=== PATIENT | female | born 2000 | race Caucasian/White ===

== ENCOUNTER 2024-06-30 15:50 | Outpatient (CLI) | payer BC, SELFPAY ==
[2024-07-05 03:07] LABS: Chlamydia By Nucleic Acid AMP Negative (Negative); Gonococcus By Nucleic Acid AMP Negative (Negative)
[2024-07-07 10:34] LABS: HPV Reflexed? NOT INDICATED
== END 2024-06-30 23:59 | disposition home or self-care (01) ==
LOC: LABSPEC 15:52
PROVIDERS: Referring Provider Advanced Practice Midwife; Visit Provider Advanced Practice Midwife
DX: Z12.4 Encounter for screening for malignant neoplasm of cervix (principal); Z34.00 Encounter for supervision of normal first pregnancy, unspecified trimester
CPT/HCPCS: 87086; 87088; 87491; 87591; 88175; G0145

== ENCOUNTER → 2024-07-04 | Outpatient (CLI) | payer BC, SELFPAY ==
[2024-07-04 17:02] LABS: Absolute Lymphocyte Count 1.44 X10^3/uL (0.83-4.51); Absolute Neutrophil Count 7.7 X10^3/uL (2.0-7.7); Basophil# 0.04 X10^3/uL; Basophil% 0.4 % (0-1); Eosinophil# 0.04 X10^3/uL; Eosinophils% 0.4 % (0-5); Hemoglobin 12.6 g/dL (12.0-15.0); Lymphocyte # 1.44 X10^3/ul (0.83-4.51); Lymphocyte % 14.4 % (19-41); Mean Corpuscular Volume 88.7 fL (81-99); Mean Platelet Vol. 10.7 fl (6.2-12.0); Monocyte# 0.81 X10^3/uL; Monocyte% 8.1 % (0-10); NRBC Flagged by Analyzer 0 % (0-5); Neutrophil # 7.65 X10^3/uL (2.7-7.7); Neutrophil % 76.4 % (47-70); Platelet Count 196 K/mm3 (150-450); RBC Distribution Width CV 13.2 % (11.6-14.6); RBC Distribution Width SD 42.5 fl (35.1-43.9); Red Blood Count 4.06 M/mm3 (4.2-5.4)
[2024-07-04 17:39] LABS: HIV Nonreactive (Nonreactive)
[2024-07-04 17:43] LABS: Hepatitis B Surface Antigen Nonreactive (Nonreactive); Hepatitis C Antibody Nonreactive (Nonreactive); Rubella IgG REAC (Nonreactive); Syphilis Antibodies Nonreactive (Nonreactive)
== END | disposition home or self-care (01) ==
PROVIDERS: Referring Provider Advanced Practice Midwife; Visit Provider Advanced Practice Midwife
DX: Z34.01 Encounter for supervision of normal first pregnancy, first trimester (principal)
CPT/HCPCS: 36415; 85025; 86703; 86762; 86780; 86803; 86850; 86900; 86901; 87340

== ENCOUNTER → 2024-11-01 | Outpatient (CLI) | payer BC, OTHER, SELFPAY ==
[2024-11-01 12:21] LABS: Hematocrit 34.2 % (37-47); Hemoglobin 11.5 g/dL (12.0-15.0); Immature Granulocytes Count 0.060 X10^3/uL (0.0-0.0); Mean Corp Hgb Conc 33.6 g/dL (32-36); Mean Corpuscular Volume 95.0 fL (81-99); Mean Platelet Vol. 11.2 fl (6.2-12.0); NRBC Flagged by Analyzer 0 % (0-5); Platelet Count 182 K/mm3 (150-450); RBC Distribution Width CV 12.7 % (11.6-14.6); RBC Distribution Width SD 43.9 fl (35.1-43.9); Red Blood Count 3.60 M/mm3 (4.2-5.4); White Blood Count 12.8 K/mm3 (4.4-11.0)
--- OUTSIDE RECORDS SUMMARY | 2024-11-01 12:29 | XMS RPT_ITS | CCD ---
Author Organization [facility] Care Team Providers Care Sccm Administrator Name Role Phone Cuate Copeland Unavailable Unavailable Robert Araiza Unavailable Unavailable Robert Araiza Unavailable Unavailable Litafshan, Achilles Akbar Primary Care Provider [phone] ODILON RODRIGUEZ Attending Unavailabl e LITAO, ACHILLES AKBAR Primary Care Unavailab le Oseguera KILN CLEANER-REAL PROPERTY APPRAISER, Loree D Primary Care Provider LOREE OSEGUERA Primary Care Unavailable OSEGUERA, LOREE D Primary Care Unavailable Oseguera KILN CLEANER-REAL PROPERTY APPRAISER, Loree D Unavailable [phone] NO, PHYSICIAN Primary Care Unavailable SHOSHANA PERRY Attending Unava ODILON Coto Attending Unavailable LOREE OSEGUERA Primary Care Unavailable Virginia Titus CNM Attending Provider [phone] Virginia Titus CNM Referring Provider SHELBIE MARTINEZ Referring Unavailab MADDY Eason Primary Care Unavailable SHELBIE MARTINEZ Attending Unavailab SHELBIE Mendieta Referring Unavailab JACKIE Lee Attending Unavailable MADDY CA Primary Care Unavailable SHELBIE MARTINEZ Referring Unavailab JACKIE Lee Attending Unavailable MADDY CA Primary Care Unavailable Dr. Shelbie Navarro DO Attending Provider Kathy OSUNA, Dr. Coleman Attending Provider Virginia Titus Attending Unavailable Virginia Titus Attending Unavailable Hilario CAMARA, Aranza Attending Unavailable Virginia Chavez Attending Unavailable Virginia Titus Referring Unavailable Virginia Titus Attending Unavailable Virginia Titus Referring Unavailable Virginia Titus Attending Unavailable Shelbie Navarro Attending UnavailVirginia Gastelum CNM Attending Provider Virginia Titus CNM Referring Provider [phone] Aranza Togn Attending Provider Allergies Allergy Classification Reported Allergen(s) Allergy Type Date of Onset Reaction(s) Facility (1 source) Seasonal allergy; Translations: [SEASONAL ALLERGIES] Propensity to adverse reactions (disorder) [facility] Repository Medications Current Medications Medication Drug Class(es) Dates Sig (Normalized) Sig (Original) [id number] 200 actuat albuterol 0.09 mg/actuat metered dose inhaler (4 sources) beta2-Adrenergic Agonist Start: 04-21-2023 take 2 puff(s) by inhalation every six hours for wheezing albuterol 90 mcg/actuation inhaler Indications: Asthma, exercise induced Inhale 2 puffs every 6 hours if needed for wheezing. 18 g 1 04/21/2023 Active Start: 11-25-2018 End: 04-21-2023 albuterol 90 mcg/actuation i nhaler Inhale 2 puffs. 0 11/25/2018 04/21/2023 Discontinued (Reorder) Start: 07-01-2017 albuterol (PRO VENTIL HFA) 90 mcg/actuation inhaler Inhale 2 puffs . 0 07/01/2017 Active azithromycin 250 mg oral tablet (1 source) Macrolide Antimicrobial Start: 04-21-2023 azithromycin (Zithromax) 250 mg tablet Indications: Acute non-recurrent maxillary sinusitis Take 2 tabs (500 mg) by mouth today, than 1 daily for 4 days. 6 tablet 0 04/21/2023 Active cetirizine hydrochloride 10 mg oral tablet (2 sources) Histamine-1 Receptor Antagonist Start: 04-12-2019 take 1 tablet by mouth once daily cetirizine (ZyrTEC) 10 mg tablet Take 1 tablet (10 mg) by mouth once daily. 0 04/12/2019 Active diphenhydrAMINE hydrochloride 50 mg oral capsule (4 sources) Histamine-1 Receptor Antagonist Start: 06-17-2024 take 1 capsule by mouth at bedtime Diphenhydramine Hcl (Unisom Sleepgels) 50 mg capsule Active 50 mg PO AT BEDTIME June 17, 2024 1:00am hydrocortisone 10 mg/ml / neomycin 3.5 mg/ml / polymyxin b 72053 unt/ml otic solution (1 source) Aminoglycoside Antibacterial, Polymyxin-class Antibacterial, Corticosteroid Start: 10-14-2018 End: 10-24-2018 neomycin-polymyxin- hydrocortisone (CORTISPORIN) otic solution Administer 4 (four) drops into the left ear 3 (three) times a day for 10 days . 10 mL 0 10/14/2018 10/24/2018 Active multivitamin capsule (2 sources) Start: 07-07-2012 take 1 capsule by mouth once daily multivitamin capsule Take 1 capsule by mouth once daily. 0 07/07/2012 Active Mv-Mn 427-Qr-Mh8-Dha-Epa-F violet 180 mcg-35 mg- 25 mg-5 mg tablet,chewable (2 sources) Start: 06-17-2024 Mv-Mn 525-Ld-Jm2-Dha-Epa- Fish 180 mcg-35 mg- 25 mg-5 mg tablet,chewable Active {tbl} PO June 17, 2024 1:00am Pnv No.719-Sj-Uz4-Dha-Ep a-Fish 180 mcg-35 mg- 25 mg-5 mg tablet,chewable (2 sources) Start: 06-17-2024 Pnv No.770-Jo-Ms4-Dha-E pa-Fish 180 mcg-35 mg- 25 mg-5 mg tablet,chewable Active {tbl} PO June 17, 2024 1:00am vitamin b6 100 mg oral tablet (4 sources) Start: 06-17-2024 take 1 tablet by mouth at bedtime Pyridoxine (Vitamin B6) 100 mg tablet Active 100 mg PO AT BEDTIME June 17, 2024 1:00am Completed/Discontinued Medications Medication Drug Class(es) Dates Sig (Normalized) Sig (Original) Acetaminophen / Dextromethorphan (2 sources) Uncompetitive T-bhvslj-T-aspartat e Receptor Antagonist, Sigma-1 Agonist End: 04-21-2023 acetaminophen/dex tromethorphan (ACETAMINOPHEN-DM ORAL) Take by mouth. 0 04/21/2023 Discontinued (Therapy completed) acetaminophen/de xtromethorphan (ACETAMINOPHEN-DM ORAL) Take by mouth. 0 Active Problems Active Problems Problem Classification Problem Date Documented Date Episodic/Chronic Abdominal pain (2 sources) Unspecified abdominal pain; Translations: [Unspecified abdominal pain] Onset: 09-03-2023 Episodic Asthma (6 sources) Exercise-induced asthma; Translations: [Exercise induced bronchospasm] Onset: 07-10-2017 09-23-2022 Chronic Other complications of (14 sources) Varicella non-immune; Translations: [Supervision of other high risk pregnancies, unspecified trimester] 06-17-2024 Episodic Other complications of (1 source) Supervision of other high risk pregnancies, unspecified trimester; Translations: [Supervision of other high risk pregnancies, unspecified trimester] Onset: 10-03-2024 Episodic Other ear and sense organ disorders (1 source) Acute otitis externa; Translations: [Acute swimmer's ear of left side] Episodic Other nutritional; endocrine; and metabolic disorders (2 sources) Intolerance to lactose; Translations: [Lactose intolerance, unspecified] Onset: 11-25-2018 09-23-2022 Chronic Other conditions (7 sources) choroid plexus cyst 09-08-2024 Episodic Comment on above: LR NIPT Other and delivery including normal (20 sources) Normal ; Translations: [Encounter for supervision of normal first , unspecified trimester] Onset: 07-13-2024 07-06-2024 Episodic Comment on above: PRR, , KAROLINA 01/30, Dominick([facility]) elects NIPT with gen melina PRR, , KAROLINA 01/30, boy, Dominick([facility]) NIPT low risk PRR, , KAROLINA 01/30, boy, Graidy Dominick([facility]) NIPT low risk, anato my reveiwed fu views needed Other screening for suspected conditions (not mental disorders or infectious disease) (3 sources) Other specified abnormal findings of blood chemistry; Translations: [Encounter for screening for malignant neoplasm of cervix] Onset: 03-03-2023 Episodic Other upper respiratory disease (2 sources) Allergic rhinitis; Translations: [Allergic rhinitis, unspecified] Onset: 04-12-2019 09-23-2022 Chronic Residual codes; unclassified (1 source) 23 weeks gestation of ; Translations: [23 weeks gestation of ] Onset: 10-03-2024 Episodic Unclassified (1 source) Other underimmunization status; Translations: [Other underimmunization status] Onset: 10-03-2024 Past or Other Problems Problem Classification Problem Date Documented Da te Episodic/Chronic Administrative/social admission (3 sources) Patient encounter status; Translations: [Persons encountering health services in other specified circumstances] Onset: 09-23-2022 09-23-2022 Episodic Other skin disorders (1 source) Acne; Translations: [Acne vulgaris] Onset: 11-25-2018 09-23-2022 Episodic Other skin disorders (1 source) Acne vulgaris; Translations: [Acne vulgaris] Onset: 11-25-2018 09-23-2022 Episodic Other upper respiratory infections (3 sources) Acute maxillary sinusitis; Translations: [Acute maxillary sinusitis, unspecified] Onset: 04-21-2023 04-21-2023 Episodic Residual codes; unclassified (1 source) 9 weeks gestation of ; Translations: [9 weeks gestation of ] Onset: 06-30-2024 Episodic Unclassified (2 sources) Onset: 09-23-2022 Resolved: 04-21-2023 09-23-2022 Results Test Name Value Interpretation Reference Range Facility Laboratory - Chemistry and C hemistry - challengeOrdered By: Virginia Titus on 10-03-2024 Glucose Ql (U) Negative [facility] Laboratory - UrinalysisOrder ed By: Virginia Titus on 10-03-2024 Protein Ql (U) Negative [facility] Office Visit Reporton 10-03-2024 [facility] Office Visit Report [facility] [address], [address] [place] [address] OFFICE VISIT Date of Service: 10/03/24 MR#: [id number] Acct: [id number] Name: RENUKA KWAN Rep #: [id number] : 2000 Provider: NAZANIN Cai ams Age/Sex: 24/F [place] [facility] [place]: [place] Intake Vital Signs 08/08/24 10:16 09/08/24 10:54 10/03/24 10:43 Height 5 ft 3 in 5 ft 3 in 5 ft 3 in Weight: 130 lb 4 oz BMI 23.1 BP 134/87 H Intake Visit Reasons: 21 wk ob Chief 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 Is patient in pain?: No Allergies No Known Allergies Allergy (Unverified 10/03/24 10:41) Medications ???Medication ???Instructions ???Recorded ???Confirmed ???Type diphenhydramine HCl 50 mg capsule 50 mg PO QHS 06/17/24 10/03/24 Hi story (Unisom SleepGels) mv-mn 110-FA 180 mcg-om3 35 mg-dha tab PO 06/17/24 10/03/24 History 25 mg-epa 5 mg-fish oil chew tablet pyridoxine (vitamin B6) 100 mg 100 mg PO QHS 06/17/24 10/03/24 Hi story tablet Last Menstrual Period: 04/25/24 : No Have you fallen in the past year?: No PFSH PFSH Medical History Asthma Surgical History Siloam teeth extracted Family History Grandmother Cancer, Onset Age: 75 Paternal- Kidney Father High cholesterol Social History adopted: No household members: spouse and other details: Sister Fiance housing: house current occupational status: employed current occupation: [employer]- [employer] current occupational exposures/hazards: No pets and animals: Yes pets and animals: dog(s) history of recent travel: No sexually active: Yes Smoking Status: Never smoker alcohol intake: current alcohol intake frequency: holidays/special occasions only details: not while substance use type: does not use well-balanced diet: daily or most days caffeine: No eating out: 1-3 times/week during the past year weight has: remained stable what type of physical activity do you participate in: walking frequency: 1-2 times per week duration: 15-30 minutes/day antoine/bahai: Christianity seatbelt use: always do you feel safe at home: No additional social history: Dominick- Landscaping/Marine History 1 Elective abortions Hx Para 0 Spontaneous abortions Hx # Term Pregnancies Ectopic pregnancies Hx # Pregnancies Multiple births # of living children HPI 21 wk ob Details: RENUKA KWAN is a 24 year old who presents for routine OB visit. OB Visit KAROLINA Calculator Estimated Delivery Date Method Current WG Current Estimate 01/30/25 LMP (Certain) 23w 0d Other Estimates 01/25/25 Ultrasound #1 23w 5d 01/25/25 Ultrasound #2 23w 5d Expected Delivery Route/Plan Labor Preferences- CB/BF classes: [] labor support person: [] labor intervention preferences: [] pain management options preferred: [] cut cord/dad catch: [] : [] PP control planned: [] discussed possible routes of delivery and associated risks: [] special requests: [] Specific Issue/Plans Covid status: [] Flu vaccine: [] Tdap vaccine: [] Rhogam: [] LARC form signed: [] Problem list reviewed and updated with the most current plan of care details and appropriate orders placed. Relevant counseling for the gestational age provided. Continue routine care and follow up unless otherwise noted in visit notes/problem list details Initial Weight: 115 lb Date -???-???-???-???-?? ?-???-???-???-???-? ??-???-???- EGA Weight BP Urine Prot -???-???-???-???-?? ?-???-???-???-???-? ??-???-???- Glucose FHR FuHt Pres Dilation -???-???-???-???-?? ?-???-???-???-???-? ??-???-???- Effaced St Visit Note 06/30/24 -???-???-???-???-?? ?-???-???-???-???-? ??-???-???- 9w 3d 115 lb 6 oz (+6 oz) 132/82 -???-???-???-???-?? ?-???-???-???-???-? ??-???-???- 169 -???-???-???-???-?? ?-???-???-???-???-? ??-???-???- KW CRL cons with dates. Accepts NIPT 08/08/24 -???-???-???-???-?? ?-???-???-???-???-? ??-???-???- 15w 0d 116 lb 8 oz (+1 lb 8 oz) 123/77 Negative -???-???-???-???-?? ?-???-???-???-???-? ??-???-???- Negative 144 -???-???-???-???-?? ?-???-???-???-???-? ??-???-???- JV- no cramp ing or spotting. anatomy ordered with mfm. 09/08/24 -???-???-???-???-?? ?-???-???-???-???-? ??-???-???- 19w 3d 125 lb (+10 lb) 133/75 Negative -???-???-???-???-?? ?-???-???-???-???-? ??-???-???- Negative 140 -???-???-???-???-?? ?-???-???-???-???-? ??-???-???- SM- no vb lo f crmaping anatomy reviewed 10/03/24 -???-???-???-???-?? ?-???-???-???-???-? ??-???-???- 23w 0d 130 (more content not included)... Normal [facility] Progress Noteon 09-15-2024 Registered Nurse Post Partum Authentication Interface Message Text [facility]- MEDICINE CONSULT Referring/Kyleein janet Provider: Shelbie Martinez, * PCP: Maddy Ca, FLOR-GURWINDER INDICATION FOR CONSULT: choroid plexus cyst and [...] 09/15/24 encounter (Office Visit) with Jackie Morales, Medication Sig Dispense Refill pyridoxine (B-6) 100 [...] biometry consistent with clinical dates. 2. 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 Choroid plexus cysts (ARMORED CAR GUARD AND DRIVER) are small fluid-filled structures within the [...] Comments) Pollen allergy- eyes swelling and itchy [facility] Laboratory - Chemistry and C hemistry - challengeOrdered By: Virginia Chavez on 09-08-2024 Glucose Ql (U) Negative [facility] Laboratory - UrinalysisOrder ed By: Virginia Chavez on 09-08-2024 Protein Ql (U) Negative [facility] Office Visit Reporton 09-08-2024 [facility] Office Visit Report [facility]'s [address], [address] [place] [address] OFFICE VISIT Date of Service: 09/08/24 MR#: [id number] Acct: [id number] Name: RENUKA KWAN Rep #: [id number] : 2000 Provider: Dr. Virginia sampson MD Age/Sex: 24/F [place] [facility] [place]: Signed Intake Vital Signs 06/30/24 14:27 08/08/24 10:16 09/08/24 10:49 09/08/24 10:54 Height 5 ft 3 in 5 ft 3 in 5 ft 3 in 5 ft 3 in Weight: 125 lb BMI 22.1 BP 133/75 H Intake Visit Reasons: 17 WK 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 Is patient in pain?: No Allergies No Known Allergies Allergy (Unverified 09/08/24 10:50) Medications ???Medication ???Instructions ???Recorded ???Confirmed ???Type diphenhydramine HCl 50 mg capsule 50 mg PO QHS 06/17/24 09/08/24 Hi story (Unisom SleepGels) mv-mn 110-FA 180 mcg-om3 35 mg-dha tab PO 06/17/24 09/08/24 History 25 mg-epa 5 mg-fish oil chew tablet pyridoxine (vitamin B6) 100 mg 100 mg PO QHS 06/17/24 09/08/24 Hi story tablet Last Menstrual Period: 04/25/24 Zika: Zika virus screening: Negative : No PFSH PFSH Medical History Asthma Surgical History Siloam teeth extracted Family History Grandmother Cancer, Onset Age: 75 Paternal- Kidney Father High cholesterol Social History adopted: No household members: spouse and other details: Sister Fiance housing: house current occupational status: employed 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 current occupational exposures/hazards: No pets and animals: Yes pets and animals: dog(s) history of recent travel: No sexually active: Yes Smoking Status: Never smoker alcohol intake: current alcohol intake frequency: holidays/special occasions only details: not while substance use type: does not use well-balanced diet: daily or most days caffeine: No eating out: 1-3 times/week during the past year weight has: remained stable what type of physical activity do you participate in: walking frequency: 1-2 times per week duration: 15-30 minutes/day antoine/bahai: Christianity seatbelt use: always do you feel safe at home: No additional social history: Dominick- Landscaping/Marine History 1 Elective abortions Hx Para 0 Spontaneous abortions Hx # Term Pregnancies Ectopic pregnancies Hx # Pregnancies Multiple births # of living children HPI 17 WK OB Details: RENUKA KWAN is a 24 year old who presents for routine OB visit. OB Visit KAROLINA Calculator Estimated Delivery Date Method Current WG Current Estimate 01/30/25 LMP (Certain) 19w 3d Other Estimates 01/25/25 Ultrasound #1 20w 1d 01/25/25 Ultrasound #2 20w 1d Expected Delivery Route/Plan Labor Preferences- CB/BF classes: [] labor support person: [] labor intervention preferences: [] pain management options preferred: [] cut cord/dad catch: [] : [] PP control planned: [] discussed possible routes of delivery and associated risks: [] special requests: [] Specific Issue/Plans Covid status: [] Flu vaccine: [] Tdap vaccine: [] Rhogam: [] LARC form signed: [] Problem list reviewed and updated with the most current plan of care details and appropriate orders placed. Relevant counseling for the gestational age provided. Continue routine care and follow up unless otherwise noted in visit notes/problem list details Initial Weight: 115 lb Date -???-???-???-???-?? ?-???-???-???-???-? ??-???-???- EGA Weight BP Urine Prot -???-???-???-???-?? ?-???-???-???-???-? ??-???-???- Glucose FHR FuHt Pres Dilation -???-???-???-???-?? ?-???-???-???-???-? ??-???-???- Effaced St Visit Note 06/30/24 -???-???-???-???-?? ?-???-???-???-???-? ??-???-???- 9w 3d 115 lb 6 oz (+6 oz) 132/82 -???-???-???-???-?? ?-???-???-???-???-? ??-???-???- 169 -???-???-???-???-?? ?-???-???-???-???-? ??-???-???- KW CRL cons with dates. Accepts NIPT 08/08/24 -???-???-???-???-?? ?-???-???-???-???-? ??-???-???- 15w 0d 116 lb 8 oz (+1 lb 8 oz) 123/77 Negative -???-???-???-???-?? ?-???-???-???-???-? ??-???-???- Negative 144 -???-???-???-???-?? ?-???-???-???-???-? ??-???-???- JV- no cramp ing or spotting. anatomy ordered with mfm. 09/08/24 -???-???-???-???-?? ?-???-???-???-???-? ??-???-???- 19w 3d 125 lb (+10 lb) 133/75 Negative -???-???-???-???-?? ?-???-???-???-???-? ??-???-???- Negative 140 -???-???-???-???-?? ?-???-???-???-???-? ??-???-???- SM- no vb lo f crmaping anatomy reviewed ACOG First Trimester First Trimester: Desire for pre (more content not included)... Normal [facility] Progress Noteon 09-05-2024 Registered Nurse Post Partum Authentication Interface Message Text Returned patient's call and reviewed overall benign findings with patient. Patient's questions and concerns were addressed. Patient scheduled for follow up ultrasound on 09/15/24. Normal [facility] - Chemistry and C hemistry - challengeOrdered By: Shelbie Britton on 08-08-2024 Glucose Ql (U) Negative [facility] Laboratory - UrinalysisOrder ed By: Shelbie Britton on 08-08-2024 Protein Ql (U) Negative [facility] Office Visit Reporton 08-08-2024 [facility] Office Visit Report [facility] [address], [address] [place] [address] OFFICE VISIT Date of Service: 08/08/24 MR#: [id number] Acct: [id number] Name: RENUKA KWAN Rep #: [id number] : 2000 Provider: Dr. 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 Is patient in pain?: No Allergies No Known Allergies Allergy (Unverified 08/08/24 10:12) Medications ???Medication ???Instructions ???Recorded ???Confirmed ???Type PNV 178-FA 180 mcg-om3 35 mg-dha tab PO 06/17/24 08/08/24 History 25 mg-epa 5 mg-fish oil chew tablet diphenhydramine HCl 50 mg capsule 50 mg PO QHS 06/17/24 08/08/24 Hi story (Unisom SleepGels) pyridoxine (vitamin B6) 100 mg 100 mg PO QHS 06/17/24 08/08/24 Hi story tablet Last Menstrual Period: 04/25/24 : No Have you fallen in the past year?: No PFSH PFSH Medical History Asthma Surgical History Siloam teeth extracted Family History Grandmother Cancer, Onset Age: 75 Paternal- Kidney Father High cholesterol Social History adopted: No household members: spouse and other details: Sister Fiance housing: house current occupational status: employed current occupation: [employer]- [employer] current occupational exposures/hazards: No pets and animals: Yes pets and animals: dog(s) history of recent travel: No sexually active: Yes Smoking Status: Never smoker alcohol intake: current alcohol intake frequency: holidays/special occasions only details: not while substance use type: does not use well-balanced diet: daily or most days caffeine: No eating out: 1-3 times/week during the past year weight has: remained stable what type of physical activity do you participate in: walking frequency: 1-2 times per week duration: 15-30 minutes/day antoine/bahai: Christianity seatbelt use: always do you feel safe at home: No additional social history: Dominick- Landscaping/Marine History 1 Elective abortions Hx Para 0 Spontaneous abortions Hx # Term Pregnancies Ectopic pregnancies Hx # Pregnancies Multiple births # of living children HPI 13 wk OB Details: RENUKA KWAN is a 24 year old who presents for routine OB visit. OB Visit KAROLINA Calculator Estimated Delivery Date Method Current WG Current Estimate 01/30/25 LMP (Certain) 15w 0d Other Estimates 01/25/25 Ultrasound #1 15w 5d 01/25/25 Ultrasound #2 15w 5d Expected Delivery Route/Plan Labor Preferences- CB/BF classes: [] labor support person: [] labor intervention preferences: [] pain management options preferred: [] cut cord/dad catch: [] : [] PP control planned: [] discussed possible routes of delivery and associated risks: [] special requests: [] Specific Issue/Plans Covid status: [] Flu vaccine: [] Tdap vaccine: [] Rhogam: [] LARC form signed: [] Problem list reviewed and updated with the most current plan of care details and appropriate orders placed. Relevant counseling for the gestational age provided. Continue routine care and follow up unless otherwise noted in visit notes/problem list details Initial Weight: 115 lb Date -???-???-???-???-?? ?-???-???-???-???-? ??-???-???- EGA Weight BP Urine Prot -???-???-???-???-?? ?-???-???-???-???-? ??-???-???- Glucose FHR FuHt Pres Dilation -???-???-???-???-?? ?-???-???-???-???-? ??-???-???- Effaced St Visit Note 06/30/24 -???-???-???-???-?? ?-???-???-???-???-? ??-???-???- 9w 3d 115 lb 6 oz (+6 oz) 132/82 -???-???-???-???-?? ?-???-???-???-???-? ??-???-???- 169 -???-???-???-???-?? ?-???-???-???-???-? ??-???-???- KW CRL cons with dates. Accepts NIPT 08/08/24 -???-???-???-???-?? ?-???-???-???-???-? ??-???-???- 15w 0d 116 lb 8 oz (+1 lb 8 oz) 123/77 Negative -???-???-???-???-?? ?-???-???-???-???-? ??-???-???- Negative 144 -???-???-???-???-?? ?-???-???-???-???-? ??-???-???- JV- no cramp ing or spotting. anatomy ordered with mfm. ACOG First Trimester First Trimester: Desire for , Alcohol, Tobacco Cessation, Illicit/Recreationa l Drug/Substance Use, Intimate Partner Violence, Barriers to care, Anticipated Course of Care, Use of Any medications, Sexual activity, Exercise, Dental Care, Sauna/Hot tub use, Seat Belt use, Childbirth clas (more content not included)... Normal [facility] Chlamydia/GC MABEL aptimaon CHLAMY,NUC ACID Negative Normal Negative [facility] Comment on above: Performed By: #### L 7000.1800, [id number], M100.2200 ####[facility] [id number] [place], [place], [id number] GC BY NUC ACID Negative Normal Negative [facility] Comment on above: Result Comment: Perf ormed at: =G - [facility] [address] [place] [id number] Maintenance Service Supervisor: Geovanna Torres MD, Phone: [id number] Performed By: #### L 7000.1800, L7400.0353, M100.2200 ####[facility] [address] [place], [place], [id number] PAP I-G w/rfx hrHPV-Aptimaon 07-05-2024 ADEQ Comment Normal . [facility] Comment on above: Order Comment: Speci men Comment: [id number] Comment: Source.............CervixSpecimen Comment: LMP / Prev Treat...[id number] Comment: Other..............Specimen Comment: No. of containers..01 ThinPrep Vial Result Comment: Sati sfactory for evaluation. No endocervical component is identified. Performed By: #### L 7000.1800, L7400.0353, M100.2200 ####[facility] [address] [facility]. [place], [place], [id number] COMM . Normal . [facility] Comment on above: Order Comment: Speci men Comment: [id number] Comment: Source.............CervixSpecimen Comment: LMP / Prev Treat...[id number] Comment: Other..............Specimen Comment: No. of containers..01 ThinPrep Vial Performed By: #### L 7000.1800, L7400.0353, M100.2200 ####[facility] [address] [place], [place], [id number] COMMENT Comment Normal . [facility] Comment on above: Order Comment: Speci men Comment: [id number] Comment: Source.............CervixSpecimen Comment: LMP / Prev Treat...[id number] Comment: Other..............Specimen Comment: No. of containers..01 ThinPrep Vial Result Comment: This liquid based ThinPrep(R) pap test was screened with the use of an image guided system. Performed By: #### L 7000.1800, L7400.0353, M100.2200 ####[facility] [address] [place], [address] DIAG Comment Normal . [facility] Comment on above: Order Comment: Speci men Comment: [id number] Comment: Source.............CervixSpecimen Comment: LMP / Prev Treat...[id number] Comment: Other..............Specimen Comment: No. of containers..01 ThinPrep Vial Result Comment: NEGA TIVE FOR INTRAEPITHELIAL LESION OR MALIGNANCY. Performed By: #### L 7000.1800, L7400.0353, .2199 ####[facility] [address] [place], [address] HPV RFLX Comment Normal . [facility] Comment on above: Order Comment: Speci men Comment: [id number] Comment: Source.............CervixSpecimen Comment: LMP / Prev Treat...[id number] Comment: Other..............Specimen Comment: No. of containers..01 ThinPrep Vial Result Comment: The HPV DNA reflex criteria were not met with this specimen result therefore, no HPV testing was performed. Performed at: [facility] [address] [place], [place] [id number] Maintenance Service Supervisor: Chaitanya Diaz MD, Phone: [phone] Performed at: - [address] [id number] Maintenance Service Supervisor: Geovanna Torres MD, Phone: [phone] Performed By: #### L 7000.1800, L7400.0353, M1.0 ####[facility] [address] [place], [place], [address] PAPSMR Comment Normal . [facility] Comment on above: Order Comment: Speci men Comment: [id number] Comment: Source.............CervixSpecimen Comment: LMP / Prev Treat...[id number] Comment: Other..............Specimen Comment: No. of containers..01 ThinPrep Vial Result Comment: The Pap smear is a screening test designed to aid in the detection of premalignant and malignant conditions of the uterine cervix. It is not a diagnostic procedure and should not be used as the sole means of detecting cervical cancer. Both false-positive and false-negative reports do occur. Performed By: #### L 7000.1800, L7400.0353, M100.2200 ####[facility] [address] [place], [place], [id number] PERFORM Comment Normal . [facility] Comment on above: Order Comment: Speci men Comment: [id number] Comment: Source.............CervixSpecimen Comment: LMP / Prev Treat...[id number] Comment: Other..............Specimen Comment: No. of containers..01 ThinPrep Vial Result Comment: Ioana Max, Information Systems Manager (ASCP) Performed By: #### L 7000.1800, L7400.0353, M100.2200 ####[facility] [address] [place], [place], [id number] Absolute lymphocyte countOrd ered By: Virginia Titus on 07-04-2024 Lymphocytes Auto (Unsp spec) [#/Vol] 1.44 10*3/uL 0.83-4.51 [facility] Absolute neutrophil countOrd ered By: Virginia Titus on 07-04-2024 Neutrophils (Bld) [#/Vol] 7.7 10*3/uL 2.0-7.7 [facility] Automated lymphocyte count a s percentage of total leukocytesOrdered By: Virginia Titus on 07-04-2024 Lymphocytes/100 WBC Auto (Unsp spec) 14.4 % Low 19-41 [facility] Basophil percentageOrdered B y: Virginia Titus on 07-04-2024 Basophils/100 WBC (Bld) 0.4 % 0-1 [facility] CBC W/Diff, Automatedon 06-18 Absolute Lymph 1.44 X10 3/uL Normal 0.83-4.51 [facility] Comment on above: Performed By: #### L 3890.6102, L900.0098, L3890.6006, BTS, L3890.6301, L100.0100, L509.4006, L509.8002 #### [facility] [address] [place], [address] Absolute Neut 7.7 X10 3/uL Normal 2.0-7.7 [facility] Comment on above: Performed By: #### L 3890.6102, L900.0098, L3890.6006, BTS, L3890.6301, L100.0100, L509.4006, L509.8002 #### [facility] [address] [place], [address] Basophils/100 WBC (Bld) 0.4 % Normal 0-1 [facility] Comment on above: Performed By: #### L 3890.6102, L900.0098, L3890.6006, BTS, L3890.6301, L100.0100, L509.4006, L509.8002 #### [facility] [address] [place], [address] Eosinophils/100 WBC (Bld) 0.4 % Normal 0-5 [facility] Comment on above: Performed By: #### L 3890.6102, L900.0098, L3890.6006, BTS, L3890.6301, L100.0100, L509.4006, L509.8002 #### [facility] [address] [place], [address] Erythrocyte distribution width (RBC) [Ratio] 13.2 % Normal 11.6-14.6 [facility] Comment on above: Performed By: #### L 3890.6102, L900.0098, L3890.6006, BTS, L3890.6301, L100.0100, L509.4006, L509.8002 #### [facility] [address] [place], [address] Hematocrit (Bld) [Volume fraction] 36.0 % Low 37-47 [facility] Comment on above: Performed By: #### L 3890.6102, L900.0098, L3890.6006, BTS, L3890.6301, L100.0100, L509.4006, L509.8002 #### [facility] [address] [place], [address] Hemoglobin (Bld) [Mass/Vol] 12.6 g/dL Normal 12.0-15.0 [facility] Comment on above: Performed By: #### L 3890.6102, L900.0098, L3890.6006, BTS, L3890.6301, L100.0100, L509.4006, L509.8002 #### [facility] [address] [place], [address] IG% 0.300 Normal 0.0-0.9 [facility] Comment on above: Result Comment: IG% - Immature Granulocytes (promyelocytes, myelocytes and metamyelocytes) > 1% indicates that a LEFT SHIFT is Present. Performed By: #### L 3890.6102, L900.0098, L3890.6006, BTS, L3890.6301, L100.0100, L509.4006, L509.8002 #### [facility] [address] [place], [address] Lymphocytes/100 WBC (Bld) 14.4 % Low 19-41 [facility] Comment on above: Performed By: #### L 3890.6102, L900.0098, L3890.6006, BTS, L3890.6301, L100.0100, L509.4006, L509.8002 #### [facility] [address] [place], [address] MCH (RBC) [Entitic mass] 31.0 pg Normal 27.0-32.0 [facility] Comment on above: Performed By: #### L 3890.6102, L900.0098, L3890.6006, BTS, L3890.6301, L100.0100, L509.4006, L509.8002 #### [facility] [address] [place], [address] MCHC (RBC) [Mass/Vol] 35.0 g/dL Normal 32-36 [facility] Comment on above: Performed By: #### L 3890.6102, L900.0098, L3890.6006, BTS, L3890.6301, L100.0100, L509.4006, L509.8002 #### [facility] [address] [place], [address] MCV (RBC) [Entitic vol] 88.7 fL Normal 81-99 [facility] Comment on above: Performed By: #### L 3890.6102, L900.0098, L3890.6006, BTS, L3890.6301, L100.0100, L509.4006, L509.8002 #### [facility] [address] [place], [address] Monocytes/100 WBC (Bld) 8.1 % Normal 0-10 [facility] Comment on above: Performed By: #### L 3890.6102, L900.0098, L3890.6006, BTS, L3890.6301, L100.0100, L509.4006, L509.8002 #### [facility] [address] [place], [address] Neutrophils/100 WBC (Bld) 76.4 % High 47-70 [facility] Comment on above: Performed By: #### L 3890.6102, L900.0098, L3890.6006, BTS, L3890.6301, L100.0100, L509.4006, L509.8002 #### [facility] [address] [place], [address] Nucleated RBC (Bld) [#/Vol] 0 10*3/uL Normal 0-5 [facility] Comment on above: Performed By: #### L 3890.6102, L900.0098, L3890.6006, BTS, L3890.6301, L100.0100, L509.4006, L509.8002 #### [facility] [address] [place], [address] Platelet mean volume (Bld) [Entitic vol] 10.7 fL Normal 6.2-12.0 [facility] Comment on above: Performed By: #### L 3890.6102, L900.0098, L3890.6006, BTS, L3890.6301, L100.0100, L509.4006, L509.8002 #### [facility] [address] [place], [address] Platelets (Bld) [#/Vol] 196 10*3/uL Normal 150-450 [facility] Comment on above: Performed By: #### L 3890.6102, L900.0098, L3890.6006, BTS, L3890.6301, L100.0100, L509.4006, L509.8002 #### [facility] [address] [place], [address] RBC (Bld) [#/Vol] 4.06 10*6/uL Low 4.2-5.4 [facility] Comment on above: Performed By: #### L 3890.6102, L900.0098, L3890.6006, BTS, L3890.6301, L100.0100, L509.4006, L509.8002 #### [facility] [address] [place], [address] RDW SD 42.5 fl Normal 35.1-43.9 [facility] Comment on above: Performed By: #### L 3890.6102, L900.0098, L3890.6006, BTS, L3890.6301, L100.0100, L509.4006, L509.8002 #### [facility] [address] [place], [address] WBC (Bld) [#/Vol] 10.0 10*3/uL Normal 4.4-11.0 [facility] Comment on above: Performed By: #### L 3890.6102, L900.0098, L3890.6006, BTS, L3890.6301, L100.0100, L509.4006, L509.8002 #### [facility] [address] [place], [address] Eosinophil percentageOrdered By: Virginia Titus on 07-04-2024 Eosinophils/100 WBC (Bld) 0.4 % 0-5 [facility] Erythrocyte distribution wid th ratioOrdered By: Virginia Titus on 07-04-2024 Erythrocyte distribution width (RBC) [Ratio] 13.2 % 11.6-14.6 [facility] Erythrocyte distribution wid th standard deviationOrdered By: Virginia Titus on 07-04-2024 Erythrocyte distribution width (RBC) [Entitic vol] 42.5 fL 35.1-43.9 [facility] Erythrocyte distribution width (RBC) [Ratio] 42.5 fl 35.1-43.9 [facility] HBV surface Ag Ql (S)Ordered By: Virginia Titus on 07-04-2024 Hepatitis B Surface Antigen Non-Reactive Nonreactive [facility] Comment on above: Reactive: Presumptiv e evidence of HBV. Repeatedly reactive samples must be confirmed using a neutralization test ([employer] HBsAg Confirmatory Test)Non-Reactive: HBsAg not detected; does not exclude the possibility of exposure to HBV Hematocrit Auto (Bld) [Volum e fraction]Ordered By: Virginia Titus on 07-04-2024 Hematocrit (Bld) [Volume fraction] 36.0 % Low 37-47 [facility] Hemoglobin measurementOrdere d By: Virginia Titus on 07-04-2024 Hemoglobin (Bld) [Mass/Vol] 12.6 g/dL 12.0-15.0 [facility] Hepatitis C antibodyOrdered By: Virginia Titus on 07-04-2024 Hepatitis C Antibody Non-Reactive Nonreactive [facility] Comment on above: Reactive: Presumptiv e evidence of antibodies to HCV. Follow CDC recommendations for supplemental testing.Non-Reactive: Antibodies to HCV were not detected; does not exclude the possibility of exposure to HCVReactive Results are presumptive evidence of antibodies to HCV. Follow CDC recommendations for supplemental testing.Order confirmation testing: HCV Quant by PCR testing - HCVPCR #[id number] Non Reactive: < 0.8 Equivocal: >/= 0.8 to < 1.0 Reactive: >/= 1.0The CDC requires that a reactive/equivocal HCV antibody result be sent out for confirmation. HCV Quant by PCR testing. Immature granulocytes/100 WB C Auto (Bld)Ordered By: Virginia Titus on 07-04-2024 Immature granulocytes/100 WBC (Bld) 0.300 % 0.0-0.9 [facility] Comment on above: IG% - Immature Granu locytes (promyelocytes, myelocytes and metamyelocytes) > 1% indicates that a LEFT SHIFT is Present. L3890.6006on 07-04-2024 HIV Non-Reactive Normal Nonreactive [facility] Comment on above: Result Comment: Non- Reactive Reactive Repeatedly reactive samples must be confirmed according to CDC recommended confirmatory algorithms. The subresults for either HIVAG or AHIV can be used as an aid in the selection of the confirmation algorithm for reactive samples. Send out specimens with Reactive results to [facility] for confirmation. Order the HIV antibody detection and differentiation: [id number] Performed By: #### L 3890.6102, L900.0098, L3890.6006, BTS, L3890.6301, L100.0100, L509.4006, L509.8002 #### [facility] [address] [facility] [place], [address] L3890.6102on 07-04-2024 HEP B Surf Ag Non-Reactive Normal Nonreactive [facility] Comment on above: Result Comment: Reac tive: Presumptive evidence of HBV. Repeatedly reactive samples must be confirmed using a neutralization test ([employer] HBsAg Confirmatory Test) Non-Reactive: HBsAg not detected; does not exclude the possibility of exposure to HBV Performed By: #### L 3890.6102, L900.0098, L3890.6006, BTS, L3890.6301, L100.0100, L509.4006, L509.8002 #### [facility] [address] [place], [address] L3890.6301on 07-04-2024 Hepatitis C Ab Non-Reactive Normal Nonreactive [facility] Comment on above: Result Comment: Reac tive: Presumptive evidence of antibodies to HCV. Follow CDC recommendations for supplemental testing. Non-Reactive: Antibodies to HCV were not detected; does not exclude the possibility of exposure to HCV Reactive Results are presumptive evidence of antibodies to HCV. Follow CDC recommendations for supplemental testing. Order confirmation testing: HCV Quant by PCR testing - HCVPCR #[id number] Non Reactive: < 0.8 Equivocal: >/= 0.8 to < 1.0 Reactive: >/= 1.0 The CDC requires that a reactive/equivocal HCV antibody result be sent out for confirmation. HCV Quant by PCR testing. Performed By: #### L 3890.6102, L900.0098, L3890.6006, BTS, L3890.6301, L100.0100, L509.4006, L509.8002 ####[facility] [address] [place], [address] L509.4006on 07-04-2024 Rubella IgG REAC Normal Nonreactive [facility] Comment on above: Result Comment: Anti body Result: Interpretation Non-Reactive: Non-Immune Reactive: Immune The following results were obtained with the [employer] Rubella IgG assay. Results from assays of other manufacturers cannot be used interchangeably. Performed By: #### L 3890.6102, L900.0098, L3890.6006, BTS, L3890.6301, L100.0100, L509.4006, L509.8002 #### [facility] [address] [facility] [place], [place], [address] L509.8002on 07-04-2024 Syphilis Abs Non-Reactive Normal Nonreactive [facility] Comment on above: Performed By: #### L 3890.6102, L900.0098, L3890.6006, BTS, L3890.6301, L100.0100, L509.4006, L509.8002 #### [facility] [address] [facility] [place], [place], [address] Laboratory - Microbiology an d Antimicrobial susceptibilityOrdered By: Virginia Titus on 07-04-2024 HBV surface Ag Ql (S) Non-Reactive Nonreactive [facility] Comment on above: Reactive: Presumptiv e evidence of HBV. Repeatedly reactive samples must be confirmed using a neutralization test ([employer] HBsAg Confirmatory Test)Non-Reactive: HBsAg not detected; does not exclude the possibility of exposure to HBV Lymphocytes Auto (Unsp spec) [#/Vol]Ordered By: Virginia Titus on 07-04-2024 Lymphocytes (Bld) [#/Vol] 1.44 10*3/uL 0.83-4.51 [facility] Lymphocytes/100 WBC Auto (Un sp spec)Ordered By: Virginia Titus on 07-04-2024 Lymphocytes/100 WBC (Bld) 14.4 % Low 19-41 [facility] MCV (mean corpuscular volume ) determinationOrdered By: Virginia Titus on 07-04-2024 MCV (RBC) [Entitic vol] 88.7 fL 81-99 [facility] Mean corpuscular hemoglobin (MCH) determinationOrdered By: Virginia Titus on 07-04-2024 MCH (RBC) [Entitic mass] 31.0 pg 27.0-32.0 [facility] Mean corpuscular hemoglobin concentration (MCHC) determinationOrdered By: Virginia Titus on 07-04-2024 MCHC (RBC) [Mass/Vol] 35.0 g/dL 32-36 [facility] Mean platelet volume determi nationOrdered By: Virginia Titus on 07-04-2024 Platelet mean volume (Bld) [Entitic vol] 10.7 fL 6.2-12.0 [facility] Miscellaneous procedureOrder ed By: Virginia Titus on 07-04-2024 Miscellaneous Test Comment SEE SCANNED REPORT [facility] Monocyte percentageOrdered B y: Virginia Titus on 07-04-2024 Monocytes/100 WBC (Bld) 8.1 % 0-10 [facility] NATERAon 07-04-2024 NATURA SEE SCANNED REPORT Normal [facility] Comment on above: Order Comment: Comme nts: NIPT with Gender Carrier testing Performed By: #### L 3890.6102, L900.0098, L3890.6006, BTS, L3890.6301, L100.0100, L509.4006, L509.8002 #### [facility] [address] [place], [address] Neutrophil percentageOrdered By: Virginia Titus on 07-04-2024 Neutrophils/100 WBC (Bld) 76.4 % High 47-70 [facility] No Panel InformationOrdered By: Virginia Titus on 07-04-2024 HIV (1&2) Antibody Non-Reactive Nonreactive [facility] Comment on above: Non-ReactiveReactive Repeatedly reactive samples must be confirmed according to CDC recommended confirmatory algorithms. The subresults for either HIVAG or AHIV can be used as an aid in the selection of the confirmation algorithm for reactive samples.Send out specimens with Reactive results to [facility] for confirmation.Order the HIV antibody detection and differentiation: #[id number] Nucleated red blood cell per centageOrdered By: Virginia Titus on 07-04-2024 Nucleated RBC/100 WBC (Bld) [Ratio] 0 % 0-5 [facility] Platelet countOrdered By: Babak Titus on 07-04-2024 Platelets (Bld) [#/Vol] 196 10*3/uL 150-450 [facility] RBC Auto (Bld) [#/Vol]Ordere d By: Virginia Titus on 07-04-2024 RBC (Bld) [#/Vol] 4.06 10*6/uL Low 4.2-5.4 [facility] Rubella immune status determ ination by IgG antibody assayOrdered By: Virginia Titus on 07-04-2024 Rubella IgG Antibody REAC Nonreactive [facility] Comment on above: Antibody Result: Int erpretationNon-Reactive: Non-ImmuneReactive: ImmuneThe following results were obtained with the [employer] Rubella IgG assay. Results from assays of other manufacturers cannot be used interchangeably. T. pallidum abOrdered By: aBbak Titus on 07-04-2024 Syphilis Total Antibody Non-Reactive Nonreactiv e [facility] Type AND Screenon 07-04-2024 ABO and Rh group Nom (d) Blood group O Rh(D) positive Normal [facility] Comment on above: Order Comment: PN Performed By: #### L 3890.6102, L900.0098, L3890.6006, BTS, L3890.6301, L100.0100, L509.4006, L509.8002 ####[facility] [address] [place], [place], [id number] White blood cell (WBC) count Ordered By: Virginia Titus on 07-04-2024 WBC (Bld) [#/Vol] 10.0 10*3/uL 4.4-11.0 [facility] Urine Cultureon 07-03-2024 URC Below infection level. Mixed Gram Positive Organisms Bow Count 1000-10,000 MIXC Mixed contaminants. Submit a new specimen if indicated. Normal [facility] Comment on above: Performed By: #### L 7000.1800, L7400.0353, M100.2200 ####[facility] [address] [place], [place], [id number] C. trachomatis rRNA MABEL+prob e Ql (Unsp spec)Ordered By: Virginia Titus on 06-30-2024 Chlamydia DNA (MABEL) Negative Negative [facility] Cervical or vagninal specime n microscopic examination by cytology stain (reported asOrdered By: Virginia Titus on 06-30-2024 Cytology report Cyto stain Doc (Cvx/Vag) Comment . [facility] Comment on above: The Pap smear is a s creening test designed to aid in thedetection of premalignant and malignant conditions of theuterine cervix. It is not a diagnostic procedure andshould not be used as the sole means of detecting cervicalcancer. Both false-positive and false-negative reports dooccur. Chlamydia trachomatis rRNA d etection by probe and target amplification methodOrdered By: Virginia Titus on 06-30-2024 C. trachomatis rRNA MABEL+probe Ql (Unsp spec) Negative Negative [facility] Boiler House Inspector Cyto stain Nom (C vx/Vag) [ID]Ordered By: Virginia Titus on 06-30-2024 Pap Smear Performed By Comment . [facility] Comment on above: Ioana Max, Cytotec hnologist (ASCP) Cytology report Cyto stain D oc (Cvx/Vag)Ordered By: Virginia Titus on 06-30-2024 Thin Prep Pap Smear Comment . [facility] Comment on above: The Pap smear is a s creening test designed to aid in thedetection of premalignant and malignant conditions of theuterine cervix. It is not a diagnostic procedure andshould not be used as the sole means of detecting cervicalcancer. Both false-positive and false-negative reports dooccur. Image-guided ThinPrep PapOrd ered By: Virginia Titus on 06-30-2024 Pap Smear Note Comment . [facility] Comment on above: This liquid based Th inPrep(R) pap test was screened withthe use of an image guided system. Image-guided liquid-based Pa pOrdered By: Virginia Titus on 06-30-2024 Pap Smear Diagnosis Comment . [facility] Comment on above: NEGATIVE FOR INTRAEP ITHELIAL LESION OR MALIGNANCY. Image-guided liquid-based ce rvical Pap w high-risk HPV+reflex to HPV 16+18Ordered By: Virginia Titus on 06-30-2024 Human Papillomavirus Screen Comment . [facility] Comment on above: The HPV DNA reflex c riteria were not met with this specimenresult therefore, no HPV testing was performed.Performed at: [facility] Cyto [address] [facility], [place], [place] [id number] Director: Chaitanya Diaz MD, Phone: [phone] at: [facility] [address] [id number] Director: Geovanna Torres MD, Phone: [phone] Laboratory - CytologyOrdered By: Virginia Titus on 06-30-2024 Boiler House Inspector Cyto stain Nom (Cvx/Vag) [ID] Comment . [facility] Comment on above: Ioana Max, Cytotec hnologist (ASCP) Laboratory - Miscellaneous t estsOrdered By: Virginia Titus on 06-30-2024 Service comment (Unsp spec) [Interp] . . [facility] Neisseria gonorrhoeae nuclei c acid detection by amplified probe techniqueOrdered By: Virginia Titus on 06-30-2024 N. gonorrhoeae DNA MABEL+probe Ql (Unsp spec) Negative Negative [facility] Comment on above: Performed at: =G - [facility] [address] [id number] Director: Geovanna Torres MD, Phone: [phone] No Panel InformationOrdered By: Virginia Titus on 06-30-2024 Pap Smear Specimen Adequacy Comment . [facility] Comment on above: Satisfactory for corrine luation. No endocervical component is identified. [facility] Office Visit Reporton 06-30-2024 [facility] Office Visit Report [facility] [address], [address] [place] [address] OFFICE VISIT Date of Service: 06/30/24 MR#: [id number] Acct: [id number] Name: RENUKA KWAN Rep #: [id number] : 2000 Provider: NAZANIN Cai ams Age/Sex: 24/F Location: [facility] Status: Signed Intake Vital Signs 06/30/24 14:27 Height 5 ft 3 in Weight: 115 lb 6 oz BMI 20.4 BP 132/82 H Intake Visit Reasons: NOB LMP 04/25 Chief Complaint: New OB Is patient in pain?: No Allergies No Known Allergies Allergy (Unverified 06/30/24 14:21) Medications ???Medication ???Instructions ???Recorded ???Confirmed ???Type PNV 178-FA 180 mcg-om3 35 mg-dha tab PO 06/17/24 06/30/24 History 25 mg-epa 5 mg-fish oil chew tablet diphenhydramine HCl 50 mg capsule 50 mg PO QHS 06/17/24 06/30/24 Hi story (Unisom SleepGels) pyridoxine (vitamin B6) 100 mg 100 mg PO QHS 06/17/24 06/30/24 Hi story tablet Last Menstrual Period: 04/25/24 : Yes PFSH PFSH Medical History Asthma Surgical History Siloam teeth extracted Family History Grandmother Cancer, Onset Age: 75 Paternal- Kidney Father High cholesterol Social History adopted: No household members: spouse and other details: Sister Fiance housing: house service: No current occupational status: employed 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 current occupational exposures/hazards: No pets and animals: Yes pets and animals: dog(s) history of recent travel: No sexually active: Yes Smoking Status: Never smoker alcohol intake: current alcohol intake frequency: holidays/special occasions only details: not while substance use type: does not use well-balanced diet: daily or most days caffeine: No eating out: 1-3 times/week during the past year weight has: remained stable what type of physical activity do you participate in: walking frequency: 1-2 times per week duration: 15-30 minutes/day antoine/bahai: Christianity seatbelt use: always do you feel safe at home: No additional social history: Dominick- Landscaping/Marine History 1 Elective abortions Hx Para 0 Spontaneous abortions Hx # Term Pregnancies Ectopic pregnancies Hx # Pregnancies Multiple births # of living children HPI NOB LMP 04/25 Details: RENUKA KWAN is a 24 year old who presents for New OB visit. OB Visit KAROLINA Calculator Estimated Delivery Date Method Current WG Current Estimate 01/30/25 LMP (Certain) 9w 3d Other Estimates 01/25/25 Ultrasound #1 10w 1d Comments: HIV: Urine Culture: Sequential Screen: NIPT Screen: Estimated Due Date: 01/30/25 Expected Delivery Route/Plan Labor Preferences- CB/BF classes: [] labor support person: [] labor intervention preferences: [] pain management options preferred: [] cut cord/dad catch: [] : [] PP control planned: [] discussed possible routes of delivery and associated risks: [] special requests: [] Specific Issue/Plans Covid status: [] Flu vaccine: [] Tdap vaccine: [] Rhogam: [] LARC form signed: [] Problem list reviewed and updated with the most current plan of care details and appropriate orders placed. Relevant counseling for the gestational age provided. Continue routine care and follow up unless otherwise noted in visit notes/problem list details Initial Weight: 115 lb Date -???-???-???-???-?? ?-???-???-???-???-? ??-???-???- EGA Weight BP Urine Prot -???-???-???-???-?? ?-???-???-???-???-? ??-???-???- Glucose FHR FuHt Pres Dilation -???-???-???-???-?? ?-???-???-???-???-? ??-???-???- Effaced St Visit Note 06/30/24 -???-???-???-???-?? ?-???-???-???-???-? ??-???-???- 9w 3d 115 lb 6 oz (+6 oz) 132/82 -???-???-???-???-?? ?-???-???-???-???-? ??-???-???- 169 -???-???-???-???-?? ?-???-???-???-???-? ??-???-???- KW CRL cons with dates. Accepts NIPT Menstrual History Last Menstrual Period: 04/25/24 Reported LMP: definite Normal amount/duration: Yes Frequency in days: 28 On hormonal BC at conception: No hCG+: 05/22/24 Antepartum Record Genetic Screening: Congenital Heart Defect: Other, Neural Tube Defect: Other, Hemoglobinopathy Or Carrier: Other, Cystic Fibrosis: Other, Chromosome Abnormality: Other, Mario-Sachs: Other, Hemophilia: Other, Intellectual Disability/Autism: Other, Recurrent Loss/Stillbirth: Other, Other Structural Defect: Other, Other Genetic Disease: Other and Maternal Metabolic Disorder: Other Infection History: Live with someone with TB or Exposed (more content not included)... Normal [facility] Service comment (Unsp spec) [Interp]Ordered By: Virginia Titus on 06-30-2024 Pap Smear Comment (3) . . [facility] Urine cultureOrdered By: Kyree Titus on 06-30-2024 Bacteria identified Cx Nom (U) Positive Abnormal [facility] CT ABDOMEN PELVIS WITH IV CO NTRAST ONLYon 09-03-2023 CT ABDOMEN PELVIS WITH IV CONTRAST ONLY EXAMINATION: CT ABDOMEN PELVIS WITH IV CONTRAST ONLY HISTORY: abdominal pain Injury/Trauma or Illness?:Illness/Ot her How long have you had these symptoms (acute/chronic)?:Ac cahto Reason for exam?:RLQ pain x 4 days Type of Exam?:Initial Additional signs and symptoms?:nausea, bloating R10.9 Abdominal pain, unspecified abdominal location COMPARISON: None TECHNIQUE: CT examination of the abdomen and pelvis following the administration of intravenous contrast. Coronal and sagittal reformations were performed. Dose reduction techniques were achieved by using automated exposure control and/or adjustment of mA and/or kV according to patient size and/or use of iterative reconstruction technique. CONTRAST: IOPAMIDOL 370 MG IODINE/ML (76 %) INTRAVENOUS SOLUTION - 75 mL, FINDINGS: LOWER CHEST: Normal. ABDOMEN: Liver: No acute abnormalities. Bile ducts: Normal caliber. Gallbladder: No calcified gallstones. Normal caliber wall. Pancreas: Normal. Spleen: Normal. Adrenals: Normal. Kidneys: Punctate nonobstructing interpolar right nephrolithiasis. No left nephrolithiasis. Symmetric renal enhancement. No enhancing renal mass. There is no ureterolithiasis. No obstructive uropathy. PELVIS: Reproductive organs: Normal uterus. Ovarian follicular changes bilaterally with a dominant follicle on the left, 2.5 cm. No concerning adnexal mass present. Free fluid also present in the pelvis presumably physiologic. Ureters: Normal. Bladder: Unremarkable as imaged. OTHER ABDOMEN AND PELVIS: Bowel: Stomach is unremarkable as visualized. No bowel obstruction present. Stool burden is appropriate. Normal appendix. Normal terminal ileum. No infectious or inflammatory bowel disease. Peritoneum: Trace free fluid in the pelvis. No free air. No drainable fluid collection. Vessels: Normal heart size without pericardial effusion. No aortic aneurysm or large vessel occlusion. No portal vein thrombus. Lymph nodes: No enlarged inguinal, iliac chain or pelvic sidewall lymph nodes. No aortocaval, retroperitoneal or mesenteric adenopathy. Abdominal wall: Normal. Osseous structures: No destructive lesions. IMPRESSION: 1. Normal appendix. 2. Punctate nonobstructing right nephrolithiasis. 3. Ovarian follicular changes as above. No concerning adnexal mass. Free fluid also present in the pelvis. Findings are likely physiologic. Workstation ID: [id number] Dictated by: YU PERRY on ThuSeptember 03, 2023 6:21:04 PM EDT Transcribed by: YU PERRY on ThuSeptember 03, 2023 6:21:04 PM EDT Finalized by: YU PERRY on ThuSeptember 03, 2023 6:21:04 PM EDT [facility] Comment on above: Order Comment: Injur y/Trauma or Illness?:Illness/Other How long have you had these symptoms (acute/chronic)?:Acute Reason for exam?:RLQ pain x 4 days Type of Exam?:Initial Additional signs and symptoms?:nausea, bloating ED Prov Noteon 09-03-2023 ED Prov Note ED PROVIDER NOTE [facility] NAME: Renuka Kwan AGE: 23 y.o. : 2000 VISIT DATE: 09/03/2023 CSN: [id number] PCP: No, Physician Chief Complaint Patient presents with Abdominal Pain Patient is a 23-year-old female with a past medical history of asthma presents today for concern of abdominal pain. Patient states the last 4 days she has right lower quadrant abdominal pain that is currently a 6 out of 10. Patient states she has had associated nausea but denies any vomiting recently for last 1 day. Patient denies any associated urinary symptoms, vaginal symptoms, chest pain, shortness of breath, fevers, flank pain, lightheadedness, dizziness or syncope. Patient been eating and drinking normal with normal urine output. Past Medical History: Diagnosis Date Asthma sports induced History reviewed. No pertinent surgical history. History reviewed. No pertinent family history. Social History Socioeconomic History Marital status: Single Tobacco Use Smoking status: Never Smokeless tobacco: Never Vaping Use Vaping Use: Never used Substance and Sexual Activity Alcohol use: Never Drug use: Never No current outpatient medications on file prior to encounter. No Known Allergies Review of Systems Constitutional: Negative for chills and fever. Eyes: Negative for pain. Respiratory: Negative for cough, chest tightness and shortness of breath. Cardiovascular: Negative for chest pain and palpitations. Gastrointestinal: Positive for abdominal pain and nausea. Negative for vomiting. Genitourinary: Negative for flank pain. Musculoskeletal: Negative for arthralgias and myalgias. Skin: Negative for rash. Neurological: Negative for dizziness, syncope, light-headedness and headaches. Psychiatric/Behavio ral: Negative for agitation. All other systems reviewed and are negative. Patient Vitals for the past 24 hrs: BP Temp Temp src Pulse Resp SpO2 Height Weight 09/03/23 1631 129/85 99.6 degrees F (37.6 degrees C) Temporal (!) 105 18 98 % 5' 3 59 kg (130 lb) Physical Exam Vitals and nursing note reviewed. Constitutional: Appearance: Normal appearance. HENT: Head: Normocephalic. Eyes: Pupils: Pupils are equal, round, and reactive to light. Cardiovascular: Rate and Rhythm: Normal rate and regular rhythm. Pulses: Normal pulses. Heart sounds: Normal heart sounds. Musculoskeletal: Cervical back: Normal range of motion. Pulmonary: Effort: Pulmonary effort is normal. Breath sounds: Normal breath sounds. Abdominal: General: Abdomen is flat. Palpations: Abdomen is soft. Tenderness: There is abdominal tenderness in the right lower quadrant. There is no right CVA tenderness, left CVA tenderness, guarding or rebound. Positive signs include McBurney's sign. Negative signs include Lizarraga's sign, Rovsing's sign, psoas sign and obturator sign. Hernia: No hernia is present. Skin: General: Skin is warm. Capillary Refill: Capillary refill takes less than 2 seconds. Neurological: General: No focal deficit present. Mental Status: She is alert. Psychiatric: Mood and Affect: Mood normal. . Laboratory & Radiographic Imaging (if done): Results for orders placed or performed during the hospital encounter of 09/03/23 POC CBC and Differential Result Value Ref Range WBC 9.10 4.50 - 11.00 K/mcL RBC 4.27 4.00 - 5.20 M/mcL Hemoglobin 13.2 12.0 - 16.0 g/dL Hematocrit 39.1 36.0 - 46.0 % MCV 91.6 80.0 - 100.0 fL MCH 30.9 26.0 - 34.0 pg MCHC 33.8 31.0 - 37.0 g/dL RDW - CV 12.2 11.6 - 14.8 % Platelets 192 150 - 400 K/mcL MPV 10.1 9.4 - 12.4 fL Neutrophils 70.2 % Lymphocytes 18.6 % Monocytes 9.3 % Eosinophils 1.3 % Basophils 0.5 % IG Percent 0.10 % Neutrophils Abs 6.38 1.70 - 7.00 K/mcL Lymphocytes Abs 1.69 0.90 - 4.00 K/mcL Monocytes Abs 0.85 0.30 - 0.90 K/mcL Eosinophils Abs 0.12 0.00 - 0.50 K/mcL Basophils Abs 0.05 0.00 - 0.30 K/mcL IG Absolute 0.01 0.00 - 0.30 K/mcL POC Urinalysis Dipstick, Auto Result Value Ref Range Spec Grav, UA 1.015 1.005 - 1.025 pH, UA 7.0 5.0 - 7.0 Protein, UA Negative Negative mg/dL Glucose, UA Negative Negative mg/dL Ketones, UA Negative Negative mg/dL Bilirubin, UA Negative Negative Urobilinogen, UA 0.2 <2.0 mg/dL Blood, UA Negative Negative Nitrite, UA Negative Negative Leukocyte Esterase, UA Negative Negative POC Basic Metabolic Panel Result Value Ref Range Glucose 97 65 - 99 mg/dL BUN 7 (L) 8 - 25 mg/dL Creatinine 0.53 0.40 - 1.10 mg/dL GFR 134 >=60 mL/min/1.73 m2 Sodium 142 135 - 145 mmol/L Potassium 3.5 3.5 - 5.1 mmol/L Chloride 106 98 - 108 mmol/L TCO2 24 21 - 32 mmol/L Ionized Calcium 4.8 4.5 - 5.3 mg/dL POC , Urine Result Value Ref Range POC Preg Test, Ur Negative Negative POC Liver Panel Plus Result Value Ref Range Albumin 4.3 3.2 - 5.2 g/dL Alkaline Phosphatase 62 40 - 140 U/L ALT (SGPT) 6 0 - 40 U/L (more content not included)... Normal [facility] POC BASIC METABOLIC PANEL - [facility] 09-03-2023 Chloride [Moles/Vol] 106 mmol/L Normal 98-108 [facility] Comment on above: Order Comment: [facility] has implemented the eGFR calculation approach that does not have a coefficient for race that conforms to the NKF-ASN Task Force Recommendations. CO2 [Moles/Vol] 24 mmol/L Normal 21-32 [facility] Comment on above: Order Comment: [facility] has implemented the eGFR calculation approach that does not have a coefficient for race that conforms to the NKF-ASN Task Force Recommendations. Creatinine [Mass/Vol] 0.53 mg/dL Normal 0.40-1.10 [facility] Comment on above: Order Comment: [facility] has implemented the eGFR calculation approach that does not have a coefficient for race that conforms to the NKF-ASN Task Force Recommendations. Glucose [Mass/Vol] 97 mg/dL Normal 65-99 [facility] Comment on above: Order Comment: [facility] has implemented the eGFR calculation approach that does not have a coefficient for race that conforms to the NKF-ASN Task Force Recommendations. POC GFR 134 mL/min/1.73 m2 Normal >=60 [facility] Comment on above: Order Comment: [facility] has implemented the eGFR calculation approach that does not have a coefficient for race that conforms to the NKF-ASN Task Force Recommendations. Result Comment: Franci mated GFR was calculated using the 2020 CKD-EPI creatinine equation. POC IONIZED CALCIUM 4.8 mg/dL Normal 4.5-5.3 [facility] Comment on above: Order Comment: [facility] has implemented the eGFR calculation approach that does not have a coefficient for race that conforms to the NKF-ASN Task Force Recommendations. Potassium [Moles/Vol] 3.5 mmol/L Normal 3.5-5.1 [facility] Comment on above: Order Comment: [facility] has implemented the eGFR calculation approach that does not have a coefficient for race that conforms to the NKF-ASN Task Force Recommendations. Sodium [Moles/Vol] 142 mmol/L Normal 135-145 [facility] Comment on above: Order Comment: [facility] has implemented the eGFR calculation approach that does not have a coefficient for race that conforms to the NKF-ASN Task Force Recommendations. Urea nitrogen [Mass/Vol] 7 mg/dL Low 8-25 [facility] Comment on above: Order Comment: [facility] has implemented the eGFR calculation approach that does not have a coefficient for race that conforms to the NKF-ASN Task Force Recommendations. POC CBC AND DIFFERENTIALon 0 09-03-2023 BASOPHILS ABSOLUTE COUNT 0.05 K/mcL Normal 0.00-0.30 [facility] Basophils/100 WBC (Bld) 0.5 % Normal [facility] Eosinophils (Bld) [#/Vol] 0.12 10*3/uL Normal 0.00-0.50 [facility] Eosinophils/100 WBC (Bld) 1.3 % Normal [facility] Erythrocyte distribution width (RBC) [Ratio] 12.2 % Normal 11.6-14.8 [facility] Hematocrit (Bld) [Volume fraction] 39.1 % Normal 36.0-46.0 [facility] Hemoglobin (Bld) [Mass/Vol] 13.2 g/dL Normal 12.0-16.0 [facility] IG ABSOLUTE 0.01 K/mcL Normal 0.00-0.30 [facility] IG PERCENT 0.10 % Normal [facility] Comment on above: Result Comment: The IG parameter is the percentage of metamyelocytes, myelocytes and promyelocytes. An immature granulocyte count (IG) of 1% or more suggests the possibility of infection, an IG count of 3% is very likely related to an infection. Lymphocytes (Bld) [#/Vol] 1.69 10*3/uL Normal 0.90-4.00 [facility] Lymphocytes/100 WBC (Bld) 18.6 % Normal [facility] MCH (RBC) [Entitic mass] 30.9 pg Normal 26.0-34.0 [facility] MCV (RBC) [Entitic vol] 91.6 fL Normal 80.0-100.0 [facility] MEAN CORPUSCULAR HEMOGLOBIN CONC 33.8 g/dL Normal 31.0-37.0 [facility] Monocytes (Bld) [#/Vol] 0.85 10*3/uL Normal 0.30-0.90 [facility] Monocytes/100 WBC (Bld) 9.3 % Normal [facility] NEUTROPHILS ABSOLUTE COUNT 6.38 K/mcL Normal 1.70-7.00 [facility] Neutrophils/100 WBC (Bld) 70.2 % Normal [facility] Platelet mean volume (Bld) [Entitic vol] 10.1 fL Normal 9.4-12.4 [facility] Platelets (Bld) [#/Vol] 192 10*3/uL Normal 150-400 [facility] RBC (Bld) [#/Vol] 4.27 10*6/uL Normal 4.00-5.20 [facility] WBC (Bld) [#/Vol] 9.10 10*3/uL Normal 4.50-11.00 [facility] Albumin [Mass/Vol] 4.3 g/dL Normal 3.2-5.2 [facility] ALP [Catalytic activity/Vol] 62 U/L Normal 40-140 [facility] ALT [Catalytic activity/Vol] 6 U/L Normal 0-40 [facility] Amylase [Catalytic activity/Vol] 37 U/L Normal 25-115 [facility] Amylase [Catalytic activity/Vol] 8 U/L Normal 7-33 [facility] AST [Catalytic activity/Vol] 15 U/L Normal 0-45 [facility] Bilirubin [Mass/Vol] 1.2 mg/dL Normal 0.0-1.3 [facility] Protein [Mass/Vol] 7.6 g/dL Normal 6.0-8.0 [facility] POC , URINE - [facility] toyin 09-03-2023 Beta HCG ( test) Ql (U) Negative Normal Negative [facility] Comment on above: Order Comment: Dilut e urine specimens, as indicated by a low specific gravity (<1.010) may not contain front office representative levels of hCG. If is still suspected, a serum test or repeat urine test using a first morning urine specimen should be considered. POC URINALYSIS DIPSTICK,AUTO - RALSon 09-03-2023 POC BILIRUBIN, URINE Negative Normal Negative [facility] POC BLOOD, URINE Negative Normal Negative [facility] POC GLUCOSE, URINE Negative Normal Negative [facility] POC KETONES, URINE Negative Normal Negative [facility] POC LEUKOCYTE ESTERASE, URINE Negative Normal Negative [facility] POC NITRITE, URINE Negative Normal Negative [facility] POC PH, URINE 7.0 Normal 5.0-7.0 [facility] POC PROTEIN, URINE Negative Normal Negative [facility] POC SPECIFIC GRAVITY 1.015 Normal 1.005-1.025 [facility] POC UROBILINOGEN 0.2 mg/dL Normal < 2.0 [facility] Comprehensive metabolic 2000 panelon 03-03-2023 Albumin BCP dye [Mass/Vol] 4.9 g/dL Normal 3.4-5.0 [facility] Comment on above: Performed By: #### 2 4323-8 #### AGUS WEBSTER ([id number]) [facility] [address] [place] [address] ALP [Catalytic activity/Vol] 56 U/L Normal 33-110 [facility] Comment on above: Performed By: #### 2 4323-8 #### AGUS WEBSTER ([id number]) [facility] ([facility]) [address] [place] [address]003 ALT With P-5'-P [Catalytic activity/Vol] 7 U/L Normal 7-45 [facility] Comment on above: Result Comment: Dorinda ents treated with Sulfasalazine may generate falsely decreased results for ALT. Performed By: #### 2 4323-8 #### AGUS WEBSTER ([id number]) [facility] ([facility]) [address] [place] [address] 66497 Anion gap [Moles/Vol] 13 mmol/L Normal 10-20 [facility] Comment on above: Performed By: #### 2 4323-8 #### AGUS WEBSTER ([id number]) [facility] ([facility]) [address] [place] [address] AST With P-5'-P [Catalytic activity/Vol] 13 U/L Normal 9-39 [facility] Comment on above: Performed By: #### 2 4323-8 #### AGUS WEBSTER ([id number]) [facility] ([facility]) [address] [place] [address] Bilirubin [Mass/Vol] 1.1 mg/dL Normal 0.0-1.2 [facility] Comment on above: Performed By: #### 2 4322-8 #### AGUS WEBSTER ([id number]) [facility] ([facility]) [address] [place] [address]991 Calcium [Mass/Vol] 9.8 mg/dL Normal 8.6-10.[address] [facility] Comment on above: Performed By: #### 2 4322-8 #### AGUS WEBSTER ([id number]) [facility] ([facility]) [address] [place] [address] Chloride [Moles/Vol] 105 mmol/L Normal 98-107 [facility] Comment on above: Performed By: #### 2 432-8 #### AGUS WEBSTER ([id number]) [facility] ([facility]) [address] [place] [address] CO2 [Moles/Vol] 25 mmol/L Normal 21-32 [facility] Comment on above: Performed By: #### 2 4323-8 #### AGUS WEBSTER ([id number]) [facility] ([facility]) [address] [place] [address] Creatinine [Mass/Vol] 0.85 mg/dL Normal 0.50-1.05 [facility] Comment on above: Performed By: #### 2 4323-8 #### AGUS WEBSTER ([id number]) [facility] ([facility]) [address] [place] [address] GFR/1.73 sq M.predicted MDRD (S/P/Bld) [Vol rate/Area] mL/min/{1.73_m2} Normal >60 [facility] Comment on above: Result Comment: Calc ulations of estimated GFR are performed using the 2020 CKD-EPI Study Refit equation without the race variable for the IDMS-Traceable creatinine methods. https://jasn.asnjournals.org/content//ASN.807 3365569 Performed By: #### 2 4323-8 #### AGUS WEBSTER ([id number]) [facility] ([facility]) [address] [place] [address] Glucose [Mass/Vol] 81 mg/dL Normal 74-[address] [facility] Comment on above: Performed By: #### 2 4323-8 #### AGUS WEBSTER ([id number]) [facility] ([facility]) [address] [place] [address] 98964 Potassium [Moles/Vol] 3.9 mmol/L Normal 3.5-5.3 [facility] Comment on above: Performed By: #### 2 4323-8 #### AGUS WEBSTER ([id number]) [facility] ([facility]) [address] [place] [address] Protein [Mass/Vol] 7.6 g/dL Normal 6.4-8.[address] [facility] Comment on above: Performed By: #### 2 4323-8 #### AGUS WEBSTER ([id number]) [facility] ([facility]) [address] [place] [address]60 Sodium [Moles/Vol] 139 mmol/L Normal 136-[address] [facility] Comment on above: Performed By: #### 2 4323-8 #### AGUS WEBSTER ([id number]) [facility] ([facility]) [address] [place] [address]330 Urea nitrogen [Mass/Vol] 12 mg/dL Normal 6-23 [facility] Comment on above: Performed By: #### 2 4323-8 #### AGUS WEBSTER ([id number]) [facility] ([facility]) [address] [place] [address] 91119 Thyrotropinon 03-03-2023 TSH Qn 2.79 m[IU]/L Normal 0.44-3.98 [facility] Comment on above: Order Comment: TSH t esting is performed using different testing methodology at [facility] than at other [facility]. Direct result comparisons should only be made within the same method. Performed By: #### 3 016-3 #### AGUS WEBSTER ([id number]) [facility] ([facility]) [address] [place] [address] Thyroxine.freeon 03-03-2023 Free T4 [Mass/Vol] 0.77 ng/dL Normal 0.61-1.[address] [facility] Comment on above: Order Comment: Thyro xine Free testing is performed using different testing methodology at [facility] than at [facility]. Direct result comparisons should only be made within the same method. Biotin can cause falsely elevated free T4 results. Patients taking a Biotin dose of up to 10 mg/day should refrain from taking Biotin for 24 hours before sample collection. Patient taking a Biotin dose of >10 mg/day should consult with their physician or the laboratory before the blood draw. Performed By: #### 3 024-7 #### AGUS WEBSTER ([id number]) [facility] ([facility]) [address] [place] [address] Triiodothyronine.freeon 02-18 Free T3 [Mass/Vol] 3.2 pg/mL Normal 2.3-4.[address] [facility] Comment on above: Performed By: #### 3 051-0 #### PREMA Lopez ([id number]) [facility] ([facility]) [id number] [place] [address] CBC AND DIFFERENTIALon 09-24 % AUTOMATED IMMATURE GRAN 0.2 % Normal 0.0 - 0.9 [facility] Comment on above: Result Comment: Debbie ture Granulocyte Count (IG) includes promyelocytes, myelocytes and metamyelocytes but does not include bands. Percent differential counts (%) should be interpreted in the context of the absolute cell counts (cells/L). Performed By: #### C BCDF #### [address] [address] Basophils (Bld) [#/Vol] 0.05 10*3/uL Normal 0.00 - 0.1 0 [facility] Comment on above: Performed By: #### C BCDF #### [address] [address] Basophils/100 WBC (Bld) 0.8 % Normal 0.0 - 2.0 [facility] Comment on above: Performed By: #### C BCDF #### [address] [address] Eosinophils (Bld) [#/Vol] 0.05 10*3/uL Normal 0.00 - 0.70 [facility] Comment on above: Performed By: #### C BCDF #### [address] [address] Eosinophils/100 WBC (Bld) 0.8 % Normal 0.0 - 6.0 [facility] Comment on above: Performed By: #### C BCDF #### [address] [address] Erythrocyte distribution width (RBC) [Ratio] 12.4 % Normal 11.5 - 14.5 [facility] Comment on above: Performed By: #### C BCDF #### [address] [address] Hematocrit (Bld) [Volume fraction] 41.2 % Normal 36.0 - 46.0 [facility] Comment on above: Performed By: #### C BCDF #### [address] [address] Hemoglobin (Bld) [Mass/Vol] 13.5 g/dL Normal 12.0 - 16.0 [facility] Comment on above: Performed By: #### C BCDF #### [address] [address] Lymphocytes (Bld) [#/Vol] 1.56 10*3/uL Normal 1.20 - 4.80 [facility] Comment on above: Performed By: #### C BCDF #### [address] [address] Lymphocytes/100 WBC (Bld) 24.5 % Normal 13.0 - 44.0 [facility] Comment on above: Performed By: #### C BCDF #### [address] [address] MCHC (RBC) [Mass/Vol] 32.8 g/dL Normal 32.0 - 36.0 [facility] Comment on above: Performed By: #### C BCDF #### [address] [address] MCV (RBC) [Entitic vol] 92 fL Normal 80 - 100 [facility] Comment on above: Performed By: #### C BCDF #### [address] [address] Monocytes (Bld) [#/Vol] 0.58 10*3/uL Normal 0.10 - 1.0 0 [facility] Comment on above: Performed By: #### C BCDF #### [address] [address] Monocytes/100 WBC (Bld) 9.1 % Normal 2.0 - 10.0 [facility] Comment on above: Performed By: #### C BCDF #### [address] [address] Neutrophils (Bld) [#/Vol] 4.13 10*3/uL Normal 1.20 - 7.70 [facility] Comment on above: Result Comment: Perc ent differential counts (%) should be interpreted in the context of the absolute cell counts (cells/L). Performed By: #### C BCDF #### [address] [address] Neutrophils/100 WBC (Bld) 64.6 % Normal 40.0 - 80.0 [facility] Comment on above: Performed By: #### C BCDF #### [address] [address] Platelets (Bld) [#/Vol] 198 10*3/uL Normal 150 - 450 [facility] Comment on above: Performed By: #### C BCDF #### [address] [address] RBC 4.49 x10E12/L Normal 4.00 - 5.20 [facility] Comment on above: Performed By: #### C BCDF #### [address] [address] WBC (Bld) [#/Vol] 6.4 10*3/uL Normal 4.4 - 11.3 [facility] Comment on above: Performed By: #### C BCDF #### [place] [id number] COMPREHENSIVE PANELon 2022 Albumin [Mass/Vol] 5.0 g/dL Normal 3.4 - 5.0 [facility] Comment on above: Performed By: #### C MP #### [address] [address] ALP [Catalytic activity/Vol] 59 U/L Normal 33 - 110 [facility] Comment on above: Performed By: #### C MP #### [address] [address] ALT [Catalytic activity/Vol] 9 U/L Normal 7 - 45 [facility] Comment on above: Result Comment: Dorinda ents treated with Sulfasalazine may generate falsely decreased results for ALT. Performed By: #### C MP #### [address] [address] Anion gap [Moles/Vol] 13 mmol/L Normal 10 - 20 [facility] Comment on above: Performed By: #### C MP #### [address] [address] AST [Catalytic activity/Vol] 15 U/L Normal 9 - 39 [facility] Comment on above: Performed By: #### C MP #### [address] [address] Bilirubin [Mass/Vol] 0.9 mg/dL Normal 0.0 - 1.2 [facility] Comment on above: Performed By: #### C MP #### [address] [place] [address] Calcium [Mass/Vol] 9.9 mg/dL Normal 8.6 - 10.3 [facility] Comment on above: Performed By: #### C MP #### [address] [address] Chloride [Moles/Vol] 105 mmol/L Normal 98 - 107 [facility] Comment on above: Performed By: #### C MP #### [address] [address] Creatinine [Mass/Vol] 0.90 mg/dL Normal 0.50 - 1.05 [facility] Comment on above: Performed By: #### C MP #### [address] [address] eGFR FEMALE >90 Normal >90 [facility] Comment on above: Result Comment: CALC ULATIONS OF ESTIMATED GFR ARE PERFORMED USING THE 2020 CKD-EPI STUDY REFIT EQUATION WITHOUT THE RACE VARIABLE FOR THE IDMS-TRACEABLE CREATININE METHODS. https://jasn.asnjournals.org/content/early/ASN.353 3811030 Performed By: #### C MP #### [address] [address] Glucose [Mass/Vol] 87 mg/dL Normal 74 - 99 [facility] Comment on above: Performed By: #### C MP #### [address] [address] HCO3 (Bld) [Moles/Vol] 25 mmol/L Normal 21 - 32 [facility] Comment on above: Performed By: #### C MP #### [address] [address] Potassium [Moles/Vol] 3.8 mmol/L Normal 3.5 - 5.3 [facility] Comment on above: Performed By: #### C MP #### [address] [address] Protein [Mass/Vol] 7.4 g/dL Normal 6.4 - 8.2 [facility] Comment on above: Performed By: #### C MP #### [address] [address] Sodium [Moles/Vol] 139 mmol/L Normal 136 - 145 [facility] Comment on above: Performed By: #### C MP #### [address] [address] Urea nitrogen [Mass/Vol] 8 mg/dL Normal 6 - 23 [facility] Comment on above: Performed By: #### C MP #### [address] [address] HEMOGLOBIN A1Con 09-24-2022 Glucose [Mass/Vol] 97 mg/dL Normal [facility] Comment on above: Performed By: #### H BA1E #### [address] [address] HbA1c (Bld) [Mass fraction] 5.0 % Normal [facility] Comment on above: Result Comment: Diag nosis of Diabetes-Adults Non-Diabetic: < or = 5.6% Increased risk for developing diabetes: 5.7-6.4% Diagnostic of diabetes: > or = 6.5% . Monitoring of Diabetes Age (y) Therapeutic Goal (%) Adults: >18 <7.0 Pediatrics: 13-18 <7.5 7-12 <8.0 0- 6 7.5-8.5 [place] [employer]. Diabetes Care 33(S1), Apr 2009. Performed By: #### H BA1E #### [address] [address] LIPID PANEL (CORONARY RISK 2 )on 09-24-2022 Cholesterol [Mass/Vol] 169 mg/dL Normal 0 - 199 [facility] Comment on above: Result Comment: . AGE DESIRABLE BORDERLINE HIGH HIGH 0-19 Y 0 - 169 170 - 199 >/= 200 20-24 Y 0 - 189 190 - 224 >/= 225 >24 Y 0 - 199 200 - 239 >/= 240 All ranges are based on fasting samples. Specific therapeutic targets will vary based on patient-specific cardiac risk. . Pediatric guidelines reference:Pediatrics 2011, 128(S5). Adult guidelines reference: NCEP ATPIII Guidelines, CHE 2001, 258:2486-97 . Venipuncture immediately after or during the administration of Metamizole may lead to falsely low results. Testing should be performed immediately prior to Metamizole dosing. Performed By: #### L IPID #### [address] [address] Cholesterol in HDL [Mass/Vol] 57.0 mg/dL Normal [facility] Comment on above: Result Comment: . AGE VERY LOW LOW NORMAL HIGH 0-19 Y < 35 < 40 40-45 ---- 20-24 Y ---- < 40 >45 ---- >24 Y ---- < 40 40-60 >60 . Performed By: #### L IPID #### [address] [address] Cholesterol in LDL [Mass/Vol] 92 mg/dL Normal 0 - 119 [facility] Comment on above: Result Comment: . NEAR BORD AGE DESIRABLE OPTIMAL HIGH HIGH VERY HIGH 0-19 Y 0 - 109 --- 110-129 >/= 130 ---- 20-24 Y 0 - 119 --- 120-159 >/= 160 ---- >24 Y 0 - 99 100-129 130-159 160-189 >/=190 . Performed By: #### L IPID #### [address] [address] Cholesterol in VLDL [Mass/Vol] 20 mg/dL Normal 0 - 40 [facility] Comment on above: Performed By: #### L IPID #### [address] [address] Cholesterol.total/Choles terol in HDL [Mass ratio] 3.0 {ratio} Normal [facility] Comment on above: Result Comment: REF VALUES DESIRABLE < 3.4 HIGH RISK > 5.0 Performed By: #### L IPID #### [address] [address] NON-HDL CHOLESTEROL 112 mg/dL Normal 0 - 149 [facility] Comment on above: Result Comment: AGE DESIRABLE BORDERLINE HIGH HIGH VERY HIGH 0-19 Y 0 - 119 120 - 144 >/= 145 >/= 160 20-24 Y 0 - 149 150 - 189 >/= 190 ---- >24 Y 30 MG/DL ABOVE LDL CHOLESTEROL GOAL . Performed By: #### L IPID #### [address] [address] Triglyceride [Mass/Vol] 99 mg/dL Normal 0 - 149 [facility] Comment on above: Result Comment: . AGE DESIRABLE BORDERLINE HIGH HIGH VERY HIGH 0 D-90 D 19 - 174 ---- ---- ---- 91 D- 9 Y 0 - 74 75 - 99 >/= 100 ---- 10-19 Y 0 - 89 90 - 129 >/= 130 ---- 20-24 Y 0 - 114 115 - 149 >/= 150 ---- >24 Y 0 - 149 150 - 199 200- 499 >/= 500 . Venipuncture immediately after or during the administration of Metamizole may lead to falsely low results. Testing should be performed immediately prior to Metamizole dosing. Performed By: #### L IPID #### [place] [id number] THYROXINE,FREEon 09-24-2022 THYROXINE,FREE 0.85 ng/dL Normal 0.61 - 1.12 [facility] Comment on above: Result Comment: Thyr oxine Free testing is performed using different testing methodology at [facility] than at other [facility]. Direct result comparisons should only be made within the same method. . Biotin can cause falsely elevated free T4 results. Patients taking a Biotin dose of up to 10 mg/day should refrain from taking Biotin for 24 hours before sample collection. Patient taking a Biotin dose of >10 mg/day should consult with their physician or the laboratory before the blood draw. Performed By: #### T 4FRE #### [place] [address] Lab Specimen Source Normal [facility] Comment on above: Performed By: #### T 4FRE #### [place] [address] Performed By: #### C BCDF #### [address] [address] Performed By: #### T HYDS #### [place] [address] Performed By: #### L IPID #### [address] [address] Performed By: #### C MP #### [address] [address] TSH WITH REFLEX TO FREE T4 I F ABNORMALon 09-24-2022 TSH Qn 4.20 m[IU]/L High 0.44 - 3.98 [facility] Comment on above: Result Comment: TSH testing is performed using different testing methodology at [facility] than at other [facility]. Direct result comparisons should only be made within the same method. Performed By: #### T HYDS #### [address] [address] Vital Signs Date Time Vital Sign Value Performing Clinician Facility 11-01-2024 09:21-0400 Body height 160.02 cm Virginia POWERSM Work Phone: [facility] 11-01-2024 09:11-0400 Body mass index (BMI) [Ratio] 24.3 kg/m2 Virginia POWERSM Work Phone: [facility] 11-01-2024 09:11-0400 Body weight 62.31 kg Virginia POWERSM Work Phone: [phone] [place] [address] 11-01-2024 09:11-0400 Diastolic blood pressure 72 mm[Hg] Virginia POWERSM Work Phone: [phone] [place] [address] 11-01-2024 09:11-0400 Systolic blood pressure 120 mm[Hg] Virginia POWERSM Work Phone: [facility] 10-03-2024 10:43-0400 Body height 160.02 cm Virginia POWERSM Work Phone: [facility] 10-03-2024 10:43-0400 Body mass index (BMI) [Ratio] 23.1 kg/m2 Virginia POWERSM Work Phone: [facility] 10-03-2024 10:43-0400 Body weight 59.08 kg Virginia POWERSM Work Phone: [facility] 10-03-2024 10:43-0400 Diastolic blood pressure 87 mm[Hg] Virginia Titus CNM Work Phone: [facility] 10-03-2024 10:43-0400 Systolic blood pressure 134 mm[Hg] Virginia Titus CNM Work Phone: [facility] 09-08-2024 10:49-0400 Body mass index (BMI) [Ratio] 22.1 kg/m2 Virginia Titus CNM Work Phone: [facility] 09-08-2024 10:49-0400 Body weight 56.69 kg Virginia Titus CNM Work Phone: [facility] 09-08-2024 10:49-0400 Diastolic blood pressure 75 mm[Hg] Virginia Titus CNM Work Phone: [facility] 09-08-2024 10:49-0400 Systolic blood pressure 133 mm[Hg] Virginia Titus CNM Work Phone: [facility] 08-08-2024 10:15-0400 Body mass index (BMI) [Ratio] 20.6 kg/m2 Virginia Titus CNM Work Phone: [facility] 08-08-2024 10:15-0400 Body weight 52.84 kg Virginia Titus CNM Work Phone: [facility] 08-08-2024 10:15-0400 Diastolic blood pressure 77 mm[Hg] Virginia Titus CNM Work Phone: [facility] 08-08-2024 10:15-0400 Systolic blood pressure 123 mm[Hg] Virginia Titus CNM Work Phone: [facility] 06-30-2024 14:27-0400 Body height 160.02 cm Virginia Titus CNM Work Phone: [facility] 06-30-2024 14:27-0400 Body mass index (BMI) [Ratio] 20.4 kg/m2 Virginia Titus CNM Work Phone: [facility] 06-30-2024 14:27-0400 Body weight 52.33 kg Virginia Titus CNM Work Phone: [facility] 06-30-2024 14:27-0400 Diastolic blood pressure 82 mm[Hg] Virginia Titus CNM Work Phone: [facility] 06-30-2024 14:27-0400 Systolic blood pressure 132 mm[Hg] Virginia Tacho CNM Work Phone: [facility] 09-23-2022 13:33-0400 Body weight 57.61 kg Loree Oseguera [employer] Work Phone: [facility] 09-23-2022 13:33-0400 Diastolic blood pressure 84 mm[Hg] Loree Oseguera [employer] Work Phone: [facility] 09-23-2022 13:33-0400 Heart rate 84 /min Loree Oseguera [employer] Work Phone: [facility] 09-23-2022 13:33-0400 SaO2% (BldA) [Mass fraction] 99 % Loree Oseguera [employer] Work Phone: [facility] 09-23-2022 13:33-0400 Systolic blood pressure 121 mm[Hg] Loree Osegurea [employer] Work Phone: [facility] 10-14-2018 10:53-0400 BMI (Body Mass Index) 21.93 kg/m2 [facility] 10-14-2018 10:53-0400 Body Temperature 98.1 [degF] [facility] 10-14-2018 10:53-0400 Body weight 54.39 kg [facility] 10-14-2018 10:53-0400 BP Diastolic 79 mm[Hg] [facility] 10-14-2018 10:53-0400 BP Systolic 111 mm[Hg] [facility] 10-14-2018 10:53-0400 Height 157.5 cm [facility] 10-14-2018 10:53-0400 Pulse (Heart Rate) 71 /min [facility] 10-14-2018 10:53-0400 Pulse Oximetry 97 % [facility] 10-14-2018 10:53-0400 Respiratory Rate 16 /min [facility] Encounters Encounter Date Encounter Type Care Provider Facility Start: 11-01-2024 End: 11-01-2024 ambulatory Aranza Perry [employer] Facility:[facility] Start: 11-01-2024 End: 11-01-2024 Patient encounter procedure Aranzashravan Hernadezs [employer]-C -[facility] Work Phone: Start: 10-03-2024 End: 10-03-2024 Patient encounter procedure Virginia Titus CNM -[facility] Work Phone: Start: 10-03-2024 End: 10-03-2024 ambulatory Virginia Titus CNM Work Phone: [facility] Work Phone: Start: 09-15-2024 End: 09-15-2024 ambulatory [facility] Start: 09-08-2024 End: 09-08-[address] Virginia Chavez MD -[facility] Work Phone: Start: 09-08-2024 End: 09-08-2024 ambulatory Virginia Chavez Facility:[facility] Start: 09-01-2024 End: 09-01-2024 ambulatory [facility] Start: 08-08-2024 End: 08-08-[address] Shelbie Navarro DO -[facility] Work Phone: Start: 08-08-2024 End: 08-08-2024 ambulatory Shelbie Navarro Facility:[facility] Start: 07-04-2024 End: 07-04-2024 ambulatory Virginia Titus CNM Work Phone: [facility] Work Phone: Start: 07-04-2024 End: 07-04-2024 Patient encounter procedure Virginia Titus CNM -Lab, [facility] Start: 07-04-2024 End: 07-04-2024 ambulatory Virginia Titus Facility:[facility] Start: 06-30-2024 End: 06-30-2024 Patient encounter procedure Virginia Tacho CNM -Laboratory, Specimen Work Phone: Start: 06-30-2024 End: 06-30-2024 ambulatory Virginia Titus CNM Work Phone: [facility] Work Phone: Start: 06-30-2024 End: 06-30-2024 Patient encounter procedure Virginia Titus CNM -[facility] Work Phone: Start: 06-30-2024 End: 06-30-2024 ambulatory Virginia Titus Facility:[facility] Start: 09-03-2023 End: 09-03-2023 Emergency department patient visit PHYSICIAN [facility] Start: 04-21-2023 End: 04-21-2023 Office outpatient visit 25 minutes Odilon Coughlin PA-C Work Phone: [facility] Comment on above: Acute non-recurrent maxillary sinusitis (Primary Dx); Asthma, exercise induced Start: 04-21-2023 End: 04-21-2023 ambulatory ODILON Gordon [facility] Start: 03-03-2023 End: 03-04-2023 ambulatory LOREE Christianson [facility] Start: 09-24-2022 End: 09-25-2022 ambulatory LOREE Christianson [facility] Start: 09-24-2022 End: 09-25-2022 Encounter for general adult medical examination without abnormal findings LOREE Christianson [facility] Start: 09-23-2022 Encounter for genera l adult medical examination without abnormal findings LOREE [facility] Start: 09-23-2022 End: 09-23-2022 Office outpatient new 30 minutes Loree Oseguera [employer] Work Phone: [facility] Comment on above: Asthma, exercise ind uced (Primary Dx); Establishing care with new doctor, encounter for; Wellness examination Start: 09-23-2022 End: 09-23-2022 Patient encounter status Loree Oseguera [employer] Work Phone: [facility] Work Phone: Start: 10-14-2018 End: 10-14-2018 Patient encounter procedure ODILON RODRIGUEZ [facility] Start: 10-14-2018 End: 10-14-2018 Office outpatient visit 15 minutes Odilon Rodriguez Work Phone: [facility] [place] Comment on above: Acute swimmer's ear of left side (Primary Dx) Start: 11-10-2017 End: 11-10-2017 Emergency department patient visit Cuate Copeland Facility:[facility] Start: 11-10-2017 Patient encounter Facil [id number] Procedures Date Procedure Procedure Detail Performing Clinician Start: 07-04-2024 Hepatitis C antibody measurement Virginia Titus [facility] Work Phone: Comment on above: Reactive: Presumptiv e evidence of antibodies to HCV. Follow CDC recommendations for supplemental testing.Non-Reactive: Antibodies to HCV were not detected; does not exclude the possibility of exposure to HCVReactive Results are presumptive evidence of antibodies to HCV. Follow CDC recommendations for supplemental testing.Order confirmation testing: HCV Quant by PCR testing - HCVPCR #[id number] Non Reactive: < 0.8 Equivocal: >/= 0.8 to < 1.0 Reactive: >/= 1.0The CDC requires that a reactive/equivocal HCV antibody result be sent out for confirmation. HCV Quant by PCR testing. Start: 07-04-2024 Procedure Virginia madrid [facility] Work Phone: Start: 07-04-2024 Rubella IgG measurement Virginia Titus [facility] Work Phone: Comment on above: Antibody Result: Int erpretationNon-Reactive: Non- ImmuneReactive: ImmuneThe following results were obtained with the [employer] Rubella IgG assay. Results from assays of other manufacturers cannot be used interchangeably. Start: 07-04-2024 Serologic test for syphilis Virginia Titus [facility] Work Phone: Start: 06-30-2024 Liquid based cervica l cytology screening Virginia Titus [facility] Work Phone: Comment on above: NEGATIVE FOR INTRAEP ITHELIAL LESION OR MALIGNANCY. This liquid based Th inPrep(R) pap test was screened withthe use of an image guided system. The HPV DNA reflex c riteria were not met with this specimenresult therefore, no HPV testing was performed.Performed at: CYT - [facility] [id number] [place], [place] [id number] Director: Chaitanya Diaz MD, Phone: [phone] at: WB - [facility] [id number] [place] [id number] Director: Geovanna Torres MD, Phone: [phone] Start: 06-30-2024 Urine culture Virginia canales CN Work Phone: Start: 03-03-2023 Comprehensive metabo lic 1999 panel - Serum or Plasma LOREE ANSELMO Start: 03-03-2023 Thyrotropin [Units/v olume] in Serum or Plasma LOREE ANSELMO Start: 03-03-2023 THYROXINE, FREE LOREE CON TERRI Start: 03-03-2023 TRIIODOTHYRONINE, FREE LOREE OSEGUERA Start: 09-24-2022 CBC W Auto Different ial panel - Blood LOREE OSEGUERA Start: 09-24-2022 Comprehensive metabo lic 1999 panel - Serum or Plasma LOREE ANSELMO Start: 09-24-2022 Hemoglobin A1c/Hemoglobin.total in Blood LOREE OSEGUERA Start: 09-24-2022 Lipid panel LOREE ANSELMO Start: 09-24-2022 THYROXINE, FREE LOREE CON TERRI Start: 09-24-2022 TSH WITH REFLEX TO F REE T4 IF ABNORMAL LOREE OSEGUERA Start: 09-24-2022 Lipid 1996 panel - S calvin or Plasma Odilon Coughlin PA-C Work Phone: Plan of Treatment Date Care Activity Detail Author Start: 2051 Zoster Vaccines (1 of 2) Zoste r Vaccines (1 of 2) [facility] Start: 09-25-2027 Lipid panel Lipid Panel [facility] Start: 11-01-2024 CBC W Auto Different ial panel - Blood [facility] Start: 11-01-2024 Measurement of gluco se 2 hours after glucose challenge for glucose tolerance test [facility] Start: 11-01-2024 Serologic test for syphilis [facility] Start: 11-01-2024 [facility] Start: 11-26-2023 DTaP/Tdap/Td Vaccine s (7 - Td or Tdap) DTaP/Tdap/Td Vaccines (7 - Td or Tdap) [facility] Start: 09-24-2023 End: 09-24-2023 CBC W Auto Differential panel - Blood CBC and Auto Differential Lab Routine Wellness examination Expected: 09/24/2023 (Approximate), Expires: 09/24/2023 [facility] Service Area Work Phone: Comment on above: Expected: 09/24/2023 (Approximate), Expires: 09/24/2023 Start: 09-24-2023 End: 09-24-2023 Comprehensive metabolic 2000 panel - Serum or Plasma Comprehensive Metabolic Panel Lab Routine Wellness examination Expected: 09/24/2023 (Approximate), Expires: 09/24/2023 [facility] Work Phone: Comment on above: Expected: 09/24/2023 (Approximate), Expires: 09/24/2023 Start: 09-24-2023 End: 09-24-2023 Hemoglobin A1c/Hemoglobin.total in Blood Hemoglobin A1C Lab Routine Wellness examination Expected: 09/24/2023 (Approximate), Expires: 09/24/2023 [facility] Work Phone: Comment on above: Expected: 09/24/2023 (Approximate), Expires: 09/24/2023 Start: 09-24-2023 End: 09-24-2023 TSH with reflex to Free T4 if abnormal TSH with reflex to Free T4 if abnormal Lab Routine Wellness examination Expected: 09/24/2023 (Approximate), Expires: 09/24/2023 [facility] Work Phone: Comment on above: Expected: 09/24/2023 (Approximate), Expires: 09/24/2023 Start: 09-24-2023 End: 09-24-2023 Patient encounter procedure 09/24/2023 12:40 PM EDT Office Visit [facility] [address] [place] [address] Loree Oseguera, KIL[employer] CLEANER-[employer] AP[employer]ISER [address] [place] [address] [facility] Start: 12-19-2022 Influenza vaccination [facility] Start: 09-23-2022 End: 09-24-2023 CBC W Auto Differential panel - Blood CBC and Auto Differential Lab Routine Wellness examination Expected: 09/23/2022 (Approximate), Expires: 09/24/2023 [facility] Work Phone: Comment on above: Expected: 09/23/2022 (Approximate), Expires: 09/24/2023 Start: 09-23-2022 End: 09-24-2023 Comprehensive metabolic 2000 panel - Serum or Plasma Comprehensive Metabolic Panel Lab Routine Wellness examination Expected: 09/23/2022 (Approximate), Expires: 09/24/2023 [facility] Work Phone: Comment on above: Expected: 09/23/2022 (Approximate), Expires: 09/24/2023 Start: 09-23-2022 End: 09-24-2023 Hemoglobin A1c/Hemoglobin.total in Blood Hemoglobin A1C Lab Routine Wellness examination Expected: 09/23/2022 (Approximate), Expires: 09/24/2023 [facility] Work Phone: Comment on above: Expected: 09/23/2022 (Approximate), Expires: 09/24/2023 Start: 09-23-2022 End: 09-24-2023 Lipid 1996 panel - Serum or Plasma Lipid Panel Lab Routine Wellness examination Expected: 09/23/2022 (Approximate), Expires: 09/24/2023 [facility] Work Phone: Comment on above: Expected: 09/23/2022 (Approximate), Expires: 09/24/2023 Start: 09-23-2022 End: 09-24-2023 TSH with reflex to Free T4 if abnormal TSH with reflex to Free T4 if abnormal Lab Routine Wellness examination Expected: 09/23/2022 (Approximate), Expires: 09/24/2023 [facility] Work Phone: Comment on above: Expected: 09/23/2022 (Approximate), Expires: 09/24/2023 Start: 2022 Screening for malign ant neoplasm of cervix [facility] Start: 2019 Hepatitis C screening Hepatitis C Sc reening [facility] Start: 12-19-2018 Influenza vaccinatio n given SEQUENTIAL INFLUENZA VACCINE (Season Ended) [facility] Start: 2017 Meningococcal conjug ate vaccination MENINGOCOCCAL VACCINE (1 - 2-dose series) [facility] Start: 2016 Vaccination for joanne n papillomavirus HPV VACCINES (1 - Female 3-dose series) [facility] Start: 2014 Varicella vaccination VARICELL A VACCINES (1 of 2 - 13+ 2-dose series) [facility] Start: 2012 HPV Vaccines (1 - 2- dose series) HPV Vaccines (1 - 2-dose series) [facility] Start: 2008 Tetanus, diphtheria and acellular pertussis vaccination DTAP VACCINES (1 - Tdap) [facility] Start: 2004 History and physical examination, annual for health maintenance Wellness Visit [facility] Start: 2004 Well Child Visit (WC V) - Annual Well Child Visit (WCV) - Annual [facility] Start: 2002 Hepatitis A immunization HEPAT ITIS A VACCINES (1 of 2 - 2-dose series) [facility] Start: 2002 [id number] a vaccination MMR VACCINES (1 of 2 - Standard series) [facility] Start: 2001 COVID-19 Vaccine (#1) COVID-19 Vacci ne (#1) [facility] Start: 2001 Inactivated poliovir us vaccine (product) IPV VACCINES (1 of 3 - [facility]-dose series[facility] Start: 2001 Hearing Screening (#1) Hearing Scree albert (#1) [facility] Start: 2001 Hepatitis B vaccination HEPATI TIS B VACCINES (1 of 3 - 3-dose primary series) [facility] Start: 2001 HIV screening HIV Screening [facility] Start: 2001 Lipid panel Lipid Panel [facility] Start: 2001 Screening for Chlamy joan trachomatis Chlamydia Screening [facility] Start: 2001 Tetanus vaccination TETANUS EVERY 10 YR [facility] CBC W Auto Different ial panel - Blood [facility] Erythrocyte mean corpuscular volume determination [facility] Hematocrit [Volume Fraction] of Blood [facility] Hemoglobin [Mass/vol ume] in Blood [facility] Leukocytes [#/volume ] in Blood [facility] Mean corpuscular hemoglobin concentration determination [facility] Mean corpuscular hemoglobin determination [facility] Measurement of gluco se 2 hours after glucose challenge for glucose tolerance test [facility] Neutrophil count [facility] Neutrophil percent differential count [facility] Platelets [#/volume] in Blood [facility] Red blood cell count [facility] Red cell distributio n width determination [facility] Serologic test for syphilis [facility] Immunizations Immunization Date Immunization Notes Care Provider Fa agustina 11-25-2018 hepatitis A vaccine, pediatric/adolescent dosage, 2 dose schedule Loree RAVI Work Phone: [facility] Work Phone: 11-25-2018 meningococcal B vacc ine, recombinant, OMV, adjuvanted Loree Oseguera APRN-[employer] Work Phone: [facility] Work Phone: 11-23-2017 hepatitis A vaccine, pediatric/adolescent dosage, 2 dose schedule Loree Oseguera APRN-GURWINDER Work Phone: [facility] Work Phone: 11-23-2017 meningococcal B vacc ine, recombinant, OMV, adjuvanted Loree Oseguera APRN-[employer] Work Phone: [facility] Work Phone: 11-23-2017 meningococcal polysaccharide (groups A, C, Y and W-135) diphtheria toxoid conjugate vaccine (MCV4P) Loree Oseguera APRN-[employer] Work Phone: [facility] Work Phone: 11-25-2013 meningococcal polysaccharide (groups A, C, Y and W-135) diphtheria toxoid conjugate vaccine (MCV4P) Loree Oseguera APRN-[employer] Work Phone: [facility] Work Phone: 11-25-2013 tetanus toxoid, redu robert diphtheria toxoid, and acellular pertussis vaccine, adsorbed Loree Oseguera APRN-[facility] Work Phone: [facility] Work Phone: 03-30-2012 varicella virus vaccine Loree Oseguera APRN-[facility] Work Phone: [facility] Work Phone: 01-29-2009 influenza virus vacc ine, whole virus [facility] Work Phone: [facility] Work Phone: 01-29-2009 influenza virus vacc ine, unspecified formulation Loree Oseguera APRN-[facility] Work Phone: [facility] Work Phone: 12-18-2005 diphtheria, tetanus toxoids and acellular pertussis vaccine Loree Oseguera APRN-[facility] Work Phone: [facility] Work Phone: 12-18-2005 diphtheria, tetanus toxoids and pertussis vaccine Loree Oseguera APRN-[facility] Work Phone: [facility] Work Phone: 12-18-2005 measles, mumps and rubella virus vaccine Loree Oseguera APRN-[facility] Work Phone: [facility] Work Phone: 12-18-2005 poliovirus vaccine, inactivated [facility] [place] Work Phone: [facility] Work Phone: 09-06-2002 diphtheria, tetanus toxoids and acellular pertussis vaccine, unspecified formulation Loree Oseguera APRN-[facility] Work Phone: [facility] Work Phone: 09-06-2002 diphtheria, tetanus toxoids and pertussis vaccine Loree Oseguera APRN-[facility] Work Phone: [facility] Work Phone: 09-06-2002 haemophilus influenz ae type b vaccine, conjugate unspecified formulation Loree Oseguera APRN-[facility] Work Phone: [facility] Work Phone: 09-06-2002 measles, mumps and rubella virus vaccine Loree Oseguera APRN-[facility] Work Phone: [facility] Work Phone: 05-13-2002 varicella virus vaccine Loree Oseguera APRN-[facility] Work Phone: [facility] Work Phone: 05-10-2002 poliovirus vaccine, inactivated Loree Oseguera APRN-[facility] Work Phone: [facility] Work Phone: 05-10-2002 poliovirus vaccine, unspecified formulation Loree Oseguera APRN-[facility] Work Phone: [facility] Work Phone: 2001 diphtheria, tetanus toxoids and acellular pertussis vaccine, unspecified formulation Loree Oseguera APRN-[facility] Work Phone: [facility] Work Phone: 2001 diphtheria, tetanus toxoids and pertussis vaccine Loree Oseguera APRN-[facility] Work Phone: [facility] Work Phone: 2001 haemophilus influenz ae type b conjugate and Hepatitis B vaccine Loree Oseguera APRN-[facility] Work Phone: [facility] Work Phone: 2001 haemophilus influenz ae type b vaccine, PRP-T conjugate Loree Oseguera APRN-[facility] Work Phone: [facility] Work Phone: 2001 hepatitis B vaccine, pediatric or pediatric/adolescent dosage Loree Oseguera APRN-[facility] Work Phone: [facility] Work Phone: 2001 diphtheria, tetanus toxoids and acellular pertussis vaccine, unspecified formulation Loree Oseguera APRN-[employer] Work Phone: [facility] Work Phone: 2001 diphtheria, tetanus toxoids and pertussis vaccine Loree Oseguera APRN-[employer] Work Phone: [facility] Work Phone: 2001 haemophilus influenz ae type b conjugate and Hepatitis B vaccine Loree Oseguera APRN-[employer] Work Phone: [facility] Work Phone: 2001 haemophilus influenz ae type b vaccine, PRP-T conjugate Loree Oseguera APRN-[employer] Work Phone: [facility] Work Phone: 2001 hepatitis B vaccine, pediatric or pediatric/adolescent dosage Loree Oseguera APRN-[employer] AP[employer] Work Phone: [facility] Work Phone: 2001 poliovirus vaccine, inactivated Loree Oseguera APRN-[employer] Work Phone: [facility] Work Phone: 2001 diphtheria, tetanus toxoids and acellular pertussis vaccine, unspecified formulation Loree Oseguera APRN-[employer] Work Phone: [facility] Work Phone: 2001 diphtheria, tetanus toxoids and pertussis vaccine Loree Oseguera APRN-[employer] Work Phone: [facility] Work Phone: 2001 haemophilus influenz ae type b vaccine, conjugate unspecified formulation Loree Oseguera APRN-[employer] Work Phone: [facility] Work Phone: 2001 hepatitis B vaccine, pediatric or pediatric/adolescent dosage Loree Oseguera APRN-[employer] Work Phone: [facility] Work Phone: 2001 poliovirus vaccine, inactivated Loree Oseguera APRN-[employer] AP[employer] Work Phone: [facility] Work Phone: 2001 hepatitis B vaccine, pediatric or pediatric/adolescent dosage Loree Oseguera KILN CLEANER-[employer] AP[employer]ER Work Phone: [facility] Work Phone: Payers Date Payer Category Payer Self-pay 2024 Unknown [id number] 2022 Unknown [id number] 2018 Unknown [employer] PPO xxxxxxxxx 2018-Present xxxxxxxxx [id number] 2018 Unknown [id number] 2017 Unknown 2001 Unknown [id number] 2001 Unknown [id number] 2001 Unknown [id number] [id number] 2001 Unknown [id number] 2001 Unknown [id number] [id number] 2001 Unknown [id number] [id number] 2001 Unknown [id number] [id number] 1978 Unknown [id number] [id number] 1978 Unknown [id number] [id number] Unknown [id number] Unknown [id number] [id number] Unknown [id number] [id number] Unknown [id number] [id number] Unknown [id number] [id number] Unknown [id number] [id number] Unknown [id number] [id number] Unknown [id number] [id number] Social History Date Type Detail Facility Start: 10-14-2018 End: 06-17-2024 Tobacco smoking status [facility] Never smoker [facility] Start: 10-14-2018 History SDOH Alcohol Frequency 1 [facility] Start: 2001 [facility] Start: 09-23-2022 Tobacco use and exposure Smokeless tobacco non-user [facility] Work Phone: Start: 09-23-2022 End: 04-21-2023 Alcohol intake Lifetime non-drinker (finding) [facility] Work Phone: Start: 09-23-2022 End: 04-21-2023 History of Social function [facility] Work Phone: Start: 09-23-2022 End: 04-21-2023 Tobacco use panel [facility] Work Phone: Start: 09-13-2022 End: 09-23-2022 Exposure to SARS-CoV-2 (event) Not sure [facility] Start: 04-11-2023 End: 04-21-2023 Exposure to SARS-CoV-2 (event) Unable to assess [facility] Work Phone: Start: 07-11-2024 End: 07-13-2024 Sex Female (finding) [facility] Start: 2001 Sex Assigned At Female W [facility] Clinical Notes 09-23-2022 to 11-01-2024 Note Date & Type Note Facility 11-01-2024 Progress note [facility] 10-03-2024 Progress note [facility] 08-08-2024 Evaluation note Diagnosis Onset Date Resolution Maternal varicella, non-immune acute August 08, 2024 10:11am acute August 08 10:11am Supervision of normal first acute August 08, 2024 10:11am Choroid plexus cyst of fetus acute September 08, 2024 10:46am Maternal varicella, non-immune acute September 08, 2024 10:46am acute September 08, 2024 10:46am Supervision of normal first acute September 08, 2024 10:46am Choroid plexus cyst of fetus acute October 03, 2024 10:38am Maternal varicella, non-immune acute October 03, 2024 10:38am acute October 03 10:38am Supervision of normal first acute October 03, 2024 10:38am Choroid plexus cyst of fetus acute November 01, 2024 9:05am Maternal varicella, non-immune acute November 01, 2024 9:05am acute November 01 9:05am Supervision of normal first acute November 01, 2024 9:05am [facility] Work Phone: [phone]) [phone] NotePap Smear Specimen AdequacyMarch 2024 11:59pmComment.Satisfactory for evaluation. No endocervical component is identified.[facility] A#[id number] Health [facility]sburg HospitalComment on above:Satisfactory for evaluation. No endocervical component is identified. 06-30-2024 NotePap Smear Specimen AdequacyMarch 2024 11:59pmComment. Satisfactory for evaluation. No endocervical component is identified.[facility] A#[id number] Health Perrysburg HospitalComment on above:Satisfactory for evaluation. No endocervical component is identified.06-30-2024 Evaluation note * Diagnosis Onset Date Resolution Status Admit Date Maternal varicella, non-immune acute June 30, 2024 2:13pm acute June 30 2:13pm Supervision of normal first acute June 30, 2024 2:13pm [facility] Work Phone: 1(818) 681-599203-13-2025 Evaluation note* Diagnosis Onset Date Resolution Status Admit Date Maternal varicella, non-immune acute June 30, 2024 2:13pm acute June 30 2:13pm Supervision of normal first acute June 30, 2024 2:13pm Maternal varicella, non-immune acute August 08, 2024 10:11am acute August 08 10:11am Supervision of normal first acute August 08, 2024 10:11am Choroid plexus cyst of fetus acute September 08, 2024 10:46am Maternal varicella, non-immune acute September 08, 2024 10:46am acute September 08, 2024 10:46am Supervision of normal first acute September 08, 2024 1 0:46am Choroid plexus cyst of fetus acute October 03, 2024 10:38am Maternal varicella, non-immune acute October 03, 2024 10:38am acute October 03 10:38am Supervision of normal first acute October 03, 2024 10:38am [facility] Work Phone: 1(160) 708-884201-02-2024 History of Present illness Narrative* Odilon Coughlin PA-C - 04/21/2023 1:40 PM EST An interactive audio and video telecommunication system which permits real time communication between the patient (at home) and the provider (at the office) was utilized to provide this telehealth service Virtual or Telephone Consent Verbal consent was requested and obtained from Renuka Kwan on this date, 04/21/23 for a telehealthvisit. Subjective Patient ID: Renuka Kwan is a 22 y.o. female who presents for Illness (VIRTUAL; C/O SORE THROAT, SINUS DRAINAGE/CONGESTION, BODY ACHES/CHILLS AND DRY COUGH X 4 DAYS NOW. ) HPI Patient presents today as loree oseguera patient for 1 illness [address], sinus drainage, congestion, body aches, chills and dry cough She denies fever, GI symptom sx - N/V/D, loss of taste /smell No known exposure to covid - roommate has been sick but covid neg and influenza neg She has been taking - nothing at this time 2 med check Ex induced asthma - exacerbated with illness - needs rescue inhaler Preventative Fall NEG APR 2023 PHQ2 - NEG APR 2023 Patient Active Problem List Diagnosis Acne vulgaris Allergic rhinitis Asthma, exercise induced Lactose intolerance Establishing care with new doctor, encounter for Wellness examination Review of Systems Constitutional: Positive for chills and fatigue. Negative for fever. HENT: Positive for congestion, sinus pain and sore throat. Negative for rhinorrhea and tinnitus. Eyes: Negative for discharge, redness and visual disturbance. Respiratory: Positive for cough. Negative for chest tightness, shortness of breath and wheezing. Cardiovascular: Negative for chest pain, palpitations and leg swelling. Gastrointestinal: Negative for abdominal pain, constipation, diarrhea, nausea and vomiting. Endocrine: Negative for cold intolerance and heat intolerance. Genitourinary: Negative for flank pain, frequency and urgency. Musculoskeletal: Positive for arthralgias and myalgias. Negative for back pain, gait problem and neck pain. Skin: Negative for rash and wound. Neurological: Negative for dizziness, tremors, syncope, numbness and headaches. Hematological: Does not bruise/bleed easily. Psychiatric/Behavioral: Negative for confusion, sleep disturbance and suicidal ideas. History reviewed. No pertinent past medical history. Past Surgical History: Procedure Laterality Date NO PAST SURGERIES Family History Problem Relation Name Age of Onset No Known Problems Mother No Known Problems Father Social History Tobacco Use Smoking status: Never Smokeless tobacco: Never Vaping Use Vaping Use: Never used Substance Use Topics Alcohol use: Never Drug use: Never No Known Allergies Current Outpatient Medications Medication Sig Dispense Refill albuterol 90 mcg/actuation inhaler Inhale 2 puffs. cetirizine (ZyrTEC) 10 mg tablet Take 1 tablet (10 mg) by mouth once daily. multivitamin capsule Take 1 capsule by mouth once daily. No current facility-administered medications for this visit. Objective There were no vitals taken for this visit. Physical Exam Vitals reviewed. Constitutional: Appearance: Normal appearance. HENT: Head: Normocephalic. Eyes: Conjunctiva/sclera: Conjunctivae normal. Musculoskeletal: General: Normal range of motion. Neurological: General: No focal deficit present. Mental Status: She is alert and oriented to person, place, and time. Psychiatric: Mood and Affect: Mood normal. Behavior: Behavior normal. Testing Impression MDM 1) COMPLEXITY: 1 OR MORE CHRONIC CONDITION WITH EXACERBATION, OR PROGRESSION OR SIDE EFFECT OF TREATMENT ADDRESSED 2)DATA: TESTS INTERPRETED AND OR ORDERED, TOOK INDEPENDENT HISTORY OR RECORDS REVIEWED 3)RISK: MODERATE RISK DUE TO NATURE OF MEDICAL CONDITIONS/COMORBIDITY OR MEDICATIONS ORDERED OR SURGICAL OR PROCEDURE REFERRAL, . Reviewed labs and Testing on file Patient to follow diet low in cholesterol, fat, and sodium. Patient is advised to increase Exercise. Patient is recommended to lose weight. Reviewed Meds and discussed common side effects Continue as directed Illness- less likely flu given if she has a fever does not see to be significant. Consider COVID and discussed given her pulm hx she is a candidate for paxlovid but only if she tests pos and starts meds within 5 days of symptoms- suggest flu and COVID testing but pt declines at this time. She would like to tx as sinus given her roommates exposure and she tested neg Will start on Abx and rest and fluids - call if symptoms worsen Rescue inhaler renewed Consider follow up in 1 week - pt states will call if needed Patient is strongly advised to be compliant with recommendations. Return to Clinic sooner if needed. Patient denies further questions/concerns at this time Assessment/Plan Problem List Items Addressed This Visit ICD-10-CM Asthma, exercise induced J45.990 Relevant Medications albuterol 90 mcg/actuation inhaler Other Visit Diagnoses Codes Acute non-recurrent maxillary sinusitis - Primary J01.00 Relevant Medications azithromycin (Zithromax) 250 mg tablet FU as before documented in this [facility] Work Phone: 1(703) 816-956806-06-2023 History of Present illness Narrative* BREONNA Wiggins - 09/23/2022 1:20 PM EDT Subjective Patient ID: Renuka Kwan is a 22 y.o. female who presents for Establish Care (No concerns). HPI: Presents today for TO ESTABLISH CARE. NO SPECIFIC CONCERNS Visit Vitals BP 121/84 (BP Location: Right arm, Patient Position: Sitting) Pulse 84 Wt 57.6 kg (127 lb) LMP (LMP Unknown) SpO2 99% OB Status Having periods Smoking Status Never Review of Systems Constitutional: Negative for chills, fatigue, fever and unexpected weight change. HENT: Negative for congestion, ear pain, sore throat and trouble swallowing. Eyes: Negative for photophobia, pain, redness and visual disturbance. Respiratory: Negative for apnea, cough, choking, chest tightness, shortness of breath and wheezing. Cardiovascular: Negative for chest pain, palpitations and leg swelling. Gastrointestinal: Negative for abdominal distention, abdominal pain, blood in stool, constipation, diarrhea, nausea and vomiting. Genitourinary: Negative for difficulty urinating, dysuria, flank pain, frequency, hematuria and urgency. Musculoskeletal: Negative for arthralgias, back pain, gait problem, joint swelling, myalgias and neck pain. Skin: Negative for rash and wound. Neurological: Negative for dizziness, seizures, syncope, facial asymmetry, speech difficulty, weakness, numbness and headaches. Psychiatric/Behavioral: Negative for confusion, sleep disturbance and suicidal ideas. The patient is not nervous/anxious. Objective Physical Exam Constitutional: Appearance: Normal appearance. She is normal weight. HENT: Head: Normocephalic. Eyes: Extraocular Movements: Extraocular movements intact. Conjunctiva/sclera: Conjunctivae normal. Pupils: Pupils are equal, round, and reactive to light. Cardiovascular: Rate and Rhythm: Normal rate and regular rhythm. Pulses: Normal pulses. Heart sounds: Normal heart sounds. Pulmonary: Effort: Pulmonary effort is normal. Breath sounds: Normal breath sounds. Musculoskeletal: General: Normal range of motion. Cervical back: Normal range of motion. Skin: General: Skin is warm and dry. Neurological: General: No focal deficit present. Mental Status: She is alert and oriented to person, place, and time. Psychiatric: Mood and Affect: Mood normal. Behavior: Behavior normal. Thought Content: Thought content normal. Judgment: Judgment normal. Assessment/Plan Problem List Items Addressed This Visit Respiratory Asthma, exercise induced - Primary Other Establishing care with new doctor, encounter for Wellness examination Relevant Orders Referral to Obstetrics / Gynecology CBC and Auto Differential Comprehensive Metabolic Panel Hemoglobin A1C TSH with reflex to Free T4 if abnormal CBC and Auto Differential Comprehensive Metabolic Panel Hemoglobin A1C Lipid Panel TSH with reflex to Free T4 if abnormal PATIENT IS STRONGLY ADVISED TO BE COMPLIANT WITH RECOMMENDATIONS. QUESTIONS AND CONCERNS WERE ADDRESSED. INSTRUCTED TO CALL, RETURN SOONER, OR GO TO THE ER, IF SYMPTOMS PERSIST OR WORSEN. THEY VOICEDUNDERSTANDING AND DENIES FURTHER QUESTIONS AT THIS TIME. TIME CODE 1. PREPARATION FOR PATIENT'S VISIT (REVIEWING CHART, CURRENT MEDICAL RECORDS, OUTSIDE HEALTH PROVIDER RECORDS, PREVIOUS HISTORY, EXAM, TEST, PROCEDURE, AND MEDICATIONS) 2. FACE TO FACE ENCOUNTER OBTAINING HISTORY FROM THE PATIENT/FAMILY/CAREGIVERS; PERFORMING EVALUATION AND EXAMINATION; ORDERING TESTS OR PROCEDURES; REFERRING AND COMMUNICATING WITH OTHER HEALTHCARE PROVIDERS; COUNSELING AND EDUCATION OF THE PATIENT/FAMILY/CAREGIVERS; INDEPENDENTLY INTERPRETING RESULTS (TESTS, LABS, PROCEDURES, IMAGING) AND COMMUNICATING AND EXPLAINING RESULTS TO THE PATIENT/FAMILY/CAREGIVERS 3. COORDINATION OF CARE; PREPARING AND PRINTING DISCHARGE INSTRUCTIONS AND ANY EDUCATIONAL MATERIALFOR THE PATIENT/FAMILY/CAREGIVERS. DOCUMENTING CLINICAL INFORMATION IN THE ELECTRONIC MEDICAL RECORD 4. REVIEWING OARRS NEEDED MDM 1) COMPLEXITY: 1 ACUTE ILLNESS, 1 STABLE CHRONIC CONDITION, OR 2 MINOR PROBLEMS ADDRESSED 2)DATA: TESTS INTERPRETED AND OR ORDERED, TOOK INDEPENDENT HISTORY OR RECORDS REVIEWED 3)RISK: LOW RISK DUE TO NATURE OF MEDICAL CONDITIONS/COMORBIDITY OR MEDICATIONS ORDERED OR SURGICALOR PROCEDURE REFERRAL 12 MONTHS WELLNESS WITH LABS. DO LABS AND I HAVE AGREED TO CALL WITH LABS [facility] note* Diagnosis Asthma, exercise induced- Primary Exercise induced bronchospasm Establishing care with new doctor, encounter for Wellness examination documented in this encounter [facility] Work Phone: Evaluation note* Diagnosis Acute non-recurrent maxillary sinusitis- Primary Asthma, exercise induced Exercise induced bronchospasm documented in this encounter [facility] Work Phone: Progress note Author Virginia Titus [facility] Note Date/Time October 03, 2024 11:[address], [address] [place] [address] OFFICE VISIT Date of Service: 10/03/24 MR#: [id number] Acct: [id number] Name: RENUKA KWAN Rep #: [id number] : 2000 Provider: NAZANIN Titus Age/Sex: 24/F Location: [facility] [place] Status: Signed Intake Vital Signs 08/08/24 10:16 09/08/24 10:54 10/03/24 10:43 Height 5 ft 3 in 5 ft 3 in 5 ft 3 in Weight: 130 lb 4 oz BMI 23.1 BP 134/87 H Intake Visit Reasons: 21 wk ob Chief 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 Is patient in pain?: No Allergies No Known Allergies Allergy (Unverified 10/03/24 10:41) Medications ?Medication ?Instructions ?Recorded ?Confirmed ?Type diphenhydramine HCl 50 mg capsule 50 mg PO QHS 5 10/03/24 History ([employer]om SleepGels) mv-mn 110-FA 180 mcg-om3 35 mg-dha tab PO 06/17/24 History 25 mg-epa 5 mg-fish oil chew tablet pyridoxine (vitamin B6) 100 mg 100 mg PO QHS 06/17/24 10/03/24 History tablet Last Menstrual Period: 04/25/24 : No Have you fallen in the past year?: No PFSH PFSH Medical History Asthma Surgical History Siloam teeth extracted Family History Grandmother Cancer, Onset Age: 75 Paternal- Kidney Father High cholesterol Social History adopted: No household members: spouse and other details: Sister & Fiance housing: house current occupational status: employed 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 current occupational exposures/hazards: No pets and animals: Yes pets and animals: dog(s) history of recent travel: No sexually active: Yes Smoking Status: Never smoker alcohol intake: current alcohol intake frequency: holidays/special occasions only details: not while substance use type: does not use well-balanced diet: daily or most days caffeine: No eating out: 1-3 times/week during the past year weight has: remained stable what type of physical activity do you participate in: walking frequency: 1-2 times per week duration: 15-30 minutes/day antoine/bahai: Christianity seatbelt use: always do you feel safe at home: No additional social history: Dominick- Landscaping/Marine History 1 Elective abortions Hx Para 0 Spontaneous abortions Hx # Term Pregnancies Ectopic pregnancies Hx # Pregnancies Multiple births # of living children HPI 21 wk ob Details: RENUKA KWAN is a 24 year old who presents for routine OB visit. OB Visit KAROLINA Calculator Estimated Delivery Date Method Current WG Current Estimate 01/30/25 LMP (Certain) 23w 0d Other Estimates 01/25/25 Ultrasound #1 23w 5d 01/25/25 Ultrasound #2 23w 5d Expected Delivery Route/Plan Labor Preferences- CB/BF classes: [] labor support person: [] labor intervention preferences: [] pain management options preferred: [] cut cord/dad catch: [] : [] PP control planned: [] discussed possible routes of delivery and associated risks: [] special requests: [] Specific Issue/Plans Covid status: [] Flu vaccine: [] Tdap vaccine: [] Rhogam: [] LARC form signed: [] Problem list reviewed and updated with the most current plan of care details and appropriate orders placed. Relevant counseling for the gestational age provided. Continue routine care and follow up unless otherwise noted in visit notes/problem list details Initial Weight: 115 lb Date -?-?-?-?-?-?-?-?-?-?-?-?- EGA Weight BP Urine Prot -?-?-?-?-?-?--?-?-?-?-?-?- Glucose FHR FuHt Pres Dilation -?-?-?-?-?-?-?-?-?-?-?-?- Effaced St Visit Note 06/30/24 -?-?-?-?-?-?-?-?-?-?-?-?- 9w 3d 115 lb 6 oz (+6 oz) 132/82 -?-?-?-?-?-?-?-?-?-?-?-?- 169 -?-?-?-?-?-?-?-?-?-?-?-?- KW CRL cons with dates. Accepts NIPT 08/08/24 -?-?-?-?-?-?-?-?-?-?-?-?- 15w 0d 116 lb 8 oz (+1 lb 8 oz) 123/77 Negative -?-?-?-?-?-?-?-?-?-?-?-?- Negative 144 -?-?-?-?-?-?-?-?-?-?--?-?- JV- no cramping or spotting. anatomy ordered with mfm. 09/08/24 -?-?-?-?-?-?-?-?-?-?-?-?- 19w 3d 125 lb (+10 lb) 133/75 Negative -?-?-?-?-?-?-?-?-?-?-?-?- Negative 140 -?-?-?-?-?-?-?-?-?-?-?-?- SM- no vb lof cr maping anatomy reviewed 10/03/24 -?-?-?-?-?-?-?-?-?-?-?-?- 23w 0d 130 lb 4 oz (+15 lb 4 oz) 134/87 Negative -?-?-?-?-?-?-?-?-?-?-?-?- Negative 150 23 -?-?-?-?-?-?-?-?-?-?-?-?- KW- no vb/lof/ct x. [place]. glucose instructions reviewed. ACOG First Trimester First Trimester: Desire for , Alcohol, Tobacco Cessation, Illicit/Recreational Drug/Substance Use, Intimate Partner Violence, Barriers to care, Anticipated Course of Care, Use of Any medications, Sexual activity, Exercise, Dental Care, Sauna/Hot tub use, Seat Belt use, Childbirth classes/Hospital facilities, Travel, Indications for Ultrasound and Screening for Aneuploidy; Discussed Unstable Housing, Discussed Communication Barriers, Discussed Environmental/Work Hazards, Discussed Toxoplasmosis Precations and Discussed Second Trimester Second Trimester: Signs and Symptoms of Labor, Selecting a care provider, Reproductive Life Planning & Contreception, Care Planning, Depression/Anxiety and Intimate Partner Violence; Discussed Tobacco Cessation Third Trimester Third Trimester: Pain Management Plans, Labor support person(s), Immediate Larc, Signs and Symptoms of Preeclampsia, Feeding No , Education and Family Medical Leave or Disability Forms ROS Const Reports system reviewed and no additional complaints, except as documented Eyes Reports system reviewed and no additional complaints, except as documented ENT Reports system reviewed and no additional complaints, except as documented Card Reports system reviewed and no additional complaints, except as documented Resp Reports system reviewed and no additional complaints, except as documented GI Reports system reviewed and no additional complaints, except as documented, Denies nausea and Denies vomiting Reports system reviewed and no additional complaints, except as documented Musc Reports system reviewed and no additional complaints, except as documented Skin/Breast Reports system reviewed and no additional complaints, except as documented Neuro Yes system reviewed and no additional complaints, except as documented Psych Reports system reviewed and no additional complaints, except as documented Endo Reports system reviewed and no additional complaints, except as documented Jsoe/Lymph Reports system reviewed and no additional complaints, except as documented Aller/Immun Reports system reviewed and no additional complaints, except as documented Exam Const General: cooperative, healthy appearing and no acute distress Orientation: alert, awake and oriented x3 Neck Neck: normal visual inspection and full ROM Resp Effort & Inspection: normal respiratory effort, able to speak in complete sentences and symmetric chest movement GI Inspection: normal to inspection Palpation: soft and other Other: gravid Skin General: no rashes or lesions noted Neuro General: patient alert, patient awake and patient oriented x3 Cognition: normal cognition Speech: speech normal Gait: normal gait Motor: muscle tone normal throughout Extrem General: normal to inspection and full ROM Psych Appearance: grossly normal Mental Status: mental status grossly normal Mood: congruent mood Affect: normal affect Speech and Movement: speech and movement normal Attitude: cooperative Thought Process: normal Thought Content: normal Judgment: judgment good Results POC Urinalysis 2 Dip (Clinic) Office Urine Glucose Negative Last Edit by Angelita Jade on 10/03/24 10:48 Office Urine Protein Negative Last Edit by Angelita Jade on 10/03/24 10:48 Coding Level of Care Code OB Routine Diagnoses Choroid plexus cyst of fetus Supervision of normal first Z34.00 23 weeks gestation of Z3A.23 Weeks of gestation: 23 weeks Maternal varicella, non-immune O09.899; Z28.39 Assessment and Plan Assessment and Plan (1) Choroid plexus cyst of fetus: Status: Acute Comment: LR NIPT (2) Supervision of normal first : Status: Acute Comment: PRR, , KAROLINA 01/30/25, boy, Graidy Dominick(-Marine) (3) : Status: Acute Qualifiers: Weeks of gestation: 23 weeks Qualified Code(s): Z3A.23 - 23 weeks gestation of Comment: NIPT low risk, anatomy reveiwed fu views needed (4) Maternal varicella, non-immune: Status: Acute Orders: Orders POC Urinalysis 2 Dip (Clinic) Today CBC W/Diff, Automated Today Z34.00 - Encounter for supervision of normal first , unspecified trimester, Z3A.23 - 23 weeks gestation of Glucose Challenge Gest 1H 50g Today Z13.1 - Encounter for screening for diabetes mellitus HIV Today Z34.00 - Encounter for supervision of normal first , unspecified trimester, Z3A.23 - 23 weeks gestation of Syphilis Antibodies Today Z34.00 - Encounter for supervision of normal first , unspecified trimester, Z3A.23 - 23 weeks gestation of Plan Details Additional Comments: ACOG trimester education reviewed and updated. see problem list details for updated plan management information and see below for orders placed at this visit. GA appropriate handout given. Clinical Quality Measures Falls Risk Screening/Assistive Devices Have you fallen in the past year?: No 10/03/24 4080 <Electronically signed by Virginia nguyen CNM> Date _ Virginia Titus CNM Cosigner Signature: Date (if applicable) CC: ~ [facility] Work Phone: Progress note Author Aranza Perry [facility] Note Date/Time November 01, 2024 9:33 am [facility] [address], [address] [place] [address] OFFICE VISIT Date of Service: 11/01/24 MR#: [id number] Acct: [id number] Name: RENUKA KWAN Rep #: [id number] : 2000 Provider: ESTRELLA Perry Age/Sex: 24/F [place] [facility] [place]: Signed Intake Vital Signs 09/08/24 10:54 10/03/24 10:43 11/01/24 09:11 11/01/24 09:21 Height 5 ft 3 in 5 ft 3 in 5 ft 3 in 5 ft 3 in Weight: 137 lb 6 oz BMI 24.3 BP 120/72 Intake Visit Reasons: 27 wk ob Chief Complaint: 27 Week 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 Is patient in pain?: No Allergies No Known Allergies Allergy (Unverified 11/01/24 09:10) Medications ?Medication ?Instructions ?Recorded ?Confirmed ?Type diphenhydramine HCl 50 mg capsule 50 mg PO QHS 5 11/01/24 History ([employer]om SleepGels) mv-mn 110-FA 180 mcg-om3 35 mg-dha tab PO 06/17/24 History 25 mg-epa 5 mg-fish oil chew tablet pyridoxine (vitamin B6) 100 mg 100 mg PO QHS 06/17/24 11/01/24 History tablet Last Menstrual Period: 04/25/24 Zika: Zika virus screening: Negative : Yes PFSH PFSH Medical History Asthma Surgical History Siloam teeth extracted Family History Grandmother Cancer, Onset Age: 75 Paternal- Kidney Father High cholesterol Social History adopted: No household members: spouse and other details: Sister & Fiance housing: house current occupational status: employed 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 current occupational exposures/hazards: No pets and animals: Yes pets and animals: dog(s) history of recent travel: No sexually active: Yes Smoking Status: Never smoker alcohol intake: current alcohol intake frequency: holidays/special occasions only details: not while substance use type: does not use well-balanced diet: daily or most days caffeine: No eating out: 1-3 times/week during the past year weight has: remained stable what type of physical activity do you participate in: walking frequency: 1-2 times per week duration: 15-30 minutes/day antoine/bahai: Christianity seatbelt use: always do you feel safe at home: No additional social history: Dominick- Immanueling/Marine History 1 Elective abortions Hx Para 0 Spontaneous abortions Hx # Term Pregnancies Ectopic pregnancies Hx # Pregnancies Multiple births # of living children HPI 27 wk ob Details: RENUKA KWAN is a 24 year old who presents for routine OB visit. OB Visit KAROLINA Calculator Estimated Delivery Date Method Current WG Current Estimate 01/30/25 LMP (Certain) 27w 1d Other Estimates 01/25/25 Ultrasound #1 27w 6d 01/25/25 Ultrasound #2 27w 6d Expected Delivery Route/Plan Labor Preferences- CB/BF classes: encouraged labor support person: Dominick labor intervention preferences: [] pain management options preferred: wants limited cut cord/dad catch: yes : yes PP control planned: discussed discussed possible routes of delivery and associated risks: [] special requests: [] Specific Issue/Plans Covid status: [] Flu vaccine: [] Tdap vaccine: [] Rhogam: NA LARC form signed: yes Problem list reviewed and updated with the most current plan of care details and appropriate orders placed. Relevant counseling for the gestational age provided. Continue routine care and follow up unless otherwise noted in visit notes/problem list details Initial Weight: 115 lb Date -?-?-?-?-?-?-?-?-?-?-?-?- EGA Weight BP Urine Prot -?-?-?-?-?-?-?-?-?-?-?-?- Glucose FHR FuHt Pres Dilation -?-?-?-?-?-?-?-?-?-?-?-?- Effaced St Visit Note 06/30/24 -?-?-?-?-?-?-?-?-?-?-?-?- 9w 3d 115 lb 6 oz (+6 oz) 132/82 -?-?-?-?-?-?-?-?-?-?-?-?- 169 -?-?-?-?-?-?-?-?-?-?-?-?- KW CRL cons with dates. Accepts NIPT 08/08/24 -?-?-?-?-?-?-?-?-?-?-?-?- 15w 0d 116 lb 8 oz (+1 lb 8 oz) 123/77 Negative -?-?-?-?-?-?-?-?-?-?-?-?- Negative 144 -?-?-?-?-?-?-?-?-?-?-?-?- JV- no cramping or spotting. anatomy ordered with mfm. 09/08/24 -?-?-?-?-?-?-?-?-?-?-?-?- 19w 3d 125 lb (+10 lb) 133/75 Negative -?-?-?-?-?-?-?-?-?-?-?-?- Negative 140 -?-?-?-?-?-?-?-?-?-?-?-?- SM- no vb lof cr maping anatomy reviewed 10/03/24 -?-?-?-?-?-?-?-?-?-?-?-?- 23w 0d 130 lb 4 oz (+15 lb 4 oz) 134/87 Negative -?-?-?-?-?-?-?-?-?-?-?-?- Negative 150 23 -?-?-?-?-?-?-?-?-?-?-?-?- KW- no vb/lof/ct x. good fm. glucose instructions reviewed. 11/01/24 -?-?--?-?-?-?-?-?-?-?-?-?- 27w 1d 137 lb 6 oz (+22 lb 6 oz) 120/72 Negative -?-?-?-?-?-?-?-?-?-?-?-?- Negative 152 27 -?-?-?-?-?-?-?-?-?-?-?--?- MH-No VB, LOF. G oaníbal FM. Larc. 28 wk labs pending. ACOG First Trimester First Trimester: Desire for , Alcohol, Tobacco Cessation, Illicit/Recreational Drug/Substance Use, Intimate Partner Violence, Barriers to care, Anticipated Course of Care, Use of Any medications, Sexual activity, Exercise, Dental Care, Sauna/Hot tub use, Seat Belt use, Childbirth classes/Hospital facilities, , Travel, Indications for Ultrasound and Screening for Aneuploidy; Discussed Unstable Housing, Discussed Communication Barriers, Discussed Environmental/Work Hazards and Discussed Toxoplasmosis Precations Second Trimester Second Trimester: Signs and Symptoms of Labor, Selecting a care provider, Reproductive Life Planning & Contreception, Care Planning, Depression/Anxiety and Intimate Partner Violence; Discussed Tobacco Cessation Third Trimester Third Trimester: Pain Management Plans, Labor support person(s), Immediate Larc, Circumcision preference Yes Yes, Signs and Symptoms of Preeclampsia, Feeding Yes , [place] Education and Family Medical Leave or Disability Forms ROS Const Reports system reviewed and no additional complaints, except as documented GI Denies abdominal pain, Denies nausea and Denies vomiting Exam Const General: cooperative Nutritional Appearance: well nourished GI Palpation: soft, nontender and other (gravid) Results POC Urinalysis 2 Dip (Clinic) Office Urine Glucose Negative Last Edit by Cecille Valdes on 11/01/24 09 :21 Office Urine Protein Negative Last Edit by Cecille Valdes on 11/01/24 09 :21 Coding Level of Care Code OB Routine Diagnoses Encounter for supervision of normal first in second trimester Z34.02 Trimester: second trimester 27 weeks gestation of Z3A.27 Weeks of gestation: 27 weeks Choroid plexus cyst of fetus Maternal varicella, non-immune O09.899; Z28.39 Assessment and Plan Assessment and Plan (1) Supervision of normal first : Status: Acute Qualifiers: Trimester: second trimester Qualified Code(s): Z34.02 - Encounter for supervision of normal first , second trimester Comment: PRR, , KAROLINA 01/30/25, boy, Graidy Dominick(-Marine) (2) : Status: Acute Qualifiers: Weeks of gestation: 27 weeks Qualified Code(s): Z3A.27 - 27 weeks gestation of Comment: NIPT low risk, anatomy reveiwed fu views needed (3) Choroid plexus cyst of fetus: Status: Acute Comment: LR NIPT (4) Maternal varicella, non-immune: Status: Acute Orders: Orders POC Urinalysis 2 Dip (Clinic) Today Plan problem list reviewed and updated for most current plan of care and appropriate orders placed. Relevant counseling for the gestational age appropriate provided and ACOG education checklist updated. Continue routine care and follow up. 11/01/24 0933 <Electronically signed by Aranza nguyen MICROWAVE OVEN ASSEMBLER MICROWAVE OVEN ASSEMBLER-C> Date _ Aranza Perry MICROWAVE OVEN ASSEMBLER MICROWAVE OVEN ASSEMBLER-C Cosigner Signature: Date (if applicable) CC: ~ [facility] Work Phone: Reason for referral (narrative)* Consultation (Routine) - Authorized Specialty Diagnoses / Procedures Referred By Layne piedra Referred To Contact Obstetrics and Gynecology Diagnoses Wellness examination Procedures [place] OFFICE/OUTPATIENT [facility] MDM 60-74 MINUTES Loree Oseguera, [employer] [address] [place] [address] Referral ID Status Reason Start Date Expiration Date Visits Requested Visits Authorized [id number] Authorized Specialty Services Required 09/23/2022 03/22/2023 1 1 [facility] Work Phone: Reason for referral (narrative)No reason for referral information availableW[facility] Work Phone: Summary Purpose Family History Relationship Condition Age at Onset Recorded Date/T lisa grandmother Malignant neoplasm 75 father High blood cholesterol Unknown Advance Directives Documents on File Type Date Recorded 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 Any water, sand, or other debris that gets into the ear canal and stays there can cause swimmer's ear. Inserting cotton swabs or other items in the ear to clean itcan also cause swimmer's ear. Swimmer's ear can be very painful. But if you treat the pain and infection with medicines, you should feel better in a few days. Follow-up care is a andersen part of your treatment and safety. Be sure to make and go to all appointments, and call your doctor if you are having problems. It's also a good idea to know your test resultsand keep a list of the medicines you take. How can you care for yourself at home? Cleaning and care Use antibiotic drops exactly as directed by your doctor. Do not insert ear drops (other than the antibiotic ear drops) or anything else into the ear unless your doctor has told you to. Avoid getting water in the ear until the problem clears up. Use cotton lightly coated with petroleum jelly as an earplug. Do not use plastic earplugs. Use a interior design program chair to carefully dry the ear after you shower. Make sure the dryer is on the lowest heat setting. To ease ear pain, hold a warm washcloth against your ear. Take pain medicines exactly as directed. ? If the doctor gave you a prescription medicine for pain, take it as prescribed. ? If you are not taking a prescription pain medicine, ask your doctor if you can take an [id number]-[id number] medicine. ? No one younger than 20 should take aspirin. It has been linked to Gabriela syndrome, a serious illness. Inserting ear drops Warm the drops to body temperature by rolling the container in your hands or placing it in a cup ofwarm water for a few minutes. Lie down, with your ear facing up. Place drops inside the ear. Follow your doctor's instructions (or the directions on the label) for how many drops to use. Gently wiggle the outer ear or pull the ear up and back to help the drops getinto the ear. It's important to keep the liquid in the ear canal for 3 to 5 minutes. When should you call for help? Call your doctor now or seek immediate medical care if: You have new or worse symptoms of infection, such as: ? Increased pain, swelling, warmth, or redness. ? Red streaks leading from the area. ? Pus draining from the area. ? A fever. Watch closely for changes in your health, and be sure to contact your doctor if: You do not get better as expected. Where can you learn more? Log into your personal health record on [email or web address] and enter M813 in the Education box to learn more about Swimmer's Ear in Te[facility]: Care Instructions. Current as of: February 07, 2018 Content Version: 12.0 5401-4241 [employer]. Care instructions adapted under license by your healthcare professional. If you have questions about a medical condition or this instruction, always ask your healthcare professional. [employer] disclaims any warranty or liability for your use of this information. documented in this encounter History of Present Illness * Odilon Rodriguez CNP - 10/14/2018 11:05 AM EDT Subjective Renuka Kwan is a 18 y.o. female who presents for evaluation of left ear drainage and left ear pain. Symptoms have been present 3 days. Associated symptoms include ear drainage. Patient denies earaches, facial trauma, hearing loss, hoarseness, nasal congestion, snoring, sore mouth, sore throat and tinnitus. She does not have a history of ear infections. She does have a history of swimming. She has tried no medications for her symptoms. Objective BP 111/79 (BP Location: Left arm, Patient Position: Sitting, BP Cuff Size: Adult) Pulse 71 Temp98.1 F (36.7 C) (Oral) Resp 16 Ht 5' 2 Wt 54.4 kg (119 lb 14.4 oz) LMP 09/06/2018 SpO2 97% BMI 21.93 kg/m General: alert, appears stated age and cooperative Right Ear: normal appearance Left Ear: left TM could not see and left canal inflamed, with purulent discharge and tender with movement of pinna Neck: no adenopathy Assessment: Left Otitis externa Diagnoses and all orders for this visit: Acute swimmer's ear of left side Other orders - htecuotu-lplfhmvek-dhwxhsmtyyyvgw (CORTISPORIN) otic solution; Administer 4 (four) drops into theleft ear 3 (three) times a day for 10 days . Plan: 1. Medications: Cortisporin -Patient is going to the beach this week. I explained that she needs toavoid swimming for at least 7-10 days - Follow up in 7-10 days if no better. Mother denied any questions - Voiced understanding of POC. Allergies were reviewed. 2. Water exclusion from ear until symptoms resolved. 3. Follow up with PCP/ER as needed. documented in this encounter Assessments Diagnosis Acute swimmer's ear of left side- Primary Reason for Referral Specialty Diagnoses / Procedures Referred By Layne piedra Referred To Contact Diagnoses Asthma, exercise induced Odilon Coughlin, RICH [address] [place] [address] Referral ID Status Reason Start Date Expiration Date V isits Requested Visits Authorized [id number] Pending Review 1 1 Chief Complaint and Reason for Visit Chief Complaint Admit Date NOB LMP 04/25June 30, 2024 2:1 3pm Reason for Visit Admit Date Maternal varicella, non-immune June 2:13pm June 30, 2024 2:1 3pm Supervision of normal first [facility] 2024 2:13pm Chief Complaint Admit Date NOB LMP 04/25June 30, 2024 2:1 3pm 13 wk OB August 08, 2024 10: 11am 17 WK OB September 08, 2024 10:46 am 21 wk ob October 03, 2024 10:3 8am Reason for Visit Admit Date Maternal varicella, non-immune June 2:13pm June 30, 2024 2:1 3pm Supervision of normal first [facility] 2024 2:13pm Maternal varicella, non-immune July 10:11am August 08, 2024 10: 11am Supervision of normal first Ap [facility] 2024 10:11am Choroid plexus cyst of fetus September 08, 2 025 10:46am Maternal varicella, non-immune September 08, 2024 10:46am September 08, 2024 10:46 am Supervision of normal first Ma y 2024 10:46am Choroid plexus cyst of fetus October 03, 2024 10:38am Maternal varicella, non-immune September 10:38am October 03, 2024 10:3 8am Supervision of normal first Ju ne 2024 10:38am Chief Complaint Admit Date 13 wk OB August 08, 2024 10: 11am 17 WK OB September 08, 2024 10:46 am 23 wk ob October 03, 2024 10:3 8am 27 wk ob November 01, 2024 9:05 am Reason for Visit Admit Date Maternal varicella, non-immune July 10:11am August 08, 2024 10: 11am Supervision of normal first Ap 2024 10:11am Choroid plexus cyst of fetus September 08, 2 025 10:46am Maternal varicella, non-immune September 08, 2024 10:46am September 08, 2024 10:46 am Supervision of normal first Ma y 2024 10:46am Choroid plexus cyst of fetus October 03, 2024 10:38am Maternal varicella, non-immune September 10:38am October 03, 2024 10:3 8am Supervision of normal first Ju ne 2024 10:38am Choroid plexus cyst of fetus November 01, 2024 9:05am Maternal varicella, non-immune October 9:05am November 01, 2024 9:05 am Supervision of normal first Ju ly 2024 9:05am Additional Source Comments INFORMATION SOURCE (unrecogn ized section and content) DATE CREATED AUTHOR 12/13/2017 [facility] DATE CREATED AUTHOR AUTHOR'S ORGANIZ ATION 04/21/2018 [facility] DATE CREATED AUTHOR AUTHOR'S ORGANIZ ATION 12/12/2018 [facility] DATE CREATED AUTHOR AUTHOR'S ORGANIZ ATION 09/29/2022 [facility] DATE CREATED AUTHOR AUTHOR'S ORGANIZ ATION 03/09/2023 [facility] DATE CREATED AUTHOR AUTHOR'S ORGANIZ ATION 09/11/2023 [facility] DATE CREATED AUTHOR AUTHOR'S ORGANIZ ATION 09/25/2023 [facility] DATE CREATED AUTHOR AUTHOR'S ORGANIZ ATION 09/17/2024 [facility] DATE CREATED AUTHOR AUTHOR'S ORGANIZ ATION 10/30/2024 [facility] Reason for Visit (unrecogniz ed section and content) Reason Comments Otalgia Left ear pain with d rainage x 3 days Reason Comments Establish Care No concerns Reason Comments Illness VIRTUAL; C/O SORE TH ROAT, SINUS DRAINAGE/CONGESTION, BODY ACHES/CHILLS AND DRY COUGH X 4 DAYS NOW. Care Teams (unrecognized sec tion and content) Sccm Administrator Relationship Specialty Start Date End Date Loree Oseguera, [employer] APPRAISER [address] [place] [place] [address] PCP - General Internal Medicine 09/23/22 Sccm Administrator Relationship Specialty Start Date End Date Loree Oseguera, KILN CLE[employer] APPRAISER [address] [place] [address] PCP - General Internal Medicine 09/23/22 Loree Oseguera, [employer] APPR[employer]ISER [address] [place] [address] PCP - MMO ACO PCP 02/18/23 Team Status: Inactive Member Role Status Dates Virginia Titus CNM Attending Provider Active S tart: June 30, 2024 End: June 30, 2024 Team Status: Inactive Member Role Status Dates Virginia Titus CNM Attending Provider Active S tart: June 30, 2024 End: June 30, 2024 Virginia Titus CNM Referring Provider Active S tart: June 30, 2024 End: June 30, 2024 Team Status: Active Member Role Status Dates Virginia Titus CNM Attending Provider Active S tart: July 04, 2024 Virginia Titus CNM Referring Provider Active S tart: July 04, 2024 Team Status: Inactive Member Role Status Dates Virginia Titus CNM Attending Provider Active S tart: July 04, 2024 End: July 04, 2024 Virginia Titus CNM Referring Provider Active S tart: July 04, 2024 End: July 04, 2024 Team Status: Inactive Member Role Status Dates Dr. Shelbie Navarro DO Attending Provider Activ e Start: August 08, 2024 End: August 08, 2024 Team Status: Inactive Member Role Status Dates Dr. Virginia Chavez MD Attending Provider Active Start: September 08, 2024 End: September 08, 2024 Team Status: Inactive Member Role Status Dates Virginia Titus CNM Attending Provider Active S tart: October 03, 2024 End: October 03, 2024 Team Status: Inactive Member Role/Relationship Status Dates Virginia Titus CNM Attending Provider Active S tart: July 04, 2024 End: July 04, 2024 Virginia Titus CNM Referring Provider Active S tart: July 04, 2024 End: July 04, 2024 Team Status: Inactive Member Role/Relationship Status Dates Dr. Shelbie Navarro DO Attending Provider Activ e Start: August 08, 2024 End: August 08, 2024 Team Status: Inactive Member Role/Relationship Status Dates Dr. Virginia Chavez MD Attending Provider Active Start: September 08, 2024 End: September 08, 2024 Team Status: Inactive Member Role/Relationship Status Dates Virginia Titus CNM Attending Provider Active S tart: October 03, 2024 End: October 03, 2024 Team Status: Inactive Member Role/Relationship Status Dates Aranza Perry NP, [employer] Attending Provider Active Start: November 01, 2024 End: November 01, 2024 Team Status: Active Member Role/Relationship Status Dates Virginia Titus CNM Attending Provider Active S tart: November 01, 2024 Virginia Titus CNM Referring Provider Active S tart: November 01, 2024 Goals (unrecognized section and content) Goals may be documented in a n alternate sectionGoals may be documented in an alternate sectionGoals may be documented in an alternate sectionGoals may be documented in an alternate section FOR RECORDS PERTAINING TO PATIENTS WHO ARE OR HAVE BEEN ENROLLED IN A CHEMICAL DEPENDENCY/SUBSTANCEABUSE PROGRAM, SOME INFORMATION MAY BE OMITTED. This clinical summary was aggregated from multiple sources. Caution should be exercised in using it in the provision of clinical care. This summary normalizes information from multiple sources, and as a consequence, information in this document may materially change the coding, format and clinical context of patient data. In addition, data may be omitted in some cases. CLINICAL DECISIONS SHOULD BE BASED ON THE PRIMARY CLINICAL RECORDS. [facility] [employer] [facility]. provides no warranty or guarantee of the accuracy or completeness of information in this document.
[2024-11-01 13:25] LABS: Glucose Challenge Gest 1H 50g 89 mg/dL (70-140); HIV Nonreactive (Nonreactive); Syphilis Antibodies Nonreactive (Nonreactive)
== END | disposition home or self-care (01) ==
PROVIDERS: Referring Provider Advanced Practice Midwife; Visit Provider Advanced Practice Midwife
DX: Z34.00 Encounter for supervision of normal first pregnancy, unspecified trimester (principal); Z13.1 Encounter for screening for diabetes mellitus
CPT/HCPCS: 36415; 82950; 85025; 86703; 86780

== ENCOUNTER → 2024-11-11 | Outpatient (CLI) | payer BC, OTHER, SELFPAY ==
[2024-11-11 15:05] LABS: ROM Internal Control Test YES-OK TO RESULT pt. (Internal QC)
[2024-11-11 15:06] LABS: Record Kit Lot#, ROM+ K3358
[2024-11-11 15:10] LABS: ROM Patient Test Negative (Negative)
== END | disposition home or self-care (01) ==
LOC: LABSPEC 14:42
PROVIDERS: Referring Provider Obstetrics & Gynecology; Visit Provider Obstetrics & Gynecology
DX: O26.899 Other specified pregnancy related conditions, unspecified trimester (principal); N89.8 Other specified noninflammatory disorders of vagina; Z3A.00 Weeks of gestation of pregnancy not specified; R10.2 Pelvic and perineal pain
CPT/HCPCS: 84112; 87070; 87086; 87088; 87205

== ENCOUNTER → 2024-12-12 | Outpatient (CLI) | payer BC, OTHER, SELFPAY | END | disposition home or self-care (01) | LOC: BWCLAB 11:03 → LABSPEC 11:40 | PROVIDERS: Referring Provider Advanced Practice Midwife; Visit Provider Advanced Practice Midwife | DX: N89.8 Other specified noninflammatory disorders of vagina (principal) | CPT/HCPCS: 87070; 87205 ==

== ENCOUNTER 2024-12-23 12:43 | Outpatient (CLI) | payer OTHER, BC, SELFPAY ==
[2024-12-23 13:54] VITALS: BP 117/71; PULSE 115; RESP 18; TEMP 36.7
[2024-12-23 16:17] VITALS: PULSE 71; O2SAT 98
[2024-12-23 16:22] VITALS: PULSE 73; O2SAT 98
--- OUTSIDE RECORDS SUMMARY | 2024-12-23 18:59 | XMS RPT_ITS | CCD ---
Author Organization [facility] Care Team Providers Care Dispatcher Radioactive Waste Disposal Name Role Phone Cuate Copeland Unavailable Unavailable Araiza, Robert Unavailable Unavailable Araiza Robert Unavailable Unavailable Litao, Achilles Akbar Primary Care Provider [phone] ODILON RODRIGUEZ Attending Unavailabl e LITAO, ACHILLES AKBAR Primary Care Unavailab le Oseguera WEB[employer] COMMERCE DEVELOPER-ASIAN ART CURATOR, Loree D Primary Care Provider [phone] ANSELMO LOREE Meghan Primary Care Unavailable OSEGUERA, LOREE D Primary Care Unavailable Oseguera WE[employer] COMMER[employer] DEVELOPER-ASIAN ART CURATOR, Loree D Unavailable NO, PHYSICIAN Primary Care Unavailable SHOSHANA PERRY Attending Unava ilODILON Brumfield Attending Unavailable LOREE OSEGUERA Primary Care Unavailable Virginia Titus CNM Attending Provider Virginia Titus CNM Referring Provider SHELBIE MARTINEZ Referring Unavailab MADDY Eason Primary Care Unavailable SHELBIE MARTINEZ Attending Unavailab SHELBIE Mendieta Referring Unavailab JACKIE Lee Attending Unavailable MADDY CA Primary Care Unavailable SHELBIE MARTINEZ Referring Unavailab JACKIE Lee Attending Unavailable MADDY CA Primary Care Unavailable Dr. Shelbie Navarro DO Attending Provider Kathy OSUNA, Dr. Coleman Attending Provider [phone] Virginia Titus CNM Attending Provider [phone] Virginia Titus CNM Referring Provider [phone] Aranza Tong Attending Provider [phone] Virginia Titus CNM Attending Provider [phone] Virginia Titus CNM Referring Provider [phone] Dr. Shelbie Navarro DO Referring Provider Dr. Shelbie Navarro DO Attending Provider Virginia Titus Attending Unavailable Virginia Titus Referring Unavailable Virginia Titus Referring Unavailable Virginia Titus Attending Unavailable Virginia Titus Referring Unavailable Virginia Titus Attending Unavailable Virginia Titus Attending Unavailable Virginia Titus Referring Unavailable Shelbie Navarro Attending Shelbie Jones Referring Unavailinés Perry NP, Aranza Attending Unavailable Shelbie Navarro Attending UnavailVirginia Gastelum Attending Unavailable Shelbie Navarro Attending UnavailVirginia Gastelum Attending Unavailable Virginia Titus Attending Unavailable Shelbie Navarro Attending Virginia Thomas Attending Unavailable Virginia Titus Attending Unavailable Care Physician, No Primary Primary Care Provider Unavailable Kathy OSUNA, Dr. Coleman Referring Provider Allergies Allergy Classification Reported Allergen(s) Allergy Type Date of Onset Reaction(s) Facility (1 source) Seasonal allergy; Translations: [SEASONAL ALLERGIES] Propensity to adverse reactions (disorder) 5 [facility] Medications Current Medications Medication Drug Class(es) Dates Sig (Normalized) Sig (Original) [id number] actuat albuterol 0.09 mg/actuat metered dose [...] Active diphenhydrAMINE hydrochloride 50 mg oral capsule (11 sources) Histamine-1 Receptor Antagonist Start: 06-17-2024 take 1 capsule by mouth at bedtime Diphenhydramine Hcl (Unisom Sleepgels) 50 mg capsule Active 50 mg PO AT BEDTIME June 17, 2024 1:00am hydrocortisone 10 mg/ml / neomycin 3.5 mg/ml / polymyxin b [id number] unt/ml otic solution (1 source) Aminoglycoside Antibacterial, [...] mouth once daily. 0 07/07/2012 Active Mv-Mn 394-Cr-Ub2-Dha-Epa-F violet 180 mcg-35 mg- 25 mg-5 mg tablet,chewable (9 sources) Start: 06-17-2024 Mv-Mn 919-On-Uc0-Dha-Epa- Fish 180 mcg-35 mg- 25 mg-5 mg tablet,chewable Active {tbl} PO June 17, 2024 1:00am Pnv No.416-El-Rg8-Dha-Ep a-Fish 180 mcg-35 mg- 25 mg-5 mg tablet,chewable (2 sources) Start: 06-17-2024 Pnv No.374-Er-In4-Dha-E pa-Fish 180 mcg-35 mg- 25 mg-5 mg tablet,chewable Active {tbl} PO June 17, 2024 1:00am vitamin b6 100 mg oral tablet (11 sources) Start: 06-17-2024 take 1 tablet by mouth at bedtime Pyridoxine (Vitamin B6) 100 mg tablet Active 100 mg PO AT BEDTIME June 17, 2024 1:00am Completed/Discontinued Medications Medication Drug Class(es) Dates Sig (Normalized) Sig (Original) Acetaminophen / Dextromethorphan (2 sources) Uncompetitive F-ibjrgo-C-aspartat e Receptor Antagonist, Sigma-1 Agonist End: 04-21-2023 acetaminophen/dex tromethorphan (ACETAMINOPHEN-DM ORAL) Take by mouth. 0 04/21/2023 Discontinued (Therapy completed) acetaminophen/de xtromethorphan (ACETAMINOPHEN-DM ORAL) Take by mouth. 0 Active terconazole 8 mg/ml vaginal cream (6 sources) Azole Antifungal Start: 11-11-2024 End: 11-14-2024 Terconazole 0.8 % cream Discontinued 1 NMA VAGINAL AT BEDTIME 20 3 0 November 11, 2024 12:00am November 13, 2024 12:00am November 14, 2024 12:07am Problems Active Problems Problem Classification Problem Date Documented Date Episodic/Chronic Abdominal pain (3 sources) Unspecified abdominal pain; Translations: [Pelvic and perineal pain] Onset: 09-03-2023 Episodic Asthma (6 sources) Exercise-induced asthma; Translations: [Exercise induced bronchospasm] Onset: 07-10-2017 09-23-2022 Chronic Other complications of (20 sources) Varicella non-immune; Translations: [Supervision of other high risk pregnancies, unspecified trimester] 06-17-2024 Episodic Other complications of (1 source) Supervision of other high risk pregnancies, unspecified trimester; Translations: [Supervision of other high risk pregnancies, unspecified trimester] Onset: 12-12-2024 Episodic Other complications of (1 source) Other specified related conditions, unspecified trimester; Translations: [Other specified related conditions, unspecified trimester] Onset: 11-16-2024 Episodic Other ear and sense organ disorders (1 source) Acute otitis externa; Translations: [Acute swimmer's ear of left side] Episodic Other female genital disorders (1 source) Other specified noninflammatory disorders of vagina; Translations: [Other specified noninflammatory disorders of vagina] Onset: 12-16-2024 Episodic Other nutritional; endocrine; and metabolic disorders (2 sources) Intolerance to lactose; Translations: [Lactose intolerance, unspecified] Onset: 11-25-2018 09-23-2022 Chronic Other conditions (20 sources) choroid plexus cyst 09-08-2024 Episodic Comment on above: LR NIPT Other and delivery including normal (20 sources) Normal ; Translations: [Encounter for supervision of normal first , unspecified trimester] Onset: 07-13-2024 07-06-2024 Episodic Comment on above: PRR, , KAROLINA 01/30, Dominick(Loop88) elects NIPT with gen melina PRR, , KAROLINA 01/30, boy, Dominick(Loop88) NIPT low risk PRR, , KAROLINA 01/30, boy, Graidy Dominick(Loop88) NIPT low risk, anato my reveiwed fu views needed Other screening for suspected conditions (not mental disorders or infectious disease) (3 sources) Other specified abnormal findings of blood chemistry; Translations: [Encounter for screening for malignant neoplasm of cervix] Onset: 03-03-2023 Episodic Other upper respiratory disease (2 sources) Allergic rhinitis; Translations: [Allergic rhinitis, unspecified] Onset: 04-12-2019 09-23-2022 Chronic Residual codes; unclassified (1 source) 33 weeks gestation of ; Translations: [33 weeks gestation of ] Onset: 12-12-2024 Episodic Residual codes; unclassified (1 source) 31 weeks gestation of ; Translations: [31 weeks gestation of ] Onset: 11-29-2024 Episodic Residual codes; unclassified (1 source) 28 weeks gestation of ; Translations: [28 weeks gestation of ] Onset: 11-11-2024 Episodic Residual codes; unclassified (1 source) 27 weeks gestation of ; Translations: [27 weeks gestation of ] Onset: 11-01-2024 Episodic Residual codes; unclassified (1 source) 23 weeks gestation of ; Translations: [23 weeks gestation of ] Onset: 10-03-2024 Episodic Unclassified (1 source) Other underimmunization status; Translations: [Other underimmunization status] Onset: 12-12-2024 Past or Other Problems Problem Classification Problem [...] Test Name Value Interpretation Reference Range Facility Genital Culture Comprehensiv payton 12-15-2024 [facility] Reason for Exam: Vaginal discharge and Irritation No Gardnerella, Neisseria or beta-hemolytic Streptococcus isolated. Genital Culture Comprehensive Presumptive C albicans Amount Growth 3+ Normal [facility] Comment on above: Performed By: #### M 100.3200, M1.1999 #### [facility] [address] [place], [place], [id number] Gram Stainon 12-12-2024 GS Reason for Exam: Vaginal discharge and Irritation Gram Stain 4+ White Blood Cells 4+ Gram positive rods No Gram negative diplococci Score = 0 Interpretation: 0-3 Normal, 4-6 Intermediate, 7-10 Positive BV Normal [facility] Comment on above: Performed By: #### M 100.3200, M100.1999 #### [facility] [address] [place], [place], [id number] Gram stainOrdered By: Virginia Titus on 12-12-2024 Microscopic observation Gram stain Nom (Unsp spec) [facility] - Chemistry and C hemistry - challengeOrdered By: Virginia Titus on 12-12-2024 Glucose Ql (U) Negative [facility] - UrinalysisOrder ed By: Virginia Titus on 12-12-2024 Protein Ql (U) Negative [facility] Perioperative Tech Office Visit Reporton 12-12-2024 Perioperative Tech Office Visit Report [facility] [address], [address] [place] [address] OFFICE VISIT Date of Service: 12/12/24 MR#: [id number] Acct: [id number] Name: RENUKA KWAN Rep #: [id number] : 2000 Provider: NAZANIN Cai ams Age/Sex: 24/F [place] [facility] [place]: [place]igned Intake Vital Signs 11/29/24 08:52 12/12/24 09:39 Height 5 ft 3 in 5 ft 3 in Weight: 147 lb 5 oz BMI 26.1 BP 127/83 H Intake Visit Reasons: 33 wk ob Chief Complaint: 33wk OB Die Maker Stamping Required: No Is patient in pain?: No Allergies No Known Allergies Allergy (Verified 12/12/24 09:37) Medications ???Medication ???Instructions ???Recorded ???Confirmed ???Type diphenhydramine HCl 50 mg capsule 50 mg PO QHS 06/17/24 12/12/24 Hi story (Unisom SleepGels) mv-mn 110-FA 180 mcg-om3 35 mg-dha tab PO 06/17/24 12/12/24 History 25 mg-epa 5 mg-fish oil chew tablet pyridoxine (vitamin B6) 100 mg 100 mg PO QHS 06/17/24 12/12/24 Hi story tablet Last Menstrual Period: 04/25/24 : No PFSH PFSH Medical History Asthma Surgical History Fabens teeth extracted Family History Grandmother Cancer, Onset Age: 75 Paternal- Kidney Father High cholesterol Social History adopted: No household members: spouse and other details: Sister Fiance housing: house current occupational status: employed 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 OB Visit KAROLINA Calculator Estimated Delivery Date Method Current WG Current Estimate 01/30/25 LMP (Certain) 33w 0d Other Estimates 01/25/25 Ultrasound #1 33w 5d 01/25/25 Ultrasound #2 33w 5d Expected Delivery Route/Plan Labor Preferences- CB/BF [...] 10/03/24 -???-???-???-???-?? ?-???-???-???-???-? ??-???-???- 23w 0d 130 lb 4 oz (+15 lb 4 oz) 134/87 Negati (more content not included)... Normal [facility] - Chemistry and C hemistry - challengeOrdered By: Virginia Titus on 11-29-2024 Glucose Ql (U) Negative [facility] - UrinalysisOrder ed By: Virginia Titus on 11-29-2024 Protein Ql (U) Negative [facility] Perioperative Tech Office Visit Reporton 11-29-2024 Perioperative Tech Office Visit Report [facility] [address], [address] [place] [address] OFFICE VISIT Date of Service: 11/29/24 MR#: [id number] Acct: [id number] Name: RENUKA KWAN Rep #: [id number] : 2000 Provider: NAZANIN Cai ams Age/Sex: 24/F [place] [facility] [place]: Signed Intake Vital Signs 10/03/24 10:43 11/11/24 13:53 11/29/24 08:52 Height 5 ft 3 in 5 ft 3 in 5 ft 3 in Weight: 143 lb BMI 25.3 BP 115/73 Intake Visit Reasons: 31 WK OB Chief Complaint: 31wk OB Die Maker Stamping Required: No Is patient in pain?: No Allergies No Known Allergies Allergy (Verified 11/29/24 08:50) Medications ???Medication ???Instructions ???Recorded ???Confirmed ???Type diphenhydramine HCl 50 mg capsule 50 mg PO QHS 06/17/24 11/29/24 Hi story (Unisom SleepGels) mv-mn 110-FA 180 mcg-om3 35 mg-dha tab PO 06/17/24 11/29/24 History 25 mg-epa 5 mg-fish oil chew tablet pyridoxine (vitamin B6) 100 mg 100 mg PO QHS 06/17/24 11/29/24 Hi story tablet Last Menstrual Period: 04/25/24 : No PFSH PFSH Medical History Asthma Surgical History Fabens teeth extracted Family History Grandmother Cancer, Onset Age: 75 Paternal- Kidney Father High cholesterol Social History adopted: No household members: spouse and other details: Sister Fiance housing: house current occupational status: employed 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 OB Visit KAROLINA Calculator Estimated Delivery Date Method Current WG Current Estimate 01/30/25 LMP (Certain) 31w 1d Other Estimates 01/25/25 Ultrasound #1 31w 6d 01/25/25 Ultrasound #2 31w 6d Expected Delivery Route/Plan Labor Preferences- CB/BF [...] 10/03/24 -???-???-???-???-?? ?-???-???-???-???-? ??-???-???- 23w 0d 130 lb 4 oz (+15 lb (more content not included)... Normal [facility] Urine Cultureon 11-14-2024 URC Urine Culture Urine Culture Mixed Gram Positive Organisms Hawley Count 25,000-50,000 MIXC Mixed contaminants. Submit a new specimen if indicated. Normal [facility] Comment on above: Performed By: #### M 100.3200, M100.2000, M100.2200 #### [facility] [address] [place], [address] Genital Culture Comprehensiv payton 11-13-2024 VAC Reason for Exam: vaginal discharge No Gardnerella, Neisseria or beta-hemolytic Streptococcus isolated. Presumptive C albicans Amount Growth 3+ Normal [facility] Comment on above: Performed By: #### M 100.3200, M100.1999, M100.2200 #### [facility] [address] [place], [address] (ROM) Rupture Of Membraneson 11-11-2024 ROM Negative Normal Negative [facility] Comment on above: Result Comment: Amni otic fluid not present indicates No Rupture of Membranes at time of specimen collection. Performed By: #### L 205.1000 #### [facility] [address] [place], [address] Gram Stainon 11-11-2024 GS Reason for Exam: vaginal discharge Gram Stain 4+ Gram positive rods Rare Yeast Like Organisms No Gram negative diplococci Score = 0 Interpretation: 0-3 Normal, 4-6 Intermediate, 7-10 Positive BV Normal [facility] Comment on above: Performed By: #### M 100.3200, M100.1999, M100.2200 #### [facility] [address] [place], [address] Gram stainOrdered By: Tito Britton on 11-11-2024 Microscopic observation Gram stain Nom (Unsp spec) [facility] - Chemistry and C hemistry - challengeOrdered By: Shelbie Britton on 11-11-2024 Bilirubin Ql (U) Negative [facility] Glucose Ql (U) Negative [facility] Ketones Ql (U) Negative [facility] pH (U) 5.0 [pH] [facility] Specific gravity (U) [Rel density] 1.005 [facility] Urobilinogen (U) [Mass/Vol] 0.1244076 mg/dL [facility] - Hematology and Cell countsOrdered By: Shelbie Britton on 11-11-2024 Hemoglobin Ql (U) Small [facility] - Specimen inform ationOrdered By: Shelbie Britton on 11-11-2024 Clarity (U) Clear [facility] Color (U) Yellow [facility] - UrinalysisOrder ed By: Shelbie Britton on 11-11-2024 Nitrite Ql (U) Negative [facility] Protein Ql (U) Negative [facility] No Panel InformationOrdered By: Shelbie Britton on 11-11-2024 Urine Leukocytes Positive [facility] Perioperative Tech Office Visit Reporton 11-11-2024 Perioperative Tech Office Visit Report [facility] [address], [address] [place] [address] OFFICE VISIT Date of Service: 11/11/24 MR#: [id number] Acct: [id number] Name: RENUKA KWAN Rep #: [id number] : 2000 Provider: Dr. Shelbie Olivares DO Age/Sex: 24/F [place] [facility] [place]: Signed Intake Vital Signs 11/01/24 09:21 11/11/24 13:53 11/11/24 13:53 Height 5 ft 3 in 5 ft 3 in 5 ft 3 in Weight: 139 lb 6 oz BMI 24.7 BP 134/83 H Intake Visit Reasons: 28w, vomiting, pelvic pressure, [facility] Die Maker Stamping Required: No Is patient in pain?: No Allergies No Known Allergies Allergy (Verified 11/11/24 13:52) Medications ???Medication ???Instructions ???Recorded ???Confirmed ???Type diphenhydramine HCl 50 mg capsule 50 mg PO QHS 06/17/24 11/11/24 Hi story (Unisom SleepGels) mv-mn 110-FA 180 mcg-om3 35 mg-dha tab PO 06/17/24 11/11/24 History 25 mg-epa 5 mg-fish oil chew tablet pyridoxine (vitamin B6) 100 mg 100 mg PO QHS 06/17/24 11/11/24 Hi story tablet terconazole 0.8 % vaginal cream 1 appful vaginal QHS 3 days #20 11/11/24 Rx grams Last Menstrual Period: 04/25/24 Zika: Zika virus screening: Negative : No PFSH PFSH Medical History Asthma Surgical History Fabens teeth extracted Family History Grandmother Cancer, Onset Age: 75 Paternal- Kidney Father High cholesterol Social History adopted: No household members: spouse and other details: Sister Fiance housing: house current occupational status: employed 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 OB Visit KAROLINA Calculator Estimated Delivery Date Method Current WG Current Estimate 01/30/25 LMP (Certain) 28w 4d Other Estimates 01/25/25 Ultrasound #1 29w 2d 01/25/25 Ultrasound #2 29w 2d Expected Delivery Route/Plan Labor Preferences- CB/BF classes: [...] (+10 lb) 133/75 Negative -???-???-???-???-?? ?-???-???-???-???-? ??-???-???- (more content not included)... Normal [facility] Urine cultureOrdered By: Nu Britton on 11-11-2024 Bacteria identified Cx Nom (U) Positive Abnormal [facility] Absolute lymphocyte countOrd ered By: Virginia Titus on 11-01-2024 Lymphocytes Auto (Unsp spec) [#/Vol] 1.17 10*3/uL 0.83-4.51 [facility] Absolute neutrophil countOrd ered By: Virginia Titus on 11-01-2024 Neutrophils (Bld) [#/Vol] 10.3 10*3/uL High 2.0-7.7 [facility] Automated lymphocyte count a s percentage of total leukocytesOrdered By: Virginia Titus on 11-01-2024 Lymphocytes/100 WBC Auto (Unsp spec) 9.2 % Low 19-41 [facility] Basophil percentageOrdered B y: Virginia Titus on 11-01-2024 Basophils/100 WBC (Bld) 0.4 % 0-1 [facility] CBC W/Diff, Automatedon 10-18 Absolute Lymph 1.17 X10 3/uL Normal 0.83-4.51 [facility] Comment on above: Performed By: #### L 501.0250, L100.0100, L509.8002, L3890.6006 #### [facility] [address] [place], [address] Absolute Neut 10.3 X10 3/uL High 2.0-7.7 [facility] Comment on above: Performed By: #### L 501.0250, L100.0100, L509.8002, L3890.6006 #### [facility] [address] [place], [address] Basophils/100 WBC (Bld) 0.4 % Normal 0-1 [facility] Comment on above: Performed By: #### L 501.0250, L100.0100, L509.8002, L3890.6006 #### [facility] [address] [place], [address] Eosinophils/100 WBC (Bld) 2.1 % Normal 0-5 [facility] Comment on above: Performed By: #### L 501.0250, L100.0100, L509.8002, L3890.6006 #### [facility] [address] [place], [address] Erythrocyte distribution width (RBC) [Ratio] 12.7 % Normal 11.6-14.6 [facility] Comment on above: Performed By: #### L 501.0250, L100.0100, L509.8002, L3890.6006 #### [facility] [address] [place], [address] Hematocrit (Bld) [Volume fraction] 34.2 % Low 37-47 [facility] Comment on above: Performed By: #### L 501.0250, L100.0100, L509.8002, L3890.6006 #### [facility] [address] [place], [address] Hemoglobin (Bld) [Mass/Vol] 11.5 g/dL Low 12.0-15.0 [facility] Comment on above: Performed By: #### L 501.0250, L100.0100, L509.8002, L3890.6006 #### [facility] [address] [place], [address] IG% 0.500 Normal 0.0-0.9 [facility] Comment on above: Result Comment: IG% - Immature Granulocytes (promyelocytes, myelocytes and metamyelocytes) > 1% indicates that a LEFT SHIFT is Present. Performed By: #### L 501.0250, L100.0100, L509.8002, L3890.6006 #### [facility] [address] [place], [address] Lymphocytes/100 WBC (Bld) 9.2 % Low 19-41 [facility] Comment on above: Performed By: #### L 501.0250, L100.0100, L509.8002, L3890.6006 #### [facility] [address] [place], [address] MCH (RBC) [Entitic mass] 31.9 pg Normal 27.0-32.0 [facility] Comment on above: Performed By: #### L 501.0250, L100.0100, L509.8002, L3890.6006 #### [facility] [address] [place], [address] MCHC (RBC) [Mass/Vol] 33.6 g/dL Normal 32-36 [facility] Comment on above: Performed By: #### L 501.0250, L100.0100, L509.8002, L3890.6006 #### [facility] [address] [place], [address] MCV (RBC) [Entitic vol] 95.0 fL Normal 81-99 [facility] Comment on above: Performed By: #### L 501.0250, L100.0100, L509.8002, L3890.6006 #### [facility] [address] [place], [address] Monocytes/100 WBC (Bld) 7.7 % Normal 0-10 [facility] Comment on above: Performed By: #### L 501.0250, L100.0100, L509.8002, L3890.6006 #### [facility] [address] [place], [address] Neutrophils/100 WBC (Bld) 80.1 % High 47-70 [facility] Comment on above: Performed By: #### L 501.0250, L100.0100, L509.8002, L3890.6006 #### [facility] [address] [place], [address] Nucleated RBC (Bld) [#/Vol] 0 10*3/uL Normal 0-5 [facility] Comment on above: Performed By: #### L 501.0250, L100.0100, L509.8002, L3890.6006 #### [facility] Laboratory [address] [place], [address] Platelet mean volume (Bld) [Entitic vol] 11.2 fL Normal 6.2-12.0 [facility] Comment on above: Performed By: #### L 501.0250, L100.0100, L509.8002, L3890.6006 #### [facility] Laboratory [address] [place], [address] Platelets (Bld) [#/Vol] 182 10*3/uL Normal 150-450 [facility] Comment on above: Performed By: #### L 501.0250, L100.0100, L509.8002, L3890.6006 #### [facility] Laboratory [address] [place], [address] RBC (Bld) [#/Vol] 3.60 10*6/uL Low 4.2-5.4 [facility] Comment on above: Performed By: #### L 501.0250, L100.0100, L509.8002, L3890.6006 #### [facility] Laboratory [address] [place], [address] RDW SD 43.9 fl Normal 35.1-43.9 [facility] Comment on above: Performed By: #### L 501.0250, L100.0100, L509.8002, L3890.6006 #### [facility] Laboratory [address] [place], [address] WBC (Bld) [#/Vol] 12.8 10*3/uL High 4.4-11.0 [facility] Comment on above: Performed By: #### L 501.0250, L100.0100, L509.8002, L3890.6006 #### [facility] Laboratory [address] [place], [address] Eosinophil percentageOrdered By: Virginia Titus on 11-01-2024 Eosinophils/100 WBC (Bld) 2.1 % 0-5 [facility] Erythrocyte distribution wid th ratioOrdered By: Virginia Titus on 11-01-2024 Erythrocyte distribution width (RBC) [Ratio] 12.7 % 11.6-14.6 [facility] Erythrocyte distribution wid th standard deviationOrdered By: Virginia Titus on 11-01-2024 Erythrocyte distribution width (RBC) [Ratio] 43.9 fl 35.1-43.9 [facility] Glucose Challenge Gest 1H 50 mary lou 11-01-2024 GLU GEST 50g 1H 89 mg/dL Normal 70-140 [facility] Comment on above: Performed By: #### M 100.3200, M100.2000 #### [facility] Laboratory [address] [place], [address] Glucose measurement at 2 freda rs post-dose gestational glucose tolerance testOrdered By: Virginia Titus on 11-01-2024 Glucose [Mass/Vol] 89 mg/dL 70-140 [facility] HIVon 11-01-2024 HIV Non-Reactive Normal Nonreactive [facility] Comment on above: Result Comment: Non- Reactive Reactive Repeatedly reactive samples must be confirmed according to CDC recommended confirmatory algorithms. The subresults for either HIVAG or AHIV can be used as an aid in the selection of the confirmation algorithm for reactive samples. Send out specimens with Reactive results to [facility] for confirmation. Order the HIV antibody detection and differentiation: lc#[id number] Performed By: #### M 100.3200, M100.2000 #### [facility] [address] [place], [address] Hematocrit Auto (Bld) [Volum e fraction]Ordered By: Virginia Titus on 11-01-2024 Hematocrit (Bld) [Volume fraction] 34.2 % Low 37-47 [facility] Hemoglobin measurementOrdere d By: Virginia Titus on 11-01-2024 Hemoglobin (Bld) [Mass/Vol] 11.5 g/dL Low 12.0-15.0 [facility] Immature granulocytes/100 WB C Auto (Bld)Ordered By: Virginia Titus on 11-01-2024 Immature granulocytes/100 WBC (Bld) 0.500 % 0.0-0.9 [facility] Comment on above: IG% - Immature Granu locytes (promyelocytes, myelocytes and metamyelocytes) > 1% indicates that a LEFT SHIFT is Present. Laboratory - Chemistry and C hemistry - challengeOrdered By: Aranza Prery on 11-01-2024 Glucose Ql (U) Negative [facility] Laboratory - UrinalysisOrder ed By: Aranza Perry on 11-01-2024 Protein Ql (U) Negative [facility] MCV (mean corpuscular volume ) determinationOrdered By: Virginia Titus on 11-01-2024 MCV (RBC) [Entitic vol] 95.0 fL 81-99 [facility] Mean corpuscular hemoglobin (MCH) determinationOrdered By: Virginia Titus on 11-01-2024 MCH (RBC) [Entitic mass] 31.9 pg 27.0-32.0 [facility] Mean corpuscular hemoglobin concentration (MCHC) determinationOrdered By: Virginia Titus on 11-01-2024 MCHC (RBC) [Mass/Vol] 33.6 g/dL 32-36 [facility] Mean platelet volume determi nationOrdered By: Virginia Titus on 11-01-2024 Platelet mean volume (Bld) [Entitic vol] 11.2 fL 6.2-12.0 [facility] Monocyte percentageOrdered B y: Virginia Titus on 11-01-2024 Monocytes/100 WBC (Bld) 7.7 % 0-10 [facility] Neutrophil percentageOrdered By: Virginia Titus on 11-01-2024 Neutrophils/100 WBC (Bld) 80.1 % High 47-70 [facility] No Panel InformationOrdered By: Virginia Titus on 11-01-2024 HIV (1&2) Antibody Non-Reactive Nonreactive [facility] Comment on above: Non-ReactiveReactive Repeatedly reactive samples must be confirmed according to CDC recommended confirmatory algorithms. The subresults for either HIVAG or AHIV can be used as an aid in the selection of the confirmation algorithm for reactive samples.Send out specimens with Reactive results to [facility] for confirmation.Order the HIV antibody detection and differentiation: #[id number] Nucleated red blood cell per centageOrdered By: Virginia Titus on 11-01-2024 Nucleated RBC/100 WBC (Bld) [Ratio] 0 % 0-5 [facility] Perioperative Tech Office Visit Reporton 11-01-2024 Perioperative Tech Office Visit Report [facility]'s [address], [address] [place] [address] OFFICE VISIT Date of Service: 11/01/24 MR#: [id number] Acct: [id number] Name: RENUKA KWAN Rep #: [id number] : 2000 Provider: ESTRELLA wan Age/Sex: 24/F [place] [facility] [place]: Signed Intake Vital Signs 09/08/24 10:54 10/03/24 10:43 11/01/24 09:11 11/01/24 09:21 Height 5 ft 3 in 5 ft 3 in 5 ft 3 in 5 ft 3 in Weight: 137 lb 6 oz BMI 24.3 BP 120/72 Intake Visit Reasons: 27 wk ob Chief Complaint: 27 Week OB Die Maker Stamping Required: No Is patient in pain?: No Allergies No Known Allergies Allergy (Unverified 11/01/24 09:10) Medications ???Medication ???Instructions ???Recorded ???Confirmed ???Type diphenhydramine HCl 50 mg capsule 50 mg PO QHS 06/17/24 11/01/24 Hi story ([employer] SleepGels) mv-mn 110-FA 180 mcg-om3 35 mg-dha tab PO 06/17/24 11/01/24 History 25 mg-epa 5 mg-fish oil chew tablet pyridoxine (vitamin B6) 100 mg 100 mg PO QHS 06/17/24 11/01/24 Hi story tablet Last Menstrual Period: 04/25/24 Zika: Zika virus screening: Negative : Yes PFSH PFSH Medical History Asthma Surgical History Fabens teeth extracted Family History Grandmother Cancer, Onset Age: 75 Paternal- Kidney Father High cholesterol Social History adopted: No household members: spouse and other details: Sister Fiance housing: house current occupational status: employed 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 Normal [facility] Platelet countOrdered By: Babak Titus on 11-01-2024 Platelets (d) [#/Vol] 182 10*3/uL 150-450 [facility] RBC Auto (d) [#/Vol]Ordere d By: Virginia Titus on 11-01-2024 RBC (Bld) [#/Vol] 3.60 10*6/uL Low 4.2-5.4 [facility] Syphilis Antibodieson 2024 Syphilis Abs Non-Reactive Normal Nonreactive [facility] Comment on above: Performed By: #### M 100.3200, M100.2000 #### [facility] Laboratory [address] [place], [address] White blood cell (WBC) count Ordered By: Virginia Titus on 11-01-2024 WBC (Bld) [#/Vol] 12.8 10*3/uL High 4.4-11.0 [facility] Laboratory - Chemistry and C hemistry - challengeOrdered By: Virginia Titus on 10-03-2024 Glucose Ql (U) Negative [facility] Laboratory - UrinalysisOrder ed By: Virginia Titus on 10-03-2024 Protein Ql (U) Negative [facility] Perioperative Tech Office Visit Reporton 10-03-2024 Perioperative Tech Office Visit Report [facility]'s [address], [address] [place] [address] OFFICE VISIT Date of Service: 10/03/24 MR#: [id number] Acct: [id number] Name: RENUKA KWAN Rep #: [id number] : 2000 Provider: NAZANIN Cai ams Age/Sex: 24/F [place] [facility] [place]: Signed Intake Vital Signs 08/08/24 10:16 09/08/24 10:54 10/03/24 10:43 Height 5 ft 3 in 5 ft 3 in 5 ft 3 in Weight: 130 lb 4 oz BMI 23.1 BP 134/87 H Intake Visit Reasons: 21 wk ob Chief Complaint: 23wk OB Die Maker Stamping Required: No Is patient in pain?: No [...] PFSH PFSH Medical History Asthma Surgical History Fabens teeth extracted Family History Grandmother Cancer, Onset Age: 75 Paternal- Kidney Father High cholesterol Social History adopted: No household members: spouse and other details: Sister Fiance housing: house current occupational status: employed 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 Normal [facility] Progress Noteon 09-15-2024 [employer] Authentication Interface Message Text [facility]- MEDICINE CONSULT Referring/Requestin g Provider: Shelbie Martinez, * PCP: Maddy Ca APRN-GURWINDER INDICATION FOR CONSULT: choroid plexus cyst and [...] biometry consistent with clinical dates. 2. 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 Choroid plexus cysts (COMPUTER SYSTEMS TECHNICIAN) are small fluid-filled structures within the choroid [...] Pollen allergy- eyes swelling and itchy Normal [facility] Laboratory - Chemistry and C hemistry - challengeOrdered By: Virginia Chavez on 09-08-2024 Glucose Ql (U) Negative [facility] Laboratory - UrinalysisOrder ed By: Virginia Chavez on 09-08-2024 Protein Ql (U) Negative [facility] Perioperative Tech Office Visit Reporton 09-08-2024 Perioperative Tech Office Visit Report [facility]'s [address], [address] [place] [address] OFFICE VISIT Date of Service: 09/08/24 MR#: [id number] Acct: [id number] Name: RENUKA KWAN Rep #: [id number] : 2000 Provider: Dr. Virginia sampson MD Age/Sex: 24/F [place] [facility] [place]: Signed Intake Vital Signs 06/30/24 14:27 08/08/24 10:16 09/08/24 10:49 09/08/24 10:54 Height 5 ft 3 in 5 ft 3 in 5 ft 3 in 5 ft 3 in Weight: 125 lb BMI 22.1 BP 133/75 H Intake Visit Reasons: 17 WK OB Die Maker Stamping Required: No Is patient in pain?: No [...] PFSH PFSH Medical History Asthma Surgical History Fabens teeth extracted Family History Grandmother Cancer, Onset Age: 75 Paternal- Kidney Father High cholesterol Social History adopted: No household members: spouse and other details: Sister Fiance housing: house current occupational status: employed 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 Normal [facility] Progress Noteon 09-05-2024 [employer]ader Authentication Interface Message Text Returned patient's call and reviewed overall benign findings with patient. Patient's questions and concerns were addressed. Patient scheduled for follow up ultrasound on 09/15/24. Normal [facility] Laboratory - Chemistry and C hemistry - challengeOrdered By: Shelbie Britton on 08-08-2024 Glucose Ql (U) Negative [facility] Laboratory - UrinalysisOrder ed By: Shelbie Britton on 08-08-2024 Protein Ql (U) Negative [facility] Perioperative Tech Office Visit Reporton 08-08-2024 Perioperative Tech Office Visit Report [facility] [address], [address] [place] [address] OFFICE VISIT Date of Service: 08/08/24 MR#: [id number] Acct: [id number] Name: RENUKA KWAN Rep #: [id number] : 2000 Provider: Dr. Shelbie Olivares DO Age/Sex: 24/F [place] [facility] [place]: Signed Intake Vital Signs 06/30/24 14:27 08/08/24 10:15 08/08/24 10:16 Height 5 ft 3 in 5 ft 3 in 5 ft 3 in Weight: 116 lb 8 oz BMI 20.6 BP 123/77 H Intake Visit Reasons: 13 wk OB Chief Complaint: 15wk OB Die Maker Stamping Required: No Is patient in pain?: No [...] PFSH PFSH Medical History Asthma Surgical History Fabens teeth extracted Family History Grandmother Cancer, Onset Age: 75 Paternal- Kidney Father High cholesterol Social History adopted: No household members: spouse and other details: Sister Fiance housing: house current occupational status: employed 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 Normal [facility] Chlamydia/GC MABEL aptimaon CHLAMY,NUC ACID Negative Normal Negative [facility] Comment on above: Performed By: #### L 7400.0353, M100.2200, L7000.1800 #### [facility] [address] [place], [address] GC BY NUC ACID Negative Normal Negative [facility] Comment on above: Result Comment: Perf ormed at: =G - [facility] [address] [id number] Active Directory Administrator: Geovanna Torres MD, Phone: [phone] Performed By: #### L 7400.0353, M100.2200, L7000.1800 #### [facility] [address] [place], [address] PAP I-G w/rfx hrHPV-Aptimaon 07-05-2024 ADEQ Comment Normal . [facility] Comment on above: Order Comment: Speci men Comment: [id number] Specimen Comment: Source.............Cervix Specimen Comment: LMP / Prev Treat...[id number] Specimen Comment: Other.............. Specimen Comment: No. of containers..01 ThinPrep Vial Result Comment: Sati sfactory for evaluation. No endocervical component is identified. Performed By: #### L 7400.0353, M100.2200, L7000.1800 #### [facility] [address] [place], [place], [address] COMM . Normal . [facility] Comment on above: Order Comment: Speci men Comment: [id number] Specimen Comment: Source.............Cervix Specimen Comment: LMP / Prev Treat...[id number] Specimen Comment: Other.............. Specimen Comment: No. of containers..01 ThinPrep Vial Performed By: #### L 7400.0353, M100.2200, L7000.1800 #### [facility] [address] [place], [place], [address] COMMENT Comment Normal . [facility] Comment on above: Order Comment: Speci men Comment: [id number] Specimen Comment: Source.............Cervix Specimen Comment: LMP / Prev Treat...[id number] Specimen Comment: Other.............. Specimen Comment: No. of containers..01 ThinPrep Vial Result Comment: This liquid based ThinPrep(R) pap test was screened with the use of an image guided system. Performed By: #### L 7400.0353, M100.2200, L7000.1800 #### [facility] [address] [place], [place], [address] DIAG Comment Normal . [facility] Comment on above: Order Comment: Speci men Comment: [id number] Specimen Comment: Source.............Cervix Specimen Comment: LMP / Prev Treat...[id number] Specimen Comment: Other.............. Specimen Comment: No. of containers..01 ThinPrep Vial Result Comment: NEGA TIVE FOR INTRAEPITHELIAL LESION OR MALIGNANCY. Performed By: #### L 7400.0353, M100.2200, L7000.1800 #### [facility] [address] [place], [address] HPV RFLX Comment Normal . [facility] Comment on above: Order Comment: Speci men Comment: [id number] Specimen Comment: Source.............Cervix Specimen Comment: LMP / Prev Treat...[id number] Specimen Comment: Other.............. Specimen Comment: No. of containers..01 ThinPrep Vial Result Comment: The HPV DNA reflex criteria were not met with this specimen result therefore, no HPV testing was performed. Performed at: [facility] [address] [place] [id number] Active Directory Administrator: Chaitanya Diaz MD, Phone: [phone] Performed at: - [address] [id number] Active Directory Administrator: Geovanna Torres MD, Phone: [phone] Performed By: #### L 7400.0353, M100.2200, L7000.1800 #### [facility] [address] [place], [place], [address] PAPSMR Comment Normal . [facility] Comment on above: Order Comment: Speci men Comment: [id number] Specimen Comment: Source.............Cervix Specimen Comment: LMP / Prev Treat...[id number] Specimen Comment: Other.............. Specimen Comment: No. of containers..01 ThinPrep Vial Result Comment: The Pap smear is a screening test designed to aid in the detection of premalignant and malignant conditions of the uterine cervix. It is not a diagnostic procedure and should not be used as the sole means of detecting cervical cancer. Both false-positive and false-negative reports do occur. Performed By: #### L 7400.0353, M100.2200, L7000.1800 #### [facility] [address] [place], [place], [address] PERFORM Comment Normal . [facility] Comment on above: Order Comment: Speci men Comment: [id number] Specimen Comment: Source.............Cervix Specimen Comment: LMP / Prev Treat...[id number] Specimen Comment: Other.............. Specimen Comment: No. of containers..01 ThinPrep Vial Result Comment: Ioana Max, Clinical Trials Systems Administrator (ASCP) Performed By: #### L 7400.0353, M100.2200, L7000.1800 #### [facility] [address] [place], [place], [address] Absolute lymphocyte countOrd ered By: Virginia Titus on 07-04-2024 Lymphocytes Auto (Unsp spec) [#/Vol] 1.44 10*3/uL 0.83-4.51 [facility] Absolute neutrophil countOrd ered By: Virginia Titus on 07-04-2024 Neutrophils (Bld) [#/Vol] 7.7 10*3/uL 2.0-7.7 [facility] Automated lymphocyte count a s percentage of total leukocytesOrdered By: Virginia Titus on 07-04-2024 Lymphocytes/100 WBC Auto (Unsp spec) 14.4 % Low 19-41 [facility] Basophil percentageOrdered B y: Virginia Titus on 07-04-2024 Basophils/100 WBC (Bld) 0.4 % 0-1 [facility] CBC W/Diff, Automatedon 06-18 Absolute Lymph 1.44 X10 3/uL Normal 0.83-4.51 [facility] Comment on above: Performed By: #### M 100.3200, M100.1999 #### [facility] [address] [place], [place], [address] Absolute Neut 7.7 X10 3/uL Normal 2.0-7.7 [facility] Comment on above: Performed By: #### M 100.3200, #### [facility] [address] [place], [address] Basophils/100 WBC (Bld) 0.4 % Normal 0-1 [facility] Comment on above: Performed By: #### M 100.3200, #### [facility] [address] [place], [address] Eosinophils/100 WBC (Bld) 0.4 % Normal 0-5 [facility] Comment on above: Performed By: #### M 100.3200, #### [facility] [address] [place], [address] Erythrocyte distribution width (RBC) [Ratio] 13.2 % Normal 11.6-14.6 [facility] Comment on above: Performed By: #### M 100.3200, #### [facility] [address] [place], [address] Hematocrit (Bld) [Volume fraction] 36.0 % Low 37-47 [facility] Comment on above: Performed By: #### M 100.3200, #### [facility] [address] [place], [address] Hemoglobin (Bld) [Mass/Vol] 12.6 g/dL Normal 12.0-15.0 [facility] Comment on above: Performed By: #### M 100.3200, #### [facility] [address] [place], [address] IG% 0.300 Normal 0.0-0.9 [facility] Comment on above: Result Comment: IG% - Immature Granulocytes (promyelocytes, myelocytes and metamyelocytes) > 1% indicates that a LEFT SHIFT is Present. Performed By: #### M 100.3200, #### [facility] [address] [place], [address] Lymphocytes/100 WBC (Bld) 14.4 % Low 19-41 [facility] Comment on above: Performed By: #### M 100.3200, #### [facility] [address] [place], [address] MCH (RBC) [Entitic mass] 31.0 pg Normal 27.0-32.0 [facility] Comment on above: Performed By: #### M 100.3200, #### [facility] [address] [place], [address] MCHC (RBC) [Mass/Vol] 35.0 g/dL Normal 32-36 [facility] Comment on above: Performed By: #### M 100.3199, #### [facility] [address] [place], [address] MCV (RBC) [Entitic vol] 88.7 fL Normal 81-99 [facility] Comment on above: Performed By: #### M 100.320, #### [facility] [address] [place], [address] Monocytes/100 WBC (Bld) 8.1 % Normal 0-10 [facility] Comment on above: Performed By: #### M 100.3200, #### [facility] [address] [place], [address] Neutrophils/100 WBC (Bld) 76.4 % High 47-70 [facility] Comment on above: Performed By: #### M 100.3200, #### [facility] [address] [place], [address] Nucleated RBC (Bld) [#/Vol] 0 10*3/uL Normal 0-5 [facility] Comment on above: Performed By: #### M 100.3200, #### [facility] [address] [place], [address] Platelet mean volume (Bld) [Entitic vol] 10.7 fL Normal 6.2-12.0 [facility] Comment on above: Performed By: #### M 100.3200, .1999 #### [facility] [address] [place], [address] Platelets (Bld) [#/Vol] 196 10*3/uL Normal 150-450 [facility] Comment on above: Performed By: #### M 100.3200, #### [facility] [address] [place], [address] RBC (Bld) [#/Vol] 4.06 10*6/uL Low 4.2-5.4 [facility] Comment on above: Performed By: #### M 100.3200, #### [facility] [address] [place], [address] RDW SD 42.5 fl Normal 35.1-43.9 [facility] Comment on above: Performed By: #### M 100.3200, #### [facility] [address] [place], [address] WBC (Bld) [#/Vol] 10.0 10*3/uL Normal 4.4-11.0 [facility] Comment on above: Performed By: #### M 100.3200, #### [facility] [address] [place], [address] Eosinophil percentageOrdered By: Virginia Titus on 07-04-2024 Eosinophils/100 WBC (Bld) 0.4 % 0-5 [facility] Erythrocyte distribution wid th ratioOrdered By: Virginia Titus on 07-04-2024 Erythrocyte distribution width (RBC) [Ratio] 13.2 % 11.6-14.6 [facility] Erythrocyte distribution wid th standard deviationOrdered By: Virginia Titus on 07-04-2024 Erythrocyte distribution width (RBC) [Entitic vol] 42.5 fL 35.1-43.9 [facility] Erythrocyte distribution width (RBC) [Ratio] 42.5 fl 35.1-43.9 [facility] HBV surface Ag Ql (S)Ordered By: Virginia Titus on 07-04-2024 Hepatitis B Surface Antigen Non-Reactive Nonreactive [facility] Comment on above: Reactive: Presumptiv e evidence of HBV. Repeatedly reactive samples must be confirmed using a neutralization test (ElecTrovaGenes HBsAg Confirmatory Test)Non-Reactive: HBsAg not detected; does not exclude the possibility of exposure to HBV Hematocrit Auto (Bld) [Volum e fraction]Ordered By: Virginia Titus on 07-04-2024 Hematocrit (Bld) [Volume fraction] 36.0 % Low 37-47 [facility] Hemoglobin measurementOrdere d By: Virginia Titus on 07-04-2024 Hemoglobin (Bld) [Mass/Vol] 12.6 g/dL 12.0-15.0 [facility] Hepatitis C antibodyOrdered By: Virginia Titus on 07-04-2024 Hepatitis C Antibody Non-Reactive Nonreactive [facility] Comment on above: Reactive: Presumptiv e evidence of antibodies to HCV. Follow CDC recommendations for supplemental testing.Non-Reactive: Antibodies to HCV were not detected; does not exclude the possibility of exposure to HCVReactive Results are presumptive evidence of antibodies to HCV. Follow CDC recommendations for supplemental testing.Order confirmation testing: HCV Quant by PCR testing - HCVPCR #[id number] Non Reactive: < 0.8 Equivocal: >/= 0.8 to < 1.0 Reactive: >/= 1.0The CDC requires that a reactive/equivocal HCV antibody result be sent out for confirmation. HCV Quant by PCR testing. Immature granulocytes/100 WB C Auto (Bld)Ordered By: Virginia Titus on 07-04-2024 Immature granulocytes/100 WBC (Bld) 0.300 % 0.0-0.9 [facility] Comment on above: IG% - Immature Granu locytes (promyelocytes, myelocytes and metamyelocytes) > 1% indicates that a LEFT SHIFT is Present. L3890.6006on 07-04-2024 HIV Non-Reactive Normal Nonreactive [facility] Comment on above: Result Comment: Non- Reactive Reactive Repeatedly reactive samples must be confirmed according to CDC recommended confirmatory algorithms. The subresults for either HIVAG or AHIV can be used as an aid in the selection of the confirmation algorithm for reactive samples. [facility]. Order the HIV antibody detection and differentiation: lc#[id number] Performed By: #### M 100.3200, M1.1999 #### [facility] [address] [place], [address] L3890.6102on 07-04-2024 HEP B Surf Ag Non-Reactive Normal Nonreactive [facility] Comment on above: Result Comment: Reac tive: Presumptive evidence of HBV. Repeatedly reactive samples must be confirmed using a neutralization test (Ele[employer]ys HBsAg Confirmatory Test) Non-Reactive: HBsAg not detected; does not exclude the possibility of exposure to HBV Performed By: #### M 100.3200, M1.1999 #### [facility] [address] [place], [address] L3890.6301on 07-04-2024 Hepatitis C Ab Non-Reactive Normal Nonreactive [facility] Comment on above: Result Comment: Reac tive: Presumptive evidence of antibodies to HCV. Follow CDC recommendations for supplemental testing. Non-Reactive: Antibodies to HCV were not detected; does not exclude the possibility of exposure to HCV Reactive Results are presumptive evidence of antibodies to HCV. Follow CDC recommendations for supplemental testing. Order confirmation testing: HCV Quant by PCR testing - HCVPCR lc#[id number] Non Reactive: < 0.8 Equivocal: >/= 0.8 to < 1.0 Reactive: >/= 1.0 The CDC requires that a reactive/equivocal HCV antibody result be sent out for confirmation. HCV Quant by PCR testing. Performed By: #### M 100.3200, M100.1999 #### [facility] [address] [place], [address] L509.4006on 07-04-2024 Rubella IgG REAC Normal Nonreactive [facility] Comment on above: Result Comment: Anti body Result: Interpretation Non-Reactive: Non-Immune Reactive: Immune The following results were obtained with the Elecsys Rubella IgG assay. Results from assays of other manufacturers cannot be used interchangeably. Performed By: #### M 100.3200, M100.1999 #### [facility] [address] [place], [address] L509.8002on 07-04-2024 Syphilis Abs Non-Reactive Normal Nonreactive [facility] Comment on above: Performed By: #### M 100.3200, M100.1999 #### [facility] [address] [place], [address] Laboratory - Microbiology an d Antimicrobial susceptibilityOrdered By: Virginia Titus on 07-04-2024 HBV surface Ag Ql (S) Non-Reactive Nonreactive [facility] Comment on above: Reactive: Presumptiv e evidence of HBV. Repeatedly reactive samples must be confirmed using a neutralization test (Elecsys HBsAg Confirmatory Test)Non-Reactive: HBsAg not detected; does not exclude the possibility of exposure to HBV Lymphocytes Auto (Unsp spec) [#/Vol]Ordered By: Virginia Titus on 07-04-2024 Lymphocytes (Bld) [#/Vol] 1.44 10*3/uL 0.83-4.51 [facility] Lymphocytes/100 WBC Auto (Un sp spec)Ordered By: Virginia Titus on 07-04-2024 Lymphocytes/100 WBC (Bld) 14.4 % Low 19-41 [facility] MCV (mean corpuscular volume ) determinationOrdered By: Virginia Titus on 07-04-2024 MCV (RBC) [Entitic vol] 88.7 fL 81-99 [facility] Mean corpuscular hemoglobin (MCH) determinationOrdered By: Virginia Titus on 07-04-2024 MCH (RBC) [Entitic mass] 31.0 pg 27.0-32.0 [facility] Mean corpuscular hemoglobin concentration (MCHC) determinationOrdered By: Virginia Titus on 07-04-2024 MCHC (RBC) [Mass/Vol] 35.0 g/dL 32-36 [facility] Mean platelet volume determi nationOrdered By: Virginia Titus on 07-04-2024 Platelet mean volume (Bld) [Entitic vol] 10.7 fL 6.2-12.0 [facility] Miscellaneous procedureOrder ed By: Virginia Titus on 07-04-2024 Miscellaneous Test Comment SEE SCANNED REPORT [facility] Monocyte percentageOrdered B y: Virginia Titus on 07-04-2024 Monocytes/100 WBC (Bld) 8.1 % 0-10 [facility] NATERAon 07-04-2024 NATURA SEE SCANNED REPORT Normal [facility] Comment on above: Order Comment: Comme nts: NIPT with Gender Carrier testing Performed By: #### M 100.3200, M100.2000 #### [facility] [address] [place], [address] Neutrophil percentageOrdered By: Virginia Titus on 07-04-2024 Neutrophils/100 WBC (Bld) 76.4 % High 47-70 [facility] No Panel InformationOrdered By: Virginia Titus on 07-04-2024 HIV (1&2) Antibody Non-Reactive Nonreactive [facility] Comment on above: Non-ReactiveReactive Repeatedly reactive samples must be confirmed according to CDC recommended confirmatory algorithms. The subresults for either HIVAG or AHIV can be used as an aid in the selection of the confirmation algorithm for reactive samples.Send out specimens with Reactive results to [facility] for confirmation.Order the HIV antibody detection and differentiation: #[id number] Nucleated red blood cell per centageOrdered By: Virginia Titus on 07-04-2024 Nucleated RBC/100 WBC (Bld) [Ratio] 0 % 0-5 [facility] Platelet countOrdered By: Babak Titus on 07-04-2024 Platelets (Bld) [#/Vol] 196 10*3/uL 150-450 [facility] RBC Auto (Bld) [#/Vol]Ordere d By: Virginia Titus on 07-04-2024 RBC (Bld) [#/Vol] 4.06 10*6/uL Low 4.2-5.4 [facility] Rubella immune status determ ination by IgG antibody assayOrdered By: Virginia Titus on 07-04-2024 Rubella IgG Antibody REAC Nonreactive [facility] Comment on above: Antibody Result: Int erpretationNon-Reactive: Non-ImmuneReactive: ImmuneThe following results were obtained with the Elecsys Rubella IgG assay. Results from assays of other manufacturers cannot be used interchangeably. T. pallidum abOrdered By: Babak Titus on 07-04-2024 Syphilis Total Antibody Non-Reactive Nonreactiv e [facility] Type AND Screenon 07-04-2024 ABO and Rh group Nom (Bld) Blood group O Rh(D) positive Normal [facility] Comment on above: Order Comment: PN Performed By: #### L 7400.0353, M100.2200, L7000.1800 #### [facility] [address] [place], [address] White blood cell (WBC) count Ordered By: Virginia Titus on 07-04-2024 WBC (Bld) [#/Vol] 10.0 10*3/uL 4.4-11.0 [facility] Urine Cultureon 07-03-2024 URC Below infection level. Mixed Gram Positive Organisms Hawley Count 1000-10,000 MIXC Mixed contaminants. Submit a new specimen if indicated. Normal [facility] Comment on above: Performed By: #### L 7400.0353, M100.2200, L7000.1800 #### [facility] [address] [place], [address] C. trachomatis rRNA MABEL+prob e Ql (Unsp spec)Ordered By: Virginia Titus on 06-30-2024 Chlamydia DNA (MABEL) Negative Negative [facility] Cervical or vagninal specime n microscopic examination by cytology stain (reported asOrdered By: Virginia Titus on 06-30-2024 Cytology report Cyto stain Doc (Cvx/Vag) Comment . [facility] Comment on above: The Pap smear [...] rRNA MABEL+probe Ql (Unsp spec) Negative Negative [facility] Medical Detailist Cyto stain Nom (C vx/Vag) [ID]Ordered By: Virginia Titus on 06-30-2024 Pap Smear Performed By Comment . [facility] Comment on above: Ioana Max Cytotec hnologist (ASCP) Cytology report Cyto stain D oc (Cvx/Vag)Ordered By: Virginia Titus on 06-30-2024 Thin Prep Pap Smear Comment . [facility] Comment on above: The Pap smear is a s creening test designed to aid in thedetection of premalignant and malignant conditions of theuterine cervix. It is not a diagnostic procedure andshould not be used as the sole means of detecting cervicalcancer. Both false-positive and false-negative reports dooccur. Image-guided ThinPrep PapOrd ered By: Virginia Titus on 06-30-2024 Pap Smear Note Comment . [facility] Comment on above: This liquid based Th inPrep(R) pap test was screened withthe use of an image guided system. Image-guided liquid-based Pa pOrdered By: Virginia Titus on 06-30-2024 Pap Smear Diagnosis Comment . [facility] Comment on above: NEGATIVE FOR INTRAEP ITHELIAL LESION OR MALIGNANCY. Image-guided liquid-based ce rvical Pap w high-risk HPV+reflex to HPV 16+18Ordered By: Virginia Titus on 06-30-2024 Human Papillomavirus Screen Comment . [facility] Comment on above: The HPV DNA reflex camilla siegel were not met with this specimenresult therefore, no HPV testing was performed.Performed at: [facility] [address] [place], [place] [id number] Director: Chaitanya Diaz MD, Phone: [phone] at: [facility] [id number] Director: Geovanna Torres MD, Phone: [phone] Laboratory - CytologyOrdered By: Virginia Titus on 06-30-2024 Medical Detailist Cyto stain Nom (Cvx/Vag) [ID] Comment . [facility] Comment on above: Ioana C Wilt, Cytotec hnologist (ASCP) Laboratory - Miscellaneous t estsOrdered By: Virginia Titus on 06-30-2024 Service comment (Unsp spec) [Interp] . . [facility] Neisseria gonorrhoeae nuclei c acid detection by amplified probe techniqueOrdered By: Virginia Titus on 06-30-2024 N. gonorrhoeae DNA MABEL+probe Ql (Unsp spec) Negative Negative [facility] Comment on above: Performed at: [address] [id number] Director: Geovanna Torres MD, Phone: [phone] No Panel InformationOrdered By: Virginia Titus on 06-30-2024 Pap Smear Specimen Adequacy Comment . [facility] Comment on above: Satisfactory for corrine luation. No endocervical component is identified. Perioperative Tech Office Visit Reporton 06-30-2024 Perioperative Tech Office Visit Report [facility] [address], [address] [place] [address] OFFICE VISIT Date of Service: 06/30/24 MR#: [id number] Acct: [id number] Name: RENUKA KWAN Rep #: [id number] : 2000 Provider: NAZANIN Cai ams Age/Sex: 24/F [place] [facility] [place]: [place]igned Intake Vital Signs 06/30/24 14:27 [...] PFSH PFSH Medical History Asthma Surgical History Fabens teeth extracted Family History Grandmother Cancer, Onset Age: 75 Paternal- Kidney Father High cholesterol Social History adopted: No household members: spouse and other details: Sister Firosmery housing: house service: No current occupational status: employed 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 Normal [facility] Service comment (Unsp spec) [Interp]Ordered By: Virginia Titus on 06-30-2024 Pap Smear Comment (3) . . [facility] Urine cultureOrdered By: Kyree Titus on 06-30-2024 Bacteria identified Cx Nom (U) Positive Abnormal [facility] CT ABDOMEN PELVIS WITH IV CO NTRAST ONLYon 09-03-2023 CT ABDOMEN PELVIS WITH IV CONTRAST ONLY EXAMINATION: CT ABDOMEN PELVIS WITH IV CONTRAST ONLY HISTORY: abdominal pain Injury/Trauma or Illness?:Illness/Ot her How long have you had these symptoms (acute/chronic)?:Ac togiak Reason for exam?:RLQ pain x 4 days [...] likely physiologic. Workstation ID: [id number] Dictated by: UY PERRY on ThuSeptember 03, 2023 6:21:04 PM EDT Transcribed by: YU PERRY on ThuSeptember 03, 2023 6:21:04 PM EDT Finalized by: YU PERRY on ThuSeptember 03, 2023 6:21:04 PM EDT [facility] Comment on above: Order Comment: Injur y/Trauma or Illness?:Illness/Other How long have you had these symptoms (acute/chronic)?:Acute Reason for exam?:RLQ pain x 4 days Type of Exam?:Initial Additional signs and symptoms?:nausea, bloating ED Prov Noteon 09-03-2023 ED Prov Note ED PROVIDER NOTE [facility] NAME: Renuka Kwan AGE: 23 y.o. : 2000 VISIT DATE: 09/03/2023 CSN: [id number] PCP: No, Physician Chief Complaint Patient presents [...] 40 U/L (more content not included)... Normal [facility] POC BASIC METABOLIC PANEL [facility]2023 Chloride [Moles/Vol] 106 mmol/L Normal 98-108 [facility] Comment on above: Order Comment: [facility] Services has implemented the eGFR calculation approach that does not have a coefficient for race that conforms to the NKF-ASN Task Force Recommendations. CO2 [Moles/Vol] 24 mmol/L Normal 21-32 [facility] Comment on above: Order Comment: [facility] has implemented the eGFR calculation approach that does not have a coefficient for race that conforms to the NKF-ASN Task Force Recommendations. Creatinine [Mass/Vol] 0.53 mg/dL Normal 0.40-1.10 [facility] Comment on above: Order Comment: [facility] has implemented the eGFR calculation approach that does not have a coefficient for race that conforms to the NKF-ASN Task Force Recommendations. Glucose [Mass/Vol] 97 mg/dL Normal 65-99 [facility] Comment on above: Order Comment: [facility] has implemented the eGFR calculation approach that does not have a coefficient for race that conforms to the NKF-ASN Task Force Recommendations. POC GFR 134 mL/min/1.73 m2 Normal >=60 [facility] Comment on above: Order Comment: [facility] has implemented the eGFR calculation approach that does not have a coefficient for race that conforms to the NKF-ASN Task Force Recommendations. Result Comment: Franci mated GFR was calculated using the 2020 CKD-EPI creatinine equation. POC IONIZED CALCIUM 4.8 mg/dL Normal 4.5-5.3 [facility] Comment on above: Order Comment: [facility] has implemented the eGFR calculation approach that does not have a coefficient for race that conforms to the NKF-ASN Task Force Recommendations. Potassium [Moles/Vol] 3.5 mmol/L Normal 3.5-5.1 [facility] Comment on above: Order Comment: [facility] has implemented the eGFR calculation approach that does not have a coefficient for race that conforms to the NKF-ASN Task Force Recommendations. Sodium [Moles/Vol] 142 mmol/L Normal 135-145 [facility] Comment on above: Order Comment: [facility] has implemented the eGFR calculation approach that does not have a coefficient for race that conforms to the NKF-ASN Task Force Recommendations. Urea nitrogen [Mass/Vol] 7 mg/dL Low 8-25 [facility] Comment on above: Order Comment: [facility] has implemented the eGFR calculation approach that does not have a coefficient for race that conforms to the NKF-ASN Task Force Recommendations. POC CBC AND DIFFERENTIALon 0 09-03-2023 BASOPHILS ABSOLUTE COUNT 0.05 K/mcL Normal 0.00-0.30 [facility] Basophils/100 WBC (Bld) 0.5 % Normal [facility] Eosinophils (Bld) [#/Vol] 0.12 10*3/uL Normal 0.00-0.50 [facility] Eosinophils/100 WBC (Bld) 1.3 % Normal [facility] Erythrocyte distribution width (RBC) [Ratio] 12.2 % Normal 11.6-14.8 [facility] Hematocrit (Bld) [Volume fraction] 39.1 % Normal 36.0-46.0 [facility] Hemoglobin (Bld) [Mass/Vol] 13.2 g/dL Normal 12.0-16.0 [facility] IG ABSOLUTE 0.01 K/mcL Normal 0.00-0.30 [facility] IG PERCENT 0.10 % Normal [facility] Comment on above: Result Comment: The IG parameter is the percentage of metamyelocytes, myelocytes and promyelocytes. An immature granulocyte count (IG) of 1% or more suggests the possibility of infection, an IG count of 3% is very likely related to an infection. Lymphocytes (Bld) [#/Vol] 1.69 10*3/uL Normal 0.90-4.00 [facility] Lymphocytes/100 WBC (Bld) 18.6 % Normal [facility] MCH (RBC) [Entitic mass] 30.9 pg Normal 26.0-34.0 [facility] MCV (RBC) [Entitic vol] 91.6 fL Normal 80.0-100.0 [facility] MEAN CORPUSCULAR HEMOGLOBIN CONC 33.8 g/dL Normal 31.0-37.0 [facility] Monocytes (Bld) [#/Vol] 0.85 10*3/uL Normal 0.30-0.90 [facility] Monocytes/100 WBC (Bld) 9.3 % Normal [facility] NEUTROPHILS ABSOLUTE COUNT 6.38 K/mcL Normal 1.70-7.00 [facility] Neutrophils/100 WBC (Bld) 70.2 % Normal [facility] Platelet mean volume (Bld) [Entitic vol] 10.1 fL Normal 9.4-12.4 [facility] Platelets (Bld) [#/Vol] 192 10*3/uL Normal 150-400 [facility] RBC (Bld) [#/Vol] 4.27 10*6/uL Normal 4.00-5.20 [facility] WBC (Bld) [#/Vol] 9.10 10*3/uL Normal 4.50-11.00 [facility] POC LIVER PANEL PLUS [facility] 09-03-2023 Albumin [Mass/Vol] 4.3 g/dL Normal 3.2-5.2 [facility] ALP [Catalytic activity/Vol] 62 U/L Normal 40-140 [facility] ALT [Catalytic activity/Vol] 6 U/L Normal 0-40 [facility] Amylase [Catalytic activity/Vol] 37 U/L Normal 25-115 [facility] Amylase [Catalytic activity/Vol] 8 U/L Normal 7-33 [facility] AST [Catalytic activity/Vol] 15 U/L Normal 0-45 [facility] Bilirubin [Mass/Vol] 1.2 mg/dL Normal 0.0-1.3 [facility] Protein [Mass/Vol] 7.6 g/dL Normal 6.0-8.0 [facility] POC , URINE - [facility] 09-03-2023 Beta HCG ( test) Ql (U) Negative Normal Negative [facility] Comment on above: Order Comment: Dilut e urine specimens, as indicated by a low specific gravity (<1.010) may not contain risk control field representative levels of hCG. If is still suspected, a serum test or repeat urine test using a first morning urine specimen should be considered. POC URINALYSIS DIPSTICK,AUTO - [facility] 09-03-2023 POC BILIRUBIN, URINE Negative Normal Negative [facility] POC BLOOD, URINE Negative Normal Negative [facility] POC GLUCOSE, URINE Negative Normal Negative [facility] POC KETONES, URINE Negative Normal Negative [facility] POC LEUKOCYTE ESTERASE, URINE Negative Normal Negative [facility] POC NITRITE, URINE Negative Normal Negative [facility] POC PH, URINE 7.0 Normal 5.0-7.0 [facility] POC PROTEIN, URINE Negative Normal Negative [facility] POC SPECIFIC GRAVITY 1.015 Normal 1.005-1.025 [facility] POC UROBILINOGEN 0.2 mg/dL Normal < 2.0 [facility] Comprehensive metabolic 2000 panelon 03-03-2023 Albumin BCP dye [Mass/Vol] 4.9 g/dL Normal 3.4-5.0 [facility] Comment on above: Performed By: #### 2 4323-8 #### AGUS WEBSTER ([id number]) [facility] ([facility]) [address] [place] [address] ALP [Catalytic activity/Vol] 56 U/L Normal 33-110 [facility] Comment on above: Performed By: #### 2 4323-8 #### AGUS WEBSTER ([id number]) [facility] ([facility]) [address] [place] [address] ALT With P-5'-P [Catalytic activity/Vol] 7 U/L Normal 7-45 [facility] Comment on above: Result Comment: Dorinda ents treated with Sulfasalazine may generate falsely decreased results for ALT. Performed By: #### 2 4323-8 #### AGUS WEBSTER ([id number]) [facility] ([facility]) [address] [place] [address] Anion gap [Moles/Vol] 13 mmol/L Normal 10-20 [facility] Comment on above: Performed By: #### 2 4323-8 #### AGUS WEBSTER ([id number]) [facility] ([facility]) [address] [place] [address] AST With P-5'-P [Catalytic activity/Vol] 13 U/L Normal 9-39 [facility] Comment on above: Performed By: #### 2 4323-8 #### AGUS WEBSTER ([id number]) [facility] ([facility]) [address] [place] [address] Bilirubin [Mass/Vol] 1.1 mg/dL Normal 0.0-1.2 [facility] Comment on above: Performed By: #### 2 4323-8 #### AGUS WEBSTER ([id number]) [facility] ([facility]) [address] [place] [address] Calcium [Mass/Vol] 9.8 mg/dL Normal 8.6-10.3 [facility] Comment on above: Performed By: #### 2 4323-8 #### AGUS WEBSTER ([id number]) [facility] ([facility]) [address] [place] [address] Chloride [Moles/Vol] 105 mmol/L Normal 98-107 [facility] Comment on above: Performed By: #### 2 4323-8 #### AGUS WEBSTER ([id number]) [facility] ([facility]) [address] [place] [address] CO2 [Moles/Vol] 25 mmol/L Normal 21-32 [facility] Comment on above: Performed By: #### 2 4323-8 #### AGUS WEBSTER ([id number]) [facility] ([facility]) [address] [place] [address] Creatinine [Mass/Vol] 0.85 mg/dL Normal 0.50-1.05 [facility] Comment on above: Performed By: #### 2 4323-8 #### AGUS WEBSTER ([id number]) [facility] ([facility]) [address] [place] [address]491 GFR/1.73 sq M.predicted MDRD (S/P/Bld) [Vol rate/Area] mL/min/{1.73_m2} Normal >60 [facility] Comment on above: Result Comment: Calc ulations of estimated GFR are performed using the 2020 CKD-EPI Study Refit equation without the race variable for the IDMS-Traceable creatinine methods. https://jasn.asnjournals.org/content/early//ASN.581 6992473 Performed By: #### 2 4323-8 #### AGUS WEBSTER ([id number]) [facility] ([facility]) [address] [place] [address] 11960 Glucose [Mass/Vol] 81 mg/dL Normal 74-99 [facility] Comment on above: Performed By: #### 2 4323-8 #### AGUS WEBSTER ([id number]) [facility] ([facility]) [address] [place] [address]230 Potassium [Moles/Vol] 3.9 mmol/L Normal 3.5-5.3 [facility] Comment on above: Performed By: #### 2 4323-8 #### AGUS WEBSTER ([id number]) [facility] ([facility]) [address] [place] [address] 26565 Protein [Mass/Vol] 7.6 g/dL Normal 6.4-8.2 [facility] Comment on above: Performed By: #### 2 4323-8 #### AGUS WEBSTER ([id number]) [facility] ([facility]) [address] [place] [address] 22893 Sodium [Moles/Vol] 139 mmol/L Normal 136-145 [facility] Comment on above: Performed By: #### 2 4323-8 #### AGUS WEBSTER ([id number]) [facility] ([facility]) [address] [place] [address]505 Urea nitrogen [Mass/Vol] 12 mg/dL Normal 6-23 [facility] Comment on above: Performed By: #### 2 4323-8 #### AGUS WEBSTER ([id number]) [facility] ([facility]) [address] [place], [place] [id number] Thyrotropinon 03-03-2023 TSH Qn 2.79 m[IU]/L Normal 0.44-3.98 [facility] Comment on above: Order Comment: TSH t esting is performed using different testing methodology at [facility] than at other [facility]. Direct result comparisons should only be made within the same method. Performed By: #### 3 016-3 #### AGUS WEBSTER ([id number]) [facility] ([facility]) [address] [place] [address]36 Thyroxine.freeon 03-03-2023 Free T4 [Mass/Vol] 0.77 ng/dL Normal 0.61-1.12 [facility] Comment on above: Order Comment: Thyro xine Free testing is performed using different testing methodology at [facility] than at other [facility]. Direct result comparisons should only be made [...] By: #### 3 024-7 #### AGUS WEBSTER ([id number]) [facility] ([facility]) [address] [place] [address]10 Triiodothyronine.freeon 02-18 Free T3 [Mass/Vol] 3.2 pg/mL Normal 2.3-4.2 [facility] Comment on above: Performed By: #### 3 051-0 #### PREMA Lopez ([id number]) [facility] ([facility]) [address] [place] [address] CBC AND DIFFERENTIALon 09-24 % AUTOMATED IMMATURE GRAN 0.2 % Normal 0.0 - 0.9 [facility] Comment on above: Result Comment: Debbie ture Granulocyte Count (IG) includes promyelocytes, myelocytes and metamyelocytes but does not include bands. Percent differential counts (%) should be interpreted in the context of the absolute cell counts (cells/L). Performed By: #### C BCDF #### [address] [address] Basophils (Bld) [#/Vol] 0.05 10*3/uL Normal 0.00 - 0.1 0 [facility] Comment on above: Performed By: #### C BCDF #### [address] [address] Basophils/100 WBC (Bld) 0.8 % Normal 0.0 - 2.0 [facility] Comment on above: Performed By: #### C BCDF #### [address] [address] Eosinophils (Bld) [#/Vol] 0.05 10*3/uL Normal 0.00 - 0.70 [facility] Comment on above: Performed By: #### C BCDF #### [address] [address] Eosinophils/100 WBC (Bld) 0.8 % Normal 0.0 - 6.0 [facility] Comment on above: Performed By: #### C BCDF #### [address] [address] Erythrocyte distribution width (RBC) [Ratio] 12.4 % Normal 11.5 - 14.5 [facility] Comment on above: Performed By: #### C BCDF #### [address] [address] Hematocrit (Bld) [Volume fraction] 41.2 % Normal 36.0 - 46.0 [facility] Comment on above: Performed By: #### C BCDF #### [address] [address] Hemoglobin (Bld) [Mass/Vol] 13.5 g/dL Normal 12.0 - 16.0 [facility] Comment on above: Performed By: #### C BCDF #### [address] [address] Lymphocytes (Bld) [#/Vol] 1.56 10*3/uL Normal 1.20 - 4.80 [facility] Comment on above: Performed By: #### C BCDF #### [address] [address] Lymphocytes/100 WBC (Bld) 24.5 % Normal 13.0 - 44.0 [facility] Comment on above: Performed By: #### C BCDF #### [address] [address] MCHC (RBC) [Mass/Vol] 32.8 g/dL Normal 32.0 - 36.0 [facility] Comment on above: Performed By: #### C BCDF #### [address] [address] MCV (RBC) [Entitic vol] 92 fL Normal 80 - 100 [facility] Comment on above: Performed By: #### C BCDF #### [address] [address] Monocytes (Bld) [#/Vol] 0.58 10*3/uL Normal 0.10 - 1.0 0 [facility] Comment on above: Performed By: #### C BCDF #### [address] [address] Monocytes/100 WBC (Bld) 9.1 % Normal 2.0 - 10.0 [facility] Comment on above: Performed By: #### C BCDF #### [address] [address] Neutrophils (Bld) [#/Vol] 4.13 10*3/uL Normal 1.20 - 7.70 [facility] Comment on above: Result Comment: Perc ent differential counts (%) should be interpreted in the context of the absolute cell counts (cells/L). Performed By: #### C BCDF #### [address] [address] Neutrophils/100 WBC (Bld) 64.6 % Normal 40.0 - 80.0 [facility] Comment on above: Performed By: #### C BCDF #### [address] [address] Platelets (Bld) [#/Vol] 198 10*3/uL Normal 150 - 450 [facility] Comment on above: Performed By: #### C BCDF #### [address] [address] RBC 4.49 x10E12/L Normal 4.00 - 5.20 [facility] Comment on above: Performed By: #### C BCDF #### [address] [address] WBC (Bld) [#/Vol] 6.4 10*3/uL Normal 4.4 - 11.3 [facility] Comment on above: Performed By: #### C BCDF #### [address] [address] COMPREHENSIVE PANELon 2022 Albumin [Mass/Vol] 5.0 g/dL Normal 3.4 - 5.0 [facility] Comment on above: Performed By: #### C MP #### [address] [address] ALP [Catalytic activity/Vol] 59 U/L Normal 33 - 110 [facility] Comment on above: Performed By: #### C MP #### [address] [address] ALT [Catalytic activity/Vol] 9 U/L Normal 7 - 45 [facility] Comment on above: Result Comment: Dorinda ents treated with Sulfasalazine may generate falsely decreased results for ALT. Performed By: #### C MP #### [address] [address] Anion gap [Moles/Vol] 13 mmol/L Normal 10 - [address] [facility] Comment on above: Performed By: #### C MP #### [address] [address] AST [Catalytic activity/Vol] 15 U/L Normal 9 - 39 [facility] Comment on above: Performed By: #### C MP #### [address] [address] Bilirubin [Mass/Vol] 0.9 mg/dL Normal 0.0 - 1.2 [facility] Comment on above: Performed By: #### C MP #### [address] [address] Calcium [Mass/Vol] 9.9 mg/dL Normal 8.6 - 10.3 [facility] Comment on above: Performed By: #### C MP #### [address] [address] Chloride [Moles/Vol] 105 mmol/L Normal 98 - 107 [facility] Comment on above: Performed By: #### C MP #### [address] [address] Creatinine [Mass/Vol] 0.90 mg/dL Normal 0.50 - 1.05 [facility] Comment on above: Performed By: #### C MP #### [address] [address] eGFR FEMALE >90 Normal >90 [facility] Comment on above: Result Comment: CALC ULATIONS OF ESTIMATED GFR ARE PERFORMED USING THE 2020 CKD-EPI STUDY REFIT EQUATION WITHOUT THE RACE VARIABLE FOR THE IDMS-TRACEABLE CREATININE METHODS. https://jasn.asnjournals.org/content//ASN.141 3692807 Performed By: #### C MP #### [address] [address] Glucose [Mass/Vol] 87 mg/dL Normal 74 - 99 [facility] Comment on above: Performed By: #### C MP #### [address] [address] HCO3 (Bld) [Moles/Vol] 25 mmol/L Normal 21 - 32 [facility] Comment on above: Performed By: #### C MP #### [address] [address] Potassium [Moles/Vol] 3.8 mmol/L Normal 3.5 - 5.[address] [facility] Comment on above: Performed By: #### C MP #### [address] [address] Protein [Mass/Vol] 7.4 g/dL Normal 6.4 - 8.2 [facility] Comment on above: Performed By: #### C MP #### [address] [address] Sodium [Moles/Vol] 139 mmol/L Normal 136 - 145 [facility] Comment on above: Performed By: #### C MP #### [address] [address] Urea nitrogen [Mass/Vol] 8 mg/dL Normal 6 - 23 [facility] Comment on above: Performed By: #### C MP #### [address] [address] HEMOGLOBIN A1Con 09-24-2022 Glucose [Mass/Vol] 97 mg/dL Normal [facility] Comment on above: Performed By: #### H BA1E #### [address] [address] HbA1c (Bld) [Mass fraction] 5.0 % Normal [facility] Comment on above: Result Comment: Diag nosis of Diabetes-Adults Non-Diabetic: < or = 5.6% Increased risk for developing diabetes: 5.7-6.4% Diagnostic of diabetes: > or = 6.5% . Monitoring of Diabetes Age (y) Therapeutic Goal (%) Adults: >18 <7.0 Pediatrics: 13-18 <7.5 7-12 <8.0 0- 6 7.5-8.5 [employer]. Diabetes Care 33(S1), Apr 2009. Performed By: #### H BA1E #### [address] [address] LIPID PANEL (CORONARY RISK 2 )on 09-24-2022 Cholesterol [Mass/Vol] 169 mg/dL Normal 0 - 199 [facility] Comment on above: Result Comment: . [...] dosing. Performed By: #### L IPID #### [address] [address] Cholesterol in HDL [Mass/Vol] 57.0 mg/dL Normal [facility] Comment on above: Result Comment: . AGE VERY LOW LOW NORMAL HIGH 0-19 Y < 35 < 40 40-45 ---- 20-24 Y ---- < 40 >45 ---- >24 Y ---- < 40 40-60 >60 . Performed By: #### L IPID #### [address] [address] Cholesterol in LDL [Mass/Vol] 92 mg/dL Normal 0 - 119 [facility] Comment on above: Result Comment: . NEAR BORD AGE DESIRABLE OPTIMAL HIGH HIGH VERY HIGH 0-19 Y 0 - 109 --- 110-129 >/= 130 ---- 20-24 Y 0 - 119 --- 120-159 >/= 160 ---- >24 Y 0 - 99 100-129 130-159 160-189 >/=190 . Performed By: #### L IPID #### [address] [address] Cholesterol in VLDL [Mass/Vol] 20 mg/dL Normal 0 - 40 [facility] Comment on above: Performed By: #### L IPID #### [address] [address] Cholesterol.total/Choles terol in HDL [Mass ratio] 3.0 {ratio} Normal [facility] Comment on above: Result Comment: REF VALUES DESIRABLE < 3.4 HIGH RISK > 5.0 Performed By: #### L IPID #### [address] [address] NON-HDL CHOLESTEROL 112 mg/dL Normal 0 - 149 [facility] Comment on above: Result Comment: AGE DESIRABLE BORDERLINE HIGH HIGH VERY HIGH 0-19 Y 0 - 119 120 - 144 >/= 145 >/= 160 20-24 Y 0 - 149 150 - 189 >/= 190 ---- >24 Y 30 MG/DL ABOVE LDL CHOLESTEROL GOAL . Performed By: #### L IPID #### [address] [address] Triglyceride [Mass/Vol] 99 mg/dL Normal 0 - 149 [facility] Comment on above: Result Comment: . [...] dosing. Performed By: #### L IPID #### [place] [address] THYROXINE,FREEon 09-24-2022 THYROXINE,FREE 0.85 ng/dL Normal 0.61 - 1.12 [facility] Comment on above: Result Comment: Thyr oxine Free testing is performed using different testing methodology at [facility] than at other [facility]. Direct result comparisons should only be made [...] draw. Performed By: #### T 4FRE #### [place] [address] Lab Specimen Source Normal [facility] Comment on above: Performed By: #### T 4FRE #### [place] [address] Performed By: #### C BCDF #### [place] [address] Performed By: #### T HYDS #### [place] [address] Performed By: #### L IPID #### [place] [address] Performed By: #### C MP #### [place] [address] TSH WITH REFLEX TO FREE T4 I F ABNORMALon 09-24-2022 TSH Qn 4.20 m[IU]/L High 0.44 - 3.98 [facility] Comment on above: Result Comment: TSH testing is performed using different testing methodology at [facility] than at other [facility]. Direct result comparisons should only be made within the same method. Performed By: #### T HYDS #### [address] [place] [address] Vital Signs Date Time Vital Sign Value Performing Clinician Facility 12-23-2024 13:54-0400 Body temperature 98.1 [degF] Virginia Titus CNM Work Phone: [facility] 12-23-2024 13:54-0400 Diastolic blood pressure 71 mm[Hg] Virginia Titus CNM Work Phone: [phone](667)[phone] [place] [address] 12-23-2024 13:54-0400 Heart rate 115 /min Virginia Titus CNM Work Phone: [phone] [place] [address] 12-23-2024 13:54-0400 Respiratory rate 18 /min Virginia Titus CNM Work Phone: 1(809)[phone] [place] [address] 12-23-2024 13:54-0400 Systolic blood pressure 117 mm[Hg] Virginia Titus CNM Work Phone: 0(420)[phone] [place] [address] 12-12-2024 09:39-0400 Body height 160.02 cm Virginia Titus CNM Work Phone: [facility] 12-12-2024 09:39-0400 Body mass index (BMI) [Ratio] 26.1 kg/m2 Virginia Titus CNM Work Phone: [facility] 12-12-2024 09:39-0400 Body weight 66.81 kg Virginia Titus CNM Work Phone: [phone] [place] [address] 12-12-2024 09:39-0400 Diastolic blood pressure 83 mm[Hg] Virginia POWERSM Work Phone: [facility] 12-12-2024 09:39-0400 Systolic blood pressure 127 mm[Hg] Virginia Titus CNM Work Phone: [facility] 11-29-2024 08:52-0400 Body height 160.02 cm Virginia Titus CNM Work Phone: [facility] 11-29-2024 08:52-0400 Body mass index (BMI) [Ratio] 25.3 kg/m2 Virginia POWERSM Work Phone: [facility] 11-29-2024 08:52-0400 Body weight 64.86 kg Virginia Titus CNM Work Phone: [facility] 11-29-2024 08:52-0400 Diastolic blood pressure 73 mm[Hg] Virginia Titus CNM Work Phone: [facility] 11-29-2024 08:52-0400 Systolic blood pressure 115 mm[Hg] Virginia Titus CNM Work Phone: [facility] 11-11-2024 13:53-0400 Body height 160.02 cm Virginia Titus CNM Work Phone: [facility] 11-11-2024 13:53-0400 Body mass index (BMI) [Ratio] 24.7 kg/m2 Virginia Titus CNM Work Phone: [facility] 11-11-2024 13:53-0400 Body weight 63.21 kg Virginia Titus CNM Work Phone: [facility] 11-11-2024 13:53-0400 Diastolic blood pressure 83 mm[Hg] Virginia Titus CNM Work Phone: [facility] 11-11-2024 13:53-0400 Systolic blood pressure 134 mm[Hg] Virginia Titus CNM Work Phone: [facility] 11-01-2024 09:21-0400 Body height 160.02 cm Virginia Titus CNM Work Phone: [facility] 11-01-2024 09:11-0400 Body mass index (BMI) [Ratio] 24.3 kg/m2 Virginia Titus CNM Work Phone: [facility] 11-01-2024 09:11-0400 Body weight 62.31 kg Virginia Titus CNM Work Phone: [facility] 11-01-2024 09:11-0400 Diastolic blood pressure 72 mm[Hg] Virginia Titus CNM Work Phone: [facility] 11-01-2024 09:11-0400 Systolic blood pressure 120 mm[Hg] Virginia Titus CNM Work Phone: [facility] 10-03-2024 10:43-0400 Body height 160.02 cm Virginia Titus CNM Work Phone: [facility] 10-03-2024 10:43-0400 Body mass index (BMI) [Ratio] 23.1 kg/m2 Virginia Titus CNM Work Phone: [facility] 10-03-2024 10:43-0400 Body weight 59.08 kg Virginia Titus CNM Work Phone: [facility] 10-03-2024 10:43-0400 Diastolic blood pressure 87 mm[Hg] Virginia Titus CNM Work Phone: [facility] 10-03-2024 10:43-0400 Systolic blood pressure 134 mm[Hg] Virginia Titus CNM Work Phone: [facility] 09-08-2024 10:49-0400 Body mass index (BMI) [Ratio] 22.1 kg/m2 Virginia Titus CNM Work Phone: [facility] 09-08-2024 10:49-0400 Body weight 56.69 kg Virginia Titus CNM Work Phone: [facility] 09-08-2024 10:49-0400 Diastolic blood pressure 75 mm[Hg] Virginia Titus CNM Work Phone: [facility] 09-08-2024 10:49-0400 Systolic blood pressure 133 mm[Hg] Virginia Titus CNM Work Phone: [facility] 08-08-2024 10:15-0400 Body mass index (BMI) [Ratio] 20.6 kg/m2 Virginia Titus CNM Work Phone: [facility] 08-08-2024 10:15-0400 Body weight 52.84 kg Virginia Titus CNM Work Phone: [facility] 08-08-2024 10:15-0400 Diastolic blood pressure 77 mm[Hg] Virginia Titus CNM Work Phone: [facility] 08-08-2024 10:15-0400 Systolic blood pressure 123 mm[Hg] Virginia Titus CNM Work Phone: [facility] 06-30-2024 14:27-0400 Body height 160.02 cm Virginia Titus CNM Work Phone: [facility] 06-30-2024 14:27-0400 Body mass index (BMI) [Ratio] 20.4 kg/m2 Virginia Titus CNM Work Phone: [facility] 06-30-2024 14:27-0400 Body weight 52.33 kg Virginia Titus CNM Work Phone: [facility] 06-30-2024 14:27-0400 Diastolic blood pressure 82 mm[Hg] Virginia Titus CNM Work Phone: [facility] 06-30-2024 14:27-0400 Systolic blood pressure 132 mm[Hg] Virginia Titus CNM Work Phone: [facility] 09-23-2022 13:33-0400 Body weight 57.61 kg Loree Oseguera APRN-ASIAN ART CURATOR Work Phone: [facility] 09-23-2022 13:33-0400 Diastolic blood pressure 84 mm[Hg] Loree Oseguera APRN-ASIAN ART CURATOR Work Phone: [facility] 09-23-2022 13:33-0400 Heart rate 84 /min Loree Oseguera APRN-ASIAN ART CURATOR Work Phone: [facility] 09-23-2022 13:33-0400 SaO2% (BldA) [Mass fraction] 99 % Loree Oseguera [employer]OPER-ASIAN ART CURATOR Work Phone: [facility] 09-23-2022 13:33-0400 Systolic blood pressure 121 mm[Hg] Loree Oseguera APRN-ASIAN ART CURATOR Work Phone: [facility] 10-14-2018 10:53-0400 BMI (Body Mass Index) 21.93 kg/m2 [facility] 10-14-2018 10:53-0400 Body Temperature 98.1 [degF] [facility] 10-14-2018 10:53-0400 Body weight 54.39 kg [facility] 10-14-2018 10:53-0400 BP Diastolic 79 mm[Hg] [facility] 10-14-2018 10:53-0400 BP Systolic 111 mm[Hg] [facility] 10-14-2018 10:53-0400 Height 157.5 cm [facility] 10-14-2018 10:53-0400 Pulse (Heart Rate) 71 /min [facility] 10-14-2018 10:53-0400 Pulse Oximetry 97 % [facility] 10-14-2018 10:53-0400 Respiratory Rate 16 /min [facility] Encounters Encounter Date Encounter Type Care Provider Facility Start: 12-23-2024 End: 12-23-2024 ambulatory Virginia Titus CNM Work Phone: -[facility] Start: 12-23-2024 End: 12-23-[address] Virginia Chavez MD -[facility] Work Phone: Start: 12-12-2024 End: 12-12-2024 ambulatory Virginia Titus CNStephanie Work Phone: -Laboratory Specimen Start: 12-12-2024 End: 12-12-2024 Patient encounter procedure Virginia Titus CNM -Laboratory Specimen Work Phone: Start: 12-12-2024 End: 12-12-2024 Patient encounter procedure Virginia POWERSM -[facility] Work Phone: Start: 12-12-2024 End: 12-12-2024 ambulatory Virginia POWERSM Work Phone: -[facility] Start: 12-12-2024 End: 12-12-2024 ambulatory Virginia Titus Facility:[facility] Start: 11-29-2024 End: 11-29-2024 Patient encounter procedure Virginia Titus CNM -[facility] Work Phone: Start: 11-29-2024 End: 11-29-2024 ambulatory Virginia POWERSM Work Phone: -[facility] Start: 11-16-2024 ambulatory Shelbie Navarro cility:[facility] Start: 11-11-2024 End: 11-11-[address] Shelbie Navarro DO -[facility] Work Phone: Start: 11-11-2024 End: 11-11-2024 ambulatory Virginia Titus CNM Work Phone: -[facility] Start: 11-11-2024 End: 11-11-2024 ambulatory Shelbie Navarro Facility:[facility] Start: 11-01-2024 End: 11-01-2024 Patient encounter procedure Aranza DE LA ROSA -[facility] Work Phone: Start: 11-01-2024 End: 11-01-2024 ambulatory Virginia Titus CNM Work Phone: -[facility] Start: 11-01-2024 End: 11-01-2024 ambulatory Virginia Titus Facility:[facility] Start: 10-03-2024 End: 10-03-2024 Patient encounter procedure Virginia Titus CNM -[facility] Work Phone: Start: 10-03-2024 End: 10-03-2024 ambulatory Virginia Titus CNM Work Phone: [facility] Work Phone: Start: 09-15-2024 End: 09-15-2024 ambulatory SHELBIE MARTINEZ [facility] Start: 09-08-2024 End: 09-08-[address] Virginia Chavez MD -[facility] Work Phone: Start: 09-08-2024 End: 09-08-2024 ambulatory Virginia Chavez Facility:[facility] Start: 09-01-2024 End: 09-01-2024 ambulatory SHELBIE MARTINEZ [facility] Start: 08-08-2024 End: 08-08-[address] Shelbie Navarro DO -[facility] Work Phone: Start: 08-08-2024 End: 08-08-2024 ambulatory Shelbie Navarro Facility:[facility] Start: 07-04-2024 End: 07-04-2024 ambulatory Virginia Titus CNM Work Phone: [facility] Work Phone: Start: 07-04-2024 End: 07-04-2024 Patient encounter procedure Virginia Titus CNM -Lab, [facility] Start: 07-04-2024 End: 07-04-2024 ambulatory Virginia Titus Facility:[facility] Start: 06-30-2024 End: 06-30-2024 Patient encounter procedure Virginia Titus CNM -Laboratory, Specimen Work Phone: Start: 06-30-2024 End: 06-30-2024 ambulatory Virginia Titus CNM Work Phone: [facility] Work Phone: Start: 06-30-2024 End: 06-30-2024 Patient encounter procedure Virginia Titus CNM -[facility] Work Phone: Start: 06-30-2024 End: 06-30-2024 ambulatory Virginia Tacho Facility:[facility] Start: 09-03-2023 End: 09-03-2023 Emergency department patient visit PHYSICIAN [facility] Start: 04-21-2023 End: 04-21-2023 Office outpatient visit 25 minutes Odilon Coughlin PA-C Work Phone: [facility] Comment on above: Acute non-recurrent maxillary sinusitis (Primary Dx); Asthma, exercise induced Start: 04-21-2023 End: 04-21-2023 ambulatory ODILON [facility] Start: 03-03-2023 End: 03-04-[address] [facility] Start: 09-24-2022 End: 09-25-[address] [facility] Start: 09-24-2022 End: 09-25-2022 Encounter for general adult medical examination without abnormal findings LOREE Christianson [facility] Start: 09-23-2022 Encounter for genera l adult medical examination without abnormal findings LOREE OSEGUERA [facility] Start: 09-23-2022 End: 09-23-2022 Office outpatient new 30 minutes Loree Christianson Anselmo [employer] COMMERCE DEVELOPER-ASIAN ART CURATOR Work Phone: [facility] Comment on above: Asthma, exercise ind uced (Primary Dx); Establishing care with new doctor, encounter for; Wellness examination Start: 09-23-2022 End: 09-23-2022 Patient encounter status Loree Christianson Anselmo [employer] COMMER[employer] DEVELOPER-ASIAN ART CURATOR Work Phone: [facility] Work Phone: Start: 10-14-2018 End: 10-14-2018 Patient encounter procedure ODILON RODRIGUEZ [facility] Start: 10-14-2018 End: 10-14-2018 Office outpatient visit 15 minutes Odilon Rodriguez Work Phone: [facility] [place] Comment on above: Acute swimmer's ear of left side (Primary Dx) Start: 11-10-2017 End: 11-10-2017 Emergency department patient visit Cuate Copeland Facility:[facility] Start: 11-10-2017 Patient encounter Facil [id number] Procedures Date Procedure Procedure Detail Performing Clinician Start: 12-12-2024 Gram stain microscopy Irina Titus CNM Work Phone: Start: 12-12-2024 End: 12-12-2024 Source specific culture Virginia ADDISON Work Phone: Start: 11-11-2024 Measurement of pH in vaginal fluid specimen using nitrazine yellow for detection of rupture of amniotic membrane Virginia Titus CNM Work Phone: Comment on above: Amniotic fluid not p resent indicates No Rupture of FetalMembranes at time of specimen collection. Start: 11-11-2024 Gram stain microscopy Irina Titus CNM Work Phone: Start: 11-11-2024 End: 11-11-2024 Source specific culture Virginia ADDISON Work Phone: Start: 11-11-2024 Urine culture Virginia canales CNM Work Phone: Start: 11-01-2024 Serologic test for syphilis Virginia Titus [facility] Work Phone: Start: 07-04-2024 Hepatitis C antibody measurement Virginia Titus [facility] Work Phone: Comment on above: Reactive: Presumptiv e evidence of antibodies to HCV. Follow CDC recommendations for supplemental testing.Non-Reactive: Antibodies to HCV were not detected; does not exclude the possibility of exposure to HCVReactive Results are presumptive evidence of antibodies to HCV. Follow CDC recommendations for supplemental testing.Order confirmation testing: HCV Quant by PCR testing - HCVPCR #[id number] Non Reactive: < 0.8 Equivocal: >/= 0.8 to < 1.0 Reactive: >/= 1.0The [facility] requires that a reactive/equivocal HCV antibody result be sent out for confirmation. HCV Quant by PCR testing. Start: 07-04-2024 Procedure Virginia madrid [facility] Work Phone: Start: 07-04-2024 Rubella IgG measurement Virginia Titus [facility] Work Phone: Comment on above: Antibody Result: Int erpretationNon-Reactive: Non- ImmuneReactive: ImmuneThe following results were obtained with the Elecsys Rubella IgG assay. Results from assays of other manufacturers cannot be used interchangeably. Start: 07-04-2024 Serologic test for syphilis Virginia Titus [facility] Work Phone: Start: 06-30-2024 Liquid based cervica l cytology screening Virginia Titus [facility] Work Phone: Comment on above: NEGATIVE FOR INTRAEP ITHELIAL LESION OR MALIGNANCY. This liquid based Th inPrep(R) pap test was screened withthe use of an image guided system. The HPV DNA reflex c riteria were not met with this specimenresult therefore, no HPV testing was performed.Performed at: [facility] [id number] [place], [place] [id number] Director: Chaitanya Diaz MD, Phone: [phone] at: - [facility] [id number] Director: Geovanna Torres MD, Phone: [phone] Start: 06-30-2024 Urine culture Virginia canales [facility] Work Phone: Start: 03-03-2023 Comprehensive metabo lic 1999 panel - Serum or Plasma LOREE OSEGUERA Start: 03-03-2023 Thyrotropin [Units/v olume] in Serum or Plasma LOREE OSEGUERA Start: 03-03-2023 THYROXINE, FREE LOREE CON TERRI Start: 03-03-2023 TRIIODOTHYRONINE, FREE LOREE OSEGUERA Start: 09-24-2022 CBC W Auto Different ial panel - Blood LOREE OSEGUERA Start: 09-24-2022 Comprehensive metabo lic 2000 panel - Serum or Plasma LOREE OSEGUERA Start: 09-24-2022 Hemoglobin A1c/Hemoglobin.total in Blood LOREE OSEGUERA Start: 09-24-2022 Lipid panel LOREE OSEGUERA Start: 09-24-2022 THYROXINE, FREE LOREE CON TERRI Start: 09-24-2022 TSH WITH REFLEX TO F REE T4 IF ABNORMAL LOREE OSEGUERA Start: 09-24-2022 Lipid 1996 panel - S calvin or Plasma Odilon Coughlin PA-C Work Phone: Plan of Treatment Date Care Activity Detail Author Start: 2051 Zoster Vaccines (1 of 2) Zoste r Vaccines (1 of 2) [facility] Start: 09-25-2027 Lipid panel Lipid Panel [facility] Start: 12-23-2024 Patient discharge [facility] Start: 11-01-2024 CBC W Auto Different ial panel - Blood [facility] Start: 11-01-2024 Measurement of gluco se 2 hours after glucose challenge for glucose tolerance test [facility] Start: 11-01-2024 Serologic test for syphilis [facility] Start: 11-01-2024 [facility] Start: 11-26-2023 DTaP/Tdap/Td Vaccine s (7 - Td or Tdap) DTaP/Tdap/Td Vaccines (7 - Td or Tdap) [facility] Start: 09-24-2023 End: 09-24-2023 CBC W Auto Differential panel - Blood CBC and Auto Differential Lab Routine Wellness examination Expected: 09/24/2023 (Approximate), Expires: 09/24/2023 [facility] Service Area Work Phone: Comment on above: Expected: 09/24/2023 (Approximate), Expires: 09/24/2023 Start: 09-24-2023 End: 09-24-2023 Comprehensive metabolic 2000 panel - Serum or Plasma Comprehensive Metabolic Panel Lab Routine Wellness examination Expected: 09/24/2023 (Approximate), Expires: 09/24/2023 [facility] Work Phone: Comment on above: Expected: 09/24/2023 (Approximate), Expires: 09/24/2023 Start: 09-24-2023 End: 09-24-2023 Hemoglobin A1c/Hemoglobin.total in Blood Hemoglobin A1C Lab Routine Wellness examination Expected: 09/24/2023 (Approximate), Expires: 09/24/2023 [facility] Work Phone: Comment on above: Expected: 09/24/2023 (Approximate), Expires: 09/24/2023 Start: 09-24-2023 End: 09-24-2023 TSH with reflex to Free T4 if abnormal TSH with reflex to Free T4 if abnormal Lab Routine Wellness examination Expected: 09/24/2023 (Approximate), Expires: 09/24/2023 [facility] Work Phone: Comment on above: Expected: 09/24/2023 (Approximate), Expires: 09/24/2023 Start: 09-24-2023 End: 09-24-2023 Patient encounter procedure 09/24/2023 12:40 PM EDT Office Visit [facility] [address] [place] [id number] Loree Oseguera, [employer]ER[employer] DEVELOPER-ASIAN ART CURATOR [address] [place] [address] [facility] Start: 12-19-2022 Influenza vaccination [facility] Start: 09-23-2022 End: 09-24-2023 CBC W Auto Differential panel - Blood CBC and Auto Differential Lab Routine Wellness examination Expected: 09/23/2022 (Approximate), Expires: 09/24/2023 [facility] Work Phone: Comment on above: Expected: 09/23/2022 (Approximate), Expires: 09/24/2023 Start: 09-23-2022 End: 09-24-2023 Comprehensive metabolic 2000 panel - Serum or Plasma Comprehensive Metabolic Panel Lab Routine Wellness examination Expected: 09/23/2022 (Approximate), Expires: 09/24/2023 [facility] Work Phone: Comment on above: Expected: 09/23/2022 (Approximate), Expires: 09/24/2023 Start: 09-23-2022 End: 09-24-2023 Hemoglobin A1c/Hemoglobin.total in Blood Hemoglobin A1C Lab Routine Wellness examination Expected: 09/23/2022 (Approximate), Expires: 09/24/2023 [facility] Work Phone: Comment on above: Expected: 09/23/2022 (Approximate), Expires: 09/24/2023 Start: 09-23-2022 End: 09-24-2023 Lipid 1996 panel - Serum or Plasma Lipid Panel Lab Routine Wellness examination Expected: 09/23/2022 (Approximate), Expires: 09/24/2023 [facility] Work Phone: Comment on above: Expected: 09/23/2022 (Approximate), Expires: 09/24/2023 Start: 09-23-2022 End: 09-24-2023 TSH with reflex to Free T4 if abnormal TSH with reflex to Free T4 if abnormal Lab Routine Wellness examination Expected: 09/23/2022 (Approximate), Expires: 09/24/2023 [facility] Work Phone: Comment on above: Expected: 09/23/2022 (Approximate), Expires: 09/24/2023 Start: 2022 Screening for malign ant neoplasm of cervix [facility] Start: 2019 Hepatitis C screening Hepatitis C Sc [facility] Start: 12-19-2018 Influenza vaccinatio n given SEQUENTIAL INFLUENZA VACCINE (Season Ended) [facility] Start: 2017 Meningococcal conjug ate vaccination MENINGOCOCCAL VACCINE (1 - 2-dose series) [facility] Start: 2016 Vaccination for joanne n papillomavirus HPV VACCINES (1 - Female 3-dose series) [facility] Start: 2014 Varicella vaccination VARICELL A VACCINES (1 of 2 - 13+ 2-dose series) [facility] Start: 2012 HPV Vaccines (1 - 2- dose series) HPV Vaccines (1 - 2-dose series) [facility] Start: 2008 Tetanus, diphtheria and acellular pertussis vaccination DTAP VACCINES (1 - Tdap) [facility] Start: 2004 History and physical examination, annual for health maintenance Wellness Visit [facility] Start: 2004 Well Child Visit (WC V) - Annual Well Child Visit (WCV) - Annual [facility] Start: 2002 Hepatitis A immunization HEPAT ITIS A VACCINES (1 of 2 - 2-dose series) [facility] Start: 2002 Bjvacjs-isutj-tezmye a vaccination MMR VACCINES (1 of 2 - Standard series) [facility] Start: 2001 COVID-19 Vaccine (#1) COVID-19 Vacci ne (#1) [facility] Start: 2001 Inactivated poliovir us vaccine (product) IPV VACCINES (1 of 3 - 4-dose series) [facility] Start: 2001 Hearing Screening (#1) Hearing Scree albert (#1) [facility] Start: 2001 Hepatitis B vaccination HEPATI TIS B VACCINES (1 of 3 - 3-dose primary series) [facility] Start: 2001 HIV screening HIV Screening [facility] Start: 2001 Lipid panel Lipid Panel [facility] Start: 2001 Screening for Chlamy joan trachomatis Chlamydia Screening [facility] Start: 2001 Tetanus vaccination TETANUS EVERY 10 YR [facility] CBC W Auto Different ial panel - Blood [facility] Erythrocyte mean corpuscular volume determination [facility] Hematocrit [Volume Fraction] of Blood [facility] Hemoglobin [Mass/vol ume] in Blood [facility] Leukocytes [#/volume ] in Blood [facility] Mean corpuscular hemoglobin concentration determination [facility] Mean corpuscular hemoglobin determination [facility] Measurement of gluco se 2 hours after glucose challenge for glucose tolerance test [facility] Neutrophil count [facility] Neutrophil percent differential count [facility] Patient Education Kick Counts ED False Labor OB Triage: Return to Hospital or Notify Physician if you Experience: [facility] Work Phone: Platelets [#/volume] in Blood [facility] Red blood cell count [facility] Red cell distributio n width determination [facility] Serologic test for syphilis [facility] Immunizations Immunization Date Immunization Notes Care Provider Lisa berrios 11-25-2018 hepatitis A vaccine, pediatric/adolescent dosage, 2 dose schedule Loree Oseguera APRN-ASIAN ART CURATOR Work Phone: [facility] Work Phone: 11-25-2018 meningococcal B vacc ine, recombinant, OMV, adjuvanted Loree Oseguera APRN-ASIAN ART CURATOR Work Phone: [facility] Work Phone: 11-23-2017 hepatitis A vaccine, pediatric/adolescent dosage, 2 dose schedule Loree Oseguera APRN-ASIAN ART CURATOR Work Phone: [facility] Work Phone: 11-23-2017 meningococcal B vacc ine, recombinant, OMV, adjuvanted Loree Oseguera APRN-ASIAN ART CURATOR Work Phone: [facility] Work Phone: 11-23-2017 meningococcal polysaccharide (groups A, C, Y and W-135) diphtheria toxoid conjugate vaccine (MCV4P) Loree Oseguera APRN-ASIAN ART CURATOR Work Phone: [facility] Work Phone: 11-25-2013 meningococcal polysaccharide (groups A, C, Y and W-135) diphtheria toxoid conjugate vaccine (MCV4P) Loree Oseguera APRN-ASIAN ART CURATOR Work Phone: [facility] Work Phone: 11-25-2013 tetanus toxoid, redu robert diphtheria toxoid, and acellular pertussis vaccine, adsorbed Loree Oseguera APRN-ASIAN ART CURATOR Work Phone: [facility] Work Phone: 03-30-2012 varicella virus vaccine [facility] Work Phone: [facility] Work Phone: 01-29-2009 influenza virus vacc ine, whole virus L[facility]e [facility] Work Phone: [facility] Work Phone: 01-29-2009 influenza virus vacc ine, unspecified formulation L[facility]e [facility]gu[facility] Work Phone: [facility] Work Phone: 12-18-2005 diphtheria, tetanus toxoids and acellular pertussis vaccine Loree [facility]gu[facility] Work Phone: [facility] Work Phone: 12-18-2005 diphtheria, tetanus toxoids and pertussis vaccine Loree [facility]gu[facility] Work Phone: [facility] Work Phone: 12-18-2005 measles, mumps and rubella virus vaccine Loree [facility]gu[facility] Work Phone: [facility] Work Phone: 12-18-2005 poliovirus vaccine, inactivated L[facility]e [facility]gu[facility] Work Phone: [facility] Work Phone: 09-06-2002 diphtheria, tetanus toxoids and acellular pertussis vaccine, unspecified formulation Loree [facility]gu[facility] Work Phone: [facility] Work Phone: 09-06-2002 diphtheria, tetanus toxoids and pertussis vaccine Loree [facility] Work Phone: [facility] Work Phone: 09-06-2002 haemophilus influenz ae type b vaccine, conjugate unspecified formulation Loree [facility]guera [facility] Work Phone: [facility] Work Phone: 09-06-2002 measles, mumps and rubella virus vaccine Loree RAVI Work Phone: [facility] Work Phone: 05-13-2002 varicella virus vaccine Loree RAVI Work Phone: [facility] Work Phone: 05-10-2002 poliovirus vaccine, inactivated Loree HICKSASIAN ART CURATOR Work Phone: [facility] Work Phone: 05-10-2002 poliovirus vaccine, unspecified formulation Loree HICKSASIAN ART CURATOR Work Phone: [facility] Work Phone: 2001 diphtheria, tetanus toxoids and acellular pertussis vaccine, unspecified formulation [facility] Work Phone: [facility] Work Phone: 2001 diphtheria, tetanus toxoids and pertussis vaccine [facility] Work Phone: [facility] Work Phone: 2001 haemophilus influenz ae type b conjugate and Hepatitis B vaccine Loree [facility] Work Phone: [facility] Work Phone: 2001 haemophilus influenz ae type b vaccine, PRP-T conjugate Loree [facility] Work Phone: [facility] Work Phone: 2001 hepatitis B vaccine, pediatric or pediatric/adolescent dosage Loree [facility] Work Phone: [facility] Work Phone: 2001 diphtheria, tetanus toxoids and acellular pertussis vaccine, unspecified formulation Loree Oseguera [facility] Work Phone: [facility] Work Phone: 2001 diphtheria, tetanus toxoids and pertussis vaccine Loree Oseguera APRN-GURWINDER Work Phone: [facility] Work Phone: 2001 haemophilus influenz ae type b conjugate and Hepatitis B vaccine Loree Oseguera APRN-ASIAN ART CURATOR Work Phone: [facility] Work Phone: 2001 haemophilus influenz ae type b vaccine, PRP-T conjugate Loree Oseguera APRN-ASIAN ART CURATOR Work Phone: [facility] Work Phone: 2001 hepatitis B vaccine, pediatric or pediatric/adolescent dosage Loree Oseguera APRN-ASIAN ART CURATOR Work Phone: [facility] Work Phone: 2001 poliovirus vaccine, inactivated Loree Oseguera APRN-ASIAN ART CURATOR Work Phone: [facility] Work Phone: 2001 diphtheria, tetanus toxoids and acellular pertussis vaccine, unspecified formulation Loree Oseguera APRN-ASIAN ART CURATOR Work Phone: [facility] Work Phone: 2001 diphtheria, tetanus toxoids and pertussis vaccine Loree Oseguera APRN-ASIAN ART CURATOR Work Phone: [facility] Work Phone: 2001 haemophilus influenz ae type b vaccine, conjugate unspecified formulation Loree Oseguera APRN-ASIAN ART CURATOR Work Phone: [facility] Work Phone: 2001 hepatitis B vaccine, pediatric or pediatric/adolescent dosage Loree Oseguera APRN-ASIAN ART CURATOR Work Phone: [facility] Work Phone: 2001 poliovirus vaccine, inactivated Loree Oseguera APRN-ASIAN ART CURATOR Work Phone: [facility] Work Phone: 2001 hepatitis B vaccine, pediatric or pediatric/adolescent dosage Loree Oseguera WE[employer] COMMERCE DEVELOPER-ASIAN ART CURATOR Work Phone: [facility] Work Phone: Payers Date Payer Category Payer Self-pay 2024 Unknown [id number] 2022 Unknown [id number] 2018 Unknown MMO MED [employer] S UPERMED PPO xxxxxxxxx 2018-Present xxxxxxxxx [id number] 2018 Unknown [id number] 2017 Unknown 2001 Unknown [id number] 2001 Unknown [id number] [id number] 2001 Unknown [id number] [id number] 2001 Unknown [id number] 2.16.840.1.802603.3.579.2.1244 2001 Unknown [id number] 2.16.840.1.288471.3.579.2.479 2001 Unknown [id number] [id number]9 2001 Unknown [id number] 2.16.840.1.207458.3.579.2.479 1978 Unknown [id number] 2.16.840.1.538329.3.579.2.717 1978 Unknown [id number] 2.16.840.1.979444.3.579.2.903 Unknown [id number] Unknown [id number] 2.16.840.1.658538.3.579.2.462 Unknown [id number] 2.16.840.1.478877.3.579.2.462 Unknown [id number] 2.16.840.1.390688.3.579.2.462 Unknown [id number] 2.16.840.1.943662.3.579.2.462 Unknown [id number] 2.16.840.1.080778.3.579.2.462 Unknown [id number] 2.16.840.1.094561.3.579.2.462 Unknown [id number] 2.16.840.1.837045.3.579.2.462 Unknown [id number] 2.16.840.1.134390.3.579.2.462 Unknown [id number] 2.16.840.1.840054.3.579.2.462 Unknown [id number] 2.16.840.1.699358.3.579.2.462 Unknown [id number] 2.16.840.1.373386.3.579.2.462 Unknown [id number] 2.16.840.1.894067.3.579.2.462 Unknown [id number] [id number] Unknown [id number] [id number] Social History Date Type Detail Facility Start: 10-14-2018 End: 06-17-2024 Tobacco smoking status [facility] Never smoker [facility] Start: 10-14-2018 History SDOH Alcohol Frequency 1 [facility] Start: 2001 Sex Assigned At Not on file [facility] Start: 09-23-2022 Tobacco use and exposure Smokeless tobacco non-user [facility] Work Phone: Start: 09-23-2022 End: 04-21-2023 Alcohol intake Lifetime non-drinker (finding) [facility] Work Phone: Start: 09-23-2022 End: 04-21-2023 History of Social function [facility] Work Phone: Start: 09-23-2022 End: 04-21-2023 Tobacco use panel [facility] Work Phone: Start: 09-13-2022 End: 09-23-2022 Exposure to SARS-CoV-2 (event) Not sure [facility] Start: 04-11-2023 End: 04-21-2023 Exposure to SARS-CoV-2 (event) Unable to assess [facility] Work Phone: Start: 07-11-2024 End: 07-13-2024 Sex Female (finding) [facility] Start: 2001 Sex Assigned At Female W [facility] Clinical Notes 09-23-2022 to 12-12-2024 Note Date & Type Note Facility 12-12-2024 Progress note [facility] 11-29-2024 Progress note [facility] 11-11-2024 Progress note [facility] 11-11-2024 Progress note Note Date/Time November 11, 2024 2:14pm [facility] [address] [place] [address], [address] [place] [address] OFFICE VISIT Date of Service: 11/11/24 MR#: [id number] Acct: [id number] Name: RENUKA KWAN Rep #: [id number] : 2000 Provider: Dr. Greer Navarro DO Age/Sex: 24/F [place] [facility] Signed Intake Vital Signs 11/01/24 09:21 11/11/24 13:53 11/11/24 13:53 Height 5 ft 3 in 5 ft 3 in 5 ft 3 in Weight: 139 lb 6 oz BMI 24.7 BP 134/83 H Intake Visit Reasons: 28w, vomiting, pelvic pressure, [facility] Die Maker Stamping Required: No Is patient in pain?: No Allergies No Known Allergies Allergy (Verified 11/11/24 13:52) Medications ?Medication ?Instructions ?Recorded ?Confirmed ?Type diphenhydramine HCl 50 mg capsule 50 mg PO QHS 2 5 11/11/24 History ([employer]) mv-mn 110-FA 180 mcg-om3 35 mg-dha tab PO 06/17/24 History 25 mg-epa 5 mg-fish oil chew tablet pyridoxine (vitamin B6) 100 mg 100 mg PO QHS 06/17/24 11/11/24 History tablet terconazole 0.8 % vaginal cream 1 appful vaginal QHS 3 days #20 11/11/24 11/11/24 Rx grams Last Menstrual Period: 04/25/24 Zika: Zika virus screening: Negative : No PFSH PFSH Medical History Asthma Surgical History Fabens teeth extracted Family History Grandmother Cancer, Onset Age: 75 Paternal- Kidney Father High cholesterol Social History adopted: No household members: spouse and other details: Sister & Fiance housing: house current occupational status: employed 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 OB Visit [facility] Calculator Estimated Delivery Date Method Current WG Current Estimate 01/30/25 LMP (Certain) 28w 4d Other Estimates 01/25/25 Ultrasound #1 29w 2d 01/25/25 Ultrasound #2 29w 2d Expected Delivery Route/Plan Labor Preferences- CB/BF classes: [...] list details Initial Weight: 115 lb Date -?-?-?-?-?-?--?-?-?-?-?-?- EGA Weight BP Urine Prot -?-?-?-?-?-?-?-?-?-?-?-?- Glucose [...] 24 -?-?-?-?-?-?-?-?-?-?-?-?- KW- no vb/lof/ct x. parish fm. glucose instructions reviewed. 11/01/24 -?-?-?-?-?-?-?-?-?-?-?-?- 27w 1d 137 lb 6 oz (+22 lb 6 oz) 120/72 Negative -?-?-?-?-?-?-?-?-?-?-?-?- Negative 152 27 -?-?-?-?-?-?-?-?-?-?-?-?- MH-No VB, LOF. G david FM. Larc. 28 wk labs pending. 11/11/24 -?-?-?-?-?-?-?-?-?-?-?-?- 28w 4d 139 lb 6 oz (+24 lb 6 oz) 134/83 Negative -?-?-?-?-?-?-?-?-?-?-?-?- Negative 145 28 -?-?-?-?-?-?-?-?-?-?-?-?- JV- patient comp lains of back pain, tightening of abdomen, and pelvic pressure. UA was collected. She also thinks her discharge is abnormal. JV- patient complains of kyle k pain, tightening of abdomen, and pelvic pressure. UA was collected. She also thinks her discharge is abnormal. on exam she has a marked amount of vaginal yeast. culture collected to rule out BV as well. Rom plus ordered for watery dc but suspect this is just from the yeast. starting monistat 3 now. if no improvement will order diflucan. ACOG First Trimester First Trimester: Desire for [...] Plans, Labor support person(s), Immediate Larc, Circumcision preference, Signs and Symptoms of Preeclampsia, Infant Feeding No , [place] Education and Family Medical Leave or Disability Forms Results POC Urinalysis Dip (Clinic) Office Urine Color Yellow Last Edit by Lashon Mercedes on 11/11/24 14:09 Office Urine Clarity Clear Last Edit by Lashon Mercedes on 11/11/24 14:09 Office Urine Glucose Negative Last Edit by Lashon Mercedes on 11/11/24 14: 09 Office Urine Ketones Negative Last Edit by Lashon Mercedes on 11/11/24 14: 09 Off Ur Spec [place] 1.005 Last Edit by Lashon Mercedes on 11/11/24 14:09 Office Urine pH 5.0 Last Edit by Lashon Mercedes on 11/11/24 14:09 Office Urine Bilirubin Negative Last Edit by Lashon Mercedes on 11/11/24 14:09 Office Urine Urobilinogen 0.2 mg/dL Last Edit by Lashon Mercedes on 14:09 Office Urine Blood Small Last Edit by Lashon Mercedes on 11/11/24 14:09 Office Urine Blood Hemolyzed Last Edit by Lashon Mercedes on 11/11/24 14: 09 Office Urine Protein Negative Last Edit by Lashon Mercedes on 11/11/24 14: 09 Office Urine Nitrate Negative Last Edit by Lashon Mercedes on 11/11/24 14: 09 Off Ur Leukocytes Positive Last Edit by Lashon Mercedes on 11/11/24 14:09 Small leuk Coding Level of Care Code OB Routine Diagnoses Choroid plexus cyst of fetus Encounter for supervision of normal first in second trimester Z34.02 Trimester: second trimester 28 weeks gestation of Z3A.28 Weeks of gestation: 28 weeks Maternal varicella, non-immune O09.899; Z28.39 Assessment and Plan Assessment and Plan (1) Choroid plexus cyst of fetus: Status: Acute Comment: LR NIPT (2) Supervision of normal first : Status: Acute Qualifiers: Trimester: second trimester Qualified Code(s): Z34.02 - Encounter for supervision of normal first , second trimester Comment: PRR, , KAROLINA 01/[birth year], boy, Graidy Dominick(-HitMeUp) (3) : Status: Acute Qualifiers: Weeks of gestation: 28 weeks Qualified Code(s): Z3A.28 - 28 weeks gestation of Comment: NIPT low risk, anatomy reveiwed fu views needed (4) Maternal varicella, non-immune: Status: Acute Orders: Orders POC Urinalysis Dip (Clinic) Today O26.899 - Other specified related conditions, unspecified trimester, R10.2 - Pelvic and perineal pain Culture, Urine Today O26.899 - Other specified related conditions, unspecified trimester, R10.2 - Pelvic and perineal pain Medications: New terconazole 0.8% 1 appful vaginal QHS 20 grams 0RF 3 days 11/11/24 1414 <Electronically signed by Shelbie Romano DO> Date _ Shelbie Navarro DO Cosigner Signature: Date (if applicable) CC: ~ [facility] Work Phone: [phone]) 894-251607-15-2025 [facility] [address], [address] [place] [address] OFFICE VISIT Date of Service: 11/01/24 MR#: [id number] Acct: [id number] Name: RENUKA KWAN Rep #: [id number] : 2000 Provider: ESTRELLA Perry Age/Sex: 24/F [place] [facility] [place]: Signed Intake Vital Signs 09/08/24 10:54 10/03/24 10:43 11/01/24 09:11 11/01/24 09:21 Height 5 ft 3 in 5 ft 3 in 5 ft 3 in 5 ft 3 in Weight: 137 lb 6 oz BMI 24.3 BP 120/72 Intake Visit Reasons: 27 wk ob Chief Complaint: 27 Week OB Die Maker Stamping Required: No Is patient in pain?: No [...] PFSH PFSH Medical History Asthma Surgical History Fabens teeth extracted Family History Grandmother Cancer, Onset Age: 75 Paternal- Kidney Father High cholesterol Social History adopted: No household members: spouse and other details: Sister & Fiance housing: house current occupational status: employed 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 Relevant counseling for the gestational age provided. [...] 152 27 -?-?-?-?-?-?-?-?-?-?-?--?- MH-No VB, LOF. G ood FM. Larc. 28 wk labs pending. ACOG First Trimester First Trimester: Desire for , Alcohol, Tobacco Cessation, Illicit/Recreational Drug/Substance Use, Intimate Partner Violence, Barriers to care, Anticipated Course of Care, Use of Any medications, Sexual activity, Exercise, Dental Care, Sauna/Hot tub use, Seat Belt use, Childbirth c lasses/Hospital facilities, , Travel, Indications for Ultrasound and [...] and Symptoms of Preeclampsia, Feeding Yes , [place] Education and Family Medical Leave or Disability [...] routine care and follow up. 11/01/24 0933 s SPECIAL OFFICER SPECIAL OFFICER-C> Date _ Aranza Perry SPECIAL OFFICER SPECIAL OFFICER-C Cosign Signature: Date (if applicable) CC: ~ [facility] [id number] [facility] [address] [place] [address], [address] [place] [address] OFFICE VISIT Date of Service: 10/03/24 MR#: [id number] Acct: [id number] Name: RENUKA KWAN Rep #: [id number] : 2000 Provider: NAZANIN Titus Age/Sex: 24/F [place] [facility] [place]: Signed Intake Vital Signs 08/08/24 10:16 09/08/24 10:54 10/03/24 10:43 Height 5 ft 3 in 5 ft 3 in 5 ft 3 in Weight: 130 lb 4 oz BMI 23.1 BP 134/87 H Intake Visit Reasons: 21 wk ob Chief Complaint: 23wk OB Die Maker Stamping Required: No Is patient in pain?: No [...] PFSH PFSH Medical History Asthma Surgical History Fabens teeth extracted Family History Grandmother Cancer, Onset Age: 75 Paternal- Kidney Father High cholesterol Social History adopted: No household members: spouse and other details: Sister & Fiance housing: house current occupational status: employed 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 Relevant counseling for the gestational age provided. [...] 24 -?-?-?-?-?-?-?-?-?-?-?-?- KW- no vb/lof/ct x. parish fm. glucose instructions reviewed. ACOG First Trimester First Trimester: Desire for , Alcohol, Tobacco Cessation, Illicit/Recreational Drug/Substance Use, Intimate Partner Violence, Barriers to care, Anticipated Course of Care, Use of Any medications, Sexual activity, Exercise, Dental Care, Sauna/Hot tub use, Seat Belt use, Childbirth c [facility]/Hospital facilities, Travel, Indications for Ultrasound and Screening [...] and Symptoms of Preeclampsia, Feeding No , [place] Education and Family Medical Leave or Disability [...] and no additional complaints, except as documented Jose/Lymph Reports system reviewed and no additional complaints, [...] Encounter for supervision of normal first , unspecifiedtrimester, Z3A.23 - 23 weeks gestation of Plan Details Additional Comments: ACOG trimester education reviewed and updated. see problem list details for updated plan management information and see below for orders placed atthis visit. [place] appropriate handout given. Clinical Quality Measures Falls Risk Screening/Assistive Devices Have you fallen in the past year?: No 10/03/24 1107 s NAZANIN> Date _ Virginia Titus CNM Cosjose alejandro Signature: Date (if applicable) CC: ~ [facility]05-22-2025 Evaluation note* Diagnosis Onset Date Resolution Status Admit Date Choroid plexus cyst of fetus acute September [...] normal first acute November 01, 2024 9:05am Choroid plexus cyst of fetus acute November 11, 2024 1:50pm Maternal varicella, non-immune acute November 11, 2024 1:50pm acute November 11 1:50pm Supervision of normal first acute November 11, 2024 1:50pm Choroid plexus cyst of fetus acute November 29, 2024 8:48am Maternal varicella, non-immune acute November 29, 2024 8:48am acute November 29, 025 8:48am Supervision of normal first acute November 29 8:48am Choroid plexus cyst of fetus acute December 12, 2024 9:35am Maternal varicella, non-immune acute December 12, 2024 9:35am acute December 12, 025 9:35am Supervision of normal first acute December 12 9:35am [facility] Work Phone: 1(122) 719-427704-21-2025 Evaluation note* Diagnosis Onset Date Resolution Status Admit Date Maternal varicella, non-immune acute August 08, 2024 [...] normal first acute November 01, 2024 9:05am [facility] Work Phone: 1(792) 627-649504-21-2025 Evaluation note* Diagnosis Onset Date Resolution Status Admit Date Maternal varicella, non-immune acute August 08, 2024 [...] normal first acute November 01, 2024 9:05am Choroid plexus cyst of fetus acute November 11, 2024 1:50pm Maternal varicella, non-immune acute November 11, 2024 1:50pm acute November 11 1:50pm Supervision of normal first acute November 11, 2024 1:50pm [facility] Work Phone: 1([phone]) 943-665804-21-2025 Evaluation note* Diagnosis Onset Date Resolution Status Admit Date Maternal varicella, non-immune acute August 08, 2024 [...] normal first acute November 01, 2024 9:05am Choroid plexus cyst of fetus acute November 11, 2024 1:50pm Maternal varicella, non-immune acute November 11, 2024 1:50pm acute November 11 1:50pm Supervision of normal first acute November 11, 2024 1:50pm Choroid plexus cyst of fetus acute November 29, 2024 8:48am Maternal varicella, non-immune acute November 29, 2024 8:48am acute November 29, 025 8:48am Supervision of normal first acute November 29 8:48am [facility] Work Phone: [phone] NotePap Smear Specimen AdequacyMarch 2024 11:59pmComment.Satisfactory for evaluation. No endocervical component is identified.[facility]ED A#[id number] County Memorial HospitalComment on above:Satisfactory for evaluation. No endocervical component is identified. 06-30-2024 NotePap Smear Specimen AdequacyMarch 2024 11:59pmComment. Satisfactory for evaluation. No endocervical component is identified.[facility] INTER[facility]ACED A#[id number] County Memorial HospitalComment on above:Satisfactory for evaluation. No endocervical component is identified.06-30-2024 Evaluation note * Diagnosis Onset Date Resolution Status Admit Date Maternal varicella, non-immune acute June 30, 2024 2:13pm acute June 30 2:13pm Supervision of normal first acute June 30, 2024 2:13pm [facility] Work Phone: 1([phone]) 681-796503-13-2025 Evaluation note* Diagnosis Onset Date Resolution Status [...] normal first acute October 03, 2024 10:38am [facility] Work Phone: 1(117) 574-364201-02-2024 History of Present illness Narrative* Odilon Coughlin [...] tablet FU as [facility] 1([phone]) 870-838506-06-2023 History of Present illness Narrative* Loree Oseguera, FLOR-GURWINDER - 09/23/2022 1:20 PM EDT Subjective Patient [...] WITH LABS [facility] Work [facility]: Evaluation note* Diagnosis Asthma, exercise induced- Primary Exercise induced bronchospasm Establishing care with new doctor, encounter for Wellness examination documented in this encounter [facility] Work Phone: Evaluation note* Diagnosis Acute non-recurrent maxillary sinusitis- Primary Asthma, exercise induced Exercise induced bronchospasm documented in this encounter [facility] Work Phone: Progress note Author Virginia Titus [facility] Note Date/Time October 03, 2024 11:0 7am [facility]'[address], [address] [place] [address] OFFICE VISIT Date of Service: 10/03/24 MR#: [id number] Acct: [id number] Name: RENUKA KWAN Rep #: [id number] : 2000 Provider: NAZANIN Titus Age/Sex: 24/F [place] [facility] [place]: Signed Intake Vital Signs 08/08/24 10:16 09/08/24 10:54 10/03/24 10:43 Height 5 ft 3 in 5 ft 3 in 5 ft 3 in Weight: 130 lb 4 oz BMI 23.1 BP 134/87 H Intake Visit Reasons: 21 wk ob Chief Complaint: 23wk OB Die Maker Stamping Required: No Is patient in pain?: No [...] PFSH PFSH Medical History Asthma Surgical History Fabens teeth extracted Family History Grandmother Cancer, Onset Age: 75 Paternal- Kidney Father High cholesterol Social History adopted: No household members: spouse and other details: Sister & Fiance housing: house current occupational status: employed 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 good fm. glucose instructions reviewed. ACOG First Trimester First [...] Immediate Larc, Signs and Symptoms of Preeclampsia, Infant Feeding No , [place] Education and Family Medical Leave or Disability [...] and no additional complaints, except as documented Jose/Lymph Reports system reviewed and no additional complaints, [...] fallen in the past year?: No 10/03/24 1107 <Electronically signed by Virginia nguyen CNM> Date _ Virginia Titus CNM Cosigner Signature: Date (if applicable) CC: ~ [facility] Work Phone: Progress note Author Aranza Perry [facility] Note Date/Time November 01, 2024 9:33 am [facility] [address], [address] [place] [address] OFFICE VISIT Date of Service: 11/01/24 MR#: [id number] Acct: [id number] Name: RENUKA KWAN José Rep #: [id number] : 2000 Provider: ESTRELLA Perry Age/Sex: 24/F [place] [facility] [place]: Signed Intake Vital Signs 09/08/24 10:54 10/03/24 10:43 11/01/24 09:11 11/01/24 09:21 Height 5 ft 3 in 5 ft 3 in 5 ft 3 in 5 ft 3 in Weight: 137 lb 6 oz BMI 24.3 BP 120/72 Intake Visit Reasons: 27 wk ob Chief Complaint: 27 Week OB Die Maker Stamping Required: No Is patient in pain?: No [...] PFSH PFSH Medical History Asthma Surgical History Fabens teeth extracted Family History Grandmother Cancer, Onset Age: 75 Paternal- Kidney Father High cholesterol Social History adopted: No household members: spouse and other details: Sister & Fiance housing: house current occupational status: employed 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 G ood FM. Larc. 28 wk labs pending. ACOG [...] Yes Yes, Signs and Symptoms of Preeclampsia, Infant Feeding Yes , [place] Education and Family Medical Leave or Disability [...] trimester Comment: PRR, , KAROLINA 01/30/25, boy, Radhaidy Dominick(-Marine) (2) : Status: Acute Qualifiers: Weeks [...] 11/01/24 0933 <Electronically signed by Aranza nguyen SPECIAL OFFICER SPECIAL OFFICER-C> Date _ Aranza Perry NP SPECIAL OFFICER-C Cosigner Signature: Date (if applicable) CC: ~ [facility] Work Phone: Progress note Author Virginia Titus [facility] Note Date/Time November 29, 2024 9: 10am [facility] [address], [address] [place] [address] OFFICE VISIT Date of Service: 11/29/24 MR#: [id number] Acct: [id number] Name: RENUKA KWAN Rep #: [id number] : 2000 Provider: NAZANIN Titus Age/Sex: 24/F [place] [facility] [place]: Signed Intake Vital Signs 10/03/24 10:43 11/11/24 13:53 11/29/24 08:52 Height 5 ft 3 in 5 ft 3 in 5 ft 3 in Weight: 143 lb BMI 25.3 BP 115/73 Intake Visit Reasons: 31 WK OB Chief Complaint: 31wk OB Die Maker Stamping Required: No Is patient in pain?: No Allergies No Known Allergies Allergy (Verified 11/29/24 08:50) Medications ?Medication ?Instructions ?Recorded ?Confirmed ?Type diphenhydramine HCl 50 mg capsule 50 mg PO QHS 5 11/29/24 History ([facility]) mv-mn 110-FA 180 mcg-om3 35 mg-dha tab PO 06/17/2404/13 History 25 mg-epa 5 mg-fish oil chew tablet pyridoxine (vitamin B6) 100 mg 100 mg PO QHS 06/17/24 11/29/24 History tablet Last Menstrual Period: 04/25/24 : No PFSH PFSH Medical History Asthma Surgical History Fabens teeth extracted Family History Grandmother Cancer, Onset Age: 75 Paternal- Kidney Father High cholesterol Social History adopted: No household members: spouse and other details: Sister & Fiance housing: house current occupational status: employed 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 OB Visit KAROLINA Calculator Estimated Delivery Date Method Current WG Current Estimate 01/30/25 LMP (Certain) 31w 1d Other Estimates 01/25/25 Ultrasound #1 31w 6d 01/25/25 Ultrasound #2 31w 6d Expected Delivery Route/Plan Labor Preferences- CB/BF [...] list details Initial Weight: 115 lb Date -?-?-?-?-?-?-?-?-?--?-?-?- EGA Weight BP Urine Prot -?-?-?-?-?-?-?-?-?-?-?-?- Glucose [...] x. good fm. glucose instructions reviewed. 11/01/24 -?-?-?-?-?-?-?-?-?-?-?-?- 27w 1d 137 lb 6 oz (+22 lb 6 oz) 120/72 Negative -?-?-?-?-?-?-?-?-?-?-?-?- Negative 152 27 -?-?-?-?-?-?-?-?-?-?-?-?- MH-No VB, LOF. G ood FM. Larc. 28 wk labs pending. 11/11/24 -?-?-?-?-?-?-?-?-?-?-?-?- 28w 4d 139 lb 6 oz (+24 lb 6 oz) 134/83 Negative -?-?-?-?-?-?-?-?-?-?-?-?- Negative 145 28 -?-?-?-?-?-?-?-?-?-?-?-?- JV- patient comp lains of back pain, tightening of abdomen, and pelvic pressure. UA was collected. She also thinks her discharge is abnormal. JV- patient complains of kyle k pain, tightening of abdomen, and pelvic pressure. UA was collected. She also thinks her discharge is abnormal. on exam she has a marked amount of vaginal yeast. culture collected to rule out BV as well. Rom plus ordered for watery dc but suspect this is just from the yeast. starting monistat 3 now. if no improvement will order diflucan. 11/29/24 -?-?-?-?-?-?-?-?-?-?-?-?- 31w 1d 143 lb (+28 lb) 115/73 Negative -?-?-?-?-?-?-?-?-?-?-?-?- Negative 160 32 -?-?-?-?-?-?-?-?-?-?-?-?- KW- doing much b sarah this week. no vb/lof/ctx. good fm. pepcid for acid reflux. ACOG First Trimester First Trimester: Desire for [...] Plans, Labor support person(s), Immediate Larc, Circumcision preference, Signs and Symptoms of Preeclampsia, Infant Feeding No , Education and Family Medical [...] and no additional complaints, except as documented Jose/Lymph Reports system reviewed and no additional complaints, [...] Negative Last Edit by Angelita Jade on 11/29/24 08:58 Office Urine Protein Negative Last Edit by Angelita Jade on 11/29/24 08:58 Coding Level of Care Code OB Routine Diagnoses Choroid plexus cyst of fetus Encounter for supervision of normal first in second trimester Z34.02 Trimester: second trimester 31 weeks gestation of Z3A.31 Weeks of gestation: 31 weeks Maternal varicella, non-immune O09.899; Z28.39 Assessment [...] : Status: Acute Qualifiers: Weeks of gestation: 31 weeks Qualified Code(s): Z3A.31 - 31 weeks gestation of Comment: NIPT low risk, anatomy reveiwed fu views needed (4) Maternal varicella, non-immune: Status: Acute Orders: Orders POC Urinalysis 2 Dip (Clinic) Today Plan Details Additional Comments: ACOG trimester education reviewed and updated. see problem list details for updated plan management information and see below for orders placed at this visit. [place] appropriate handout given. 11/29/2466 <Electronically signed by Virginia nguyen CNM> Date _ Virginia Titus CNM Cosigner Signature: Date (if applicable) CC: ~ [facility] Work Phone: Progress note Author Virginia Titus [facility] Note Date/Time December 12, 2024 9: 55am [facility] [address] [place] [address], [address] [place] [address] OFFICE VISIT Date of Service: 12/12/24 MR#: [id number] Acct: [id number] Name: RENUKA KWAN Rep #: [id number] : 2000 Provider: NAZANIN Titus Age/Sex: 24/F [place] [facility] [place]: Signed Intake Vital Signs 11/29/24 08:52 12/12/24 09:39 Height 5 ft 3 in 5 ft 3 in Weight: 147 lb 5 oz BMI 26.1 BP 127/83 H Intake Visit Reasons: 33 wk ob Chief Complaint: 33wk OB Die Maker Stamping Required: No Is patient in pain?: No Allergies No Known Allergies Allergy (Verified 12/12/24 09:37) Medications ?Medication ?Instructions ?Recorded ?Confirmed ?Type diphenhydramine HCl 50 mg capsule 50 mg PO QHS 5 12/12/24 History ([facility]) mv-mn 110-FA 180 mcg-om3 35 mg-dha tab PO 06/17/24 History 25 mg-epa 5 mg-fish oil chew tablet pyridoxine (vitamin B6) 100 mg 100 mg PO QHS 06/17/24 12/12/24 History tablet Last Menstrual Period: 04/25/24 : No PFSH PFSH Medical History Asthma Surgical History Fabens teeth extracted Family History Grandmother Cancer, Onset Age: 75 Paternal- Kidney Father High cholesterol Social History adopted: No household members: spouse and other details: Sister & Fiance housing: house current occupational status: employed 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 OB Visit KAROLINA Calculator Estimated Delivery Date Method Current WG Current Estimate 01/30/25 LMP (Certain) 33w 0d Other Estimates 01/25/25 Ultrasound #1 33w 5d 01/25/25 Ultrasound #2 33w 5d Expected Delivery Route/Plan Labor Preferences- CB/BF [...] x. good fm. glucose instructions reviewed. 11/01/24 -?-?-?-?-?-?-?-?-?-?-?-?- 27w 1d 137 lb 6 oz (+22 lb 6 oz) 120/72 Negative -?-?-?-?-?-?-?-?-?-?-?-?- Negative 152 27 -?-?-?-?-?-?-?-?-?-?-?-?- MH-No VB, LOF. G ood FM. Larc. 28 wk labs pending. 11/11/24 -?-?-?-?-?-?-?-?-?-?-?-?- 28w 4d 139 lb 6 oz (+24 lb 6 oz) 134/83 Negative -?-?-?-?-?-?-?-?-?-?-?-?- Negative 145 28 -?-?-?-?-?-?-?-?-?-?-?-?- JV- patient comp lains of back pain, tightening of abdomen, and pelvic pressure. UA was collected. She also thinks her discharge is abnormal. JV- patient complains of kyle k pain, tightening of abdomen, and pelvic pressure. UA was collected. She also thinks her discharge is abnormal. on exam she has a marked amount of vaginal yeast. culture collected to rule out BV as well. Rom plus ordered for watery dc but suspect this is just from the yeast. starting monistat 3 now. if no improvement will order diflucan. 11/29/24 -?-?-?-?-?-?-?-?-?-?-?-?- 31w 1d 143 lb (+28 lb) 115/73 Negative -?-?-?-?-?-?-?-?-?-?-?-?- Negative 160 32 -?-?-?-?-?-?-?-?-?-?-?-?- KW- doing much b sarah this week. no vb/lof/ctx. good fm. pepcid for acid reflux. 12/12/24 -?-?-?-?-?-?-?-?-?-?-?-?- 33w 0d 147 lb 5 oz (+32 lb 5 oz) 127/83 -?-?-?-?-?-?-?-?-?-?-?-?- 150 33 -?-?-?-?-?-?-?-?-?-?-?-?- KW- no vb/lof/ct x. good fm. concerns with vaginal itching-yeast on exam and culture today. starting Monistat ACOG First Trimester First Trimester: Desire for [...] Plans, Labor support person(s), Immediate Larc, Circumcision preference, Signs and Symptoms of Preeclampsia, Feeding No [...] and no additional complaints, except as documented Jose/Lymph Reports system reviewed and no additional complaints, [...] normal Thought Content: normal Judgment: judgment good Coding Level of Care Code OB Routine Diagnoses Choroid plexus cyst of fetus Encounter for supervision of normal first in second trimester Z34.02 Trimester: second trimester 33 weeks gestation of Z3A.33 Weeks of gestation: 33 weeks Maternal varicella, non-immune O09.899; Z28.39 Assessment and Plan Assessment and Plan (1) Choroid plexus cyst of fetus: Status: Acute Comment: LR NIPT (2) Supervision of normal first : Status: Acute Qualifiers: Trimester: second trimester Qualified Code(s): Z34.02 - Encounter for supervision of normal first , second trimester Comment: PRR, , KAROLINA [birth year], boy, Radhaidy Dominick(-Marine) (3) : Status: Acute Qualifiers: Weeks of gestation: 33 weeks Qualified Code(s): Z3A.33 - 33 weeks gestation of Comment: NIPT low risk, anatomy reveiwed fu views needed (4) Maternal varicella, non-immune: Status: Acute Orders: Orders POC Urinalysis 2 Dip (Clinic) Today Plan Details Additional Comments: ACOG trimester education reviewed and updated. see problem list details for updated plan management information and see below for orders placed at this visit. GA appropriate handout given. 12/12/24 [id number] <Electronically signed by Virginia nguyen CNM> Date _ Virginia Titus CNM Cosigner Signature: Date (if applicable) CC: ~ [facility] Work Phone: Reason for referral (narrative)* Consultation (Routine) - Authorized Specialty Diagnoses / Procedures Referred By Contac t Referred To Contact Obstetrics and Gynecology Diagnoses Wellness examination Procedures MA OFFICE/OUTPATIENT [facility] 60-74 MINUTES Loree Oseguera, WEB[employer] COMMERCE DEVELOPER-ASIAN ART CURATOR [address] [place] [id number] Referral ID Status Reason Start Date Expiration Date Visits Requested Visits Authorized [id number] Authorized Specialty Services Required 09/23/2022 03/22/2023 1 1 Electronically signed by Loree Oseguera [employer] COMMER[employer] DEVELOPER-ASIAN ART CURATOR at 09/23/2022 1:45 PM EDT [facility] Work Phone: Reason for referral (narrative)No reason for referral information availableWKettering [facility] Work Phone: Summary Purpose Family History Relationship Condition Age at Onset Recorded Date/T lisa grandmother Malignant neoplasm 75 father High blood cholesterol Unknown Advance Directives Documents on File Type Date Recorded Patient Javascript Front End Developer Expl anation Advance Directives and Living Will [...] Do not use plastic earplugs. Use a occupational therapy department chair to carefully dry the ear after [...] your doctor if you can take an hety-zek-aehnsrj medicine. ? No one younger than 20 [...] Log into your personal health record on [email or web address] and enter M813 in the Education box to learn more about [facility] [facility] [employer]: Care Instructions. Current as of: February 07, 2018 Content Version: 12.0 [id number] [employer]. Care instructions adapted under license by your healthcare professional. If you have questions about a medical condition or this instruction, always ask your healthcare professional. [employer] disclaims any warranty or liability for your use of this information. documented in this encounter History of Present Illness * Odilon Rodirguez CNP - 10/14/2018 11:05 AM EDT Subjective [...] ear of left side Other orders - fsagebma-zlvleptrm-rfasapgkdkaxcc (CORTISPORIN) otic solution; Administer 4 (four) drops [...] Contact Diagnoses Asthma, exercise induced Odilon Coughlin, PA-C [address] [place] [address] Referral ID Status Reason Start Date Expiration Date V isits Requested Visits Authorized [id number] Pending Review 1 1 Chief Complaint and Reason for Visit Chief Complaint Admit Date NOB LMP 04/25June 30, 2024 2:1 3pm Reason for Visit Admit Date Maternal varicella, non-immune June 2:13pm June 30, 2024 2:1 3pm Supervision of normal first [facility] 2024 2:13pm Chief Complaint Admit Date NOB LMP 04/25June 30, 2024 2:1 3pm 13 wk OB August 08, 2024 10: 11am 17 WK OB September 08, 2024 10:46 am 21 wk ob October 03, 2024 10:3 8am Reason for Visit Admit Date Maternal varicella, non-immune June 2:13pm June 30, 2024 2:1 3pm Supervision of normal first [facility] 2024 2:13pm Maternal varicella, non-immune July 10:11am August 08, 2024 10: 11am Supervision of normal first Ap ril 2024 10:11am Choroid plexus cyst of fetus [...] 10: 11am Supervision of normal first Ap ril 2024 10:11am Choroid plexus cyst of fetus [...] of normal first Ju ly 2024 9:05am Chief Complaint Admit Date 13 wk OB August 08, 2024 10: 11am 17 WK OB September 08, 2024 10:46 am 23 wk ob October 03, 2024 10:3 8am 27 wk ob November 01, 2024 9:05 am 28w, vomiting, pelvic pressure, BHC November 11, 2024 1:50pm Reason for Visit Admit Date Maternal varicella, non-immune July 10:11am August 08, 2024 10: 11am Supervision of normal first Ap ril 2024 10:11am Choroid plexus cyst of fetus [...] of normal first Ju ly 2024 9:05am Choroid plexus cyst of fetus November 11, 2024 1:50pm Maternal varicella, non-immune October 1:50pm November 11, 2024 1:50 pm Supervision of normal first Ju ly 2024 1:50pm Chief Complaint Admit Date 13 wk OB August 08, 2024 10: 11am 17 WK OB September 08, 2024 10:46 am 23 wk ob October 03, 2024 10:3 8am 27 wk ob November 01, 2024 9:05 am 28w, vomiting, pelvic pressure, BHC November 11, 2024 1:50pm 31 WK OB November 29, 2024 8: 48am Reason for Visit Admit Date Maternal varicella, non-immune July 10:11am August 08, 2024 10: 11am Supervision of normal first Ap ril 2024 10:11am Choroid plexus cyst of fetus [...] of normal first Ju ly 2024 9:05am Choroid plexus cyst of fetus November 11, 2024 1:50pm Maternal varicella, non-immune October 1:50pm November 11, 2024 1:50 pm Supervision of normal first Ju ly 2024 1:50pm Choroid plexus cyst of fetus November 8:48am Maternal varicella, non-immune November [id number] 8:48am November 29, 2024 8: 48am Supervision of normal first Au jorge l 2024 8:48am Chief Complaint Admit Date 17 WK OB September 08, 2024 10:46 am 23 wk ob October 03, 2024 10:3 8am 27 wk ob November 01, 2024 9:05 am 28w, vomiting, pelvic pressure, B[facility] November 11, 2024 1:50pm 31 WK OB November 29, 2024 8: 48am 33 wk ob December 12, 2024 9: 35am Reason for Visit Admit Date Choroid plexus cyst of fetus September 08, [...] of normal first Ju ly 2024 9:05am Choroid plexus cyst of fetus November 11, 2024 1:50pm Maternal varicella, non-immune October 1:50pm November 11, 2024 1:50 pm Supervision of normal first Ju ly 2024 1:50pm Choroid plexus cyst of fetus November 8:48am Maternal varicella, non-immune November [id number] 8:48am November 29, 2024 8: 48am Supervision of normal first Au jorge l 2024 8:48am Choroid plexus cyst of fetus November 9:35am Maternal varicella, non-immune December [id number] 9:35am December 12, 2024 9: 35am Supervision of normal first Au jorge l 2024 9:35am Chief Complaint Admit Date 17 WK OB September 08, 2024 10:46 am 23 wk ob October 03, 2024 10:3 8am 27 wk ob November 01, 2024 9:05 am 28w, vomiting, pelvic pressure, BHC November 11, 2024 1:50pm 31 WK OB November 29, 2024 8: 48am 33 wk ob December 12, 2024 9: 35am DECREASED MOVEMENT December 23, 2024 12:43pm Additional Source Comments INFORMATION SOURCE (unrecogn ized section and content) DATE CREATED AUTHOR 12/13/2017 [facility] [place] DATE CREATED AUTHOR AUTHOR'S ORGANIZ ATION 04/21/2018 [facility] DATE CREATED AUTHOR AUTHOR'S ORGANIZ ATION 12/12/2018 [facility] DATE CREATED AUTHOR AUTHOR'S ORGANIZ ATION 09/29/2022 [facility] DATE CREATED AUTHOR AUTHOR'S ORGANIZ ATION 03/09/2023 [facility] DATE CREATED AUTHOR AUTHOR'S ORGANIZ ATION 09/11/2023 [facility] DATE CREATED AUTHOR AUTHOR'S ORGANIZ ATION 09/25/2023 [facility] DATE CREATED AUTHOR AUTHOR'S ORGANIZ ATION 09/17/2024 [facility] DATE CREATED AUTHOR AUTHOR'S ORGANIZ ATION 12/17/2024 [facility] Reason for Visit (unrecogniz ed section and content) Reason Comments Otalgia Left ear pain with d rainage x 3 days Reason Comments Establish Care No concerns Reason Comments Illness VIRTUAL; C/O SORE TH ROAT, SINUS DRAINAGE/CONGESTION, BODY ACHES/CHILLS AND DRY COUGH X 4 DAYS NOW. Care Teams (unrecognized sec tion and content) Dispatcher Radioactive Waste Disposal Relationship Specialty Start Date End Date Loree Oseguera, [employer] COMMERCE DEVELOPER-ASIAN ART CURATOR [address] [place] [address] PCP - General Internal Medicine 09/23/22 Dispatcher Radioactive Waste Disposal Relationship Specialty Start Date End Date Loree Oseguera, [employer] COMMER[employer] DEVELOPER-ASIAN ART CURATOR [address] [place] [place] [address] PCP - General Internal Medicine 09/23/22 Loree Oseguera, WE[employer] COMMERCE DEVELOPER-ASIAN ART CURATOR [address] [facility] [place] [address] PCP - MMO ACO PCP 02/18/23 Team [...] Member Role/Relationship Status Dates Aranza Perry NP, SPECIAL OFFICER-C Attending Provider Active Start: November 01, 2024 End: November 01, 2024 Team Status: Active Member Role/Relationship Status Dates Virginia Titus CNM Attending Provider Active S tart: November 01, 2024 Virginia Titus CNM Referring Provider Active S tart: November 01, 2024 Team Status: Inactive Member Role/Relationship Status [...] Inactive Member Role/Relationship Status Dates Aranza Perry NP SPECIAL OFFICER-C Attending Provider Active Start: November 01, 2024 End: November 01, 2024 Team Status: Inactive Member Role/Relationship Status Dates Virginia Titus CNM Attending Provider Active S tart: November 01, 2024 End: November 01, 2024 Virginia Titus CNM Referring Provider Active S tart: November 01, 2024 End: November 01, 2024 Team Status: Inactive Member Role/Relationship Status Dates Dr. Shelbie Navarro DO Attending Provider Activ e Start: November 11, 2024 End: November 11, 2024 Team Status: Inactive Member Role/Relationship Status Dates Dr. Shelbie Navarro DO Attending Provider Activ e Start: November 11, 2024 End: November 11, 2024 Dr. Shelbie Navarro DO Referring Provider Activ e Start: November 11, 2024 End: November 11, 2024 Team Status: Inactive Member Role/Relationship Status Dates Virginia Titus CNM Attending Provider Active S tart: November 29, 2024 End: November 29, 2024 Team Status: Inactive Member Role/Relationship Status Dates Dr. Virginia Chavez MD Attending Provider Active Start: September 08, 2024 End: September 08, 2024 Team Status: Inactive Member Role/Relationship Status Dates Virginia Titus CNM Attending Provider Active S tart: October 03, 2024 End: October 03, 2024 Team Status: Inactive Member Role/Relationship Status Dates Aranza Perry NP, SPECIAL OFFICER-C Attending Provider Active Start: November 01, 2024 End: November 01, 2024 Team Status: Inactive Member Role/Relationship Status Dates Virginia Titus CNM Attending Provider Active S tart: November 01, 2024 End: November 01, 2024 Virginia Titus CNM Referring Provider Active S tart: November 01, 2024 End: November 01, 2024 Team Status: Inactive Member Role/Relationship Status Dates Dr. Shelbie Navarro DO Attending Provider Activ e Start: November 11, 2024 End: November 11, 2024 Team Status: Inactive Member Role/Relationship Status Dates Dr. Shelbie Navarro DO Attending Provider Activ e Start: November 11, 2024 End: November 11, 2024 Dr. Shelbie Navarro DO Referring Provider Activ e Start: November 11, 2024 End: November 11, 2024 Team Status: Inactive Member Role/Relationship Status Dates Virginia Titus CNM Attending Provider Active S tart: November 29, 2024 End: November 29, 2024 Team Status: Inactive Member Role/Relationship Status Dates Virginia Titus CNM Attending Provider Active S tart: December 12, 2024 End: December 12, 2024 Team Status: Inactive Member Role/Relationship Status Dates Virginia Titus CNM Attending Provider Active S tart: December 12, 2024 End: December 12, 2024 Virginia Titus CNM Referring Provider Active S tart: December 12, 2024 End: December 12, 2024 Team Status: Active Member Role/Relationship Status Dates No Primary Care Physician Primary Care Provider Active Team Status: Inactive Member Role/Relationship Status Dates Virginia Titus CNM Attending Provider Active S tart: December 12, 2024 End: December 12, 2024 Team Status: Inactive Member Role/Relationship Status Dates Virginia Titus CNM Attending Provider Active S tart: December 12, 2024 End: December 12, 2024 Virginia Titus CNM Referring Provider Active S tart: December 12, 2024 End: December 12, 2024 Team Status: Inactive Member Role/Relationship Status Dates No Primary Care Physician Primary Care Provider Active Start: December 23, 2024 End: December 23, 2024 Dr. Virginia Chavez MD Attending Provider Active Start: December 23, 2024 End: December 23, 2024 Dr. Virginia Chavez MD Referring Provider Active Start: December 23, 2024 End: December 23, 2024 Goals (unrecognized section and content) Goals [...] BE BASED ON THE PRIMARY CLINICAL RECORDS. [facility]. provides no warranty or guarantee of the accuracy or completeness of information in this document.
--- NOTE | 2024-12-31 01:20 | OB.TRI.PN ---
Progress Notes Date of Service: 12/23/24 Progress Note: Patient presents for triage evaluation secondary to decreased movement FHT: 140 Moderate variability reactive no decelerations category I tracing [place]: no regular Contractions Assessment and plan: 34 weeks decresaed movement Reactive NST, reassuring maternal and status patient discharged to home to follow-up as scheudled. See problem list details for additional plan information. Charges/Coding Procedures Urinary/Genital 52xxx-59xxx: 80728-50 non-stress test Interp
== END 2024-12-23 14:02 | disposition home or self-care (01) ==
LOC: WPOUT 12:58 → WP 12:58
PROVIDERS: Referring Provider Obstetrics & Gynecology; Visit Provider Obstetrics & Gynecology
DX: O36.8130 Decreased fetal movements, third trimester, not applicable or unspecified (principal); Z3A.34 34 weeks gestation of pregnancy
CPT/HCPCS: 59050; 99221; G0378

== ENCOUNTER 2024-12-25 21:45 | Outpatient (CLI) | payer OTHER, BC, SELFPAY ==
[2024-12-25 21:54] VITALS: BMI 26.4
--- OUTSIDE RECORDS SUMMARY | 2024-12-25 21:55 | XMS RPT_ITS | CCD ---
Author Organization [facility] Team Providers Care Nut Feeder Name Role Phone Cuate Copeland Unavailable Unavailable Araiza, Robert Unavailable Unavailable AraizaRobert Unavailable Unavailable Litao, Achilles Akbar Primary Care Provider [phone] ODILON RODRIGUEZ Attending Unavailabl e LITAO, ACHILLES AKBAR Primary Care Unavailab le Oseguera BLINDMAKER-ENVELOPE ADJUSTER, Loree D Primary Care Provider [phone] ANSELMO LOREE Meghan Primary Care Unavailable OSEGUERA, LOREE D Primary Care Unavailable Oseguera BLINDMAKER-ENVELOPE ADJUSTER, Loree D Unavailable NO, PHYSICIAN Primary Care Unavailable SHOSHANA RICH Attending Unava ilODILON Brumfield Attending Unavailable LOREE OSEGUERA Primary Care Unavailable Virginia Titus CNM Attending Provider Virginia Titus CNM Referring Provider [phone] SHELBIE CLEMENTE Referring Unavailab MADDY Eason Primary Care Unavailable SHELBIE CLEMENTE Attending Unavailab SHELBIE Mendieta Referring Unavailab JACKIE Lee Attending Unavailable MADDY CA Primary Care Unavailable SHELBIE CLEMENTE Referring Unavailab AJCKIE Lee Attending Unavailable MADDY CA Primary Care Unavailable Dr. Shelbie Navarro DO Attending Provider Kathy OSUNA, Dr. Coleman Attending Provider [phone] Virginia Titus CNM Attending Provider [phone] Virginia Titus CNM Referring Provider [phone] Aranza Tong Attending Provider [phone] Virginia Titus CNM Attending Provider [phone] Virginia Titus CNM Referring Provider Dr. Shelbie Navarro DO Referring Provider Dr. Shelbie Navarro DO Attending Provider Care Physician, No Primary Primary Care Provider Unavailable Dr. Virginia Chavez MD Referring Provider Virginia Titus Attending Unavailable Virginia Titus Referring Unavailable Virginia Titus Attending Unavailable Virginia Titus Referring Unavailable Care Physician, No Primary Primary Care Unava ilable Virginia Chavez Attending Unavailable Kathy, Virginia Referring Unavailable Virginia Titus Attending Unavailable Virginia Chavez Attending Unavailable Jayda Britton, Shelbie Attending Unavailinés Chavez, Virginia Attending Unavailable Virginia Titus Attending Unavailable Hilario CAMARA, Aranza Attending Unavailable Jayda Britton, Shelbie Attending Unavailinés Navarro, Shelbie Attending UnavailVirginia Gastelum Attending Unavailable Virginia Titus Attending Unavailable Jayda Britton, Shelbie Referring Unavailinés Navarro, Shelbie Attending UnavailVirginia Gastelum Attending Unavailable Virginia Titus Referring Unavailable Virginia Titus Attending Unavailable Virginia Titus Referring Unavailable Allergies Allergy Classification Reported Allergen(s) Allergy Type Date of Onset Reaction(s) Facility (1 source) Seasonal allergy; Translations: [SEASONAL ALLERGIES] Propensity to adverse reactions (disorder) 5 [facility] Medications Current Medications Medication Drug Class(es) Dates Sig (Normalized) Sig (Original) [id number] 200 actuat albuterol 0.09 mg/actuat metered dose [...] / neomycin 3.5 mg/ml / polymyxin b 02715 unt/ml otic solution (1 source) Aminoglycoside Antibacterial, [...] mouth once daily. 0 07/07/2012 Active Mv-Mn 046-Hb-Ym5-Dha-Epa-F violet 180 mcg-35 mg- 25 mg-5 mg tablet,chewable (9 sources) Start: 06-17-2024 Mv-Mn 395-Er-Zp2-Dha-Epa- Fish 180 mcg-35 mg- 25 mg-5 mg tablet,chewable Active {tbl} PO June 17, 2024 1:00am Pnv No.549-Nk-Ax7-Dha-Ep a-Fish 180 mcg-35 mg- 25 mg-5 mg tablet,chewable (2 sources) Start: 06-17-2024 Pnv No.687-Ds-Ub4-Dha-E pa-Fish 180 mcg-35 mg- 25 mg-5 mg [...] (Original) Acetaminophen / Dextromethorphan (2 sources) Uncompetitive K-tupecg-A-aspartat e Receptor Antagonist, Sigma-1 Agonist End: 04-21-2023 [...] Comment on above: PRR, , KAROLINA 01/30, Dominick([employer]) elects NIPT with gen melina PRR, , KAROLINA 01/30, boy, Dominick([employer]) NIPT low risk PRR, , KAROLINA 01/30, boy, Graidy Dominick([employer]) NIPT low risk, anato my reveiwed fu [...] Range Facility Genital Culture Comprehensiv payton 12-15-2024 [facility] Reason for Exam: Vaginal discharge and Irritation No Gardnerella, Neisseria or beta-hemolytic Streptococcus isolated. Genital Culture Comprehensive Presumptive C albicans Amount Growth 3+ Normal [facility] Comment on above: Performed By: #### M 100.3200, M1.1999 #### [facility] [address], [place], [id number] Gram Stainon 12-12-2024 GS Reason for Exam: Vaginal discharge and Irritation Gram Stain 4+ White Blood Cells 4+ Gram positive rods No Gram negative diplococci Score = 0 Interpretation: 0-3 Normal, 4-6 Intermediate, 7-10 Positive BV Normal [facility] Comment on above: Performed By: #### M 100.3200, M100.1999 #### [facility] [address], [place], [id number] Gram stainOrdered By: Virginia Titus on 12-12-2024 Microscopic observation Gram stain Nom (Unsp spec) [facility] - Chemistry and C hemistry - challengeOrdered By: Virginia Titus on 12-12-2024 Glucose Ql (U) Negative [facility] - UrinalysisOrder ed By: Virginia Titus on 12-12-2024 Protein Ql (U) Negative [facility] Explosive Ordnance Manager Office Visit Reporton 12-12-2024 Explosive Ordnance Manager Office Visit Report [facility]'s [address], [address] [place] [address] OFFICE VISIT Date of Service: 12/12/24 MR#: [id number] Acct: [id number] Name: RENUKA GEORGE Rep #: [id number] : 2000 Provider: NAZANIN Cai ams Age/Sex: 24/F [place] [facility] [place]: Signed Intake Vital Signs 11/29/24 08:52 12/12/24 09:39 Height 5 ft 3 in 5 ft 3 in Weight: 147 lb 5 oz BMI 26.1 BP 127/83 H Intake Visit Reasons: 33 wk ob Chief Complaint: 33wk OB Search Engine Optimization Strategist Required: No Is patient in pain?: No [...] PFSH PFSH Medical History Asthma Surgical History Fedscreek teeth extracted Family History Grandmother Cancer, Onset Age: 75 Paternal- Kidney Father High cholesterol Social History adopted: No household members: spouse and other details: Sister Fiance housing: house current occupational status: employed 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 Normal [facility] - Chemistry and C hemistry - challengeOrdered By: Virginia Titus on 11-29-2024 Glucose Ql (U) Negative [facility] - UrinalysisOrder ed By: Virginia Titus on 11-29-2024 Protein Ql (U) Negative [facility] Explosive Ordnance Manager Office Visit Reporton 11-29-2024 Explosive Ordnance Manager Office Visit Report [facility]'s [address], [address] [place] [address] OFFICE VISIT Date of Service: 11/29/24 MR#: [id number] Acct: [id number] Name: RENUKA GEORGE Rep #: [id number] : 2000 Provider: NAZANIN Cai ams Age/Sex: 24/F [place] [facility] [place]: Signed Intake Vital Signs 10/03/24 10:43 11/11/24 13:53 11/29/24 08:52 Height 5 ft 3 in 5 ft 3 in 5 ft 3 in Weight: 143 lb BMI 25.3 BP 115/73 Intake Visit Reasons: 31 WK OB Chief Complaint: 31wk OB Search Engine Optimization Strategist Required: No Is patient in pain?: No [...] PFSH PFSH Medical History Asthma Surgical History Fedscreek teeth extracted Family History Grandmother Cancer, Onset Age: 75 Paternal- Kidney Father High cholesterol Social History adopted: No household members: spouse and other details: Sister Fiance housing: house current occupational status: employed current occupation: [employer] current occupational exposures/hazards: No pets and animals: [...] 1-2 times per week duration: 15-30 minutes/day antoine/sikh: Buddhism seatbelt use: always do you feel safe at home: No additional social history: Dominick- Landscaping/Marine History 1 Elective abortions Hx Para 0 Spontaneous abortions Hx # Term Pregnancies Ectopic pregnancies Hx # Pregnancies Multiple births # of living children HPI 31 WK OB Details: RENUKA GEORGE is a 24 year old who presents [...] (+15 lb (more content not included)... Normal [facility] Urine Cultureon 11-14-2024 [facility] Urine Culture Urine Culture Mixed Gram Positive Organisms [place] Count 25,000-50,000 MIXC Mixed contaminants. Submit a new specimen if indicated. Normal [facility] Comment on above: Performed By: #### M 100.3200, M100.1999, M10 #### [facility] [address] [place], [address] Genital Culture Comprehensiv payton 11-13-2024 VAC Reason for Exam: vaginal discharge No Gardnerella, Neisseria or beta-hemolytic Streptococcus isolated. Presumptive C albicans Amount Growth 3+ Normal [facility] Comment on above: Performed By: #### M 100.3200, .1999, #### [facility] [address] [place], [address] (ROM) Rupture Of Membraneson 11-11-2024 ROM Negative Normal Negative [facility] Comment on above: Result Comment: Amni otic fluid not present indicates No Rupture of Membranes at time of specimen collection. Performed By: #### M 100.3200, .1999, #### [facility] [address] [place], [address] Gram Stainon 11-11-2024 GS Reason for Exam: vaginal discharge Gram Stain 4+ Gram positive rods Rare Yeast Like Organisms No Gram negative diplococci Score = 0 Interpretation: 0-3 Normal, 4-6 Intermediate, 7-10 Positive BV Normal [facility] Comment on above: Performed By: #### M 100.3200, M100.1999, M10 #### [facility] [address] [place], [address] Gram stainOrdered By: Tito Britton on 11-11-2024 Microscopic observation Gram stain Nom (Unsp spec) [facility] - Chemistry and C hemistry - challengeOrdered By: Shelbie Britton on 11-11-2024 Bilirubin Ql (U) Negative [facility] Glucose Ql (U) Negative [facility] Ketones Ql (U) Negative [facility] pH (U) 5.0 [pH] [facility] Specific gravity (U) [Rel density] 1.005 [facility] Urobilinogen (U) [Mass/Vol] 0.8900714 mg/dL [facility] - Hematology and Cell countsOrdered By: Shelbie Britton on 11-11-2024 Hemoglobin Ql (U) Small [facility] - Specimen inform ationOrdered By: Shelbie Britton on 11-11-2024 Clarity (U) Clear [facility] Color (U) Yellow [facility] - UrinalysisOrder ed By: Sehlbie Britton on 11-11-2024 Nitrite Ql (U) Negative [facility] Protein Ql (U) Negative [facility] No Panel InformationOrdered By: Shelbie Britton on 11-11-2024 Urine Leukocytes Positive [facility] Explosive Ordnance Manager Office Visit Reporton 11-11-2024 Explosive Ordnance Manager Office Visit Report [facility]'s [address], [address] [place] [address] OFFICE VISIT Date of Service: 11/11/24 MR#: [id number] Acct: [id number] Name: RENUKA GEORGE Rep #: [id number] : 2000 Provider: Dr. Shelbie Olivares DO Age/Sex: 24/F [place] [facility] [place]: Signed Intake Vital Signs 11/01/24 09:21 11/11/24 13:53 11/11/24 13:53 Height 5 ft 3 in 5 ft 3 in 5 ft 3 in Weight: 139 lb 6 oz BMI 24.7 BP 134/83 H Intake Visit Reasons: 28w, vomiting, pelvic pressure, [facility] [place] Search Engine Optimization Strategist Required: No Is patient in pain?: No [...] PFSH PFSH Medical History Asthma Surgical History Fedscreek teeth extracted Family History Grandmother Cancer, Onset Age: 75 Paternal- Kidney Father High cholesterol Social History adopted: No household members: spouse and other details: Sister Fiance housing: house current occupational status: employed current occupation: [employer] current occupational exposures/hazards: No pets and animals: [...] 1-2 times per week duration: 15-30 minutes/day antoine/sikh: Buddhism seatbelt use: always do you feel safe at home: No additional social history: Dominick- Landscaping/Marine History 1 Elective abortions Hx Para 0 Spontaneous abortions Hx # Term Pregnancies Ectopic pregnancies Hx # Pregnancies Multiple births # of living children HPI 28w, vomiting, pelvic pressure, [facility] Details: RENUKA GEORGE is a 24 year old who presents [...] ?-???-???-???-???-? ??-???-???- (more content not included)... Normal [facility] Urine cultureOrdered By: Nu Britton on 11-11-2024 Bacteria identified Cx Nom (U) Positive Abnormal [facility] Absolute lymphocyte countOrd ered By: Virginia Titus on 11-01-2024 Lymphocytes Auto (Unsp spec) [#/Vol] 1.17 10*3/uL 0.83-4.51 [facility] Absolute neutrophil countOrd ered By: Virginia Titus on 11-01-2024 Neutrophils (Bld) [#/Vol] 10.3 10*3/uL High 2.0-7.7 [facility] Automated lymphocyte count a s percentage of total leukocytesOrdered By: Virginia Titus on 11-01-2024 Lymphocytes/100 WBC Auto (Unsp spec) 9.2 % Low 19-41 [facility] Basophil percentageOrdered B y: Virginia Titus on 11-01-2024 Basophils/100 WBC (Bld) 0.4 % 0-1 [facility] CBC W/Diff, Automatedon 10-18 Absolute Lymph 1.17 X10 3/uL Normal 0.83-4.51 [facility] Comment on above: Performed By: #### M 100.3200, , #### [facility] [address] [place], [address] Absolute Neut 10.3 X10 3/uL High 2.0-7.7 [facility] Comment on above: Performed By: #### M 100.3200, , #### [facility] [address] [place], [address] Basophils/100 WBC (Bld) 0.4 % Normal 0-1 [facility] Comment on above: Performed By: #### M 100.3200, , #### [facility] [address] [place], [address] Eosinophils/100 WBC (Bld) 2.1 % Normal 0-5 [facility] Comment on above: Performed By: #### M 100.3200, , #### [facility] [address] [place], [address] Erythrocyte distribution width (RBC) [Ratio] 12.7 % Normal 11.6-14.6 [facility] Comment on above: Performed By: #### M 100.3200, , #### [facility] [address] [place], [address] Hematocrit (Bld) [Volume fraction] 34.2 % Low 37-47 [facility] Comment on above: Performed By: #### M 100.3200, , #### [facility] [address] [place], [address] Hemoglobin (Bld) [Mass/Vol] 11.5 g/dL Low 12.0-15.0 [facility] Comment on above: Performed By: #### M 100.3200, , #### [facility] [address] [place], [address] IG% 0.500 Normal 0.0-0.9 [facility] Comment on above: Result Comment: IG% - Immature Granulocytes (promyelocytes, myelocytes and metamyelocytes) > 1% indicates that a LEFT SHIFT is Present. Performed By: #### M 100.320, , #### [facility] [address] [place], [address] Lymphocytes/100 WBC (Bld) 9.2 % Low 19-41 [facility] Comment on above: Performed By: #### M .3199, , #### [facility] [address] [place], [address] MCH (RBC) [Entitic mass] 31.9 pg Normal 27.0-32.0 [facility] Comment on above: Performed By: #### M 100.3199, , #### [facility] [address] [place], [address] MCHC (RBC) [Mass/Vol] 33.6 g/dL Normal 32-36 [facility] Comment on above: Performed By: #### M 100.3199, , #### [facility] [address] [place], [address] MCV (RBC) [Entitic vol] 95.0 fL Normal 81-99 [facility] Comment on above: Performed By: #### M 100.320, , #### [facility] [address] [place], [address] Monocytes/100 WBC (Bld) 7.7 % Normal 0-10 [facility] Comment on above: Performed By: #### M 100.3200, , #### [facility] [address] [place], [address] Neutrophils/100 WBC (Bld) 80.1 % High 47-70 [facility] Comment on above: Performed By: #### M 100.320, , #### [facility] [address] [place], [address] Nucleated RBC (Bld) [#/Vol] 0 10*3/uL Normal 0-5 [facility] Comment on above: Performed By: #### M 100.3199, , #### [facility] [address] [place], [address] Platelet mean volume (Bld) [Entitic vol] 11.2 fL Normal 6.2-12.0 [facility] Comment on above: Performed By: #### M 100.3199, , #### [facility] [address] [place], [address] Platelets (Bld) [#/Vol] 182 10*3/uL Normal 150-450 [facility] Comment on above: Performed By: #### M 100.3199, , #### [facility] [address] [place], [address] RBC (Bld) [#/Vol] 3.60 10*6/uL Low 4.2-5.4 [facility] Comment on above: Performed By: #### M 100.3200, , #### [facility] [address] [place], [address] RDW SD 43.9 fl Normal 35.1-43.9 [facility] Comment on above: Performed By: #### M 1000, , #### [facility] [address] [place], [address] WBC (Bld) [#/Vol] 12.8 10*3/uL High 4.4-11.0 [facility] Comment on above: Performed By: #### M 100.3200, , #### [facility] [address] [place], [address] Eosinophil percentageOrdered By: Virginia Titus on 11-01-2024 Eosinophils/100 WBC (Bld) 2.1 % 0-5 [facility] Erythrocyte distribution wid th ratioOrdered By: Virginia Titus on 11-01-2024 Erythrocyte distribution width (RBC) [Ratio] 12.7 % 11.6-14.6 [facility] Erythrocyte distribution wid th standard deviationOrdered By: Virginia Titus on 11-01-2024 Erythrocyte distribution width (RBC) [Ratio] 43.9 fl 35.1-43.9 [facility] Glucose Challenge Gest 1H 50 mary lou 11-01-2024 GLU GEST 50g 1H 89 mg/dL Normal 70-140 [facility] Comment on above: Performed By: #### M 100.3200, , #### [facility] [address] [place], [address] Glucose measurement at 2 freda rs post-dose gestational glucose tolerance testOrdered By: Virginia Titus on 11-01-2024 Glucose [Mass/Vol] 89 mg/dL 70-140 [facility] HIVon 11-01-2024 HIV Non-Reactive Normal Nonreactive [facility] Comment on above: Result Comment: Non- Reactive Reactive Repeatedly reactive samples must be confirmed according to CDC recommended confirmatory algorithms. The subresults for either HIVAG or AHIV can be used as an aid in the selection of the confirmation algorithm for reactive samples. Send out specimens with Reactive results to [facility] for confirmation. Order the HIV antibody detection and differentiation: lc#[id number] Performed By: #### M 100.3200, , M100.0 #### [facility] [place], [address] Hematocrit Auto (Bld) [Volum e fraction]Ordered By: Virginia Titus on 11-01-2024 Hematocrit (Bld) [Volume fraction] 34.2 % Low 37-47 [facility] Hemoglobin measurementOrdere d By: Virginia Titus on 11-01-2024 Hemoglobin (Bld) [Mass/Vol] 11.5 g/dL Low 12.0-15.0 [facility] Immature granulocytes/100 WB C Auto (Bld)Ordered By: Virginia Titus on 11-01-2024 Immature granulocytes/100 WBC (Bld) 0.500 % 0.0-0.9 [facility] Comment on above: IG% - Immature Granu locytes (promyelocytes, myelocytes and metamyelocytes) > 1% indicates that a LEFT SHIFT is Present. Laboratory - Chemistry and C hemistry - challengeOrdered By: Aranza Rich on 11-01-2024 Glucose Ql (U) Negative [facility] - UrinalysisOrder ed By: Aranza Rich on 11-01-2024 Protein Ql (U) Negative [facility] MCV (mean corpuscular volume ) determinationOrdered By: Virginia Titus on 11-01-2024 MCV (RBC) [Entitic vol] 95.0 fL 81-99 [facility] Mean corpuscular hemoglobin (MCH) determinationOrdered By: Virginia Titus on 11-01-2024 MCH (RBC) [Entitic mass] 31.9 pg 27.0-32.0 [facility] Mean corpuscular hemoglobin concentration (MCHC) determinationOrdered By: Virginia Titus on 11-01-2024 MCHC (RBC) [Mass/Vol] 33.6 g/dL 32-36 [facility] Mean platelet volume determi nationOrdered By: Virginia Titus on 11-01-2024 Platelet mean volume (Bld) [Entitic vol] 11.2 fL 6.2-12.0 [facility] Monocyte percentageOrdered B y: Virginia Titus on 11-01-2024 Monocytes/100 WBC (Bld) 7.7 % 0-10 [facility] Neutrophil percentageOrdered By: Virginia Titus on 11-01-2024 Neutrophils/100 WBC (Bld) 80.1 % High 47-70 [facility] No Panel InformationOrdered By: Virginia Titus on 11-01-2024 HIV (1&2) Antibody Non-Reactive Nonreactive [facility] Comment on above: Non-ReactiveReactive Repeatedly reactive samples must be confirmed according to CDC recommended confirmatory algorithms. The subresults for either HIVAG or AHIV can be used as an aid in the selection of the confirmation algorithm for reactive samples.Send out specimens with Reactive results to [facility] for confirmation.Order the HIV antibody detection and differentiation: #[id number] Nucleated red blood cell per centageOrdered By: Virginia Titus on 11-01-2024 Nucleated RBC/100 WBC (Bld) [Ratio] 0 % 0-5 [facility] Explosive Ordnance Manager Office Visit Reporton 11-01-2024 Explosive Ordnance Manager Office Visit Report [facility]'s [address], [address] [place] [address] OFFICE VISIT Date of Service: 11/01/24 MR#: [id number] Acct: [id number] Name: RENUKA GEORGE Rep #: [id number] : 2000 Provider: ESTRELLA wan Age/Sex: 24/F [place] [facility] [place]: Signed Intake Vital Signs 09/08/24 10:54 10/03/24 10:43 11/01/24 09:11 11/01/24 09:21 Height 5 ft 3 in 5 ft 3 in 5 ft 3 in 5 ft 3 in Weight: 137 lb 6 oz BMI 24.3 BP 120/72 Intake Visit Reasons: 27 wk ob Chief Complaint: 27 Week OB Search Engine Optimization Strategist Required: No Is patient in pain?: No [...] PFSH PFSH Medical History Asthma Surgical History Fedscreek teeth extracted Family History Grandmother Cancer, Onset Age: 75 Paternal- Kidney Father High cholesterol Social History adopted: No household members: spouse and other details: Sister Fiance housing: house current occupational status: employed current occupation: [employer] current occupational exposures/hazards: No pets and animals: [...] 1-2 times per week duration: 15-30 minutes/day antoine/sikh: Buddhism seatbelt use: always do you feel safe at home: No additional social history: Dominick- Landscaping/Marine History 1 Elective abortions Hx Para 0 Spontaneous abortions Hx # Term Pregnancies Ectopic pregnancies Hx # Pregnancies Multiple births # of living children HPI 27 wk ob Details: RENUKA GEORGE is a 24 year old who presents [...] anatomy re (more content not included)... Normal [facility] Platelet countOrdered By: Babak Titus on 11-01-2024 Platelets (Bld) [#/Vol] 182 10*3/uL 150-450 [facility] RBC Auto (Bld) [#/Vol]Ordere d By: Virginia Titus on 11-01-2024 RBC (Bld) [#/Vol] 3.60 10*6/uL Low 4.2-5.4 [facility] Syphilis Antibodieson 2024 Syphilis Abs Non-Reactive Normal Nonreactive [facility] Comment on above: Performed By: #### M 100.3200, M100.2000, M100.2200 #### [facility] [address] [place], [place], [id number] White blood cell (WBC) count Ordered By: Virginia Titus on 11-01-2024 WBC (Bld) [#/Vol] 12.8 10*3/uL High 4.4-11.0 [facility] - Chemistry and C hemistry - challengeOrdered By: Virginia Titus on 10-03-2024 Glucose Ql (U) Negative [facility] - UrinalysisOrder ed By: Virginia Titus on 10-03-2024 Protein Ql (U) Negative [facility] Explosive Ordnance Manager Office Visit Reporton 10-03-2024 Explosive Ordnance Manager Office Visit Report [facility]'s [address], [address] [address] [place] [address] OFFICE VISIT Date of Service: 10/03/24 MR#: [id number] Acct: [id number] Name: RENUKA GEORGE Rep #: [id number] : 2000 Provider: NAZANIN Cai ams Age/Sex: 24/F [place] [facility] [place]: Signed Intake Vital Signs 08/08/24 10:16 09/08/24 10:54 10/03/24 10:43 Height 5 ft 3 in 5 ft 3 in 5 ft 3 in Weight: 130 lb 4 oz BMI 23.1 BP 134/87 H Intake Visit Reasons: 21 wk ob Chief Complaint: 23wk OB Search Engine Optimization Strategist Required: No Is patient in pain?: No [...] PFSH PFSH Medical History Asthma Surgical History Fedscreek teeth extracted Family History Grandmother Cancer, Onset Age: 75 Paternal- Kidney Father High cholesterol Social History adopted: No household members: spouse and other details: Sister Erlinda housing: house current occupational status: employed 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 Normal [facility] Progress Noteon 09-15-2024 Therapist Physical Authentication Interface Message Text [facility]- MEDICINE CONSULT Referring/Kyleein janet Provider: Shelbie Clemente, * PCP: Maddy Ca APRN-CNP INDICATION FOR CONSULT: choroid plexus cyst and [...] biometry consistent with clinical dates. 2. Right PRIMARY COUNSELOR and suspected benign interhemispheric cyst devoid of [...] fetus affecting care of mother, antepartum 09/15/2024 PRIMARY COUNSELOR and CVI present. Choroid plexus cysts (PRIMARY COUNSELOR) are small fluid-filled structures within the choroid [...] Pollen allergy- eyes swelling and itchy Normal [facility] - Chemistry and C hemistry - challengeOrdered By: Virginia Chavez on 09-08-2024 Glucose Ql (U) Negative [facility] - UrinalysisOrder ed By: Virginia Chavez on 09-08-2024 Protein Ql (U) Negative [facility] Explosive Ordnance Manager Office Visit Reporton 09-08-2024 Explosive Ordnance Manager Office Visit Report [facility] [address], [address] [place] [address] OFFICE VISIT Date of Service: 09/08/24 MR#: [id number] Acct: [id number] Name: RENUKA GEORGE Rep #: [id number] : 2000 Provider: Dr. Virginia sampson MD Age/Sex: 24/F Location: [facility] [place] Status: Signed Intake Vital Signs 06/30/24 14:27 08/08/24 10:16 09/08/24 10:49 09/08/24 10:54 Height 5 ft 3 in 5 ft 3 in 5 ft 3 in 5 ft 3 in Weight: 125 lb BMI 22.1 BP 133/75 H Intake Visit Reasons: 17 WK OB Search Engine Optimization Strategist Required: No Is patient in pain?: No [...] PFSH PFSH Medical History Asthma Surgical History Fedscreek teeth extracted Family History Grandmother Cancer, Onset Age: 75 Paternal- Kidney Father High cholesterol Social History adopted: No household members: spouse and other details: Sister Fiance housing: house current occupational status: employed 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 Normal [facility] Progress Noteon 09-05-2024 Therapist Physical Authentication Interface Message Text Returned patient's call and reviewed overall benign findings with patient. Patient's questions and concerns were addressed. Patient scheduled for follow up ultrasound on 09/15/24. Normal [facility] - Chemistry and C hemistry - challengeOrdered By: Shelbie Britton on 08-08-2024 Glucose Ql (U) Negative [facility] - UrinalysisOrder ed By: Shelbie Britton on 08-08-2024 Protein Ql (U) Negative [facility] Explosive Ordnance Manager Office Visit Reporton 08-08-2024 Explosive Ordnance Manager Office Visit Report [facility] [address], [address] [place] [address] OFFICE VISIT Date of Service: 08/08/24 MR#: [id number] Acct: [id number] Name: RENUKA GEORGE Rep #: [id number] : 2000 Provider: Dr. Shelbie Olivares DO Age/Sex: 24/F [place] [facility] [place]: Signed Intake Vital Signs 06/30/24 14:27 08/08/24 10:15 08/08/24 10:16 Height 5 ft 3 in 5 ft 3 in 5 ft 3 in Weight: 116 lb 8 oz BMI 20.6 BP 123/77 H Intake Visit Reasons: 13 wk OB Chief Complaint: 15wk OB Search Engine Optimization Strategist Required: No Is patient in pain?: No [...] PFSH PFSH Medical History Asthma Surgical History Fedscreek teeth extracted Family History Grandmother Cancer, Onset Age: 75 Paternal- Kidney Father High cholesterol Social History adopted: No household members: spouse and other details: Sister Erlinda housing: house current occupational status: employed 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 Normal [facility] Chlamydia/GC MABEL aptimaon CHLAMY,NUC ACID Negative Normal Negative [facility] Comment on above: Performed By: #### L 7400.0353, M100.2200, L7000.1800 #### [facility] [address] [place], [place], [id number] GC BY NUC ACID Negative Normal Negative [facility] Comment on above: Result Comment: Perf ormed at: =G - [facility] [address] [id number] Education And Training Coordinator: Geovanna Torres MD, Phone: [phone] Performed By: #### L 7400.0353, M100.2200, L7000.1800 #### [facility] [address] [place], [place], [id number] PAP I-G w/rfx hrHPV-Aptimaon 07-05-2024 ADEQ Comment Normal . [facility] Comment on above: Order Comment: Speci men Comment: [id number] Specimen Comment: Source.............Cervix Specimen Comment: LMP / Prev Treat...[id number] Specimen Comment: Other.............. Specimen Comment: No. of containers..01 ThinPrep Vial Result Comment: Sati sfactory for evaluation. No endocervical component is identified. Performed By: #### L 7400.0353, M100.2200, L7000.1800 #### [facility] [address] [place], [place], [address] COMM . Normal . [facility] Comment on above: Order Comment: Speci men Comment: [id number] Specimen Comment: Source.............Cervix Specimen Comment: LMP / Prev Treat...[id number] Specimen Comment: Other.............. Specimen Comment: No. of containers..01 ThinPrep Vial Performed By: #### L 7400.0353, M100.2200, L7000.1800 #### [facility] [address] [place], [place], [address] COMMENT Comment Normal . [facility] Comment on above: Order Comment: Speci men Comment: [id number] Specimen Comment: Source.............Cervix Specimen Comment: LMP / Prev Treat...[id number] Specimen Comment: Other.............. Specimen Comment: No. of containers..01 ThinPrep Vial Result Comment: This liquid based ThinPrep(R) pap test was screened with the use of an image guided system. Performed By: #### L 7400.0353, M100.2200, L7000.1800 #### [facility] [address] [place], [place], [address] DIAG Comment Normal . [facility] Comment on above: Order Comment: Speci men Comment: [id number] Specimen Comment: Source.............Cervix Specimen Comment: LMP / Prev Treat...[id number] Specimen Comment: Other.............. Specimen Comment: No. of containers..01 ThinPrep Vial Result Comment: NEGA TIVE FOR INTRAEPITHELIAL LESION OR MALIGNANCY. Performed By: #### L 7400.0353, M100.2200, L7000.1800 #### [facility] [address] [place], [place], [address] HPV RFLX Comment Normal . [facility] Comment on above: Order Comment: Speci men Comment: [id number] Specimen Comment: Source.............Cervix Specimen Comment: LMP / Prev Treat...[id number] Specimen Comment: Other.............. Specimen Comment: No. of containers..01 ThinPrep Vial Result Comment: The HPV DNA reflex criteria were not met with this specimen result therefore, no HPV testing was performed. Performed at: [facility] [address] [address] [place], [place] [id number] Education And Training Coordinator: Chaitanya Diaz MD, Phone: [phone] Performed at: - [address] [id number] Education And Training Coordinator: Geovanna Torres MD, Phone: [phone] Performed By: #### L 7400.0353, M100.2200, L7000.1800 #### [facility] [address] [place], [address] PAPSMR Comment Normal . [facility] Comment on above: Order Comment: Speci men Comment: [id number] Specimen Comment: Source.............Cervix Specimen Comment: LMP / Prev Treat...[id number] Specimen Comment: Other.............. Specimen Comment: No. of [...] By: #### L 7400.0353, M100.2200, L7000.1800 #### [facility] [address] [place], [address] PERFORM Comment Normal . [facility] Comment on above: Order Comment: Speci men Comment: [id number] Specimen Comment: Source.............Cervix Specimen Comment: LMP / Prev Treat...[id number] Specimen Comment: Other.............. Specimen Comment: No. of containers..01 ThinPrep Vial Result Comment: Ioana Max, Shop Worker (ASCP) Performed By: #### L 7400.0353, M100.2200, L7000.1800 #### [facility] [address] [place], [address] Absolute lymphocyte countOrd ered By: Virginia Titus on 07-04-2024 Lymphocytes Auto (Unsp spec) [#/Vol] 1.44 10*3/uL 0.83-4.51 [facility] Absolute neutrophil countOrd ered By: Virginia Titus on 07-04-2024 Neutrophils (Bld) [#/Vol] 7.7 10*3/uL 2.0-7.7 [facility] Automated lymphocyte count a s percentage of total leukocytesOrdered By: Virginia Titus on 07-04-2024 Lymphocytes/100 WBC Auto (Unsp spec) 14.4 % Low 19-41 [facility] Basophil percentageOrdered B y: Virginia Titus on 07-04-2024 Basophils/100 WBC (Bld) 0.4 % 0-1 [facility] CBC W/Diff, Automatedon 06-18 Absolute Lymph 1.44 X10 3/uL Normal 0.83-4.51 [facility] Comment on above: Performed By: #### M 100.3200, , #### [facility] [address] [place], [address] Absolute Neut 7.7 X10 3/uL Normal 2.0-7.7 [facility] Comment on above: Performed By: #### M 100.3200, , #### [facility] [address] [place], [address] Basophils/100 WBC (Bld) 0.4 % Normal 0-1 [facility] Comment on above: Performed By: #### M 100.3200, , #### [facility] [address] [place], [address] Eosinophils/100 WBC (Bld) 0.4 % Normal 0-5 [facility] Comment on above: Performed By: #### M 100.3200, , #### [facility] [address] [place], [address] Erythrocyte distribution width (RBC) [Ratio] 13.2 % Normal 11.6-14.6 [facility] Comment on above: Performed By: #### M 100.320, , #### [facility] [address] [place], [address] Hematocrit (Bld) [Volume fraction] 36.0 % Low 37-47 [facility] Comment on above: Performed By: #### M 100.320, , #### [facility] [address] [place], [address] Hemoglobin (Bld) [Mass/Vol] 12.6 g/dL Normal 12.0-15.0 [facility] Comment on above: Performed By: #### M 100.3200, , #### [facility] [address] [place], [address] IG% 0.300 Normal 0.0-0.9 [facility] Comment on above: Result Comment: IG% - Immature Granulocytes (promyelocytes, myelocytes and metamyelocytes) > 1% indicates that a LEFT SHIFT is Present. Performed By: #### M 100.3200, , #### [facility] [address] [place], [address] Lymphocytes/100 WBC (Bld) 14.4 % Low 19-41 [facility] Comment on above: Performed By: #### M 100.3200, , #### [facility] [address] [place], [address] MCH (RBC) [Entitic mass] 31.0 pg Normal 27.0-32.0 [facility] Comment on above: Performed By: #### M 100.3200, , #### [facility] [address] [place], [address] MCHC (RBC) [Mass/Vol] 35.0 g/dL Normal 32-36 [facility] Comment on above: Performed By: #### M 100.3200, , #### [facility] [address] [place], [address] MCV (RBC) [Entitic vol] 88.7 fL Normal 81-99 [facility] Comment on above: Performed By: #### M 100.320, , #### [facility] [address] [place], [address] Monocytes/100 WBC (Bld) 8.1 % Normal 0-10 [facility] Comment on above: Performed By: #### M 100.3200, , #### [facility] [address] [place], [address] Neutrophils/100 WBC (Bld) 76.4 % High 47-70 [facility] Comment on above: Performed By: #### M 100.3200, , #### [facility] [address] [place], [address] Nucleated RBC (Bld) [#/Vol] 0 10*3/uL Normal 0-5 [facility] Comment on above: Performed By: #### M 100.3200, , #### [facility] [address] [place], [address] Platelet mean volume (Bld) [Entitic vol] 10.7 fL Normal 6.2-12.0 [facility] Comment on above: Performed By: #### M 100.3200, , #### [facility] [address] [place], [address] Platelets (Bld) [#/Vol] 196 10*3/uL Normal 150-450 [facility] Comment on above: Performed By: #### M 100.3200, , #### [facility] [address] [place], [address] RBC (Bld) [#/Vol] 4.06 10*6/uL Low 4.2-5.4 [facility] Comment on above: Performed By: #### M 100.3200, , #### [facility] [address] [place], [address] RDW SD 42.5 fl Normal 35.1-43.9 [facility] Comment on above: Performed By: #### M 100.3200, , #### [facility] [address] [place], [address] WBC (Bld) [#/Vol] 10.0 10*3/uL Normal 4.4-11.0 [facility] Comment on above: Performed By: #### M 100.3200, , #### [facility] [address] [place], [address] Eosinophil percentageOrdered By: Virginia Titus on 07-04-2024 Eosinophils/100 WBC (Bld) 0.4 % 0-5 [facility] Erythrocyte distribution wid th ratioOrdered By: Virginia Titus on 07-04-2024 Erythrocyte distribution width (RBC) [Ratio] 13.2 % 11.6-14.6 [facility] Erythrocyte distribution wid th standard deviationOrdered By: Virginia Titus on 07-04-2024 Erythrocyte distribution width (RBC) [Entitic vol] 42.5 fL 35.1-43.9 [facility] Erythrocyte distribution width (RBC) [Ratio] 42.5 fl 35.1-43.9 [facility] HBV surface Ag Ql (S)Ordered By: Virginia Titus on 07-04-2024 Hepatitis B Surface Antigen Non-Reactive Nonreactive [facility] Comment on above: Reactive: Presumptiv e evidence of HBV. Repeatedly reactive samples must be confirmed using a neutralization test ([employer] HBsAg Confirmatory Test)Non-Reactive: HBsAg not detected; does not exclude the possibility of exposure to HBV Hematocrit Auto (Bld) [Volum e fraction]Ordered By: Virginia Titus on 07-04-2024 Hematocrit (Bld) [Volume fraction] 36.0 % Low 37-47 [facility] Hemoglobin measurementOrdere d By: Virginia Titus on 07-04-2024 Hemoglobin (Bld) [Mass/Vol] 12.6 g/dL 12.0-15.0 [facility] Hepatitis C antibodyOrdered By: Virginia Titus on 07-04-2024 Hepatitis C Antibody Non-Reactive Nonreactive [facility] Comment on above: Reactive: Presumptiv e evidence of antibodies to HCV. Follow CDC recommendations for supplemental testing.Non-Reactive: Antibodies to HCV were not detected; does not exclude the possibility of exposure to HCVReactive Results are presumptive evidence of antibodies to HCV. Follow CDC recommendations for supplemental testing.Order confirmation testing: HCV Quant by PCR testing - HCVPCR #[id number] Non Reactive: < 0.8 Equivocal: >/= 0.8 to < 1.0 Reactive: >/= 1.0The CDC requires that a reactive/equivocal HCV antibody result be sent out for confirmation. HCV Quant by PCR testing. Immature granulocytes/100 WB C Auto (Bld)Ordered By: Virginia Titus on 07-04-2024 Immature granulocytes/100 WBC (Bld) 0.300 % 0.0-0.9 [facility] Comment on above: IG% - Immature Granu locytes (promyelocytes, myelocytes and metamyelocytes) > 1% indicates that a LEFT SHIFT is Present. L3890.6006on 07-04-2024 HIV Non-Reactive Normal Nonreactive [facility] Comment on above: Result Comment: Non- Reactive Reactive Repeatedly reactive samples must be confirmed according to CDC recommended confirmatory algorithms. The subresults for either HIVAG or AHIV can be used as an aid in the selection of the confirmation algorithm for reactive samples. Send out specimens with Reactive results to [facility] for confirmation. Order the HIV antibody detection and differentiation: [id number] Performed By: #### M 100.3200, , #### [facility] [address] [place], [address] L3890.6102on 07-04-2024 HEP B Surf Ag Non-Reactive Normal Nonreactive [facility] Comment on above: Result Comment: Reac tive: Presumptive evidence of HBV. Repeatedly reactive samples must be confirmed using a neutralization test ([employer] HBsAg Confirmatory Test) Non-Reactive: HBsAg not detected; does not exclude the possibility of exposure to HBV Performed By: #### M 100.3200, , #### [facility] [address] [facility] [place], [address] L3890.6301on 07-04-2024 Hepatitis C Ab Non-Reactive Normal Nonreactive [facility] Comment on above: Result Comment: Reac tive: Presumptive evidence of antibodies to HCV. Follow CDC recommendations for supplemental testing. Non-Reactive: Antibodies to HCV were not detected; does not exclude the possibility of exposure to HCV Reactive Results are presumptive evidence of antibodies to HCV. Follow CDC recommendations for supplemental testing. Order confirmation testing: HCV Quant by PCR testing - HCVPCR #[id number] Non Reactive: < 0.8 Equivocal: >/= 0.8 to < 1.0 Reactive: >/= 1.0 The CDC requires that a reactive/equivocal HCV antibody result be sent out for confirmation. HCV Quant by PCR testing. Performed By: #### M 100.3200, , #### [facility] [address] [place], [address] L509.4006on 07-04-2024 Rubella IgG REAC Normal Nonreactive [facility] Comment on above: Result Comment: Anti body Result: Interpretation Non-Reactive: Non-Immune Reactive: Immune The following results were obtained with the [employer] Rubella IgG assay. Results from assays of other manufacturers cannot be used interchangeably. Performed By: #### M 100.3200, M100.1999, #### [facility] [address] [place], [address] L509.8002on 07-04-2024 Syphilis Abs Non-Reactive Normal Nonreactive [facility] Comment on above: Performed By: #### M 100.3200, M100.1999, M10 #### [facility] [address] [place], [address] Laboratory - Microbiology an d Antimicrobial susceptibilityOrdered By: Virginia Titus on 07-04-2024 HBV surface Ag Ql (S) Non-Reactive Nonreactive [facility] Comment on above: Reactive: Presumptiv e evidence of HBV. Repeatedly reactive samples must be confirmed using a neutralization test ([employer] HBsAg Confirmatory Test)Non-Reactive: HBsAg not detected; does not exclude the possibility of exposure to HBV Lymphocytes Auto (Unsp spec) [#/Vol]Ordered By: Virginia Titus on 07-04-2024 Lymphocytes (Bld) [#/Vol] 1.44 10*3/uL 0.83-4.51 [facility] Lymphocytes/100 WBC Auto (Un sp spec)Ordered By: Virginia Titus on 07-04-2024 Lymphocytes/100 WBC (Bld) 14.4 % Low 19-41 [facility] MCV (mean corpuscular volume ) determinationOrdered By: Virginia Titus on 07-04-2024 MCV (RBC) [Entitic vol] 88.7 fL 81-99 [facility] Mean corpuscular hemoglobin (MCH) determinationOrdered By: Virginia Titus on 07-04-2024 MCH (RBC) [Entitic mass] 31.0 pg 27.0-32.0 [facility] Mean corpuscular hemoglobin concentration (MCHC) determinationOrdered By: Virginia Titus on 07-04-2024 MCHC (RBC) [Mass/Vol] 35.0 g/dL 32-36 [facility] Mean platelet volume determi nationOrdered By: Virginia Titus on 07-04-2024 Platelet mean volume (Bld) [Entitic vol] 10.7 fL 6.2-12.0 [facility] Miscellaneous procedureOrder ed By: Virginia Titus on 07-04-2024 Miscellaneous Test Comment SEE SCANNED REPORT [facility] Monocyte percentageOrdered B y: Virginia Titus on 07-04-2024 Monocytes/100 WBC (Bld) 8.1 % 0-10 [facility] NATERAon 07-04-2024 NATURA SEE SCANNED REPORT Normal [facility] Comment on above: Order Comment: Comme nts: NIPT with Gender Carrier testing Performed By: #### M 100.3200, M100.2000, M100.2200 #### [facility] [address] [place], [address] Neutrophil percentageOrdered By: Virginia Titus on 07-04-2024 Neutrophils/100 WBC (Bld) 76.4 % High 47-70 [facility] No Panel InformationOrdered By: Virginia Titus on 07-04-2024 HIV (1&2) Antibody Non-Reactive Nonreactive [facility] Comment on above: Non-ReactiveReactive Repeatedly reactive samples must be confirmed according to CDC recommended confirmatory algorithms. The subresults for either HIVAG or AHIV can be used as an aid in the selection of the confirmation algorithm for reactive samples.Send out specimens with Reactive results to [facility] for confirmation.Order the HIV antibody detection and differentiation: lc#[id number] Nucleated red blood cell per centageOrdered By: Virginia Titus on 07-04-2024 Nucleated RBC/100 WBC (Bld) [Ratio] 0 % 0-5 [facility] Platelet countOrdered By: Babak Titus on 07-04-2024 Platelets (Bld) [#/Vol] 196 10*3/uL 150-450 [facility] RBC Auto (Bld) [#/Vol]Ordere d By: Virginia Titus on 07-04-2024 RBC (Bld) [#/Vol] 4.06 10*6/uL Low 4.2-5.4 [facility] Rubella immune status determ ination by IgG antibody assayOrdered By: Virginia Titus on 07-04-2024 Rubella IgG Antibody REAC Nonreactive [facility] Comment on above: Antibody Result: Int erpretationNon-Reactive: Non-ImmuneReactive: ImmuneThe following results were obtained with the [employer] Rubella IgG assay. Results from assays of other manufacturers cannot be used interchangeably. T. pallidum abOrdered By: Babak Titus on 07-04-2024 Syphilis Total Antibody Non-Reactive Nonreactiv e [facility] Type AND Screenon 07-04-2024 ABO and Rh group Nom (Bld) Blood group O Rh(D) positive Normal [facility] Comment on above: Order Comment: PN Performed By: #### M 100.3200, M100.2000, M100.0 #### [facility] [address] [place], [address] White blood cell (WBC) count Ordered By: Virginia Titus on 07-04-2024 WBC (Bld) [#/Vol] 10.0 10*3/uL 4.4-11.0 [facility] Urine Cultureon 07-03-2024 URC Below infection level. Mixed Gram Positive Organisms [place] Count 1000-10,000 [facility] Mixed contaminants. Submit a new specimen if indicated. Normal [facility] Comment on above: Performed By: #### L 7400.0353, M100.2200, L7000.1800 #### [facility] [address] [place] [place], [address] C. trachomatis rRNA MABEL+prob e Ql (Unsp spec)Ordered By: Virginia Titus on 06-30-2024 Chlamydia DNA (MABEL) Negative Negative [facility] Cervical or vagninal specime n microscopic examination by cytology stain (reported asOrdered By: Virginia Titus on 06-30-2024 Cytology report Cyto stain Doc (Cvx/Vag) Comment . [facility] Comment on above: The Pap smear [...] rRNA MABEL+probe Ql (Unsp spec) Negative Negative [facility] Electroencephalograph Technologist Cyto stain Nom (C vx/Vag) [ID]Ordered By: Virginia Titus on 06-30-2024 Pap Smear Performed By Comment . [facility] Comment on above: Ioana Max, Cytotec hnologist (ASCP) Cytology report Cyto stain D oc (Cvx/Vag)Ordered By: Virginia Titus on 06-30-2024 Thin Prep Pap Smear Comment . [facility] Comment on above: The Pap smear is a s creening test designed to aid in thedetection of premalignant and malignant conditions of theuterine cervix. It is not a diagnostic procedure andshould not be used as the sole means of detecting cervicalcancer. Both false-positive and false-negative reports dooccur. Image-guided ThinPrep PapOrd ered By: Virginia Titus on 06-30-2024 Pap Smear Note Comment . [facility] Comment on above: This liquid based Th inPrep(R) pap test was screened withthe use of an image guided system. Image-guided liquid-based Pa pOrdered By: Virginia Titus on 06-30-2024 Pap Smear Diagnosis Comment . [facility] Comment on above: NEGATIVE FOR INTRAEP ITHELIAL LESION OR MALIGNANCY. Image-guided liquid-based ce rvical Pap w high-risk HPV+reflex to HPV 16+18Ordered By: Virginia Titus on 06-30-2024 Human Papillomavirus Screen Comment . [facility] Comment on above: The HPV DNA reflex camilla siegel were not met with this specimenresult therefore, no HPV testing was performed.Performed at: [facility] [id number] [place], [place] [id number] Director: Chaitanya Diaz MD, Phone: [phone] at: [facility] - [facility] [id number] Director: Geovanna Torres MD, Phone: [phone] Laboratory - CytologyOrdered By: Virginia Titus on 06-30-2024 Electroencephalograph Technologist Cyto stain Nom (Cvx/Vag) [ID] Comment . [facility] Comment on above: Ioana Max, Cytotec hnologist (ASCP) Laboratory - Miscellaneous t estsOrdered By: Virginia Titus on 06-30-2024 Service comment (Unsp spec) [Interp] . . [facility] Neisseria gonorrhoeae nuclei c acid detection by amplified probe techniqueOrdered By: Virginia Titus on 06-30-2024 N. gonorrhoeae DNA MABEL+probe Ql (Unsp spec) Negative Negative [facility] Comment on above: Performed at: =[address], [place] [id number] Director: Geovanna Torres MD, Phone: [phone] No Panel InformationOrdered By: Virginia Titus on 06-30-2024 Pap Smear Specimen Adequacy Comment . [facility] Comment on above: Satisfactory for corrine luation. No endocervical component is identified. Explosive Ordnance Manager Office Visit Reporton 06-30-2024 Explosive Ordnance Manager Office Visit Report [facility] [address], [address] [place] [address] OFFICE VISIT Date of Service: 06/30/24 MR#: [id number] Acct: [id number] Name: RENUKA GEORGE Rep #: [id number] : 2000 Provider: NAZANIN Cai ams Age/Sex: 24/F [place] [facility]: Signed Intake Vital Signs 06/30/24 14:27 [...] PFSH PFSH Medical History Asthma Surgical History [place] teeth extracted Family History Grandmother Cancer, Onset Age: 75 Paternal- Kidney Father High cholesterol Social History adopted: No household members: spouse and other details: Sister Erlinda housing: house service: No current occupational status: employed current occupation: [employer] current occupational exposures/hazards: No pets and animals: [...] 1-2 times per week duration: 15-30 minutes/day antoine/sikh: Buddhism seatbelt use: always do you feel safe at home: No additional social history: Dominick- Landscaping/Marine History 1 Elective abortions Hx Para 0 Spontaneous abortions Hx # Term Pregnancies Ectopic pregnancies Hx # Pregnancies Multiple births # of living children HPI NOB LMP 04/25 Details: RENUKA GEORGE is a 24 year old who presents [...] or Exposed (more content not included)... Normal [facility] Service comment (Unsp spec) [Interp]Ordered By: Virginia Titus on 06-30-2024 Pap Smear Comment (3) . . [facility] Urine cultureOrdered By: Kyree Titus on 06-30-2024 Bacteria identified Cx Nom (U) Positive Abnormal [facility] CT ABDOMEN PELVIS WITH IV CO NTRAST ONLYon 09-03-2023 CT ABDOMEN PELVIS WITH IV CONTRAST ONLY EXAMINATION: CT ABDOMEN PELVIS WITH IV CONTRAST ONLY HISTORY: abdominal pain Injury/Trauma or Illness?:Illness/Ot her How long have you had these symptoms (acute/chronic)?:Ac [place] Reason for exam?:RLQ pain x 4 days [...] on ThuSeptember 03, 2023 6:21:04 PM EDT Normal [facility] Comment on above: Order Comment: Injur y/Trauma or Illness?:Illness/Other How long have you had these symptoms (acute/chronic)?:Acute Reason for exam?:RLQ pain x 4 days Type of Exam?:Initial Additional signs and symptoms?:nausea, bloating ED Prov Noteon 09-03-2023 ED Prov Note ED PROVIDER NOTE [facility] EMERGENCY [facility] NAME: Renuka George AGE: 23 y.o. : 2000 VISIT DATE: 09/03/2023 CSN: [id number] PCP: No, Physician Chief Complaint Patient presents [...] Temporal (!) 105 18 98 % 5' 3" 59 kg (130 lb) Physical Exam Vitals [...] 40 U/L (more content not included)... Normal [facility] POC BASIC METABOLIC PANEL - Risa 09-03-2023 Chloride [Moles/Vol] 106 mmol/L Normal 98-108 [facility] Comment on above: Order Comment: [facility] has implemented the eGFR calculation approach that does not have a coefficient for race that conforms to the NKF-ASN Task Force Recommendations. CO2 [Moles/Vol] 24 mmol/L Normal 21-32 [facility] Comment on above: Order Comment: [facility] has implemented the eGFR calculation approach that does not have a coefficient for race that conforms to the NKF-ASN Task Force Recommendations. Creatinine [Mass/Vol] 0.53 mg/dL Normal 0.40-1.10 [facility] Comment on above: Order Comment: [facility] has implemented the eGFR calculation approach that does not have a coefficient for race that conforms to the NKF-ASN Task Force Recommendations. Glucose [Mass/Vol] 97 mg/dL Normal 65-99 [facility] Comment on above: Order Comment: [facility] has implemented the eGFR calculation approach that does not have a coefficient for race that conforms to the NKF-ASN Task Force Recommendations. POC GFR 134 mL/min/1.73 m2 Normal >=60 [facility] Comment on above: Order Comment: [facility] has implemented the eGFR calculation approach that does not have a coefficient for race that conforms to the NKF-ASN Task Force Recommendations. Result Comment: Franci mated GFR was calculated using the 2020 CKD-EPI creatinine equation. POC IONIZED CALCIUM 4.8 mg/dL Normal 4.5-5.3 [facility] Comment on above: Order Comment: [facility] has implemented the eGFR calculation approach that does not have a coefficient for race that conforms to the NKF-ASN Task Force Recommendations. Potassium [Moles/Vol] 3.5 mmol/L Normal 3.5-5.1 [facility] Comment on above: Order Comment: [facility] has implemented the eGFR calculation approach that does not have a coefficient for race that conforms to the NKF-ASN Task Force Recommendations. Sodium [Moles/Vol] 142 mmol/L Normal 135-145 [facility] Comment on above: Order Comment: [facility] has implemented the eGFR calculation approach that does not have a coefficient for race that conforms to the NKF-ASN Task Force Recommendations. Urea nitrogen [Mass/Vol] 7 mg/dL Low 8-25 [facility] Comment on above: Order Comment: [facility] has implemented the eGFR calculation approach that does not have a coefficient for race that conforms to the NKF-ASN Task Force Recommendations. POC CBC AND DIFFERENTIALon 0 09-03-2023 BASOPHILS ABSOLUTE COUNT 0.05 K/mcL Normal 0.00-0.30 [facility] Basophils/100 WBC (Bld) 0.5 % Normal [facility] Eosinophils (Bld) [#/Vol] 0.12 10*3/uL Normal 0.00-0.50 [facility] Eosinophils/100 WBC (Bld) 1.3 % Normal [facility] Erythrocyte distribution width (RBC) [Ratio] 12.2 % Normal 11.6-14.8 [facility] Hematocrit (Bld) [Volume fraction] 39.1 % Normal 36.0-46.0 [facility] Hemoglobin (Bld) [Mass/Vol] 13.2 g/dL Normal 12.0-16.0 [facility] IG ABSOLUTE 0.01 K/mcL Normal 0.00-0.30 [facility] IG PERCENT 0.10 % Normal [facility] Comment on above: Result Comment: The IG parameter is the percentage of metamyelocytes, myelocytes and promyelocytes. An immature granulocyte count (IG) of 1% or more suggests the possibility of infection, an IG count of 3% is very likely related to an infection. Lymphocytes (Bld) [#/Vol] 1.69 10*3/uL Normal 0.90-4.00 [facility] Lymphocytes/100 WBC (Bld) 18.6 % Normal [facility] MCH (RBC) [Entitic mass] 30.9 pg Normal 26.0-34.0 [facility] MCV (RBC) [Entitic vol] 91.6 fL Normal 80.0-100.0 [facility] MEAN CORPUSCULAR HEMOGLOBIN CONC 33.8 g/dL Normal 31.0-37.0 [facility] Monocytes (Bld) [#/Vol] 0.85 10*3/uL Normal 0.30-0.90 [facility] Monocytes/100 WBC (Bld) 9.3 % Normal G [facility] NEUTROPHILS ABSOLUTE COUNT 6.38 K/mcL Normal 1.70-7.00 [facility] Neutrophils/100 WBC (Bld) 70.2 % Normal [facility] Platelet mean volume (Bld) [Entitic vol] 10.1 fL Normal 9.4-12.4 [facility] Platelets (Bld) [#/Vol] 192 10*3/uL Normal 150-400 [facility] RBC (Bld) [#/Vol] 4.27 10*6/uL Normal 4.00-5.20 [facility] WBC (Bld) [#/Vol] 9.10 10*3/uL Normal 4.50-11.00 [facility] POC LIVER PANEL PLUS [facility] 09-03-2023 Albumin [Mass/Vol] 4.3 g/dL Normal 3.2-5.2 [facility] ALP [Catalytic activity/Vol] 62 U/L Normal 40-140 [facility] ALT [Catalytic activity/Vol] 6 U/L Normal 0-40 [facility] Amylase [Catalytic activity/Vol] 37 U/L Normal 25-115 [facility] Amylase [Catalytic activity/Vol] 8 U/L Normal 7-33 [facility] AST [Catalytic activity/Vol] 15 U/L Normal 0-45 [facility] Bilirubin [Mass/Vol] 1.2 mg/dL Normal 0.0-1.3 [facility] Protein [Mass/Vol] 7.6 g/dL Normal 6.0-8.0 [facility] POC , URINE - [facility] 09-03-2023 Beta HCG ( test) Ql (U) Negative Normal Negative [facility] Comment on above: Order Comment: Dilut e urine specimens, as indicated by a low specific gravity (<1.010) may not contain customer care representative levels of hCG. If is still suspected, a serum test or repeat urine test using a first morning urine specimen should be considered. POC URINALYSIS DIPSTICK,AUTO - [facility] 09-03-2023 POC BILIRUBIN, URINE Negative Normal Negative [facility] POC BLOOD, URINE Negative Normal Negative [facility] POC GLUCOSE, URINE Negative Normal Negative [facility] POC KETONES, URINE Negative Normal Negative [facility] POC LEUKOCYTE ESTERASE, URINE Negative Normal Negative [facility] POC NITRITE, URINE Negative Normal Negative [facility] POC PH, URINE 7.0 Normal 5.0-7.0 [facility] POC PROTEIN, URINE Negative Normal Negative [facility] POC SPECIFIC GRAVITY 1.015 Normal 1.005-1.025 [facility] POC UROBILINOGEN 0.2 mg/dL Normal < 2.0 [facility] Comprehensive metabolic 2000 panelon 03-03-2023 Albumin BCP dye [Mass/Vol] 4.9 g/dL Normal 3.4-5.0 [facility] Comment on above: Performed By: #### 2 4323-8 #### AGUS WEBSTER ([id number]) [facility] ([facility]) [address] [place] [address] ALP [Catalytic activity/Vol] 56 U/L Normal 33-110 [facility] Comment on above: Performed By: #### 2 4323-8 #### AGUS WEBSTER ([id number]) [facility] ([facility]) [address] [place] [address] ALT With P-5'-P [Catalytic activity/Vol] 7 U/L Normal 7-45 [facility] Comment on above: Result Comment: Dorinda ents treated with Sulfasalazine may generate falsely decreased results for ALT. Performed By: #### 2 4323-8 #### AGUS WEBSTER ([id number]) [facility] ([facility]) [address] [place] [address] Anion gap [Moles/Vol] 13 mmol/L Normal 10-20 [facility] Comment on above: Performed By: #### 2 4323-8 #### AGUS WEBSTER ([id number]) [facility] ([facility]) [address] [place] [address] AST With P-5'-P [Catalytic activity/Vol] 13 U/L Normal 9-39 [facility] Comment on above: Performed By: #### 2 4323-8 #### AGUS WEBSTER ([id number]) [facility] ([facility]) [address] [place] [address] Bilirubin [Mass/Vol] 1.1 mg/dL Normal 0.0-1.2 [facility] Comment on above: Performed By: #### 2 4323-8 #### AGUS WEBSTER ([id number]) [facility] ([facility]) [address] [place] [address] Calcium [Mass/Vol] 9.8 mg/dL Normal 8.6-10.3 [facility] Comment on above: Performed By: #### 2 4323-8 #### AGUS WEBSTER ([id number]) [facility] ([facility]) [address] [place] [address] Chloride [Moles/Vol] 105 mmol/L Normal 98-107 [facility] Comment on above: Performed By: #### 2 4323-8 #### AGUS WEBSTER ([id number]) [facility] ([facility]) [address] [place] [address] CO2 [Moles/Vol] 25 mmol/L Normal 21-32 [facility] Comment on above: Performed By: #### 2 4323-8 #### AGUS WEBSTER ([id number]) [facility] ([facility]) [address] [place] [address] Creatinine [Mass/Vol] 0.85 mg/dL Normal 0.50-1.05 [facility] Comment on above: Performed By: #### 2 4323-8 #### AGUS WEBSTER ([id number]) [facility] ([facility]) [address] [place] [address] GFR/1.73 sq M.predicted MDRD (S/P/Bld) [Vol rate/Area] mL/min/{1.73_m2} Normal >60 [facility] Comment on above: Result Comment: Calc ulations of estimated GFR are performed using the 2020 CKD-EPI Study Refit equation without the race variable for the IDMS-Traceable creatinine methods. https://jasn.asnjournals.org/content/early/ASN.794 2245075 Performed By: #### 2 4323-8 #### AGUS WEBSTER ([id number]) [facility] ([facility]) [address] [place] [address] Glucose [Mass/Vol] 81 mg/dL Normal 74-99 [facility] Comment on above: Performed By: #### 2 4323-8 #### AGUS WEBSTER ([id number]) [facility] ([facility]) [address] [place] [address]25[address] Potassium [Moles/Vol] 3.9 mmol/L Normal 3.5-5.3 [facility] Comment on above: Performed By: #### 2 4323-8 #### AGUS WEBSTER ([id number]) [facility] ([facility]) [address] [place] [address] Protein [Mass/Vol] 7.6 g/dL Normal 6.4-8.2 [facility] Comment on above: Performed By: #### 2 4323-8 #### AGUS WEBSTER ([id number]) [facility] ([facility]) [address] [place] [address] Sodium [Moles/Vol] 139 mmol/L Normal 136-145 [facility] Comment on above: Performed By: #### 2 4323-8 #### AGUS WEBSTER ([id number]) [facility] ([facility]) [address] [place] [address] Urea nitrogen [Mass/Vol] 12 mg/dL Normal 6-23 [facility] Comment on above: Performed By: #### 2 4323-8 #### AGUS WEBSTER ([id number]) [facility] ([facility]) [address] [place] [address] Thyrotropinon 03-03-2023 TSH Qn 2.79 m[IU]/L Normal 0.44-3.98 [facility] Comment on above: Order Comment: TSH t esting is performed using different testing methodology at [facility] than at other [facility]. Direct result comparisons should only be made within the same method. Performed By: #### 3 016-3 #### AGUS WEBSTER ([id number]) [facility] ([facility]) [address] [place] [address] Thyroxine.freeon 03-03-2023 Free T4 [Mass/Vol] 0.77 ng/dL Normal 0.61-1.12 [facility] Comment on above: Order Comment: Thyro xine Free testing is performed using different testing methodology at [facility] than at other [facility]. Direct result comparisons should only be made [...] By: #### 3 024-7 #### AGUS WEBSTER ([id number]) [facility] ([facility]) [address] [place] [address] Triiodothyronine.freeon 02-18 Free T3 [Mass/Vol] 3.2 pg/mL Normal 2.3-4.2 [facility] Comment on above: Performed By: #### 3 051-0 #### PREMA Lopez ([id number]) [facility] ([facility]) [address] [place] [address] CBC AND DIFFERENTIALon 09-24 % AUTOMATED IMMATURE GRAN 0.2 % Normal 0.0 - 0.9 [facility] Comment on above: Result Comment: Debbie ture Granulocyte Count (IG) includes promyelocytes, myelocytes and metamyelocytes but does not include bands. Percent differential counts (%) should be interpreted in the context of the absolute cell counts (cells/L). Performed By: #### C BCDF #### [address] [address] Basophils (Bld) [#/Vol] 0.05 10*3/uL Normal 0.00 - 0.1 0 [facility] Comment on above: Performed By: #### C BCDF #### [address] [address] Basophils/100 WBC (Bld) 0.8 % Normal 0.0 - 2.0 [facility] Comment on above: Performed By: #### C BCDF #### [address] [address] Eosinophils (Bld) [#/Vol] 0.05 10*3/uL Normal 0.00 - 0.70 [facility] Comment on above: Performed By: #### C BCDF #### [address] [address] Eosinophils/100 WBC (Bld) 0.8 % Normal 0.0 - 6.0 [facility] Comment on above: Performed By: #### C BCDF #### [address] [address] Erythrocyte distribution width (RBC) [Ratio] 12.4 % Normal 11.5 - 14.5 [facility] Comment on above: Performed By: #### C BCDF #### [address] [address] Hematocrit (Bld) [Volume fraction] 41.2 % Normal 36.0 - 46.0 [facility] Comment on above: Performed By: #### C BCDF #### [address] [address] Hemoglobin (Bld) [Mass/Vol] 13.5 g/dL Normal 12.0 - 16.0 [facility] Comment on above: Performed By: #### C BCDF #### [address] [address] Lymphocytes (Bld) [#/Vol] 1.56 10*3/uL Normal 1.20 - 4.80 [facility] Comment on above: Performed By: #### C BCDF #### [address] [address] Lymphocytes/100 WBC (Bld) 24.5 % Normal 13.0 - 44.0 [facility] Comment on above: Performed By: #### C BCDF #### [address] [address] MCHC (RBC) [Mass/Vol] 32.8 g/dL Normal 32.0 - 36.0 [facility] Comment on above: Performed By: #### C BCDF #### [address] [address] MCV (RBC) [Entitic vol] 92 fL Normal 80 - 100 [facility] Comment on above: Performed By: #### C BCDF #### [address] [address] Monocytes (Bld) [#/Vol] 0.58 10*3/uL Normal 0.10 - 1.0 0 [facility] Comment on above: Performed By: #### C BCDF #### [address] [address] Monocytes/100 WBC (Bld) 9.1 % Normal 2.0 - 10.0 [facility] Comment on above: Performed By: #### C BCDF #### [address] [address] Neutrophils (Bld) [#/Vol] 4.13 10*3/uL Normal 1.20 - 7.70 [facility] Comment on above: Result Comment: Perc ent differential counts (%) should be interpreted in the context of the absolute cell counts (cells/L). Performed By: #### C BCDF #### [address] [address] Neutrophils/100 WBC (Bld) 64.6 % Normal 40.0 - 80.0 [facility] Comment on above: Performed By: #### C BCDF #### [address] [address] Platelets (Bld) [#/Vol] 198 10*3/uL Normal 150 - 450 [facility] Comment on above: Performed By: #### C BCDF #### [address] [address] RBC 4.49 x10E12/L Normal 4.00 - 5.20 [facility] Comment on above: Performed By: #### C BCDF #### [address] [address] WBC (Bld) [#/Vol] 6.4 10*3/uL Normal 4.4 - 11.3 [facility] Comment on above: Performed By: #### C BCDF #### [address] [address] COMPREHENSIVE PANELon 2022 Albumin [Mass/Vol] 5.0 g/dL Normal 3.4 - 5.0 [facility] Comment on above: Performed By: #### C MP #### [address] [address] ALP [Catalytic activity/Vol] 59 U/L Normal 33 - 110 [facility] Comment on above: Performed By: #### C MP #### [address] [address] ALT [Catalytic activity/Vol] 9 U/L Normal 7 - 45 [facility] Comment on above: Result Comment: Dorinda ents treated with Sulfasalazine may generate falsely decreased results for ALT. Performed By: #### C MP #### [address] [address] Anion gap [Moles/Vol] 13 mmol/L Normal 10 - 20 [facility] Comment on above: Performed By: #### C MP #### [address] [address] AST [Catalytic activity/Vol] 15 U/L Normal 9 - 39 [facility] Comment on above: Performed By: #### C MP #### [address] [address] Bilirubin [Mass/Vol] 0.9 mg/dL Normal 0.0 - 1.2 [facility] Comment on above: Performed By: #### C MP #### [address] [address] Calcium [Mass/Vol] 9.9 mg/dL Normal 8.6 - 10.3 [facility] Comment on above: Performed By: #### C MP #### [address] [address] Chloride [Moles/Vol] 105 mmol/L Normal 98 - 107 [facility] Comment on above: Performed By: #### C MP #### [address] [address] Creatinine [Mass/Vol] 0.90 mg/dL Normal 0.50 - 1.05 [facility] Comment on above: Performed By: #### C MP #### [address] [address] eGFR FEMALE >90 Normal >90 [facility] Comment on above: Result Comment: CALC ULATIONS OF ESTIMATED GFR ARE PERFORMED USING THE 2020 CKD-EPI STUDY REFIT EQUATION WITHOUT THE RACE VARIABLE FOR THE IDMS-TRACEABLE CREATININE METHODS. https://jasn.asnjournals.org/content//ASN.031 3562368 Performed By: #### C MP #### [address] [address] Glucose [Mass/Vol] 87 mg/dL Normal 74 - 99 [facility] Comment on above: Performed By: #### C MP #### [address] [address] HCO3 (Bld) [Moles/Vol] 25 mmol/L Normal 21 - 32 [facility] Comment on above: Performed By: #### C MP #### [address] [address] Potassium [Moles/Vol] 3.8 mmol/L Normal 3.5 - 5.3 [facility] Comment on above: Performed By: #### C MP #### [address] [address] Protein [Mass/Vol] 7.4 g/dL Normal 6.4 - 8.2 [facility] Comment on above: Performed By: #### C MP #### [address] [address] Sodium [Moles/Vol] 139 mmol/L Normal 136 - 145 [facility] Comment on above: Performed By: #### C MP #### [address] [address] Urea nitrogen [Mass/Vol] 8 mg/dL Normal 6 - 23 [facility] Comment on above: Performed By: #### C MP #### [address] [address] HEMOGLOBIN A1Con 09-24-2022 Glucose [Mass/Vol] 97 mg/dL Normal [facility] Comment on above: Performed By: #### H BA1E #### [address] [address] HbA1c (Bld) [Mass fraction] 5.0 % Normal [facility] Comment on above: Result Comment: Diag nosis of Diabetes-Adults Non-Diabetic: < or = 5.6% Increased risk for developing diabetes: 5.7-6.4% Diagnostic of diabetes: > or = 6.5% . Monitoring of Diabetes Age (y) Therapeutic Goal (%) Adults: >18 <7.0 Pediatrics: 13-18 <7.5 7-12 <8.0 0- 6 7.5-8.5 [employer]. Diabetes Care 33(S1), Apr 2009. Performed By: #### H BA1E #### [address] [address] LIPID PANEL (CORONARY RISK 2 )on 09-24-2022 Cholesterol [Mass/Vol] 169 mg/dL Normal 0 - 199 [facility] Comment on above: Result Comment: . [...] dosing. Performed By: #### L IPID #### [address] [address] Cholesterol in HDL [Mass/Vol] 57.0 mg/dL Normal [facility] Comment on above: Result Comment: . AGE VERY LOW LOW NORMAL HIGH 0-19 Y < 35 < 40 40-45 ---- 20-24 Y ---- < 40 >45 ---- >24 Y ---- < 40 40-60 >60 . Performed By: #### L IPID #### [address] [address] Cholesterol in LDL [Mass/Vol] 92 mg/dL Normal 0 - 119 [facility] Comment on above: Result Comment: . NEAR BORD AGE DESIRABLE OPTIMAL HIGH HIGH VERY HIGH 0-19 Y 0 - 109 --- 110-129 >/= 130 ---- 20-24 Y 0 - 119 --- 120-159 >/= 160 ---- >24 Y 0 - 99 100-129 130-159 160-189 >/=190 . Performed By: #### L IPID #### [address] [address] Cholesterol in VLDL [Mass/Vol] 20 mg/dL Normal 0 - 40 [facility] Comment on above: Performed By: #### L IPID #### [address] [address] Cholesterol.total/Choles terol in HDL [Mass ratio] 3.0 {ratio} Normal [facility] Comment on above: Result Comment: REF VALUES DESIRABLE < 3.4 HIGH RISK > 5.0 Performed By: #### L IPID #### [address] [address] NON-HDL CHOLESTEROL 112 mg/dL Normal 0 - 149 [facility] Comment on above: Result Comment: AGE DESIRABLE BORDERLINE HIGH HIGH VERY HIGH 0-19 Y 0 - 119 120 - 144 >/= 145 >/= 160 20-24 Y 0 - 149 150 - 189 >/= 190 ---- >24 Y 30 MG/DL ABOVE LDL CHOLESTEROL GOAL . Performed By: #### L IPID #### [address] [address] Triglyceride [Mass/Vol] 99 mg/dL Normal 0 - 149 [facility] Comment on above: Result Comment: . [...] dosing. Performed By: #### L IPID #### [place] [address] THYROXINE,FREEon 09-24-2022 THYROXINE,FREE 0.85 ng/dL Normal 0.61 - 1.12 [facility] Comment on above: Result Comment: Thyr oxine Free testing is performed using different testing methodology at [facility] than at other [facility]. Direct result comparisons should only be made [...] draw. Performed By: #### T 4FRE #### [place] [address] Lab Specimen Source Normal [facility] Comment on above: Performed By: #### T 4FRE #### [place] [address] Performed By: #### C BCDF #### [place] [address] Performed By: #### T HYDS #### [place] [address] Performed By: #### L IPID #### [place] [address] Performed By: #### C MP #### [place] [address] TSH WITH REFLEX TO FREE T4 I F ABNORMALon 09-24-2022 TSH Qn 4.20 m[IU]/L High 0.44 - 3.98 [facility] Comment on above: Result Comment: TSH testing is performed using different testing methodology at [facility] than at other [facility]. Direct result comparisons should only be made within the same method. Performed By: #### T HYDS #### [facility] [address] [place] [address] Vital Signs Date Time Vital Sign Value Performing Clinician Facility 12-23-2024 13:54-0400 Body temperature 98.1 [degF] Virginia Titus CNM Work Phone: [facility] 12-23-2024 13:54-0400 Diastolic blood pressure 71 mm[Hg] Virginia Titus CNM Work Phone: [phone] [place] [address] 12-23-2024 13:54-0400 Heart rate 115 /min Virginia Titus CNM Work Phone: [facility] 12-23-2024 13:54-0400 Respiratory rate 18 /min Virginia Titus CNM Work Phone: [facility] 12-23-2024 13:54-0400 Systolic blood pressure 117 mm[Hg] Virginia POWERSM Work Phone: [facility] 12-12-2024 09:39-0400 Body height 160.02 cm Virginia POWERSM Work Phone: [facility] 12-12-2024 09:39-0400 Body mass index (BMI) [Ratio] 26.1 kg/m2 Virginia POWERSM Work Phone: [facility] 12-12-2024 09:39-0400 Body weight 66.81 kg Virginia POWERSM Work Phone: [facility] 12-12-2024 09:39-0400 Diastolic blood pressure 83 mm[Hg] Virginia POWERSM Work Phone: [facility] 12-12-2024 09:39-0400 Systolic blood pressure 127 mm[Hg] Virginia POWERSM Work Phone: [facility] 11-29-2024 08:52-0400 Body height 160.02 cm Virginia POWERSM Work Phone: [facility] 11-29-2024 08:52-0400 Body mass index (BMI) [Ratio] 25.3 kg/m2 Virginia Titus CNM Work Phone: [facility] 11-29-2024 08:52-0400 Body weight 64.86 kg Virginia Titus CNM Work Phone: [facility] 11-29-2024 08:52-0400 Diastolic blood pressure 73 mm[Hg] Virginia Titus CNM Work Phone: [facility] 11-29-2024 08:52-0400 Systolic blood pressure 115 mm[Hg] Virginia Titus CNM Work Phone: [facility] 11-11-2024 13:53-0400 Body height 160.02 cm Virginia Titus CNM Work Phone: [facility] 11-11-2024 13:53-0400 Body mass index (BMI) [Ratio] 24.7 kg/m2 Virginia Titus CNM Work Phone: [facility] 11-11-2024 13:53-0400 Body weight 63.21 kg Virginia Titus CNM Work Phone: [facility] 11-11-2024 13:53-0400 Diastolic blood pressure 83 mm[Hg] Virginia Titus CNM Work Phone: [facility] 11-11-2024 13:53-0400 Systolic blood pressure 134 mm[Hg] Virginia Titus CNM Work Phone: [facility] 11-01-2024 09:21-0400 Body height 160.02 cm Virginia Titus CNM Work Phone: [facility] 11-01-2024 09:11-0400 Body mass index (BMI) [Ratio] 24.3 kg/m2 Virginia Titus CNM Work Phone: [facility] 11-01-2024 09:11-0400 Body weight 62.31 kg Virginia Titus CNM Work Phone: [facility] 11-01-2024 09:11-0400 Diastolic blood pressure 72 mm[Hg] Virginia Titus CNM Work Phone: [facility] 11-01-2024 09:11-0400 Systolic blood pressure 120 mm[Hg] Virginia Titus CNM Work Phone: [facility] 10-03-2024 10:43-0400 Body height 160.02 cm Virginia Titus CNM Work Phone: [facility] 10-03-2024 10:43-0400 Body mass index (BMI) [Ratio] 23.1 kg/m2 Virginia Titus CNM Work Phone: [facility] 10-03-2024 10:43-0400 Body weight 59.08 kg Virginia Titus CNM Work Phone: [phone] [place] [address] 10-03-2024 10:43-0400 Diastolic blood pressure 87 mm[Hg] Virginia Titus CNM Work Phone: [facility] 10-03-2024 10:43-0400 Systolic blood pressure 134 mm[Hg] Virginia Titus CNM Work Phone: [facility] 09-08-2024 10:49-0400 Body mass index (BMI) [Ratio] 22.1 kg/m2 Virginia Titus CNM Work Phone: [facility] 09-08-2024 10:49-0400 Body weight 56.69 kg Virginia Titus CNM Work Phone: [facility] 09-08-2024 10:49-0400 Diastolic blood pressure 75 mm[Hg] Virginia Titus CNM Work Phone: [facility] 09-08-2024 10:49-0400 Systolic blood pressure 133 mm[Hg] Virginia Titus CNM Work Phone: [facility] 08-08-2024 10:15-0400 Body mass index (BMI) [Ratio] 20.6 kg/m2 Virginia Titus CNM Work Phone: [facility] 08-08-2024 10:15-0400 Body weight 52.84 kg Virginia Titus CNM Work Phone: [facility] 08-08-2024 10:15-0400 Diastolic blood pressure 77 mm[Hg] Virginia Titus CNM Work Phone: [facility] 08-08-2024 10:15-0400 Systolic blood pressure 123 mm[Hg] Virginia Titus CNM Work Phone: [facility] 06-30-2024 14:27-0400 Body height 160.02 cm Virginia Titus CNM Work Phone: [facility] 06-30-2024 14:27-0400 Body mass index (BMI) [Ratio] 20.4 kg/m2 Virginia Titus CNM Work Phone: [facility] 06-30-2024 14:27-0400 Body weight 52.33 kg Virginia Titus CNM Work Phone: [facility] 06-30-2024 14:27-0400 Diastolic blood pressure 82 mm[Hg] Virginia Titus CNM Work Phone: [facility] 06-30-2024 14:27-0400 Systolic blood pressure 132 mm[Hg] Virginia Titus CNM Work Phone: [facility] 09-23-2022 13:33-0400 Body weight 57.61 kg Loree Oseguera BLINDMAKER-ENVELOPE ADJUSTER Work Phone: [facility] 09-23-2022 13:33-0400 Diastolic blood pressure 84 mm[Hg] Loree Oseguera APRN-ENVELOPE ADJUSTER Work Phone: [facility] 09-23-2022 13:33-0400 Heart rate 84 /min Loree Oseguera BLINDMAKER-ENVELOPE ADJUSTER Work Phone: [facility] 09-23-2022 13:33-0400 SaO2% (BldA) [Mass fraction] 99 % Loree Oseguera BLINDMAKER-ENVELOPE ADJUSTER Work Phone: [facility] 09-23-2022 13:33-0400 Systolic blood pressure 121 mm[Hg] Loree Oseguera APRN-ENVELOPE ADJUSTER Work Phone: [facility] 10-14-2018 10:53-0400 BMI (Body Mass Index) 21.93 kg/m2 [facility] 10-14-2018 10:53-0400 Body Temperature 98.1 [degF] [facility] 10-14-2018 10:53-0400 Body weight 54.39 kg [facility] 10-14-2018 10:53-0400 BP Diastolic 79 mm[Hg] [facility] 10-14-2018 10:53-0400 BP Systolic 111 mm[Hg] [facility] 10-14-2018 10:53-0400 Height 157.5 cm [facility] 10-14-2018 10:53-0400 Pulse (Heart Rate) 71 /min [facility] 10-14-2018 10:53-0400 Pulse Oximetry 97 % [facility] 10-14-2018 10:53-0400 Respiratory Rate 16 /min [facility] Encounters Encounter Date Encounter Type Care Provider Facility Start: 12-23-2024 End: 12-23-2024 ambulatory Virginia Titus CNM Work Phone: -[facility] Start: 12-23-2024 End: 12-23-[address] Virginia Chavez MD -[facility] Work Phone: Start: 12-12-2024 End: 12-12-2024 ambulatory Virginia Titus CNM Work Phone: -Laboratory Specimen Start: 12-12-2024 End: 12-12-2024 Patient encounter procedure Virginia Titus CNM -Laboratory Specimen Work Phone: Start: 12-12-2024 End: 12-12-2024 Patient encounter procedure Virginia Titus CNM -[facility] Work Phone: Start: 12-12-2024 End: 12-12-2024 ambulatory Virginia Titus CNM Work Phone: -[facility] Start: 12-12-2024 End: 12-12-2024 ambulatory Virginia Titus Facility:[facility] Start: 11-29-2024 End: 11-29-2024 Patient encounter procedure Virginia Titus CNM -[facility] Work Phone: Start: 11-29-2024 End: 11-29-2024 ambulatory Virginia Titus CNM Work Phone: -[facility] Start: 11-16-2024 ambulatory Shelbie Cabrera cility:[facility] Start: 11-11-2024 End: 11-11-[address] Shelbie Navarro DO -[facility] Work Phone: Start: 11-11-2024 End: 11-11-2024 ambulatory Virginia Titus CNM Work Phone: -[facility] Start: 11-11-2024 End: 11-11-2024 ambulatory Shelbie Navarro Facility:[facility] Start: 11-01-2024 End: 11-01-2024 Patient encounter procedure Aranza DE LA ROSA -[facility] Work Phone: Start: 11-01-2024 End: 11-01-2024 ambulatory Virginia Titus CNM Work Phone: -[facility] Start: 11-01-2024 End: 11-01-2024 ambulatory Virginia Titus Facility:[facility] Start: 10-03-2024 End: 10-03-2024 Patient encounter procedure Virginia POWERSM -[facility] Work Phone: Start: 10-03-2024 End: 10-03-2024 ambulatory Virginia Titus CNM Work Phone: [facility] Work Phone: Start: 09-15-2024 End: 09-15-2024 ambulatory SHELBIE CLEMENTE [facility] Start: 09-08-2024 End: 09-08-[address] Virginia Chavez MD -[facility] Work Phone: Start: 09-08-2024 End: 09-08-2024 ambulatory Virginia Chavez Facility:[facility] Start: 09-01-2024 End: 09-01-2024 ambulatory SHELBIE CLEMENTE [facility] Start: 08-08-2024 End: 08-08-[address] Shelbie Navarro DO -[facility] Work Phone: Start: 08-08-2024 End: 08-08-2024 ambulatory Shelbie Navarro Facility:[facility] Start: 07-04-2024 End: 07-04-2024 ambulatory Virginia Titus CNM Work Phone: [facility] Work Phone: Start: 07-04-2024 End: 07-04-2024 Patient encounter procedure Virginia Titus CNM -Lab, [facility] Start: 07-04-2024 End: 07-04-2024 ambulatory Virginia Titus Facility:[facility] Start: 06-30-2024 End: 06-30-2024 Patient encounter procedure Virginia POWERSM -Laboratory, Specimen Work Phone: Start: 06-30-2024 End: 06-30-2024 ambulatory Virginia Titus CNM Work Phone: [facility] Work Phone: Start: 06-30-2024 End: 06-30-2024 Patient encounter procedure Virginia POWERSM -[facility] Work Phone: Start: 06-30-2024 End: 06-30-2024 ambulatory Virginia Titus Facility:[facility] Start: 09-03-2023 End: 09-03-2023 Emergency department patient visit PHYSICIAN [facility] Start: 04-21-2023 End: 04-21-2023 Office outpatient visit 25 minutes Odilon Coughlin PA-C Work Phone: [facility] Comment on above: Acute non-recurrent maxillary sinusitis (Primary Dx); Asthma, exercise induced Start: 04-21-2023 End: 04-21-2023 ambulatory ODILON Gordon [facility] Start: 03-03-2023 End: 03-04-2023 ambulatory LOREE Christianson [facility] Start: 09-24-2022 End: 09-25-2022 [facility] Start: 09-24-2022 End: 09-25-2022 Encounter for general adult medical examination without abnormal findings LOREE Christianson [facility] Start: 09-23-2022 Encounter for genera l adult medical examination without abnormal findings LOREE [facility] Start: 09-23-2022 End: 09-23-2022 Office outpatient new 30 minutes Loree Oseguera BLINDMAKER-ENVELOPE ADJUSTER Work Phone: [facility] Comment on above: Asthma, exercise ind uced (Primary Dx); Establishing care with new doctor, encounter for; Wellness examination Start: 09-23-2022 End: 09-23-2022 Patient encounter status Loree Oseguera BLINDMAKER-ENVELOPE ADJUSTER Work Phone: [facility] Work Phone: Start: 10-14-2018 End: 10-14-2018 Patient encounter procedure ODILON MORA [facility] Start: 10-14-2018 End: 10-14-2018 Office outpatient visit 15 minutes Odilon Rodriugez Work Phone: [facility] Comment on above: Acute swimmer's ear of [...] 11-11-2024 End: 11-11-2024 Source specific culture Virginia Elder LA Work Phone: Start: 11-11-2024 Urine culture Virginia canales [facility] Work Phone: Start: 11-01-2024 Serologic test for syphilis Virginia Titus [facility] Work Phone: Start: 07-04-2024 Hepatitis C antibody measurement Virginia Titus [facility] Work Phone: Comment on above: Reactive: Presumptiv e evidence of antibodies to HCV. Follow CDC recommendations for supplemental testing.Non-Reactive: Antibodies to HCV were not detected; does not exclude the possibility of exposure to HCVReactive Results are presumptive evidence of antibodies to HCV. Follow CDC recommendations for supplemental testing.Order confirmation testing: HCV Quant by PCR testing - HCVPCR #[id number] Non Reactive: < 0.8 Equivocal: >/= 0.8 to < 1.0 Reactive: >/= 1.0The [facility] requires that a reactive/equivocal HCV antibody result be sent out for confirmation. HCV Quant by PCR testing. Start: 07-04-2024 Procedure Virginia madrid [facility] Work Phone: Start: 07-04-2024 Rubella IgG measurement Virginia Titus [facility] Work Phone: Comment on above: Antibody Result: Int erpretationNon-Reactive: Non- ImmuneReactive: ImmuneThe following results were obtained with the [employer] Rubella IgG assay. Results from assays of other manufacturers cannot be used interchangeably. Start: 07-04-2024 Serologic test for syphilis Virginia Titus [facility] Work Phone: Start: 06-30-2024 Liquid based cervica l cytology screening Virginia Titus [facility] Work Phone: Comment on above: NEGATIVE FOR INTRAEP ITHELIAL LESION OR MALIGNANCY. This liquid based Th inPrep(R) pap test was screened withthe use of an image guided system. The HPV DNA reflex c riteria were not met with this specimenresult therefore, no HPV testing was performed.Performed at: [facility] [id number] [facility], [place], [place] [id number] Director: Chaitanya Diaz MD, Phone: [phone] at: WB - [facility] [id number], [place] [id number] Director: Geovanna Torres MD, Phone: [phone] Start: 06-30-2024 Urine culture Virginia canales [facility] Work Phone: Start: 03-03-2023 Comprehensive metabo lic [...] 2) Zoste r Vaccines (1 of 2) [facility] Start: 09-25-2027 Lipid panel Lipid Panel [facility] Start: 12-27-2024 ambulatory Ambulatory Facility:[facility] Start: 12-23-2024 Patient discharge [facility] Start: 11-01-2024 CBC W Auto Different ial panel - Blood [facility] Start: 11-01-2024 Measurement of gluco se 2 hours after glucose challenge for glucose tolerance test [facility] Start: 11-01-2024 Serologic test for syphilis [facility] Start: 11-01-2024 [facility] Start: 11-26-2023 DTaP/Tdap/Td Vaccine s (7 - Td or Tdap) DTaP/Tdap/Td Vaccines (7 - Td or Tdap) [facility] Start: 09-24-2023 End: 09-24-2023 CBC W Auto Differential panel - Blood CBC and Auto Differential Lab Routine Wellness examination Expected: 09/24/2023 (Approximate), Expires: 09/24/2023 [facility] Service Area Work Phone: Comment on above: Expected: 09/24/2023 (Approximate), Expires: 09/24/2023 Start: 09-24-2023 End: 09-24-2023 Comprehensive metabolic 2000 panel - Serum or Plasma Comprehensive Metabolic Panel Lab Routine Wellness examination Expected: 09/24/2023 (Approximate), Expires: 09/24/2023 [facility] Work Phone: Comment on above: Expected: 09/24/2023 (Approximate), Expires: 09/24/2023 Start: 09-24-2023 End: 09-24-2023 Hemoglobin A1c/Hemoglobin.total in Blood Hemoglobin A1C Lab Routine Wellness examination Expected: 09/24/2023 (Approximate), Expires: 09/24/2023 [facility] Work Phone: Comment on above: Expected: 09/24/2023 (Approximate), Expires: 09/24/2023 Start: 09-24-2023 End: 09-24-2023 TSH with reflex to Free T4 if abnormal TSH with reflex to Free T4 if abnormal Lab Routine Wellness examination Expected: 09/24/2023 (Approximate), Expires: 09/24/2023 [facility] Work Phone: Comment on above: Expected: 09/24/2023 (Approximate), Expires: 09/24/2023 Start: 09-24-2023 End: 09-24-2023 Patient encounter procedure 09/24/2023 12:40 PM EDT Office Visit [facility] [address] [place] [phone] Loree Oseguera, BLINDMAKER-ENVELOPE ADJUSTER [address] [place] [address] [facility] Start: 12-19-2022 Influenza vaccination [facility] Start: 09-23-2022 End: 09-24-2023 CBC W Auto Differential panel - Blood CBC and Auto Differential Lab Routine Wellness examination Expected: 09/23/2022 (Approximate), Expires: 09/24/2023 [facility] Work Phone: Comment on above: Expected: 09/23/2022 (Approximate), Expires: 09/24/2023 Start: 09-23-2022 End: 09-24-2023 Comprehensive metabolic 2000 panel - Serum or Plasma Comprehensive Metabolic Panel Lab Routine Wellness examination Expected: 09/23/2022 (Approximate), Expires: 09/24/2023 [facility] Work Phone: Comment on above: Expected: 09/23/2022 (Approximate), Expires: 09/24/2023 Start: 09-23-2022 End: 09-24-2023 Hemoglobin A1c/Hemoglobin.total in Blood Hemoglobin A1C Lab Routine Wellness examination Expected: 09/23/2022 (Approximate), Expires: 09/24/2023 [facility] Work Phone: Comment on above: Expected: 09/23/2022 (Approximate), Expires: 09/24/2023 Start: 09-23-2022 End: 09-24-2023 Lipid 1996 panel - Serum or Plasma Lipid Panel Lab Routine Wellness examination Expected: 09/23/2022 (Approximate), Expires: 09/24/2023 [facility] Work Phone: Comment on above: Expected: 09/23/2022 (Approximate), Expires: 09/24/2023 Start: 09-23-2022 End: 09-24-2023 TSH with reflex to Free T4 if abnormal TSH with reflex to Free T4 if abnormal Lab Routine Wellness examination Expected: 09/23/2022 (Approximate), Expires: 09/24/2023 [facility] Work Phone: Comment on above: Expected: 09/23/2022 (Approximate), Expires: 09/24/2023 Start: 2022 Screening for malign ant neoplasm of cervix [facility] Start: 2019 Hepatitis C screening Hepatitis C Sc shelbi [facility] Start: 12-19-2018 Influenza vaccinatio n given SEQUENTIAL [...] series) HPV Vaccines (1 - 2-dose series) [facility] Start: 2008 Tetanus, diphtheria and acellular pertussis vaccination DTAP VACCINES (1 - Tdap) [facility] Start: 2004 History and physical examination, annual for health maintenance Wellness Visit [facility] Start: 2004 Well Child Visit (WC V) - Annual Well Child Visit (WCV) - Annual [facility] Start: 2002 Hepatitis A immunization HEPAT ITIS A VACCINES (1 of 2 - 2-dose series) [facility] Start: 2002 Objlpbo-xuzgz-[id number] a vaccination MMR VACCINES (1 of 2 - Standard series) [facility] Start: 2001 COVID-19 Vaccine (#1) COVID-19 Vacci ne (#1) [facility] Start: 2001 Inactivated poliovir us vaccine (product) IPV VACCINES (1 of 3 - 4-dose series) [facility] Start: 2001 Hearing Screening (#1) Hearing Scree albert (#1) [facility] Start: 2001 Hepatitis B vaccination HEPATI TIS B VACCINES (1 of 3 - 3-dose primary series) [facility] Start: 2001 HIV screening HIV Screening [facility] Start: 2001 Lipid panel Lipid Panel [facility] Start: 2001 Screening for Chlamy joan trachomatis Chlamydia Screening [facility] Start: 2001 Tetanus vaccination TETANUS EVERY 10 YR [facility] CBC W Auto Different ial panel - Blood [facility] Erythrocyte mean corpuscular volume determination [facility] Hematocrit [Volume Fraction] of Blood [facility] Hemoglobin [Mass/vol ume] in Blood [facility] Leukocytes [#/volume ] in Blood [facility] Mean corpuscular hemoglobin concentration determination [facility] Mean corpuscular hemoglobin determination [facility] Measurement of gluco se 2 hours after glucose challenge for glucose tolerance test [facility] Neutrophil count [facility] Neutrophil percent differential count [facility] Patient Education Kick Counts ED False Labor OB Triage: Return to Hospital or Notify Physician if you Experience: [facility] Work Phone: Platelets [#/volume] in Blood [facility] Red blood cell count [facility] Red cell distributio n width determination [facility] Serologic test for syphilis [facility] Immunizations Immunization Date Immunization Notes Care Provider Lisa berrios 11-25-2018 hepatitis A vaccine, pediatric/adolescent dosage, 2 dose schedule Loree RAVI Work Phone: [facility] Work Phone: 11-25-2018 meningococcal B vacc ine, recombinant, OMV, adjuvanted Loree Oseguera APRN-GURWINDER Work Phone: [facility] Work Phone: 11-23-2017 hepatitis A vaccine, pediatric/adolescent dosage, 2 dose schedule Loree RAVI Work Phone: [facility] Work Phone: 11-23-2017 meningococcal B vacc ine, recombinant, OMV, adjuvanted Loree RAVI Work Phone: [facility] Work Phone: 11-23-2017 meningococcal polysaccharide (groups A, C, Y and W-135) diphtheria toxoid conjugate vaccine (MCV4P) Loree RAVI Work Phone: [facility] Work Phone: 11-25-2013 meningococcal polysaccharide (groups A, C, Y and W-135) diphtheria toxoid conjugate vaccine (MCV4P) Loree RAVI Work Phone: [facility] Work Phone: 11-25-2013 tetanus toxoid, redu robert diphtheria toxoid, and acellular pertussis vaccine, adsorbed Loree Oseguera APRN-ENVELOPE ADJUSTER Work Phone: [facility] Work Phone: 03-30-2012 varicella virus vaccine Loree Oseguera APRN-ENVELOPE ADJUSTER Work Phone: [facility] Work Phone: 01-29-2009 influenza virus vacc ine, whole virus Loree Oseguera [facility] Work Phone: [facility] Work Phone: 01-29-2009 influenza virus vacc ine, unspecified formulation Loree Oseguera [facility] Work Phone: [facility] Work Phone: 12-18-2005 diphtheria, tetanus toxoids and acellular pertussis vaccine Loree Oseguera APRN-ENVELOPE ADJUSTER Work Phone: [facility] Work Phone: 12-18-2005 diphtheria, tetanus toxoids and pertussis vaccine Loree Oseguera [facility] Work Phone: [facility] Work Phone: 12-18-2005 measles, mumps and rubella virus vaccine Loree Oseguera [facility] Work Phone: [facility] Work Phone: 12-18-2005 poliovirus vaccine, inactivated Loree Oseguera [facility] Work Phone: [facility] Work Phone: 09-06-2002 diphtheria, tetanus toxoids and acellular pertussis vaccine, unspecified formulation Loree Oseguera APRN-ENVELOPE ADJUSTER Work Phone: [facility] Work Phone: 09-06-2002 diphtheria, tetanus toxoids and pertussis vaccine Loree Oseguera [facility] Work Phone: [facility] Work Phone: 09-06-2002 haemophilus influenz ae type b vaccine, conjugate unspecified formulation Loree Oseguera [facility] Work Phone: [facility] Work Phone: 09-06-2002 measles, mumps and rubella virus vaccine Loree Oseguera [facility] Work Phone: [facility] Work Phone: 05-13-2002 varicella virus vaccine Loree Oseguera [facility] Work Phone: [facility] Work Phone: 05-10-2002 poliovirus vaccine, inactivated Loree Oseguera [facility] Work Phone: [facility] Work Phone: 05-10-2002 poliovirus vaccine, unspecified formulation Loree Oseguera [facility] Work Phone: [facility] Work Phone: 2001 diphtheria, tetanus toxoids and acellular pertussis vaccine, unspecified formulation Loree Oseguera [facility] Work Phone: [facility] Work Phone: 2001 diphtheria, tetanus toxoids and pertussis vaccine Loree Oseguera [facility] Work Phone: [facility] Work Phone: 2001 haemophilus influenz ae type b conjugate and Hepatitis B vaccine Loree Oseguera [facility] Work Phone: [facility] Work Phone: 2001 haemophilus influenz ae type b vaccine, PRP-T conjugate Loree Oseguera [facility] Work Phone: [facility] Work Phone: 2001 hepatitis B vaccine, pediatric or pediatric/adolescent dosage Loree Oseguera [facility] Work Phone: [facility] Work Phone: 2001 diphtheria, tetanus toxoids and acellular pertussis vaccine, unspecified formulation Loree Oseguera APRN-ENVELOPE ADJUSTER Work Phone: [facility] Work Phone: 2001 diphtheria, tetanus toxoids and pertussis vaccine Loree Oseguera APRN-ENVELOPE ADJUSTER Work Phone: [facility] Work Phone: 2001 haemophilus influenz ae type b conjugate and Hepatitis B vaccine Loree Oseguera APRN-ENVELOPE ADJUSTER Work Phone: [facility] Work Phone: 2001 haemophilus influenz ae type b vaccine, PRP-T conjugate Loree Oseguera APRN-ENVELOPE ADJUSTER Work Phone: [facility] Work Phone: 2001 hepatitis B vaccine, pediatric or pediatric/adolescent dosage Loree Oseguera APRN-ENVELOPE ADJUSTER Work Phone: [facility] Work Phone: 2001 poliovirus vaccine, inactivated Loree Oseguera APRN-ENVELOPE ADJUSTER Work Phone: [facility] Work Phone: 2001 diphtheria, tetanus toxoids and acellular pertussis vaccine, unspecified formulation Loree Oseguera APRN-ENVELOPE ADJUSTER Work Phone: [facility] Work Phone: 2001 diphtheria, tetanus toxoids and pertussis vaccine Loree Oseguera APRN-ENVELOPE ADJUSTER Work Phone: [facility] Work Phone: 2001 haemophilus influenz ae type b vaccine, conjugate unspecified formulation Loree Oseguera APRN-ENVELOPE ADJUSTER Work Phone: [facility] Work Phone: 2001 hepatitis B vaccine, pediatric or pediatric/adolescent dosage Loree Oseguera APRN-ENVELOPE ADJUSTER Work Phone: [facility] Work Phone: 2001 poliovirus vaccine, inactivated Loree Oseguera APRN-ENVELOPE ADJUSTER Work Phone: [facility] Work Phone: 2001 hepatitis B vaccine, pediatric or pediatric/adolescent dosage Loree Oseguera APRN-ENVELOPE ADJUSTER Work Phone: [facility] Work Phone: Payers Date Payer Category Payer Self-pay 2024 Unknown [id number] 2022 Unknown [id number] 2018 Unknown MMO MED M[employer] S UPERMED PPO xxxxxxxxx 2018-Present xxxxxxxxx [id number] 2018 Unknown [id number] 2017 Unknown 2001 Unknown [id number] [id number] 2001 Unknown [id number] 2.16.840.1.209827.3.579.2.1245 2001 Unknown [id number] 2.16.840.1.742727.3.579.2.902 2001 Unknown [id number] 2.16.840.1.584461.3.579.2.1244 2001 Unknown [id number] 2.16.840.1.641293.3.579.2.479 2001 Unknown [id number] 2.16.840.1.074176.3.579.2.479 2001 Unknown [id number] 2.16.840.1.176220.3.579.2.479 1978 Unknown [id number] 2.840.1.132511.3.579.2.717 1978 Unknown [id number] .840.1.770889.3.579.2.903 Unknown [id number] Unknown [id number] 2.16840.1.060273.3.579.2.462 Unknown [id number] .840.1.981991.3.579.2.462 Unknown [id number] .840.1.959504.3.579.2.462 Unknown [id number] .840.1.882259.3.579.2.462 Unknown [id number] 2.840.1.222793.3.579.2.462 Unknown [id number] 2.840.1.458282.3.579.2.462 Unknown [id number] .840.1.736006.3.579.2.462 Unknown [id number] .840.1.908479.3.579.2.462 Unknown [id number] .840.1.047911.3.579.2.462 Unknown [id number] .840.1.381710.3.579.2.462 Unknown [id number] .840.1.423364.3.579.2.462 Unknown [id number] .840.1.086223.3.579.2.462 Unknown [id number] .840.1.758991.3.579.2.462 Unknown [id number] .840.1.562451.3.579.2.462 Unknown [id number] 2.840.1.474259.3.579.2.462 Unknown [id number] .840.1.787340.3.579.2.462 Social History Date Type Detail Facility Start: 10-14-2018 End: 06-17-2024 Tobacco smoking status NHIS Never smoker [facility] Start: 10-14-2018 History SDOH Alcohol Frequency 1 [facility] Start: 2000 Sex Assigned At Not on file [facility] Start: 09-23-2022 Tobacco use and exposure Smokeless tobacco non-user [facility] Work Phone: Start: 09-23-2022 End: 04-21-2023 Alcohol intake Lifetime non-drinker (finding) [facility] Work Phone: Start: 09-23-2022 End: 04-21-2023 History of Social function [facility] Work Phone: Start: 09-23-2022 End: 04-21-2023 Tobacco use panel [facility] Work Phone: Start: 09-13-2022 End: 09-23-2022 Exposure to SARS-CoV-2 (event) Not sure [facility] Start: 04-11-2023 End: 04-21-2023 Exposure to SARS-CoV-2 (event) Unable to assess [facility] Work Phone: Start: 07-11-2024 End: 07-13-2024 Sex Female (finding) [facility] Start: 2000 Sex Assigned At Female [facility] Clinical Notes 09-23-2022 to 12-12-2024 Note Date & Type Note Facility 12-12-2024 Progress note [facility] 11-29-2024 Progress note [facility] 11-11-2024 Progress note [facility] 11-11-2024 Progress note Note Date/Time November 11, 2024 2:14pm [facility] [address] [place] [address], [address] [place] [address] OFFICE VISIT Date of Service: 11/11/24 MR#: [id number] Acct: [id number] Name: RENUKA GEORGE Rep #: [id number] : 2000 Provider: Dr. Greer Navarro DO Age/Sex: 24/F Location: [facility] Status: Signed Intake Vital Signs 11/01/24 09:21 11/11/24 13:53 11/11/24 13:53 Height 5 ft 3 in 5 ft 3 in 5 ft 3 in Weight: 139 lb 6 oz BMI 24.7 BP 134/83 H Intake Visit Reasons: 28w, vomiting, pelvic pressure, C Search Engine Optimization Strategist Required: No Is patient in pain?: No Allergies No Known Allergies Allergy (Verified 11/11/24 13:52) Medications ?Medication ?Instructions ?Recorded ?Confirmed ?Type diphenhydramine HCl 50 mg capsule 50 mg PO QHS 5 11/11/24 History ([employer] SleepGels) mv-mn 110-FA [...] PFSH PFSH Medical History Asthma Surgical History Fedscreek teeth extracted Family History Grandmother Cancer, Onset Age: 75 Paternal- Kidney Father High cholesterol Social History adopted: No household members: spouse and other details: Sister & Fiance housing: house current occupational status: employed 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 glucose instructions reviewed. 11/01/24 -?-?-?-?-?-?-?-?-?-?-?-?- 27w 1d 137 lb 6 oz (+22 lb 6 oz) 120/72 Negative -?-?-?-?-?-?-?-?-?-?-?-?- Negative 152 27 -?-?-?-?-?-?-?-?-?-?-?-?- MH-No VB, LOF. G oaníbal FM. Larc. 28 wk labs pending. 11/11/24 [...] Symptoms of Preeclampsia, Infant Feeding No , [place] Education and Family Medical Leave or Disability [...] on 11/11/24 14: 09 Off Ur Spec [place] 1.005 Last Edit by Lashon Mercedes on [...] Comment: PRR, , KAROLINA 01/30/25, boy, Graidy Dominick(-Simulmedia) (3) : Status: Acute Qualifiers: Weeks of [...] Romano DO> Date _ Shelbie Navarro DO [facility] Signature: Date (if applicable) CC: ~ [facility] Work Phone: 1(903) 987-279807-15-2025 [facility] [address] [place] [address], [address] [place] [address] OFFICE VISIT Date of Service: 11/01/24 MR#: [id number] Acct: [id number] Name: RENUKA GEORGE Rep #: [id number] : 2000 Provider: ESTRELLA Rich Age/Sex: 24/F Location: [facility] Status: Signed Intake Vital Signs 09/08/24 10:54 10/03/24 10:43 11/01/24 09:11 11/01/24 09:21 Height 5 ft 3 in 5 ft 3 in 5 ft 3 in 5 ft 3 in Weight: 137 lb 6 oz BMI 24.3 BP 120/72 Intake Visit Reasons: 27 wk ob Chief Complaint: 27 Week OB Search Engine Optimization Strategist Required: No Is patient in pain?: No [...] PFSH PFSH Medical History Asthma Surgical History Fedscreek teeth extracted Family History Grandmother Cancer, Onset Age: 75 Paternal- Kidney Father High cholesterol Social History adopted: No household members: spouse and other details: Sister & Fiance housing: house current occupational status: employed 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 glucose instructions reviewed. 11/01/24 -?-?--?-?-?-?-?-?-?-?-?-?- 27w [...] Symptoms of Preeclampsia, Infant Feeding Yes , Education and Family Medical Leave or [...] trimester Comment: PRR, , KAROLINA 01/30/25, boy, Rodney Dominick(-Simulmedia) (2) : Status: Acute Qualifiers: Weeks of [...] care and follow up. 11/01/24 0933 s CHAIR PAD MAKER CHAIR PAD MAKER-C> Date _ Aranza Rich CHAIR PAD MAKER CHAIR PAD MAKER-C Art Signature: Date (if applicable) CC: ~ [facility] [id number] [facility] [address] [place] [address], [address] [place] [address] OFFICE VISIT Date of Service: 10/03/24 MR#: [id number] Acct: [id number] Name: RENUKA GEORGE #: [id number] : 2000 Provider: NAZANIN Titus Age/Sex: 24/F Location: [facility] Status: Signed Intake Vital Signs 08/08/24 10:16 09/08/24 10:54 10/03/24 10:43 Height 5 ft 3 in 5 ft 3 in 5 ft 3 in Weight: 130 lb 4 oz BMI 23.1 BP 134/87 H Intake Visit Reasons: 21 wk ob Chief Complaint: 23wk OB Search Engine Optimization Strategist Required: No Is patient in pain?: No [...] PFSH PFSH Medical History Asthma Surgical History Fedscreek teeth extracted Family History Grandmother Cancer, Onset Age: 75 Paternal- Kidney Father High cholesterol Social History adopted: No household members: spouse and other details: Sister & Fiance housing: house current occupational status: employed 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 current occupational exposures/hazards: No pets and animals: [...] 1-2 times per week duration: 15-30 minutes/day antoine/sikh: Buddhism seatbelt use: always do you feel safe at home: No additional social history: Dominick- Immanueling/Marine History 1 Elective abortions Hx Para 0 Spontaneous abortions Hx # Term Pregnancies Ectopic pregnancies Hx # Pregnancies Multiple births # of living children HPI 21 wk ob Details: RENUKA GEORGE is a 24 year old who presents [...] Seat Belt use, Childbirth c lasses/Hospital facilities, Travel, Indications for Ultrasound and Screening [...] Symptoms of Preeclampsia, Infant Feeding No , [place] Education and Family Medical Leave or Disability [...] s NAZANIN> Date _ Virginia Titus CNM Cosigner Signature: Date (if applicable) CC: ~ [facility]05-22-2025 Evaluation note* Diagnosis Onset Date Resolution Status [...] December 12, 2024 9:35am acute December 12, 2 025 9:35am Supervision of normal first acute December 12 9:35am [facility] Work Phone: 1(110) 704-442104-21-2025 Evaluation note* Diagnosis Onset Date Resolution Status [...] normal first acute November 01, 2024 9:05am [facility] Work Phone: 1(992) 711-542304-21-2025 Evaluation note* Diagnosis Onset Date Resolution Status [...] normal first acute November 11, 2024 1:50pm [facility] Work Phone: 1(810) 116-621404-21-2025 Evaluation note* Diagnosis Onset Date Resolution Status [...] acute November 29, 2024 8:48am acute November 29 8:48am Supervision of normal first acute November 29 8:48am [facility] Work Phone: 1([phone]) [phone] NotePap Smear Specimen AdequacyMarch 2024 11:59pmComment.Satisfactory for evaluation. No endocervical component is identified.[facility] A#[id number] HospitalComment on above:Satisfactory for evaluation. No endocervical component is identified. 06-30-2024 NotePap Smear Specimen AdequacyMarch 2024 11:59pmComment. Satisfactory for evaluation. No endocervical component is identified.[facility] A#[id number] HospitalComment on above:Satisfactory for evaluation. No endocervical component is identified.06-30-2024 Evaluation note * Diagnosis Onset Date Resolution Status Admit Date Maternal varicella, non-immune acute June 30, 2024 2:13pm acute June 30 2:13pm Supervision of normal first acute June 30, 2024 2:13pm [facility] Work Phone: 1(960) 813-341603-13-2025 Evaluation note* Diagnosis Onset Date Resolution Status [...] normal first acute October 03, 2024 10:38am [facility] Work Phone: 1([phone]) 155-600501-02-2024 History of Present illness Narrative* Odilon Coughlin PA-C - 04/21/2023 1:40 PM EST An interactive audio and video telecommunication system which permits real time communication between the patient (at home) and the provider (at the office) was utilized to provide this telehealth service Virtual or Telephone Consent Verbal consent was requested and obtained from Renuka George on this date, 04/21/23 for a telehealthvisit. Subjective Patient ID: Renuka George is a 22 y.o. female who presents [...] tablet FU as before [facility] 1([phone]) 537-505006-06-2023 History of Present illness Narrative* Loree Oseguera APRN-ENVELOPE ADJUSTER - 09/23/2022 1:20 PM EDT Subjective Patient ID: Renuka George is a 22 y.o. female who presents [...] TO CALL WITH LABS [facility] Work Phone: Evaluation note* Diagnosis Asthma, exercise induced- Primary Exercise induced bronchospasm Establishing care with new doctor, encounter for Wellness examination documented in this encounter [facility] Work Phone: Evaluation note* Diagnosis Acute non-recurrent maxillary sinusitis- Primary Asthma, exercise induced Exercise induced bronchospasm documented in this encounter [facility] Work Phone: Progress note Author Virginia Titus [facility] Note Date/Time October 03, 2024 11:0 7am [facility]'[address], [address] [place] [address] OFFICE VISIT Date of Service: 10/03/24 MR#: [id number] Acct: [id number] Name: RENUKA GEORGE José Rep #: [id number] : 2000 Provider: NAZANIN Titus Age/Sex: 24/F [place] [facility] [place]: Signed Intake Vital Signs 08/08/24 10:16 09/08/24 10:54 10/03/24 10:43 Height 5 ft 3 in 5 ft 3 in 5 ft 3 in Weight: 130 lb 4 oz BMI 23.1 BP 134/87 H Intake Visit Reasons: 21 wk ob Chief Complaint: 23wk OB Search Engine Optimization Strategist Required: No Is patient in pain?: No [...] PFSH PFSH Medical History Asthma Surgical History Fedscreek teeth extracted Family History Grandmother Cancer, Onset Age: 75 Paternal- Kidney Father High cholesterol Social History adopted: No household members: spouse and other details: Sister & Fiance housing: house current occupational status: employed 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 current occupational exposures/hazards: No pets and animals: [...] 1-2 times per week duration: 15-30 minutes/day antoine/sikh: Buddhism seatbelt use: always do you feel safe at home: No additional social history: Dominick- Landscaping/Marine History 1 Elective abortions Hx Para 0 Spontaneous abortions Hx # Term Pregnancies Ectopic pregnancies Hx # Pregnancies Multiple births # of living children HPI 21 wk ob Details: RENUKA GEORGE is a 24 year old who presents [...] Cosigner Signature: Date (if applicable) CC: ~ [facility] Work Phone: Progress note Author Aranza Rich [facility] Note Date/Time November 01, 2024 9:33 am [facility] [address], [address] [place] [address] OFFICE VISIT Date of Service: 11/01/24 MR#: [id number] Acct: [id number] Name: RENUKA GEORGE Rep #: [id number] : 2000 Provider: ESTRELLA Rich Age/Sex: 24/F [place] [facility] [place]: Signed Intake Vital Signs 09/08/24 10:54 10/03/24 10:43 11/01/24 09:11 11/01/24 09:21 Height 5 ft 3 in 5 ft 3 in 5 ft 3 in 5 ft 3 in Weight: 137 lb 6 oz BMI 24.3 BP 120/72 Intake Visit Reasons: 27 wk ob Chief Complaint: 27 Week OB Search Engine Optimization Strategist Required: No Is patient in pain?: No [...] PFSH PFSH Medical History Asthma Surgical History Fedscreek teeth extracted Family History Grandmother Cancer, Onset Age: 75 Paternal- Kidney Father High cholesterol Social History adopted: No household members: spouse and other details: Sister & Fiance housing: house current occupational status: employed 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 current occupational exposures/hazards: No pets and animals: [...] 1-2 times per week duration: 15-30 minutes/day antoine/sikh: Buddhism seatbelt use: always do you feel safe at home: No additional social history: Dominick- Landscaping/Marine History 1 Elective abortions Hx Para 0 Spontaneous abortions Hx # Term Pregnancies Ectopic pregnancies Hx # Pregnancies Multiple births # of living children HPI 27 wk ob Details: RENUKA GEORGE is a 24 year old who presents [...] and Symptoms of Preeclampsia, Feeding Yes , [place] Education and Family Medical Leave or Disability [...] Continue routine care and follow up. 11/01/24 0984 <Electronically signed by Aranza nguyen NP CHAIR PAD MAKER-C> Date _ Aranza Condetings CHAIR PAD MAKER CHAIR PAD MAKER-C Cosigner Signature: Date (if applicable) CC: ~ [facility] Work Phone: Progress note Author Virginia Titus [facility] Note Date/Time November 29, 2024 9: 10am [facility] [address], [address] [place] [address] OFFICE VISIT Date of Service: 11/29/24 MR#: [id number] Acct: [id number] Name: RENUKA GEORGE Rep #: [id number] : 2000 Provider: NAZANIN Titus Age/Sex: 24/F [place] [facility] [place]: Signed Intake Vital Signs 10/03/24 10:43 11/11/24 13:53 11/29/24 08:52 Height 5 ft 3 in 5 ft 3 in 5 ft 3 in Weight: 143 lb BMI 25.3 BP 115/73 Intake Visit Reasons: 31 WK OB Chief Complaint: 31wk OB Search Engine Optimization Strategist Required: No Is patient in pain?: No Allergies No Known Allergies Allergy (Verified 11/29/24 08:50) Medications ?Medication ?Instructions ?Recorded ?Confirmed ?Type diphenhydramine HCl 50 mg capsule 50 mg PO QHS 2 5 11/29/24 History ([employer] SleepGels) mv-mn 110-FA 180 mcg-om3 35 mg-dha tab PO 06/17/2404/13 History 25 mg-epa 5 mg-fish oil chew tablet pyridoxine (vitamin B6) 100 mg 100 mg PO QHS 06/17/24 11/29/24 History tablet Last Menstrual Period: 04/25/24 : No PFSH PFSH Medical History Asthma Surgical History Fedscreek teeth extracted Family History Grandmother Cancer, Onset Age: 75 Paternal- Kidney Father High cholesterol Social History adopted: No household members: spouse and other details: Sister & Fiance housing: house current occupational status: employed 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 current occupational exposures/hazards: No pets and animals: [...] 1-2 times per week duration: 15-30 minutes/day antoine/sikh: Buddhism seatbelt use: always do you feel safe at home: No additional social history: Dominick- Pi-Cardia/Simulmedia History 1 Elective abortions Hx Para 0 Spontaneous abortions Hx # Term Pregnancies Ectopic pregnancies Hx # Pregnancies Multiple births # of living children HPI 31 WK OB Details: RENUKA GEORGE is a 24 year old who presents [...] Comment: PRR, , KAROLINA 01/30/25, boy, Graidy Dominick(-Simulmedia) (3) : Status: Acute Qualifiers: Weeks of [...] at this visit. GA appropriate handout given. 11/29/24 8016 <Electronically signed by Virginia nguyen CNM> Date _ Virginia Titus CNM Cosigner Signature: Date (if applicable) CC: ~ [facility] Work Phone: Progress note Author Virginia Titus [facility] Note Date/Time December 12, 2024 9: 55am [facility] [address] [facility], [address] [place] [address] OFFICE VISIT Date of Service: 12/12/24 MR#: [id number] Acct: [id number] Name: RENUKA GEORGE Rep #: [id number] : 2000 Provider: NAZANIN Titus Age/Sex: 24/F Location[place] [facility] Status: Signed Intake Vital Signs 11/29/24 08:52 12/12/24 09:39 Height 5 ft 3 in 5 ft 3 in Weight: 147 lb 5 oz BMI 26.1 BP 127/83 H Intake Visit Reasons: 33 wk ob Chief Complaint: 33wk OB Search Engine Optimization Strategist Required: No Is patient in pain?: No [...] PFSH PFSH Medical History Asthma Surgical History Fedscreek teeth extracted Family History Grandmother Cancer, Onset Age: 75 Paternal- Kidney Father High cholesterol Social History adopted: No household members: spouse and other details: Sister & Fiance housing: house current occupational status: employed 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 G advid FM. Larc. 28 wk labs pending. 11/11/24 [...] Symptoms of Preeclampsia, Infant Feeding No , [place] Education and Family Medical Leave or Disability [...] Comment: PRR, , KAROLINA [birth year], boy, Radhaidy Dominick(-[employer]) (3) : Status: Acute Qualifiers: Weeks of [...] this visit. GA appropriate handout given. 12/12/24 2187 <Electronically signed by Virginia nguyen CNM> Date _ Virginia Titus CNM Cosigner Signature: Date (if applicable) CC: ~ [employer] Work Phone: Reason for referral (narrative)* Consultation (Routine) - Authorized Specialty Diagnoses / Procedures Referred By Layne piedra Referred To Contact Obstetrics and Gynecology Diagnoses Wellness examination Procedures IA OFFICE/OUTPATIENT [facility] 60-74 MINUTES Loree Oseguera, BLINDMAKER-ENVELOPE ADJUSTER [address] [place] [address] Referral ID Status Reason Start Date Expiration Date Visits Requested Visits Authorized [id number] Authorized Specialty Services Required 09/23/2022 03/22/2023 1 1 [facility] Work Phone: Reason for referral (narrative)No reason for referral information [facility] Work Phone: Summary Purpose Family History No Family History Records Found Relationship Condition Age at Onset Recorded Date/T lisa grandmother Malignant neoplasm 75 father High blood cholesterol Unknown Advance Directives No Advanced Directives Records FoundDocuments on File Type Date Recorded Patient Assistant Track Coach Expl anation Advance Directives and Living Will [...] Do not use plastic earplugs. Use a hair weaver to carefully dry the ear after you [...] your doctor if you can take an fbdp-xmn-yikwsyk medicine. ? No one younger than 20 [...] Log into your personal health record on [email or web address] and enter [email or web address] in the "Education" box to learn more about "Swimmer's Ear in Teens: Care Instructions." Current as of: February 07, 2018 Content Version: 12.0 2265-0014 [employer]. Care instructions adapted under license by your healthcare professional. If you have questions about a medical condition or this instruction, always ask your healthcare professional. [employer] disclaims any warranty or liability for your use of this information. documented in this encounter History of Present Illness * Odilon Rodriguez CNP - 10/14/2018 11:05 AM EDT Subjective Renuka Goerge is a 18 y.o. female who presents [...] (36.7 C) (Oral) Resp 16 Ht 5' 2" Wt 54.4 kg (119 lb 14.4 oz) [...] ear of left side Other orders - ewtcsoak-uutnebshh-leshktsmpqqjdc (CORTISPORIN) otic solution; Administer 4 (four) drops [...] Specialty Diagnoses / Procedures Referred By Layne t Referred To Contact Diagnoses Asthma, exercise induced Odilon Coughlin PA-C [address] [place] [address] Referral ID Status Reason Start Date Expiration Date V isits Requested Visits Authorized [id number] Pending Review 1 1 Chief Complaint and Reason for Visit Chief Complaint Admit Date NOB LMP 04/25June 30, 2024 2:1 3pm Reason for Visit Admit Date Maternal varicella, non-immune June 2:13pm June 30, 2024 2:1 3pm Supervision of normal first [facility] 2024 2:13pm Chief Complaint Admit Date NOB LMP 04/25June 30, 2024 2:1 3pm 13 wk OB August 08, 2024 10: 11am 17 WK OB September 08, 2024 10:46 am 21 wk ob October 03, 2024 10:3 8am Reason for Visit Admit Date Maternal varicella, non-immune June 2:13pm June 30, 2024 2:1 3pm Supervision of normal first [facility] 2024 2:13pm Maternal varicella, non-immune July 10:11am [...] Choroid plexus cyst of fetus September 08, 025 10:46am Maternal varicella, non-immune September 08, [...] Choroid plexus cyst of fetus September 08, 025 10:46am Maternal varicella, non-immune September 08, [...] 2024 8: 48am Supervision of normal first [facility] 2024 8:48am Choroid plexus cyst of fetus November 9:35am Maternal varicella, non-immune December 122024 9:35am December 12, 2024 9: 35am Supervision of normal first [facility] 2024 9:35am Chief Complaint Admit Date 17 [...] section and content) DATE CREATED AUTHOR 12/13/2017 [facility] DATE CREATED AUTHOR AUTHOR'S ORGANIZ ATION 04/21/2018 [facility] DATE CREATED AUTHOR AUTHOR'S ORGANIZ ATION 12/12/2018 [facility] DATE CREATED AUTHOR AUTHOR'S ORGANIZ ATION 09/29/2022 [facility] DATE CREATED AUTHOR AUTHOR'S ORGANIZ ATION 03/09/2023 [facility] DATE CREATED AUTHOR AUTHOR'S ORGANIZ ATION 09/11/2023 [facility] DATE CREATED AUTHOR AUTHOR'S ORGANIZ ATION 09/25/2023 [facility] DATE CREATED AUTHOR AUTHOR'S ORGANIZ ATION 09/17/2024 [facility] DATE CREATED AUTHOR AUTHOR'S ORGANIZ ATION 12/24/2024 [facility] Reason for Visit (unrecogniz ed section and content) Reason Comments Otalgia Left ear pain with d rainage x 3 days Reason Comments Establish Care No concerns Reason Comments Illness VIRTUAL; C/O SORE TH ROAT, SINUS DRAINAGE/CONGESTION, BODY ACHES/CHILLS AND DRY COUGH X 4 DAYS NOW. Care Teams (unrecognized sec tion and content) Nut Feeder Relationship Specialty Start Date End Date Loree Oseguera, BLINDMAKER-ENVELOPE ADJUSTER [address] [place] [address] PCP - General Internal Medicine 09/23/22 Nut Feeder Relationship Specialty Start Date End Date Loree Oseguera, BLINDMAKER-ENVELOPE ADJUSTER [address] [place] [address] PCP - General Internal Medicine 09/23/22 Loree Oseguera, BLINDMAKER-ENVELOPE ADJUSTER [address] [place] [address] PCP - MMO ACO PCP 02/18/23 Team [...] Status: Inactive Member Role/Relationship Status Dates Aranza Rich NP, JAX-C Attending Provider Active Start: November 01, 2024 [...] Status: Inactive Member Role/Relationship Status Dates Aranza Rich NP, CHAIR PAD MAKER-C Attending Provider Active Start: November 01, 2024 [...] Status: Inactive Member Role/Relationship Status Dates Aranza Rich NP, CHAIR PAD MAKER-C Attending Provider Active Start: November 01, 2024 [...] BE BASED ON THE PRIMARY CLINICAL RECORDS. [facility]. provides no warranty or guarantee of the accuracy or completeness of information in this document.
[2024-12-25 22:01] VITALS: BP 130/86; PULSE 101; O2SAT 99
[2024-12-25 22:38] LABS: ROM Internal Control Test YES-OK TO RESULT pt. (Internal QC)
[2024-12-25 22:39] LABS: ROM Patient Test Negative (Negative); Record Kit Lot#, ROM+ K3358
[2024-12-25] MEDS: Lactated Ringers 1,000 ML 999 ML IV (23:10)
--- NOTE | 2025-02-06 13:26 | OB.TRI.NOTE ---
HPI - General HPI Narrative MARLO GRANDA, is a 24 F who presents with u/c's & cramping intermittently all day. Reports drinking average amount & being busy today. Here for f/o labor. PFSH PFS Medical History (Updated 02/04/25 @ 00:01 by Waqas Smith) Asthma Home Medications Medication Instructions Recorded Last Taken Type amoxicillin 875 mg-potassium 1 tab PO BID #20 tabs 01/29/25 Unknown Rx clavulanate 125 mg tablet ferrous gluconate 324 mg (37.5 mg 324 mg PO DAILY #90 tabs 01/29/25 Unknown Rx iron) tablet doxycycline hyclate 100 mg capsule 100 mg PO BID #10 caps 01/30/25 Unknown Rx Allergy/AdvReac Type Severity Reaction Status Date / Time No Known Allergies Allergy Verified 01/27/25 13:49 Family History Grandmother Cancer, Onset Age: 75 Paternal- Kidney Father High cholesterol Surgical History (Updated 02/03/25 @ 14:47 by Juju Garcia LPN) History of incision and drainage (01/27/25) [place] teeth extracted Social History adopted: No household members: spouse and other details: Sister & Fiance housing: house number of children: 1 current occupational status: employed 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 current occupational exposures/hazards: No pets and animals: Yes pets and animals: dog(s) history of recent travel: No sexually active: Yes Smoking Status: Never smoker alcohol intake: current alcohol intake frequency: holidays/special occasions only details: not while substance use type: does not use well-balanced diet: daily or most days caffeine: No eating out: 1-3 times/week during the past year weight has: remained stable what type of physical activity do you participate in: walking frequency: 1-2 times per week duration: 15-30 minutes/day antoine/buddhism: Hindu seatbelt use: always do you feel safe at home: No additional social history: 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 Date Name GA/Weeks Outcome Route Bth Weight [facility]25 [place] 38 live - full term 8lbs 3oz Male spinal [facility] Virginia Tan Delivery Date: 01/17/25 Last Updated by: Makenna Mars ltcs failure to descend 38 sm. Assessment & Plan (1) : QUALIFIERS: Weeks of gestation: 38 weeks Qualified Code(s): Z3A.38 - 38 weeks gestation of COMMENT: Neg GBS.NIPT low risk, anatomy reveiwed fu views needed PLAN: Plan 34 wk gestation Patient presents for triage evaluation secondary to intermittent u/c's most of the day. FHT: 135 to 140 Moderate variability reactive no decelerations category I tracing [place]: Mild Contractions every 4 to 6 mins, palpate mild. Assessment and plan: [X] Reactive NST, PO & IV hydration provided, No Cervical change in 1 1/2 hrs of monitoring, False labor noted, reassuring maternal and status patient discharged to home to follow-up in office as scheduled. See problem list details for additional plan information. Charges/Coding Multi Select Codes Urinary/Genital Urinary/Genital CPT Codes: 06263-51 non-stress test Interp
== END 2024-12-26 00:45 | disposition home or self-care (01) ==
LOC: WPOUT 21:53 → WP 21:53
PROVIDERS: Referring Provider Midwife; Visit Provider Midwife
DX: O47.1 False labor at or after 37 completed weeks of gestation (principal); Z3A.38 38 weeks gestation of pregnancy
CPT/HCPCS: 96360; 59025; 59050; 84112; 99221; G0378

== ENCOUNTER → 2025-01-02 | Outpatient (CLI) | payer OTHER, BC, SELFPAY | END | disposition home or self-care (01) | LOC: LABSPEC 14:48 | PROVIDERS: Referring Provider Obstetrics & Gynecology; Visit Provider Obstetrics & Gynecology | DX: Z34.02 Encounter for supervision of normal first pregnancy, second trimester (principal) | CPT/HCPCS: 87081 ==

== ENCOUNTER 2025-01-11 18:53 | Outpatient (CLI) | payer OTHER, BC, SELFPAY ==
[2025-01-11] VITALS (7 sets, daily range): BP systolic 129–146; BP diastolic 67–94; PULSE 75–93; RESP 16; TEMP 36.9; O2SAT 99; BMI 27.6
--- OUTSIDE RECORDS SUMMARY | 2025-01-11 19:13 | XMS RPT_ITS | CCD ---
Author Organization [facility] Care Team Providers Care Boiler Plant Worker Name Role Phone Cuate Copeland Unavailable Unavailable Robert Araiza Unavailable Unavailable Robert Araiza Unavailable Unavailable Cleve Alcaraz Akbar Primary Care Provider [phone] ODILON RODRIGUEZ Attending Unavailabl e CAROL, ACHILLES AKBAR Primary Care Unavailab le Oseguera FLUX CORE WELDER-ELASTIC ASSEMBLER, Loree D Primary Care Provider [phone] LOREE OSEGUERA Primary Care Unavailable LOREE OSEGUERA Primary Care Unavailable Oseguera FLUX CORE WELDER-ELASTIC ASSEMBLER, Loree D Unavailable NO, PHYSICIAN Primary Care Unavailable SHOSHANA RICH Attending Unava ilODILON Brumfield Attending Unavailable LOREE OSEGUERA Primary Care Unavailable Virginia Titus CNM Attending Provider [phone] Virginia Titus CNM Referring Provider [phone] SHELBIE CLEMENTE Referring Unavailab MADDY Eason Primary Care Unavailable SHELBIE CLEMENTE Attending Unavailab SHELBIE Mendieta Referring Unavailab JACKIE Lee Attending Unavailable MADDY CA Primary Care Unavailable SHELBIE CLEMENTE Referring Unavailab JACKIE Lee Attending Unavailable MADDY CA Primary Care Unavailable Dr. Shelbie Navarro DO Attending Provider Dr. Virginia Chavez MD Attending Provider Virginia Titus CNM Attending Provider Virginia Titus CNM Referring Provider Aranza Tong Attending Provider Tacho POWERSM, Virginia Attending Provider [phone] Tacho CNM, Virginia Referring Provider [phone] Dr. Shelbie Navarro DO Referring Provider Dr. Shelbie Navarro DO Attending Provider Care Physician, No Primary Primary Care Provider Unavailable Dr. Virginia Chavez MD Referring Provider [phone] Lucio CNM, Columba Attending Provider Unavaila jony Valdes CNM, Columba Referring Provider Unavaila ble Care Physician, No Primary Referring Provider Un available Dr. Virginia Chavez MD Other Provider Shelbie Navarro Referring Unavailabl Shelbie Flores Attending Unavailabl e Virginia Titus Referring Unavailable Virginia Titus Attending Unavailable Hilario PRODUCTION CONTROL TECHNOLOGIST, Aranza Attending Unavailable Virginia Titus Attending Unavailable Shelbie Navarro Attending Unavailabl e Kathy, Virginia Attending Unavailable Care Physician, No Primary Primary Care Unava ilable Virginia Chavez Consulting Unavailable Virginia Chavez Referring Unavailable Virginia Titus Attending Unavailable Virginia Chavez Attending Unavailable Shelbie Navarro Attending Unavailabl e Virginia Titus Attending Unavailable Virginia Titus Attending Unavailable Shelbie Navarro Attending Unavailabl e Care Physician, No Primary Primary Care Unava ilable Care Physician, No Primary Referring Unava ilable Virginia Titus Attending Unavailable Virginia Chavez Attending Unavailable Care Physician, No Primary Primary Care Unava ilable MarcanthVirginia rice Referring Unavailable Care Physician, No Primary Primary Care Unava ilable Columba Valdes Referring Unavailable Columba Valdes Attending Unavailable Care Physician, No Primary Primary Care Unava ilable MarcanthonyVirgiina Referring Unavailable MarcVirginia pompa Attending Unavailable Virginia Chavez Attending Unavailable Care Physician, No Primary Primary Care Unava ilable Care Physician, No Primary Referring Unava ilable Care Physician, No Primary Referring Unava ilable Care Physician, No Primary Primary Care Unava ilable MarcVirginia pompa Attending Unavailable Virginia Titus Referring Unavailable Virginia Titus Attending Unavailable Virginia Titus Referring Unavailable Virginia Titus Attending Unavailable Virginia Titus Attending Unavailable Virginia Titus Referring Unavailable Allergies Allergy Classification Reported Allergen(s) Allergy Type Date of Onset Reaction(s) Facility (1 source) Seasonal allergy; Translations: [SEASONAL ALLERGIES] Propensity to adverse reactions (disorder) 5 [facility] Repository Medications Current Medications Medication Drug Class(es) Dates Sig (Normalized) Sig (Original) [id number] 200 actuat albuterol 0.09 mg/actuat metered dose [...] Active diphenhydrAMINE hydrochloride 50 mg oral capsule (14 sources) Histamine-1 Receptor Antagonist Start: 06-17-2024 take 1 capsule by mouth at bedtime Diphenhydramine Hcl (Unisom Sleepgels) 50 mg capsule Active 50 mg PO AT BEDTIME June 17, 2024 1:00am famotidine 20 mg oral tablet (3 sources) Histamine-2 Receptor Antagonist Start: 12-25-2024 take 1 tablet by mouth once daily Famotidine (Acid Controller) 20 mg tablet Active 20 mg PO DAILY December 25, 2024 12:00am hydrocortisone 10 mg/ml / neomycin 3.5 mg/ml / polymyxin b 20008 unt/ml otic solution (1 source) Aminoglycoside Antibacterial, [...] mouth once daily. 0 07/07/2012 Active Mv-Mn 140-Th-Hl3-Dha-Epa-F violet 180 mcg-35 mg- 25 mg-5 mg tablet,chewable (12 sources) Start: 06-17-2024 Mv-Mn 908-Cv-Eh4-Dha-Epa- Fish 180 mcg-35 mg- 25 mg-5 mg tablet,chewable Active {tbl} PO June 17, 2024 1:00am Pnv No.938-Uv-Oe4-Dha-Ep a-Fish 180 mcg-35 mg- 25 mg-5 mg tablet,chewable (2 sources) Start: 06-17-2024 Pnv No.128-Mp-Nt2-Dha-E pa-Fish 180 mcg-35 mg- 25 mg-5 mg tablet,chewable Active {tbl} PO June 17, 2024 1:00am vitamin b6 100 mg oral tablet (14 sources) Start: 06-17-2024 take 1 tablet by mouth at bedtime Pyridoxine (Vitamin B6) 100 mg tablet Active 100 mg PO AT BEDTIME June 17, 2024 1:00am Completed/Discontinued Medications Medication Drug Class(es) Dates Sig (Normalized) Sig (Original) Acetaminophen / Dextromethorphan (2 sources) Uncompetitive N-qjdnwe-D-aspartat e Receptor Antagonist, Sigma-1 Agonist End: 04-21-2023 acetaminophen/dex tromethorphan (ACETAMINOPHEN-DM ORAL) Take by mouth. 0 04/21/2023 Discontinued (Therapy completed) acetaminophen/de xtromethorphan (ACETAMINOPHEN-DM ORAL) Take by mouth. 0 Active terconazole 8 mg/ml vaginal cream (9 sources) Azole Antifungal Start: 11-11-2024 End: 11-14-2024 [...] other high risk pregnancies, unspecified trimester] Onset: 01-10-2025 Episodic Other complications of (1 source) Other [...] Comment on above: PRR, , KAROLINA 01/30, Dominick([employer]) elects NIPT with gen melina PRR, , KAROLINA 01/30, boy, Dominick([employer]) NIPT low risk PRR, , KAROLINA 01/30, boy, Graidy Dominick(-[facility]) NIPT low risk, anato my reveiwed fu views needed Other upper respiratory disease (2 sources) Allergic rhinitis; Translations: [Allergic rhinitis, unspecified] Onset: 04-12-2019 09-23-2022 Chronic Residual codes; unclassified (1 source) 37 weeks gestation of ; Translations: [37 weeks gestation of ] Onset: 01-10-2025 Episodic Residual codes; unclassified (1 source) 36 weeks gestation of ; Translations: [36 weeks gestation of ] Onset: 01-02-2025 Episodic Residual codes; unclassified (1 source) 35 weeks gestation of ; Translations: [35 weeks gestation of ] Onset: 12-27-2024 Episodic Residual codes; unclassified (1 source) 33 weeks [...] weeks gestation of ] Onset: 11-01-2024 Episodic Unclassified (1 source) Other underimmunization status; Translations: [Other underimmunization status] Onset: 01-10-2025 Past or Other Problems Problem Classification Problem Date Documented Da te Episodic/Chronic Administrative/social admission (3 sources) Patient encounter status; Translations: [Persons encountering health services in other specified circumstances] Onset: 09-23-2022 09-23-2022 Episodic Other screening for suspected conditions (not mental disorders or infectious disease) (3 sources) Other specified abnormal findings of blood chemistry; Translations: [Encounter for screening for malignant neoplasm of cervix] Onset: 03-03-2023 Episodic Other skin disorders (1 source) Acne; Translations: [Acne vulgaris] Onset: 11-25-2018 09-23-2022 Episodic Other skin disorders (1 source) Acne vulgaris; Translations: [Acne vulgaris] Onset: 11-25-2018 09-23-2022 Episodic Other upper respiratory infections (3 sources) Acute maxillary sinusitis; Translations: [Acute maxillary sinusitis, unspecified] Onset: 04-21-2023 04-21-2023 Episodic Residual codes; unclassified (1 source) 23 weeks gestation of ; Translations: [23 weeks gestation of ] Onset: 10-03-2024 Episodic Residual codes; unclassified (1 source) 9 weeks gestation of ; Translations: [9 weeks gestation of ] Onset: 06-30-2024 Episodic Unclassified (2 sources) Onset: 09-23-2022 Resolved: 04-21-2023 09-23-2022 Results Test Name Value Interpretation Reference Range Facility Patient Office Rep Office Visit Reporton 01-10-2025 Patient Office Rep Office Visit Report [facility] [address], [address] [place] [address] OFFICE VISIT Date of Service: 01/10/25 MR#: [id number] Acct: [id number] Name: RENUKA GRANDA Rep #: [id number] : 2000 Provider: NAZANIN Cai ams Age/Sex: 24/F Location: [facility] Status: Signed Intake Vital Signs 12/12/24 09:39 01/02/25 13:28 01/10/25 11:19 Height 5 ft 3 in 5 ft 3 in 5 ft 3 in Weight: 153 lb 4 oz BMI 27.1 BP 137/87 H Intake Visit Reasons: 37wk ob Chief Complaint: 37wk OB Taxicab Driver Required: No Is patient in pain?: No Allergies No Known Allergies Allergy (Verified 01/10/25 11:17) Medications ???Medication ???Instructions ???Recorded ???Confirmed ???Type diphenhydramine HCl 50 mg capsule 50 mg PO QHS 06/17/24 01/10/25 Hi story (Unisom SleepGels) mv-mn 110-FA 180 mcg-om3 35 mg-dha tab PO 06/17/24 01/10/25 History 25 mg-epa 5 mg-fish oil chew tablet pyridoxine (vitamin B6) 100 mg 100 mg PO QHS 06/17/24 01/10/25 Hi story tablet famotidine 20 mg tablet (Acid 20 mg PO DAILY 12/25/24 01/10/25 H istory Controller) Last Menstrual Period: 04/25/24 : No PFSH PFSH Medical History Asthma Surgical History Brick teeth extracted Family History Grandmother Cancer, Onset Age: 75 Paternal- Kidney Father High cholesterol Social History adopted: No household members: spouse and other details: Sister Erlinda housing: house current occupational status: employed current occupation: [employer]- [employer] current occupational exposures/hazards: No pets and animals: [...] 1-2 times per week duration: 15-30 minutes/day antoine/protestant: Mosque seatbelt use: always do you feel safe at home: No additional social history: Dominick- Landscaping/Marine History 1 Elective abortions Hx Para 0 Spontaneous abortions Hx # Term Pregnancies Ectopic pregnancies Hx # Pregnancies Multiple births # of living children HPI 37wk ob Details: RENUKA GRANDA is a 24 year old who presents for routine OB visit. OB Visit KAROLINA Calculator Estimated Delivery Date Method Current WG Current Estimate 01/30/25 LMP (Certain) 37w 1d Other Estimates 01/25/25 Ultrasound #1 37w 6d 01/25/25 Ultrasound #2 37w 6d Expected Delivery Route/Plan Labor Preferences- CB/BF classes: encouraged labor support person: Dominick labor intervention preferences: [] pain management options preferred: wants limited cut cord/dad catch: yes : yes PP control planned: discussed discussed possible routes of delivery and associated risks: [] special requests: [] Specific Issue/Plans Covid status: [] Flu vaccine: [] Tdap vaccine: declined Rhogam: NA LARC form signed: yes movement and labor precautions reviewed. Problem list reviewed and updated with the [...] Negative -???-???-???-???-?? ?-???-???-???-???-? ??-???-???- Negative 140 -???-???-???-???-?? ?-???-???- (more content not included)... Normal [facility] Rule out Beta Strep (Grp. B) on 01-04-2025 TARYN Group B Beta Streptococcus is not isolated. Normal [facility] Comment on above: Performed By: #### L 100.0100, L509.4006, L509.8002, L3890.6102, L900.0098, L3890.6006, BTS, L3890.6301 #### [facility] Laboratory [address] [place], [address] Patient Office Rep Office Visit Reporton 01-02-2025 Patient Office Rep Office Visit Report [facility] [address], [address] [place] [address] OFFICE VISIT Date of Service: 01/02/25 MR#: [id number] Acct: [id number] Name: RENUKA GRANDA Rep #: [id number] : 2000 Provider: Dr. Virginia sampson MD Age/Sex: 24/F Location: [facility] Status: Signed Intake Vital Signs 11/29/24 08:52 12/27/24 11:55 01/02/25 13:28 Height 5 ft 3 in 5 ft 3 in 5 ft 3 in Weight: 154 lb BMI 27.3 BP 132/88 H Intake Visit Reasons: 36 wk ob Taxicab Driver Required: No Is patient in pain?: No Allergies No Known Allergies Allergy (Verified 01/02/25 13:30) Medications ???Medication ???Instructions ???Recorded ???Confirmed ???Type diphenhydramine HCl 50 mg capsule 50 mg PO QHS 06/17/24 01/02/25 Hi story (Unisom SleepGels) mv-mn 110-FA 180 mcg-om3 35 mg-dha tab PO 06/17/24 01/02/25 History 25 mg-epa 5 mg-fish oil chew tablet pyridoxine (vitamin B6) 100 mg 100 mg PO QHS 06/17/24 01/02/25 Hi story tablet famotidine 20 mg tablet (Acid 20 mg PO DAILY 12/25/24 01/02/25 H istory Controller) Last Menstrual Period: 04/25/24 Zika: Zika virus screening: Negative : No PFSH PFSH Medical History Asthma Surgical History Brick teeth extracted Family History Grandmother Cancer, Onset Age: 75 Paternal- Kidney Father High cholesterol Social History adopted: No household members: spouse and other details: Sister Fiance housing: house current occupational status: employed 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 OB Visit KAROLINA Calculator Estimated Delivery Date Method Current WG Current Estimate 01/30/25 LMP (Certain) 36w 0d Other Estimates 01/25/25 Ultrasound #1 36w 5d 01/25/25 Ultrasound #2 36w 5d Expected Delivery Route/Plan Labor Preferences- CB/BF classes: encouraged labor support person: Dominick labor intervention preferences: [] pain management options preferred: wants limited cut cord/dad catch: yes : yes PP control planned: discussed discussed possible routes of delivery and associated risks: [] special requests: [] Specific Issue/Plans Covid status: [] Flu vaccine: [] Tdap vaccine: declined Rhogam: NA LARC form signed: yes movement and labor precautions reviewed. Problem list reviewed and updated with the [...] 133/75 Negative -???-???-???-???-?? ?-???-???-???-???-? ??-???-???- Negative 140 (more content not included)... Normal [facility] OB Triage Progress Noteon OB Triage Progress Note [facility] Medical Records Department [address] [place] [address] OB Triage Progress Note 12/31/24 0120 MR#: [id number] Acct: [id number] Name: RENUKA GRANDA Rep #: [id number] : 2000 24 From: Virginia Chavez MD PCP: Care Physician,No Primary Status:DEP CLI Y DOS: Location: OUT Progress Notes Date of Service: 12/23/24 Progress Note: Patient presents for triage evaluation secondary to decreased movement FHT: 140 Moderate variability reactive no decelerations category I tracing [place]: no regular Contractions Assessment and plan: 34 weeks decresaed movement Reactive NST, reassuring maternal and status patient discharged to home to follow-up as scheudled. See problem list details for additional plan information. Charges/Coding Procedures Urinary/Genital 52xxx-59xxx: [id number] non-stress test Interp 12/31/24 0122 Date Virginia Chavez MD Cosigner Signature (if applicable): Date __ CC: Dr. Virginia Chavez MD; No Primary Care Physician Signed Normal [facility] Laboratory - Chemistry and C hemistry - challengeOrdered By: Virginia Chavez on 12-27-2024 Glucose Ql (U) Negative [facility] Laboratory - UrinalysisOrder ed By: Virginia Chavez on 12-27-2024 Protein Ql (U) Negative [facility] Patient Office Rep Office Visit Reporton 12-27-2024 Patient Office Rep Office Visit Report [facility] [address], [address] [place] [address] OFFICE VISIT Date of Service: 12/27/24 MR#: [id number] Acct: [id number] Name: RENUKA GRANDA Rep #: [id number] : 2000 Provider: Dr. Virginia sampson MD Age/Sex: 24/F Location: [facility] Status: Signed Intake Vital Signs 11/29/24 08:52 12/25/24 21:54 12/27/24 11:52 12/27/24 11:55 Height 5 ft 3 in 5 ft 3 in 5 ft 3 in 5 ft 3 in Weight: 148 lb 9 oz BMI 26.3 BP 130/83 H Intake Visit Reasons: 35 wk ob Taxicab Driver Required: No Is patient in pain?: No Feel stressed/tense/nerv ous/anxious/difficu lty sleeping: not at all Allergies No Known Allergies Allergy (Verified 12/27/24 11:52) Medications ???Medication ???Instructions ???Recorded ???Confirmed ???Type diphenhydramine HCl 50 mg capsule 50 mg PO QHS 06/17/24 12/27/24 Hi story (Unisom SleepGels) mv-mn 110-FA 180 mcg-om3 35 mg-dha tab PO 06/17/24 12/27/24 History 25 mg-epa 5 mg-fish oil chew tablet pyridoxine (vitamin B6) 100 mg 100 mg PO QHS 06/17/24 12/27/24 Hi story tablet famotidine 20 mg tablet (Acid 20 mg PO DAILY 12/25/24 12/27/24 H istory Controller) Last Menstrual Period: 04/25/24 Zika: Zika virus screening: Negative : No PFSH PFSH Medical History Asthma Surgical History Brick teeth extracted Family History Grandmother Cancer, Onset Age: 75 Paternal- Kidney Father High cholesterol Social History adopted: No household members: spouse and other details: Sister Fiance housing: house current occupational status: employed 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 OB Visit KAROLINA Calculator Estimated Delivery Date Method Current WG Current Estimate 01/30/25 LMP (Certain) 35w 1d Other Estimates 01/25/25 Ultrasound #1 35w 6d 01/25/25 Ultrasound #2 35w 6d Expected Delivery Route/Plan Labor Preferences- CB/BF classes: encouraged labor support person: Dominick labor intervention preferences: [] pain management options preferred: wants limited cut cord/dad catch: yes : yes PP control planned: discussed discussed possible routes of delivery and associated risks: [] special requests: [] Specific Issue/Plans Covid status: [] Flu vaccine: [] Tdap vaccine: declined Rhogam: NA LARC form signed: yes movement and labor precautions reviewed. Problem list reviewed and updated with the [...] mfm. 09/08/24 -???-???-???-???-?? ?-???-???-???-???-? ??-???-???- 19w 3d 1 (more content not included)... Normal [facility] (ROM) Rupture Of Membraneson 12-25-2024 ROM Negative Normal Negative [facility] Comment on above: Result Comment: Amni otic fluid not present indicates No Rupture of Membranes at time of specimen collection. Performed By: #### L 205.1000 #### [facility] [address] [place], [place], [address] Genital Culture Comprehensiv payton 12-15-2024 VAC Reason for Exam: Vaginal discharge and Irritation No Gardnerella, Neisseria or beta-hemolytic Streptococcus isolated. Genital Culture Comprehensive Presumptive C albicans Amount Growth 3+ Normal [facility] Comment on above: Performed By: #### L 100.0100, L509.4006, L509.8002, L3890.6102, L900.0098, L3890.6006, BTS, L3890.6301 #### [facility] [address] [place], [address] Gram Stainon 12-12-2024 GS Reason for Exam: Vaginal discharge and Irritation Gram Stain 4+ White Blood Cells 4+ Gram positive rods No Gram negative diplococci Score = 0 Interpretation: 0-3 Normal, 4-6 Intermediate, 7-10 Positive BV Normal [facility] Comment on above: Performed By: #### L 100.0100, L509.4006, L509.8002, L3890.6102, L900.0098, L3890.6006, BTS, L3890.6301 #### [facility] [address] [place], [address] Gram stainOrdered By: Virginia Titus on 12-12-2024 Microscopic observation Gram stain Nom (Unsp spec) [facility] Laboratory - Chemistry and C hemistry - challengeOrdered By: Virginia Titus on 12-12-2024 Glucose Ql (U) Negative [facility] Laboratory - UrinalysisOrder ed By: Virginia Titus on 12-12-2024 Protein Ql (U) Negative [facility] Patient Office Rep Office Visit Reporton 12-12-2024 Patient Office Rep Office Visit Report [facility] [address], [address] [place] [address] OFFICE VISIT Date of Service: 12/12/24 MR#: [id number] Acct: [id number] Name: RENUKA GEORGE Rep #: [id number] : 2000 Provider: NAZANIN Cai ams Age/Sex: 24/F Location: [facility] Status: Signed Intake Vital Signs 11/29/24 08:52 12/12/24 09:39 Height 5 ft 3 in 5 ft 3 in Weight: 147 lb 5 oz BMI 26.1 BP 127/83 H Intake Visit Reasons: 33 wk ob Chief Complaint: 33wk OB Taxicab Driver Required: No Is patient in pain?: No [...] PFSH PFSH Medical History Asthma Surgical History Brick teeth extracted Family History Grandmother Cancer, Onset Age: 75 Paternal- Kidney Father High cholesterol Social History adopted: No household members: spouse and other details: Sister Fiance housing: house current occupational status: employed 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 Normal [facility] Laboratory - Chemistry and C hemistry - challengeOrdered By: Virginia Titus on 11-29-2024 Glucose Ql (U) Negative [facility] Laboratory - UrinalysisOrder ed By: Virginia Titus on 11-29-2024 Protein Ql (U) Negative [facility] Patient Office Rep Office Visit Reporton 11-29-2024 Patient Office Rep Office Visit Report [facility] [address], [address] [place] [address] OFFICE VISIT Date of Service: 11/29/24 MR#: [id number] Acct: [id number] Name: RENUKA GEORGE Rep #: [id number] : 2000 Provider: NAZANIN Cai ams Age/Sex: 24/F Location: [facility] [place] [place] Status: Signed Intake Vital Signs 10/03/24 10:43 11/11/24 13:53 11/29/24 08:52 Height 5 ft 3 in 5 ft 3 in 5 ft 3 in Weight: 143 lb BMI 25.3 BP 115/73 Intake Visit Reasons: 31 WK OB Chief Complaint: 31wk OB Taxicab Driver Required: No Is patient in pain?: No [...] PFSH PFSH Medical History Asthma Surgical History Brick teeth extracted Family History Grandmother Cancer, Onset Age: 75 Paternal- Kidney Father High cholesterol Social History adopted: No household members: spouse and other details: Sister Fiance housing: house current occupational status: employed current occupation: [employer]- [employer] current occupational exposures/hazards: No pets and animals: [...] 1-2 times per week duration: 15-30 minutes/day antoine/protestant: Mosque seatbelt use: always do you feel safe [...] (+15 lb (more content not included)... Normal [facility] Urine Cultureon 11-14-2024 U[facility] Urine Culture Urine Culture Mixed Gram Positive Organisms [place] Count 25,000-50,000 MIXC Mixed contaminants. Submit a new specimen if indicated. Normal [facility] Comment on above: Performed By: #### L 100.0100, L509.4006, L509.8002, L3890.6102, L900.0098, L3890.6006, BT, L3890.6301 #### [facility] [address] [place], [address] Genital Culture Comprehensiv payton 11-13-2024 VAC Reason for Exam: vaginal discharge No Gardnerella, Neisseria or beta-hemolytic Streptococcus isolated. Presumptive C albicans Amount Growth 3+ Normal [facility] Comment on above: Performed By: #### L 100.0100, L509.4006, L509.8002, L3890.6102, L900.0098, L3890.6006, BTS, L3890.6301 #### [facility] [address] [place], [address] (ROM) Rupture Of Membraneson 11-11-2024 ROM Negative Normal Negative [facility] Comment on above: Result Comment: Amni otic fluid not present indicates No Rupture of Membranes at time of specimen collection. Performed By: #### L 100.0100, L509.4006, L509.8002, L3890.6102, L900.0098, L3890.6006, BTS, L3890.6301 #### [facility] [address] [place], [address] Gram Stainon 11-11-2024 GS Reason for Exam: vaginal discharge Gram Stain 4+ Gram positive rods Rare Yeast Like Organisms No Gram negative diplococci Score = 0 Interpretation: 0-3 Normal, 4-6 Intermediate, 7-10 Positive BV Normal [facility] Comment on above: Performed By: #### L 100.0100, L509.4006, L509.8002, L3890.6102, L900.0098, L3890.6006, BTS, L3890.6301 #### [facility] [address] [place], [address] Gram stainOrdered By: Tito Britton on 11-11-2024 Microscopic observation Gram stain Nom (Unsp spec) [facility] Laboratory - Chemistry and C hemistry - challengeOrdered By: Shelbie Britton on 11-11-2024 Bilirubin Ql (U) Negative [facility] Glucose Ql (U) Negative [facility] Ketones Ql (U) Negative [facility] pH (U) 5.0 [pH] [facility] Specific gravity (U) [Rel density] 1.005 [facility] Urobilinogen (U) [Mass/Vol] 0.1082855 mg/dL [facility] Laboratory - Hematology and Cell countsOrdered By: Shelbie Britton on 11-11-2024 Hemoglobin Ql (U) Small [facility] Laboratory - Specimen inform ationOrdered By: Shelbie Britton on 11-11-2024 Clarity (U) Clear [facility] Color (U) Yellow [facility] Laboratory - UrinalysisOrder ed By: Shelbie Britton on 11-11-2024 Nitrite Ql (U) Negative [facility] Protein Ql (U) Negative [facility] No Panel InformationOrdered By: Shelbie Britton on 11-11-2024 Urine Leukocytes Positive [facility] Patient Office Rep Office Visit Reporton 11-11-2024 Patient Office Rep Office Visit Report [facility] [address], [address] [place] [address] OFFICE VISIT Date of Service: 11/11/24 MR#: [id number] Acct: [id number] Name: RENUKA GEORGE Rep #: [id number] : 2000 Provider: Dr. Shelbie Olivares DO Age/Sex: 24/F Location: [facility] [place] Status: Signed Intake Vital Signs 11/01/24 09:21 11/11/24 13:53 11/11/24 13:53 Height 5 ft 3 in 5 ft 3 in 5 ft 3 in Weight: 139 lb 6 oz BMI 24.7 BP 134/83 H Intake Visit Reasons: 28w, vomiting, pelvic pressure, [facility] Taxicab Driver Required: No Is patient in pain?: No [...] PFSH PFSH Medical History Asthma Surgical History Brick teeth extracted Family History Grandmother Cancer, Onset Age: 75 Paternal- Kidney Father High cholesterol Social History adopted: No household members: spouse and other details: Sister Fiance housing: house current occupational status: employed current occupation: [employer]- [employer] current occupational exposures/hazards: No pets and animals: [...] 1-2 times per week duration: 15-30 minutes/day antoine/protestant: Mosque seatbelt use: always do you feel safe [...] ?-???-???-???-???-? ??-???-???- (more content not included)... Normal [facility] Urine cultureOrdered By: Nu Britton on 11-11-2024 Bacteria identified Cx Nom (U) Positive Abnormal [facility] Absolute lymphocyte countOrd ered By: Virginia Titus on 11-01-2024 Lymphocytes Auto (Unsp spec) [#/Vol] 1.17 10*3/uL 0.83-4.51 [facility] Absolute neutrophil countOrd ered By: Virginia Titus on 11-01-2024 Neutrophils (Bld) [#/Vol] 10.3 10*3/uL High 2.0-7.7 [facility] Automated lymphocyte count a s percentage of total leukocytesOrdered By: Virginia Titus on 11-01-2024 Lymphocytes/100 WBC Auto (Unsp spec) 9.2 % Low 19-41 [facility] Basophil percentageOrdered B y: Virginia Titus on 11-01-2024 Basophils/100 WBC (Bld) 0.4 % 0-1 [facility] CBC W/Diff, Automatedon 10-18 Absolute Lymph 1.17 X10 3/uL Normal 0.83-4.51 [facility] Comment on above: Performed By: #### L 100.0100, L509.4006, L509.8002, L3890.6102, L900.0098, L3890.6006, BTS, L3890.6301 #### [facility] [address] [place], [address] Absolute Neut 10.3 X10 3/uL High 2.0-7.7 [facility] Comment on above: Performed By: #### L 100.0100, L509.4006, L509.8002, L3890.6102, L900.0098, L3890.6006, BTS, L3890.6301 #### [facility] [address] [place], [address] Basophils/100 WBC (Bld) 0.4 % Normal 0-1 [facility] Comment on above: Performed By: #### L 100.0100, L509.4006, L509.8002, L3890.6102, L900.0098, L3890.6006, BTS, L3890.6301 #### [facility] [address] [place], [address] Eosinophils/100 WBC (Bld) 2.1 % Normal 0-5 [facility] Comment on above: Performed By: #### L 100.0100, L509.4006, L509.8002, L3890.6102, L900.0098, L3890.6006, BTS, L3890.6301 #### [facility] [address] [place], [address] Erythrocyte distribution width (RBC) [Ratio] 12.7 % Normal 11.6-14.6 [facility] Comment on above: Performed By: #### L 100.0100, L509.4006, L509.8002, L3890.6102, L900.0098, L3890.6006, BTS, L3890.6301 #### [facility] [address] [place], [address] Hematocrit (Bld) [Volume fraction] 34.2 % Low 37-47 [facility] Comment on above: Performed By: #### L 100.0100, L509.4006, L509.8002, L3890.6102, L900.0098, L3890.6006, BTS, L3890.6301 #### [facility] [address] [place], [address] Hemoglobin (Bld) [Mass/Vol] 11.5 g/dL Low 12.0-15.0 [facility] Comment on above: Performed By: #### L 100.0100, L509.4006, L509.8002, L3890.6102, L900.0098, L3890.6006, BTS, L3890.6301 #### [facility] [address] [place], [address] IG% 0.500 Normal 0.0-0.9 [facility] Comment on above: Result Comment: IG% - Immature Granulocytes (promyelocytes, myelocytes and metamyelocytes) > 1% indicates that a LEFT SHIFT is Present. Performed By: #### L 100.0100, L509.4006, L509.8002, L3890.6102, L900.0098, L3890.6006, BTS, L3890.6301 #### [facility] [address] [place], [address] Lymphocytes/100 WBC (Bld) 9.2 % Low 19-41 [facility] Comment on above: Performed By: #### L 100.0100, L509.4006, L509.8002, L3890.6102, L900.0098, L3890.6006, BTS, L3890.6301 #### [facility] [address] [place], [address] MCH (RBC) [Entitic mass] 31.9 pg Normal 27.0-32.0 [facility] Comment on above: Performed By: #### L 100.0100, L509.4006, L509.8002, L3890.6102, L900.0098, L3890.6006, BTS, L3890.6301 #### [facility] [address] [place], [address] MCHC (RBC) [Mass/Vol] 33.6 g/dL Normal 32-36 [facility] Comment on above: Performed By: #### L 100.0100, L509.4006, L509.8002, L3890.6102, L900.0098, L3890.6006, BTS, L3890.6301 #### [facility] [address] [place], [address] MCV (RBC) [Entitic vol] 95.0 fL Normal 81-99 [facility] Comment on above: Performed By: #### L 100.0100, L509.4006, L509.8002, L3890.6102, L900.0098, L3890.6006, BTS, L3890.6301 #### [facility] [address] [place], [address] Monocytes/100 WBC (Bld) 7.7 % Normal 0-10 [facility] Comment on above: Performed By: #### L 100.0100, L509.4006, L509.8002, L3890.6102, L900.0098, L3890.6006, BTS, L3890.6301 #### [facility] [address] [place], [address] Neutrophils/100 WBC (Bld) 80.1 % High 47-70 [facility] Comment on above: Performed By: #### L 100.0100, L509.4006, L509.8002, L3890.6102, L900.0098, L3890.6006, BTS, L3890.6301 #### [facility] [address] [place], [address] Nucleated RBC (Bld) [#/Vol] 0 10*3/uL Normal 0-5 [facility] Comment on above: Performed By: #### L 100.0100, L509.4006, L509.8002, L3890.6102, L900.0098, L3890.6006, BTS, L3890.6301 #### [facility] [address] [place], [address] Platelet mean volume (Bld) [Entitic vol] 11.2 fL Normal 6.2-12.0 [facility] Comment on above: Performed By: #### L 100.0100, L509.4006, L509.8002, L3890.6102, L900.0098, L3890.6006, BTS, L3890.6301 #### [facility] [address] [place], [address] Platelets (Bld) [#/Vol] 182 10*3/uL Normal 150-450 [facility] Comment on above: Performed By: #### L 100.0100, L509.4006, L509.8002, L3890.6102, L900.0098, L3890.6006, BTS, L3890.6301 #### [facility] [address] [place], [address] RBC (Bld) [#/Vol] 3.60 10*6/uL Low 4.2-5.4 [facility] Comment on above: Performed By: #### L 100.0100, L509.4006, L509.8002, L3890.6102, L900.0098, L3890.6006, BTS, L3890.6301 #### [facility] [address] [place], [address] RDW SD 43.9 fl Normal 35.1-43.9 [facility] Comment on above: Performed By: #### L 100.0100, L509.4006, L509.8002, L3890.6102, L900.0098, L3890.6006, BTS, L3890.6301 #### [facility] [address] [place], [address] WBC (Bld) [#/Vol] 12.8 10*3/uL High 4.4-11.0 [facility] Comment on above: Performed By: #### L 100.0100, L509.4006, L509.8002, L3890.6102, L900.0098, L3890.6006, BTS, L3890.6301 #### [facility] [address] [place], [address] Eosinophil percentageOrdered By: Virginia Titus on 11-01-2024 Eosinophils/100 WBC (Bld) 2.1 % 0-5 [facility] Erythrocyte distribution wid th ratioOrdered By: Virginia Titus on 11-01-2024 Erythrocyte distribution width (RBC) [Ratio] 12.7 % 11.6-14.6 [facility] Erythrocyte distribution wid th standard deviationOrdered By: Virginia Titus on 11-01-2024 Erythrocyte distribution width (RBC) [Ratio] 43.9 fl 35.1-43.9 [facility] Glucose Challenge Gest 1H 50 mary lou 11-01-2024 GLU GEST 50g 1H 89 mg/dL Normal 70-140 [facility] Comment on above: Performed By: #### L 100.0100, L509.4006, L509.8002, L3890.6102, L900.0098, L3890.6006, BTS, L3890.6301 #### [facility] [address] [place], [address] Glucose measurement at 2 freda rs post-dose gestational glucose tolerance testOrdered By: Virginia Titus on 11-01-2024 Glucose [Mass/Vol] 89 mg/dL 70-140 [facility]on 11-01-2024 HIV Non-Reactive Normal Nonreactive [facility] Comment on above: Result Comment: Non- Reactive Reactive Repeatedly reactive samples must be confirmed according to CDC recommended confirmatory algorithms. The subresults for either HIVAG or AHIV can be used as an aid in the selection of the confirmation algorithm for reactive samples. Send out specimens with Reactive results to [facility] for confirmation. Order the HIV antibody detection and differentiation: lc#[id number] Performed By: #### L 100.0100, L509.4006, L509.8002, L3890.6102, L900.0098, L3890.6006, BTS, L3890.6301 #### [facility] [address] [place], [place], [address] Hematocrit Auto (Bld) [Volum e fraction]Ordered By: Virginia Titus on 11-01-2024 Hematocrit (Bld) [Volume fraction] 34.2 % Low 37-47 [facility] Hemoglobin measurementOrdere d By: Virginia Titus on 11-01-2024 Hemoglobin (Bld) [Mass/Vol] 11.5 g/dL Low 12.0-15.0 [facility] Immature granulocytes/100 WB C Auto (Bld)Ordered By: Virginia Titus on 11-01-2024 Immature granulocytes/100 WBC (Bld) 0.500 % 0.0-0.9 [facility] Comment on above: IG% - Immature Granu locytes (promyelocytes, myelocytes and metamyelocytes) > 1% indicates that a LEFT SHIFT is Present. Laboratory - Chemistry and C hemistry - challengeOrdered By: Aranza Rich on 11-01-2024 Glucose Ql (U) Negative [facility] Laboratory - UrinalysisOrder ed By: Aranza Rich on 11-01-2024 Protein Ql (U) Negative [facility] MCV (mean corpuscular volume ) determinationOrdered By: Virginia Titus on 11-01-2024 MCV (RBC) [Entitic vol] 95.0 fL 81-99 [facility] Mean corpuscular hemoglobin (MCH) determinationOrdered By: Virginia Titus on 11-01-2024 MCH (RBC) [Entitic mass] 31.9 pg 27.0-32.0 [facility] Mean corpuscular hemoglobin concentration (MCHC) determinationOrdered By: Virginia Titus on 11-01-2024 MCHC (RBC) [Mass/Vol] 33.6 g/dL 32-36 [facility] Mean platelet volume determi nationOrdered By: Virginia Titus on 11-01-2024 Platelet mean volume (Bld) [Entitic vol] 11.2 fL 6.2-12.0 [facility] Monocyte percentageOrdered B y: Virginia Titus on 11-01-2024 Monocytes/100 WBC (Bld) 7.7 % 0-10 [facility] Neutrophil percentageOrdered By: Virginia Titus on 11-01-2024 Neutrophils/100 WBC (Bld) 80.1 % High 47-70 [facility] No Panel InformationOrdered By: Virginia Titus on 11-01-2024 HIV (1&2) Antibody Non-Reactive Nonreactive [facility] Comment on above: Non-ReactiveReactive Repeatedly reactive samples must be confirmed according to CDC recommended confirmatory algorithms. The subresults for either HIVAG or AHIV can be used as an aid in the selection of the confirmation algorithm for reactive samples.Send out specimens with Reactive results to [facility] for confirmation.Order the HIV antibody detection and differentiation: #[id number] Nucleated red blood cell per centageOrdered By: Virginia Titus on 11-01-2024 Nucleated RBC/100 WBC (Bld) [Ratio] 0 % 0-5 [facility] Patient Office Rep Office Visit Reporton 11-01-2024 Patient Office Rep Office Visit Report [facility] [address], [address] [place] [address] OFFICE VISIT Date of Service: 11/01/24 MR#: [id number] Acct: [id number] Name: RENUKA GEORGE Rep #: [id number] : 2000 Provider: ESTRELLA wan Age/Sex: 24/F Location: [facility] [place] Status: Signed Intake Vital Signs 09/08/24 10:54 10/03/24 10:43 11/01/24 09:11 11/01/24 09:21 Height 5 ft 3 in 5 ft 3 in 5 ft 3 in 5 ft 3 in Weight: 137 lb 6 oz BMI 24.3 BP 120/72 Intake Visit Reasons: 27 wk ob Chief Complaint: 27 Week OB Taxicab Driver Required: No Is patient in pain?: No [...] PFSH PFSH Medical History Asthma Surgical History Brick teeth extracted Family History Grandmother Cancer, Onset Age: 75 Paternal- Kidney Father High cholesterol Social History adopted: No household members: spouse and other details: Sister Fiance housing: house current occupational status: employed 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 Normal [facility] Platelet countOrdered By: Babak Titus on 11-01-2024 Platelets (Bld) [#/Vol] 182 10*3/uL 150-450 [facility] RBC Auto (Bld) [#/Vol]Ordere d By: Virginia Titus on 11-01-2024 RBC (Bld) [#/Vol] 3.60 10*6/uL Low 4.2-5.4 [facility] Syphilis Antibodieson 2024 Syphilis Abs Non-Reactive Normal Nonreactive [facility] Comment on above: Performed By: #### L 100.0100, L509.4006, L509.8002, L3890.6102, L900.0098, L3890.6006, BTS, L3890.6301 #### [facility] [address] [place], [address] White blood cell (WBC) count Ordered By: Virginia Titus on 11-01-2024 WBC (Bld) [#/Vol] 12.8 10*3/uL High 4.4-11.0 [facility] Laboratory - Chemistry and C hemistry - challengeOrdered By: Virginia Titus on 10-03-2024 Glucose Ql (U) Negative [facility] Laboratory - UrinalysisOrder ed By: Virginia Titus on 10-03-2024 Protein Ql (U) Negative [facility] Patient Office Rep Office Visit Reporton 10-03-2024 Patient Office Rep Office Visit Report [facility], [address] [place] [address] OFFICE VISIT Date of Service: 10/03/24 MR#: [id number] Acct: [id number] Name: RENUKA GEORGE José Rep #: [id number] : 2000 Provider: NAZANIN Cai ams Age/Sex: 24/F Location: [facility] [place] Status: Signed Intake Vital Signs 08/08/24 10:16 09/08/24 10:54 10/03/24 10:43 Height 5 ft 3 in 5 ft 3 in 5 ft 3 in Weight: 130 lb 4 oz BMI 23.1 BP 134/87 H Intake Visit Reasons: 21 wk ob Chief Complaint: 23wk OB Taxicab Driver Required: No Is patient in pain?: No [...] PFSH PFSH Medical History Asthma Surgical History Brick teeth extracted Family History Grandmother Cancer, Onset Age: 75 Paternal- Kidney Father High cholesterol Social History adopted: No household members: spouse and other details: Sister Fiance housing: house current occupational status: employed 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 Normal [facility] Progress Noteon 05-29-2025 [employer] Authentication Interface Message Text [facility]- MEDICINE CONSULT Referring/Gwen gonzales Provider: Shelbie Clemente, * PCP: Maddy Ca APRN-GURWINDER INDICATION FOR [...] biometry consistent with clinical dates. 2. Right CAN MARKER and suspected benign interhemispheric cyst devoid of [...] fetus affecting care of mother, antepartum 09/15/2024 CAN MARKER and CVI present. Choroid plexus cysts (CAN MARKER) are small fluid-filled structures within the choroid [...] Pollen allergy- eyes swelling and itchy Normal [facility] Laboratory - Chemistry and C hemistry - challengeOrdered By: Virginia Chavez on 09-08-2024 Glucose Ql (U) Negative [facility] Laboratory - UrinalysisOrder ed By: Virginia Chavez on 09-08-2024 Protein Ql (U) Negative [facility] Patient Office Rep Office Visit Reporton 09-08-2024 Patient Office Rep Office Visit Report [facility] [address], [address] [place] [address] OFFICE VISIT Date of Service: 09/08/24 MR#: [id number] Acct: [id number] Name: RENUKA GEORGE Rep #: [id number] : 2000 Provider: Dr. Virginia sampson MD Age/Sex: 24/F Location: [facility] [place] Status: Signed Intake Vital Signs 06/30/24 14:27 08/08/24 10:16 09/08/24 10:49 09/08/24 10:54 Height 5 ft 3 in 5 ft 3 in 5 ft 3 in 5 ft 3 in Weight: 125 lb BMI 22.1 BP 133/75 H Intake Visit Reasons: 17 WK OB Taxicab Driver Required: No Is patient in pain?: No [...] PFSH PFSH Medical History Asthma Surgical History Brick teeth extracted Family History Grandmother Cancer, Onset Age: 75 Paternal- Kidney Father High cholesterol Social History adopted: No household members: spouse and other details: Sister Erlinda housing: house current occupational status: employed 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 Normal [facility] Progress Noteon 09-05-2024 [employer] Authentication Interface Message Text Returned patient's call and reviewed overall benign findings with patient. Patient's questions and concerns were addressed. Patient scheduled for follow up ultrasound on 09/15/24. Normal [facility] Laboratory - Chemistry and C hemistry - challengeOrdered By: Shelbie Britton on 08-08-2024 Glucose Ql (U) Negative [facility] Laboratory - UrinalysisOrder ed By: Shelbie Britton on 08-08-2024 Protein Ql (U) Negative [facility] Patient Office Rep Office Visit Reporton 08-08-2024 Patient Office Rep Office Visit Report [facility] [address], [address] [place] [address] OFFICE VISIT Date of Service: 08/08/24 MR#: [id number] Acct: [id number] Name: RENUKA GEORGE Rep #: [id number] : 2000 Provider: Dr. Shelbie Olivares, Age/Sex: 24/F Location: [facility] [place] Status: Signed Intake Vital Signs 06/30/24 14:27 08/08/24 10:15 08/08/24 10:16 Height 5 ft 3 in 5 ft 3 in 5 ft 3 in Weight: 116 lb 8 oz BMI 20.6 BP 123/77 H Intake Visit Reasons: 13 wk OB Chief Complaint: 15wk OB Taxicab Driver Required: No Is patient in pain?: No [...] PFSH PFSH Medical History Asthma Surgical History Brick teeth extracted Family History Grandmother Cancer, Onset Age: 75 Paternal- Kidney Father High cholesterol Social History adopted: No household members: spouse and other details: Sister Fiance housing: house current occupational status: employed 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 Normal [facility] Chlamydia/GC MABEL aptimaon CHLAMY,NUC ACID Negative Normal Negative [facility] Comment on above: Performed By: #### L 100.0100, L509.4006, L509.8002, L3890.6102, L900.0098, L3890.6006, BTS, L3890.6301 #### [facility] Laboratory [address] [place], [address] GC BY NUC ACID Negative Normal Negative [facility] Comment on above: Result Comment: Perf ormed at: =G - [facility] [address] [place], [place] [id number] Incoming Freight Clerk: Geovanna Torres MD, Phone: [phone] Performed By: #### L 100.0100, L509.4006, L509.8002, L3890.6102, L900.0098, L3890.6006, BTS, L3890.6301 #### [facility] [address] [place], [address] PAP I-G w/rfx hrHPV-Aptimaon 07-05-2024 ADEQ Comment Normal . [facility] Comment on above: Order Comment: Speci men Comment: [id number] Comment: Source.............CervixSpecimen Comment: LMP / Prev Treat...[id number] Comment: Other..............Specimen Comment: No. of containers..01 ThinPrep Vial Result Comment: Sati sfactory for evaluation. No endocervical component is identified. Performed By: #### L 100.0100, L509.4006, L509.8002, L3890.6102, L900.0098, L3890.6006, BTS, L3890.6301 #### [facility] [address] [place], [address] COMM . Normal . [facility] Comment on above: Order Comment: Speci men Comment: [id number] Comment: Source.............CervixSpecimen Comment: LMP / Prev Treat...[id number] Comment: Other..............Specimen Comment: No. of containers..01 ThinPrep Vial Performed By: #### L 100.0100, L509.4006, L509.8002, L3890.6102, L900.0098, L3890.6006, BTS, L3890.6301 #### [facility] [address] [place], [place], [id number] COMMENT Comment Normal . [facility] Comment on above: Order Comment: Speci men Comment: [id number] Comment: Source.............CervixSpecimen Comment: LMP / Prev Treat...[id number] Comment: Other..............Specimen Comment: No. of containers..01 ThinPrep Vial Result Comment: This liquid based ThinPrep(R) pap test was screened with the use of an image guided system. Performed By: #### L 100.0100, L509.4006, L509.8002, L3890.6102, L900.0098, L3890.6006, BTS, L3890.6301 #### [facility] [address] [place], [place], [id number] DIAG Comment Normal . [facility] Comment on above: Order Comment: Speci men Comment: [id number] Comment: Source.............CervixSpecimen Comment: LMP / Prev Treat...[id number] Comment: Other..............Specimen Comment: No. of containers..01 ThinPrep Vial Result Comment: NEGA TIVE FOR INTRAEPITHELIAL LESION OR MALIGNANCY. Performed By: #### L 100.0100, L509.4006, L509.8002, L3890.6102, L900.0098, L3890.6006, BTS, L3890.6301 #### [facility] [address] [place], [place], [id number] HPV RFLX Comment Normal . [facility] Comment on above: Order Comment: Speci men Comment: [id number] Comment: Source.............CervixSpecimen Comment: LMP / Prev Treat...[id number] Comment: Other..............Specimen Comment: No. of containers..01 ThinPrep Vial Result Comment: The HPV DNA reflex criteria were not met with this specimen result therefore, no HPV testing was performed. Performed at: [facility] [address] [place], [place] [id number] Incoming Freight Clerk: Chaitanya Diaz MD, Phone: [phone] Performed at: [facility] - [facility] [id number] Incoming Freight Clerk: Geovanna Torres MD, Phone: [phone] Performed By: #### L 100.0100, L509.4006, L509.8002, L3890.6102, L900.0098, L3890.6006, BTS, L3890.6301 #### [facility] [address] [place], [address] PAPSMR Comment Normal . [facility] Comment on above: Order Comment: Speci men Comment: [id number] Comment: Source.............CervixSpecimen Comment: LMP / Prev Treat...[id number] Comment: Other..............Specimen Comment: No. of containers..01 ThinPrep Vial Result Comment: The Pap smear is a screening test designed to aid in the detection of premalignant and malignant conditions of the uterine cervix. It is not a diagnostic procedure and should not be used as the sole means of detecting cervical cancer. Both false-positive and false-negative reports do occur. Performed By: #### L 100.0100, L509.4006, L509.8002, L3890.6102, L900.0098, L3890.6006, BTS, L3890.6301 #### [facility] [address] [place], [place], [id number] PERFORM Comment Normal . [facility] Comment on above: Order Comment: Speci men Comment: [id number] Comment: Source.............CervixSpecimen Comment: LMP / Prev Treat...[id number] Comment: Other..............Specimen Comment: No. of containers..01 ThinPrep Vial Result Comment: Ioana Max, Welding Machine Operator Helper Arc (ASCP) Performed By: #### L 100.0100, L509.4006, L509.8002, L3890.6102, L900.0098, L3890.6006, BTS, L3890.6301 #### [facility] [address] [place], [place], [id number] (643) Absolute lymphocyte countOrd ered By: Virginia Titus on 07-04-2024 Lymphocytes Auto (Unsp spec) [#/Vol] 1.44 10*3/uL 0.83-4.51 [facility] Absolute neutrophil countOrd ered By: Virginia Titus on 07-04-2024 Neutrophils (Bld) [#/Vol] 7.7 10*3/uL 2.0-7.7 [facility] Automated lymphocyte count a s percentage of total leukocytesOrdered By: Virginia Titus on 07-04-2024 Lymphocytes/100 WBC Auto (Unsp spec) 14.4 % Low 19-41 [facility] Basophil percentageOrdered B y: Virginia Titus on 07-04-2024 Basophils/100 WBC (Bld) 0.4 % 0-1 [facility] CBC W/Diff, Automatedon 06-18 Absolute Lymph 1.44 X10 3/uL Normal 0.83-4.51 [facility] Comment on above: Performed By: #### L 100.0100, L509.4006, L509.8002, L3890.6102, L900.0098, L3890.6006, BTS, L3890.6301 #### [facility] Laboratory [address] [place], [address] Absolute Neut 7.7 X10 3/uL Normal 2.0-7.7 [facility] Comment on above: Performed By: #### L 100.0100, L509.4006, L509.8002, L3890.6102, L900.0098, L3890.6006, BTS, L3890.6301 #### [facility] Laboratory [address] [place], [address] Basophils/100 WBC (Bld) 0.4 % Normal 0-1 [facility] Comment on above: Performed By: #### L 100.0100, L509.4006, L509.8002, L3890.6102, L900.0098, L3890.6006, BTS, L3890.6301 #### [facility] [address] [place], [address] Eosinophils/100 WBC (Bld) 0.4 % Normal 0-5 [facility] Comment on above: Performed By: #### L 100.0100, L509.4006, L509.8002, L3890.6102, L900.0098, L3890.6006, BTS, L3890.6301 #### [facility] Laboratory [address] [place], [address] Erythrocyte distribution width (RBC) [Ratio] 13.2 % Normal 11.6-14.6 [facility] Comment on above: Performed By: #### L 100.0100, L509.4006, L509.8002, L3890.6102, L900.0098, L3890.6006, BTS, L3890.6301 #### [facility] Laboratory [address] [place], [address] Hematocrit (Bld) [Volume fraction] 36.0 % Low 37-47 [facility] Comment on above: Performed By: #### L 100.0100, L509.4006, L509.8002, L3890.6102, L900.0098, L3890.6006, BTS, L3890.6301 #### [facility] [address] [place], [address] Hemoglobin (Bld) [Mass/Vol] 12.6 g/dL Normal 12.0-15.0 [facility] Comment on above: Performed By: #### L 100.0100, L509.4006, L509.8002, L3890.6102, L900.0098, L3890.6006, BTS, L3890.6301 #### [facility] [address] [place], [address] IG% 0.300 Normal 0.0-0.9 [facility] Comment on above: Result Comment: IG% - Immature Granulocytes (promyelocytes, myelocytes and metamyelocytes) > 1% indicates that a LEFT SHIFT is Present. Performed By: #### L 100.0100, L509.4006, L509.8002, L3890.6102, L900.0098, L3890.6006, BTS, L3890.6301 #### [facility] [address] [place], [address] Lymphocytes/100 WBC (Bld) 14.4 % Low 19-41 [facility] Comment on above: Performed By: #### L 100.0100, L509.4006, L509.8002, L3890.6102, L900.0098, L3890.6006, BTS, L3890.6301 #### [facility] [address] [place], [address] MCH (RBC) [Entitic mass] 31.0 pg Normal 27.0-32.0 [facility] Comment on above: Performed By: #### L 100.0100, L509.4006, L509.8002, L3890.6102, L900.0098, L3890.6006, BTS, L3890.6301 #### [facility] [address] [place], [address] MCHC (RBC) [Mass/Vol] 35.0 g/dL Normal 32-36 [facility] Comment on above: Performed By: #### L 100.0100, L509.4006, L509.8002, L3890.6102, L900.0098, L3890.6006, BTS, L3890.6301 #### [facility] [address] [place], [address] MCV (RBC) [Entitic vol] 88.7 fL Normal 81-99 [facility] Comment on above: Performed By: #### L 100.0100, L509.4006, L509.8002, L3890.6102, L900.0098, L3890.6006, BTS, L3890.6301 #### [facility] [address] [place], [address] Monocytes/100 WBC (Bld) 8.1 % Normal 0-10 [facility] Comment on above: Performed By: #### L 100.0100, L509.4006, L509.8002, L3890.6102, L900.0098, L3890.6006, BTS, L3890.6301 #### [facility] [address] [place], [address] Neutrophils/100 WBC (Bld) 76.4 % High 47-70 [facility] Comment on above: Performed By: #### L 100.0100, L509.4006, L509.8002, L3890.6102, L900.0098, L3890.6006, BTS, L3890.6301 #### [facility] [address] [place], [address] Nucleated RBC (Bld) [#/Vol] 0 10*3/uL Normal 0-5 [facility] Comment on above: Performed By: #### L 100.0100, L509.4006, L509.8002, L3890.6102, L900.0098, L3890.6006, BTS, L3890.6301 #### [facility] Laboratory [address] [place], [address] Platelet mean volume (Bld) [Entitic vol] 10.7 fL Normal 6.2-12.0 [facility] Comment on above: Performed By: #### L 100.0100, L509.4006, L509.8002, L3890.6102, L900.0098, L3890.6006, BTS, L3890.6301 #### [facility] Laboratory [address] [place], [address] Platelets (Bld) [#/Vol] 196 10*3/uL Normal 150-450 [facility] Comment on above: Performed By: #### L 100.0100, L509.4006, L509.8002, L3890.6102, L900.0098, L3890.6006, BTS, L3890.6301 #### [facility] [address] [place], [address] RBC (Bld) [#/Vol] 4.06 10*6/uL Low 4.2-5.4 [facility] Comment on above: Performed By: #### L 100.0100, L509.4006, L509.8002, L3890.6102, L900.0098, L3890.6006, BTS, L3890.6301 #### [facility] [address] [place], [address] RDW SD 42.5 fl Normal 35.1-43.9 [facility] Comment on above: Performed By: #### L 100.0100, L509.4006, L509.8002, L3890.6102, L900.0098, L3890.6006, BTS, L3890.6301 #### [facility] Laboratory [address] [place], [place], [address] WBC (Bld) [#/Vol] 10.0 10*3/uL Normal 4.4-11.0 [facility] Comment on above: Performed By: #### L 100.0100, L509.4006, L509.8002, L3890.6102, L900.0098, L3890.6006, BTS, L3890.6301 #### [facility] Laboratory [address] [place], [place], [id number] Eosinophil percentageOrdered By: Virginia Titus on 07-04-2024 Eosinophils/100 WBC (Bld) 0.4 % 0-5 [facility] Erythrocyte distribution wid th ratioOrdered By: Virginia Titus on 07-04-2024 Erythrocyte distribution width (RBC) [Ratio] 13.2 % 11.6-14.6 [facility] Erythrocyte distribution wid th standard deviationOrdered By: Virginia Titus on 07-04-2024 Erythrocyte distribution width (RBC) [Entitic vol] 42.5 fL 35.1-43.9 [facility] Erythrocyte distribution width (RBC) [Ratio] 42.5 fl 35.1-43.9 [facility] HBV surface Ag Ql (S)Ordered By: Virginia Titus on 07-04-2024 Hepatitis B Surface Antigen Non-Reactive Nonreactive [facility] Comment on above: Reactive: Presumptiv e evidence of HBV. Repeatedly reactive samples must be confirmed using a neutralization test (Elecsys HBsAg Confirmatory Test)Non-Reactive: HBsAg not detected; does not exclude the possibility of exposure to HBV Hematocrit Auto (Bld) [Volum e fraction]Ordered By: Virginia Titus on 07-04-2024 Hematocrit (Bld) [Volume fraction] 36.0 % Low 37-47 [facility] Hemoglobin measurementOrdere d By: Virginia Titus on 07-04-2024 Hemoglobin (Bld) [Mass/Vol] 12.6 g/dL 12.0-15.0 [facility] Hepatitis C antibodyOrdered By: Virginia Titus on 07-04-2024 Hepatitis C Antibody Non-Reactive Nonreactive [facility] Comment on above: Reactive: Presumptiv e evidence of antibodies to HCV. Follow CDC recommendations for supplemental testing.Non-Reactive: Antibodies to HCV were not detected; does not exclude the possibility of exposure to HCVReactive Results are presumptive evidence of antibodies to HCV. Follow CDC recommendations for supplemental testing.Order confirmation testing: HCV Quant by PCR testing - HCVPCR #[id number] Non Reactive: < 0.8 Equivocal: >/= 0.8 to < 1.0 Reactive: >/= 1.0The CDC requires that a reactive/equivocal HCV antibody result be sent out for confirmation. HCV Quant by PCR testing. Immature granulocytes/100 WB C Auto (Bld)Ordered By: Virginia Titus on 07-04-2024 Immature granulocytes/100 WBC (Bld) 0.300 % 0.0-0.9 [facility] Comment on above: IG% - Immature Granu locytes (promyelocytes, myelocytes and metamyelocytes) > 1% indicates that a LEFT SHIFT is Present. L3890.6006on 07-04-2024 HIV Non-Reactive Normal Nonreactive [facility] Comment on above: Result Comment: Non- Reactive Reactive Repeatedly reactive samples must be confirmed according to CDC recommended confirmatory algorithms. The subresults for either HIVAG or AHIV can be used as an aid in the selection of the confirmation algorithm for reactive samples. Send out specimens with Reactive results to [facility] for confirmation. Order the HIV antibody detection and differentiation: lc#[id number] Performed By: #### L 100.0100, L509.4006, L509.8002, L3890.6102, L900.0098, L3890.6006, BTS, L3890.6301 #### [facility] Laboratory [facility] [place], [address] L3890.6102on 07-04-2024 HEP B Surf Ag Non-Reactive Normal Nonreactive [facility] Comment on above: Result Comment: Reac tive: Presumptive evidence of HBV. Repeatedly reactive samples must be confirmed using a neutralization test (Elecsys HBsAg Confirmatory Test) Non-Reactive: HBsAg not detected; does not exclude the possibility of exposure to HBV Performed By: #### L 100.0100, L509.4006, L509.8002, L3890.6102, L900.0098, L3890.6006, BTS, L3890.6301 #### [facility] [address] [place], [address] L3890.6301on 07-04-2024 Hepatitis C Ab Non-Reactive Normal Nonreactive [facility] Comment on above: Result Comment: Reac tive: Presumptive evidence of antibodies to HCV. Follow CDC recommendations for supplemental testing. Non-Reactive: Antibodies to HCV were not detected; does not exclude the possibility of exposure to HCV Reactive Results are presumptive evidence of antibodies to HCV. Follow CDC recommendations for supplemental testing. Order confirmation testing: HCV Quant by PCR testing - HCVPCR lc#[id number] Non Reactive: < 0.8 Equivocal: >/= 0.8 to < 1.0 Reactive: >/= 1.0 The [facility] requires that a reactive/equivocal HCV antibody result be sent out for confirmation. HCV Quant by PCR testing. Performed By: #### L 100.0100, L509.4006, L509.8002, L3890.6102, L900.0098, L3890.6006, BTS, L3890.6301 #### [facility] [address] [place], [address] L509.4006on 07-04-2024 Rubella IgG REAC [facility] Comment on above: Result Comment: Anti body Result: Interpretation Non-Reactive: Non-Immune Reactive: Immune The following results were obtained with the Ele[employer]ys Rubella IgG assay. Results from assays of other manufacturers cannot be used interchangeably. Performed By: #### L 100.0100, L509.4006, L509.8002, L3890.6102, L900.0098, L3890.6006, BTS, L3890.6301 #### [facility] [address] [place], [address] L509.8002on 07-04-2024 Syphilis Abs Non-Reactive Normal Nonreactive [facility] Comment on above: Performed By: #### L 100.0100, L509.4006, L509.8002, L3890.6102, L900.0098, L3890.6006, BTS, L3890.6301 #### [facility] [address] [place], [address] Laboratory - Microbiology an d Antimicrobial susceptibilityOrdered By: Virginia Titus on 07-04-2024 HBV surface Ag Ql (S) Non-Reactive Nonreactive [facility] Comment on above: Reactive: Presumptiv e evidence of HBV. Repeatedly reactive samples must be confirmed using a neutralization test ([employer]at[employer] HBsAg Confirmatory Test)Non-Reactive: HBsAg not detected; does not exclude the possibility of exposure to HBV Lymphocytes Auto (Unsp spec) [#/Vol]Ordered By: Virginia Titus on 07-04-2024 Lymphocytes (Bld) [#/Vol] 1.44 10*3/uL 0.83-4.51 [facility] Lymphocytes/100 WBC Auto (Un sp spec)Ordered By: Virginia Titus on 07-04-2024 Lymphocytes/100 WBC (Bld) 14.4 % Low 19-41 [facility] MCV (mean corpuscular volume ) determinationOrdered By: Virginia Tiuts on 07-04-2024 MCV (RBC) [Entitic vol] 88.7 fL 81-99 [facility] Mean corpuscular hemoglobin (MCH) determinationOrdered By: Virginia Titus on 07-04-2024 MCH (RBC) [Entitic mass] 31.0 pg 27.0-32.0 [facility] Mean corpuscular hemoglobin concentration (MCHC) determinationOrdered By: Virginia Titus on 07-04-2024 MCHC (RBC) [Mass/Vol] 35.0 g/dL 32-36 [facility] Mean platelet volume determi nationOrdered By: Virginia Titus on 07-04-2024 Platelet mean volume (Bld) [Entitic vol] 10.7 fL 6.2-12.0 [facility] Miscellaneous procedureOrder ed By: Virginia Titus on 07-04-2024 Miscellaneous Test Comment SEE SCANNED REPORT [facility] Monocyte percentageOrdered B y: Virginia Titus on 07-04-2024 Monocytes/100 WBC (Bld) 8.1 % 0-10 [facility] NATERAon 07-04-2024 NATURA SEE SCANNED REPORT Normal [facility] Comment on above: Order Comment: Comme nts: NIPT with Gender Carrier testing Performed By: #### L 100.0100, L509.4006, L509.8002, L3890.6102, L900.0098, L3890.6006, BTS, L3890.6301 #### [facility] Laboratory [address] [place], [address] Neutrophil percentageOrdered By: Virginia Titus on 07-04-2024 Neutrophils/100 WBC (Bld) 76.4 % High 47-70 [facility] No Panel InformationOrdered By: Virginia Titus on 07-04-2024 HIV (1&2) Antibody Non-Reactive Nonreactive [facility] Comment on above: Non-ReactiveReactive Repeatedly reactive samples must be confirmed according to CDC recommended confirmatory algorithms. The subresults for either HIVAG or AHIV can be used as an aid in the selection of the confirmation algorithm for reactive samples.Send out specimens with Reactive results to [facility] for confirmation.Order the HIV antibody detection and differentiation: #[id number] Nucleated red blood cell per centageOrdered By: Virginia Titus on 07-04-2024 Nucleated RBC/100 WBC (Bld) [Ratio] 0 % 0-5 [facility] Platelet countOrdered By: Babak Titus on 07-04-2024 Platelets (Bld) [#/Vol] 196 10*3/uL 150-450 [facility] RBC Auto (Bld) [#/Vol]Ordere d By: Virginia Titus on 07-04-2024 RBC (Bld) [#/Vol] 4.06 10*6/uL Low 4.2-5.4 [facility] Rubella immune status determ ination by IgG antibody assayOrdered By: Virginia Titus on 07-04-2024 Rubella IgG Antibody REAC Nonreactive [facility] Comment on above: Antibody Result: Int erpretationNon-Reactive: Non-ImmuneReactive: ImmuneThe following results were obtained with the [employer] Rubella IgG assay. Results from assays of other manufacturers cannot be used interchangeably. T. pallidum abOrdered By: Babak Titus on 07-04-2024 Syphilis Total Antibody Non-Reactive Nonreactiv e [facility] Type AND Screenon 07-04-2024 ABO and Rh group Nom (Bld) Blood group O Rh(D) positive Normal [facility] Comment on above: Order Comment: PN Performed By: #### L 100.0100, L509.4006, L509.8002, L3890.6102, L900.0098, L3890.6006, BTS, L3890.6301 #### [facility] Laboratory [address] [place], [address] White blood cell (WBC) count Ordered By: Virginia Titus on 07-04-2024 WBC (Bld) [#/Vol] 10.0 10*3/uL 4.4-11.0 [facility] Urine Cultureon 07-03-2024 URC Below infection level. Mixed Gram Positive Organisms [place] Count 1000-10,000 MIXC Mixed contaminants. Submit a new specimen if indicated. Normal [facility] Comment on above: Performed By: #### L 100.0100, L509.4006, L509.8002, L3890.6102, L900.0098, L3890.6006, BTS, L3890.6301 #### [facility] Laboratory [address] [place], [place], [address] C. trachomatis rRNA MABEL+prob e Ql (Unsp spec)Ordered By: Virginia Titus on 06-30-2024 Chlamydia DNA (MABEL) Negative Negative [facility] Cervical or vagninal specime n microscopic examination by cytology stain (reported asOrdered By: Virginia Titus on 06-30-2024 Cytology report Cyto stain Doc (Cvx/Vag) Comment . [facility] Comment on above: The Pap smear is [...] rRNA MABEL+probe Ql (Unsp spec) Negative Negative [facility] Debt Collector Cyto stain Nom (C vx/Vag) [ID]Ordered By: Virginia Titus on 06-30-2024 Pap Smear Performed By Comment . [facility] Comment on above: Ioana Max, Cytotec hnologist (ASCP) Cytology report Cyto stain D oc (Cvx/Vag)Ordered By: Virginia Titus on 06-30-2024 Thin Prep Pap Smear Comment . [facility] Comment on above: The Pap smear is a s creening test designed to aid in thedetection of premalignant and malignant conditions of theuterine cervix. It is not a diagnostic procedure andshould not be used as the sole means of detecting cervicalcancer. Both false-positive and false-negative reports dooccur. Image-guided ThinPrep PapOrd ered By: Virginia Titus on 06-30-2024 Pap Smear Note Comment . [facility] Comment on above: This liquid based Th inPrep(R) pap test was screened withthe use of an image guided system. Image-guided liquid-based Pa pOrdered By: Virginia Titus on 06-30-2024 Pap Smear Diagnosis Comment . [facility] Comment on above: NEGATIVE FOR INTRAEP ITHELIAL LESION OR MALIGNANCY. Image-guided liquid-based ce rvical Pap w high-risk HPV+reflex to HPV 16+18Ordered By: Virginia Titus on 06-30-2024 Human Papillomavirus Screen Comment . [facility] Comment on above: The HPV DNA reflex c christal were not met with this specimenresult therefore, no HPV testing was performed.Performed at: [facility] [address] [place], [place] [id number] Director: Chaitanya Diaz MD, Phone: [phone] at: [facility] - [facility] [address] [id number] Director: Geovanna Torres MD, Phone: [phone] Laboratory - CytologyOrdered By: Virginia Titus on 06-30-2024 Debt Collector Cyto stain Nom (Cvx/Vag) [ID] Comment . [facility] Comment on above: Ioana Max Cytotec hnologist (ASCP) Laboratory - Miscellaneous t estsOrdered By: Virginia Titus on 06-30-2024 Service comment (Unsp spec) [Interp] . . [facility] Neisseria gonorrhoeae nuclei c acid detection by amplified probe techniqueOrdered By: Virginia Titus on 06-30-2024 N. gonorrhoeae DNA MABEL+probe Ql (Unsp spec) Negative Negative [facility] Comment on above: Performed at: =[address] [place] [id number] Director: Geovanna Torres MD, Phone: [phone] No Panel InformationOrdered By: Virginia Titus on 06-30-2024 Pap Smear Specimen Adequacy Comment . [facility] Comment on above: Satisfactory for corrine luation. No endocervical component is identified. Patient Office Rep Office Visit Reporton 06-30-2024 Patient Office Rep Office Visit Report [facility] [address], [address] [place] [address] OFFICE VISIT Date of Service: 06/30/24 MR#: [id number] Acct: [id number] Name: ANIYARENUKA José Rep #: [id number] : 2000 Provider: NAZANIN Cai ams Age/Sex: 24/F Location: [facility] Status: Signed Intake Vital Signs 06/30/24 14:27 [...] PFSH PFSH Medical History Asthma Surgical History Brick teeth extracted Family History Grandmother Cancer, Onset Age: 75 Paternal- Kidney Father High cholesterol Social History adopted: No household members: spouse and other details: Sister Erlinda housing: house service: No current occupational status: employed current occupation: [employer] current occupational exposures/hazards: No pets and animals: [...] 1-2 times per week duration: 15-30 minutes/day antoine/protestant: Mosque seatbelt use: always do you feel safe at home: No additional social history: Dominick- Care.coming/Marine History 1 Elective abortions Hx Para 0 [...] or Exposed (more content not included)... Normal [facility] Service comment (Unsp spec) [Interp]Ordered By: Virginia Titus on 06-30-2024 Pap Smear Comment (3) . . [facility] Urine cultureOrdered By: Kyree Titus on 06-30-2024 Bacteria identified Cx Nom (U) Positive Abnormal [facility] CT ABDOMEN PELVIS WITH IV CO NTRAST ONLYon 09-03-2023 CT ABDOMEN PELVIS WITH IV CONTRAST ONLY EXAMINATION: CT ABDOMEN PELVIS WITH IV CONTRAST ONLY HISTORY: abdominal pain Injury/Trauma or Illness?:Illness/Ot her How long have you had these symptoms (acute/chronic)?:Ac josé Reason for exam?:RLQ pain x 4 days [...] on ThuSeptember 03, 2023 6:21:04 PM EDT [facility] Comment on above: Order Comment: Injur y/Trauma or Illness?:Illness/Other How long have you had these symptoms (acute/chronic)?:Acute Reason for exam?:RLQ pain x 4 days Type of Exam?:Initial Additional signs and symptoms?:nausea, bloating ED Prov Noteon 09-03-2023 ED Prov Note ED PROVIDER NOTE [facility] EMERGENCY DEPART[facility] NAME: Renuka George AGE: 23 y.o. : 2000 VISIT DATE: 09/03/2023 CSN: [id number] PCP: No, Physician Chief Complaint Patient presents [...] 40 U/L (more content not included)... Normal [facility] POC [facility] Chloride [Moles/Vol] 106 mmol/L Normal 98-108 [facility] Comment on above: Order Comment: [facility] Laboratory Services has implemented the eGFR calculation approach that does not have a coefficient for race that conforms to the NKF-ASN Task Force Recommendations. CO2 [Moles/Vol] 24 mmol/L Normal 21-32 [facility] Comment on above: Order Comment: [facility] Laboratory [facility] has implemented the eGFR calculation approach that does not have a coefficient for race that conforms to the NKF-ASN Task Force Recommendations. Creatinine [Mass/Vol] 0.53 mg/dL Normal 0.40-1.10 [facility] Comment on above: Order Comment: [facility] Laboratory [facility] has implemented the eGFR calculation approach that does not have a coefficient for race that conforms to the NKF-ASN Task Force Recommendations. Glucose [Mass/Vol] 97 mg/dL Normal 65-99 [facility] Comment on above: Order Comment: [facility] Laboratory [facility] has implemented the eGFR calculation approach that does not have a coefficient for race that conforms to the NKF-ASN Task Force Recommendations. POC GFR 134 mL/min/1.73 m2 Normal >=60 [facility] Comment on above: Order Comment: [facility] Laboratory [facility] has implemented the eGFR calculation approach that does not have a coefficient for race that conforms to the NKF-ASN Task Force Recommendations. Result Comment: Franci mated GFR was calculated using the 2020 CKD-EPI creatinine equation. POC IONIZED CALCIUM 4.8 mg/dL Normal 4.5-5.3 [facility] Comment on above: Order Comment: [facility] Laboratory [facility] has implemented the eGFR calculation approach that does not have a coefficient for race that conforms to the NKF-ASN Task Force Recommendations. Potassium [Moles/Vol] 3.5 mmol/L Normal 3.5-5.1 [facility] Comment on above: Order Comment: [facility] Laboratory [facility] has implemented the eGFR calculation approach that does not have a coefficient for race that conforms to the NKF-ASN Task Force Recommendations. Sodium [Moles/Vol] 142 mmol/L Normal 135-145 [facility] Comment on above: Order Comment: [facility] Laboratory [facility] has implemented the eGFR calculation approach that does not have a coefficient for race that conforms to the NKF-ASN Task Force Recommendations. Urea nitrogen [Mass/Vol] 7 mg/dL Low 8-25 [facility] Comment on above: Order Comment: [facility] Laboratory Services has implemented the eGFR calculation approach that does not have a coefficient for race that conforms to the NKF-ASN Task Force Recommendations. POC CBC AND DIFFERENTIALon 0 09-03-2023 BASOPHILS ABSOLUTE COUNT 0.05 K/mcL Normal 0.00-0.30 [facility] Basophils/100 WBC (Bld) 0.5 % Normal [facility] Eosinophils (Bld) [#/Vol] 0.12 10*3/uL Normal 0.00-0.50 [facility] Eosinophils/100 WBC (Bld) 1.3 % Normal [facility] Erythrocyte distribution width (RBC) [Ratio] 12.2 % Normal 11.6-14.8 [facility] Hematocrit (Bld) [Volume fraction] 39.1 % Normal 36.0-46.0 [facility] Hemoglobin (Bld) [Mass/Vol] 13.2 g/dL Normal 12.0-16.0 [facility] IG ABSOLUTE 0.01 K/mcL Normal 0.00-0.30 [facility] IG PERCENT 0.10 % Normal [facility] Comment on above: Result Comment: The IG parameter is the percentage of metamyelocytes, myelocytes and promyelocytes. An immature granulocyte count (IG) of 1% or more suggests the possibility of infection, an IG count of 3% is very likely related to an infection. Lymphocytes (Bld) [#/Vol] 1.69 10*3/uL Normal 0.90-4.00 [facility] Lymphocytes/100 WBC (Bld) 18.6 % Normal [facility] MCH (RBC) [Entitic mass] 30.9 pg Normal 26.0-34.0 [facility] MCV (RBC) [Entitic vol] 91.6 fL Normal 80.0-100.0 [facility] MEAN CORPUSCULAR HEMOGLOBIN CONC 33.8 g/dL Normal 31.0-37.0 [facility] Monocytes (Bld) [#/Vol] 0.85 10*3/uL Normal 0.30-0.90 [facility] Monocytes/100 WBC (Bld) 9.3 % Normal [facility] NEUTROPHILS ABSOLUTE COUNT 6.38 K/mcL Normal 1.70-7.00 [facility] Neutrophils/100 WBC (Bld) 70.2 % Normal [facility] Platelet mean volume (Bld) [Entitic vol] 10.1 fL Normal 9.4-12.4 [facility] Platelets (d) [#/Vol] 192 10*3/uL Normal 150-400 [facility] RBC (d) [#/Vol] 4.27 10*6/uL Normal 4.00-5.20 [facility] WBC (d) [#/Vol] 9.10 10*3/uL Normal 4.50-11.00 [facility] POC LIVER PANEL PLUS [facility] 09-03-2023 Albumin [Mass/Vol] 4.3 g/dL Normal 3.2-5.2 [facility] ALP [Catalytic activity/Vol] 62 U/L Normal 40-140 [facility] ALT [Catalytic activity/Vol] 6 U/L Normal 0-40 [facility] Amylase [Catalytic activity/Vol] 37 U/L Normal 25-115 [facility] Amylase [Catalytic activity/Vol] 8 U/L Normal 7-33 [facility] AST [Catalytic activity/Vol] 15 U/L Normal 0-45 [facility] Bilirubin [Mass/Vol] 1.2 mg/dL Normal 0.0-1.3 [facility] Protein [Mass/Vol] 7.6 g/dL Normal 6.0-8.0 [facility] POC , URINE - [facility] 09-03-2023 Beta HCG ( test) Ql (U) Negative Normal Negative [facility] Comment on above: Order Comment: Dilut e urine specimens, as indicated by a low specific gravity (<1.010) may not contain international representative levels of hCG. If is still suspected, a serum test or repeat urine test using a first morning urine specimen should be considered. POC URINALYSIS DIPSTICK,AUTO - [facility] 09-03-2023 POC BILIRUBIN, URINE Negative Normal Negative [facility] POC BLOOD, URINE Negative Normal Negative [facility] GLUCOSE, URINE Negative Normal Negative [facility] POC KETONES, URINE Negative Normal Negative [facility] POC LEUKOCYTE ESTERASE, URINE Negative Normal Negative [facility] POC NITRITE, URINE Negative Normal Negative [facility] POC PH, URINE 7.0 Normal 5.0-7.0 [facility] POC PROTEIN, URINE Negative Normal Negative [facility] POC SPECIFIC GRAVITY 1.015 Normal 1.005-1.025 [facility] POC UROBILINOGEN 0.2 mg/dL Normal < 2.0 [facility] Comprehensive metabolic 2000 panelon 03-03-2023 Albumin BCP dye [Mass/Vol] 4.9 g/dL Normal 3.4-5.0 [facility] Comment on above: Performed By: #### 2 4323-8 #### AGUS WEBSTER ([id number]) [facility] ([facility]) [address] [place] [address] ALP [Catalytic activity/Vol] 56 U/L Normal 33-110 [facility] Comment on above: Performed By: #### 2 4323-8 #### AGUS WEBSTER ([id number]) [facility] ([facility]) [address] [place] [address] ALT With P-5'-P [Catalytic activity/Vol] 7 U/L Normal 7-45 [facility] Comment on above: Result Comment: Dorinda ents treated with Sulfasalazine may generate falsely decreased results for ALT. Performed By: #### 2 4323-8 #### AGUS WEBSTER ([id number]) [facility] ([facility]) [address] [place] [address] Anion gap [Moles/Vol] 13 mmol/L Normal 10-20 [facility] Comment on above: Performed By: #### 2 4323-8 #### AGUS WEBSTER ([id number]) [facility] ([facility]) [address] [place] [address] AST With P-5'-P [Catalytic activity/Vol] 13 U/L Normal 9-39 [facility] Comment on above: Performed By: #### 2 4323-8 #### AGUS WEBSTER ([id number]) [facility] ([facility]) [facility] [place] [address] Bilirubin [Mass/Vol] 1.1 mg/dL Normal 0.0-1.2 [facility] Comment on above: Performed By: #### 2 4323-8 #### AGUS WEBSTER ([id number]) [facility] ([facility]) [address] [place] [address] Calcium [Mass/Vol] 9.8 mg/dL Normal 8.6-10.3 [facility] Comment on above: Performed By: #### 2 4323-8 #### AGUS WEBSTER ([id number]) [facility] ([facility]) [address] [place] [address] Chloride [Moles/Vol] 105 mmol/L Normal 98-107 [facility] Comment on above: Performed By: #### 2 4323-8 #### AGUS WEBSTER ([id number]) [facility] ([facility]) [address] [place] [address] CO2 [Moles/Vol] 25 mmol/L Normal 21-32 [facility] Comment on above: Performed By: #### 2 4323-8 #### AGUS WEBSTER ([id number]) [facility] ([facility]) [address] [place] [address] Creatinine [Mass/Vol] 0.85 mg/dL Normal 0.50-1.05 [facility] Comment on above: Performed By: #### 2 4323-8 #### AGUS WEBSTER ([id number]) [facility] ([facility]) [address] [place] [address] GFR/1.73 sq M.predicted MDRD (S/P/Bld) [Vol rate/Area] mL/min/{1.73_m2} Normal >60 [facility] Comment on above: Result Comment: Calc ulations of estimated GFR are performed using the 2020 CKD-EPI Study Refit equation without the race variable for the IDMS-Traceable creatinine methods. https://jasn.asnjournals.org/content/early//ASN.955 2963586 Performed By: #### 2 4323-8 #### AGUS WEBSTER ([id number]) [facility] ([facility]) [address] [place] [address] Glucose [Mass/Vol] 81 mg/dL Normal 74-99 [facility] Comment on above: Performed By: #### 2 4323-8 #### AGUS WEBSTER ([id number]) [facility] ([facility]) [address] [place] [address] Potassium [Moles/Vol] 3.9 mmol/L Normal 3.5-5.3 [facility] Comment on above: Performed By: #### 2 4323-8 #### AGUS WEBSTER ([id number]) [facility] ([facility]) [address] [place] [address] Protein [Mass/Vol] 7.6 g/dL Normal 6.4-8.2 [facility] Comment on above: Performed By: #### 2 4323-8 #### AGUS WEBSTER ([id number]) [facility] ([facility]) [address] [place] [address] Sodium [Moles/Vol] 139 mmol/L Normal 136-145 [facility] Comment on above: Performed By: #### 2 4323-8 #### AGUS WEBSTER ([id number]) [facility] ([facility]) [address] [place] [address] Urea nitrogen [Mass/Vol] 12 mg/dL Normal 6-23 [facility] Comment on above: Performed By: #### 2 4323-8 #### AGUS WEBSTER ([id number]) [facility] ([facility]) [address] [place] [address] Thyrotropinon 03-03-2023 TSH Qn 2.79 m[IU]/L Normal 0.44-3.98 [facility] Comment on above: Order Comment: TSH t esting is performed using different testing methodology at [facility]3] than at [facility]. Direct result comparisons should only be made within the same method. Performed By: #### 3 016-3 #### AGUS WEBSTER ([id number]) [facility] ([facility]) [address] [place], [place] [id number] Thyroxine.freeon 03-03-2023 Free T4 [Mass/Vol] 0.77 ng/dL Normal 0.61-1.12 [facility] Comment on above: Order Comment: Thyro xine Free testing is performed using different testing methodology at [facility]3] than at other [facility]. Direct result comparisons should only be [...] By: #### 3 024-7 #### AGUS WEBSTER ([id number]) [facility] ([facility]) [address] [place] [address] Triiodothyronine.freeon 02-18 Free T3 [Mass/Vol] 3.2 pg/mL Normal 2.3-4.2 [facility] Comment on above: Performed By: #### 3 051-0 #### PREMA Lopez ([id number]) [facility] ([facility]) [id number] [place] [address] CBC AND DIFFERENTIALon 09-24 % AUTOMATED IMMATURE GRAN 0.2 % Normal 0.0 - 0.9 [facility] Comment on above: Result Comment: Debbie ture Granulocyte Count (IG) includes promyelocytes, myelocytes and metamyelocytes but does not include bands. Percent differential counts (%) should be interpreted in the context of the absolute cell counts (cells/L). Performed By: #### C BCDF #### [address] [address] Basophils (Bld) [#/Vol] 0.05 10*3/uL Normal 0.00 - 0.1 0 [facility] Comment on above: Performed By: #### C BCDF #### [address] [address] Basophils/100 WBC (Bld) 0.8 % Normal 0.0 - 2.0 [facility] Comment on above: Performed By: #### C BCDF #### [address] [address] Eosinophils (Bld) [#/Vol] 0.05 10*3/uL Normal 0.00 - 0.70 [facility] Comment on above: Performed By: #### C BCDF #### [address] [address] Eosinophils/100 WBC (Bld) 0.8 % Normal 0.0 - 6.0 [facility] Comment on above: Performed By: #### C BCDF #### [address] [address] Erythrocyte distribution width (RBC) [Ratio] 12.4 % Normal 11.5 - 14.5 [facility] Comment on above: Performed By: #### C BCDF #### [address] [address] Hematocrit (Bld) [Volume fraction] 41.2 % Normal 36.0 - 46.0 [facility] Comment on above: Performed By: #### C BCDF #### [address] [address] Hemoglobin (Bld) [Mass/Vol] 13.5 g/dL Normal 12.0 - 16.0 [facility] Comment on above: Performed By: #### C BCDF #### [address] [address] Lymphocytes (Bld) [#/Vol] 1.56 10*3/uL Normal 1.20 - 4.80 [facility] Comment on above: Performed By: #### C BCDF #### [address] [address] Lymphocytes/100 WBC (Bld) 24.5 % Normal 13.0 - 44.0 [facility] Comment on above: Performed By: #### C BCDF #### [address] [address] MCHC (RBC) [Mass/Vol] 32.8 g/dL Normal 32.0 - 36.0 [facility] Comment on above: Performed By: #### C BCDF #### [address] [address] MCV (RBC) [Entitic vol] 92 fL Normal 80 - 100 [facility] Comment on above: Performed By: #### C BCDF #### [address] [address] Monocytes (Bld) [#/Vol] 0.58 10*3/uL Normal 0.10 - 1.0 0 [facility] Comment on above: Performed By: #### C BCDF #### [address] [address] Monocytes/100 WBC (Bld) 9.1 % Normal 2.0 - 10.0 [facility] Comment on above: Performed By: #### C BCDF #### [address] [address] Neutrophils (Bld) [#/Vol] 4.13 10*3/uL Normal 1.20 - 7.70 [facility] Comment on above: Result Comment: Perc ent differential counts (%) should be interpreted in the context of the absolute cell counts (cells/L). Performed By: #### C BCDF #### [address] [address] Neutrophils/100 WBC (Bld) 64.6 % Normal 40.0 - 80.0 [facility] Comment on above: Performed By: #### C BCDF #### [address] [address] Platelets (Bld) [#/Vol] 198 10*3/uL Normal 150 - 450 [facility] Comment on above: Performed By: #### C BCDF #### [address] [address] RBC 4.49 x10E12/L Normal 4.00 - 5.20 [facility] Comment on above: Performed By: #### C BCDF #### [address] [address] WBC (Bld) [#/Vol] 6.4 10*3/uL Normal 4.4 - 11.3 [facility] Comment on above: Performed By: #### C BCDF #### [address] [address] COMPREHENSIVE PANELon 2022 Albumin [Mass/Vol] 5.0 g/dL Normal 3.4 - 5.0 [facility] Comment on above: Performed By: #### C MP #### [address] [address] ALP [Catalytic activity/Vol] 59 U/L Normal 33 - 110 [facility] Comment on above: Performed By: #### C MP #### [address] [address] ALT [Catalytic activity/Vol] 9 U/L Normal 7 - 45 [facility] Comment on above: Result Comment: Dorinda ents treated with Sulfasalazine may generate falsely decreased results for ALT. Performed By: #### C MP #### [address] [address] Anion gap [Moles/Vol] 13 mmol/L Normal 10 - 20 [facility] Comment on above: Performed By: #### C MP #### [address] [address] AST [Catalytic activity/Vol] 15 U/L Normal 9 - 39 [facility] Comment on above: Performed By: #### C MP #### [address] [address] Bilirubin [Mass/Vol] 0.9 mg/dL Normal 0.0 - 1.2 [facility] Comment on above: Performed By: #### C MP #### [address] [address] Calcium [Mass/Vol] 9.9 mg/dL Normal 8.6 - 10.3 [facility] Comment on above: Performed By: #### C MP #### [address] [address] Chloride [Moles/Vol] 105 mmol/L Normal 98 - 107 [facility] Comment on above: Performed By: #### C MP #### [address] [address] Creatinine [Mass/Vol] 0.90 mg/dL Normal 0.50 - 1.05 [facility] Comment on above: Performed By: #### C MP #### [address] [address] eGFR FEMALE >90 Normal >90 [facility] Comment on above: Result Comment: CALC ULATIONS OF ESTIMATED GFR ARE PERFORMED USING THE 2020 CKD-EPI STUDY REFIT EQUATION WITHOUT THE RACE VARIABLE FOR THE IDMS-TRACEABLE CREATININE METHODS. https://jasn.asnjournals.org/content//ASN.477 4925287 Performed By: #### C MP #### [address] [address] Glucose [Mass/Vol] 87 mg/dL Normal 74 - 99 [facility] Comment on above: Performed By: #### C MP #### [address] [address] HCO3 (Bld) [Moles/Vol] 25 mmol/L Normal 21 - 32 [facility] Comment on above: Performed By: #### C MP #### [address] [address] Potassium [Moles/Vol] 3.8 mmol/L Normal 3.5 - 5.3 [facility] Comment on above: Performed By: #### C MP #### [address] [address] Protein [Mass/Vol] 7.4 g/dL Normal 6.4 - 8.2 [facility] Comment on above: Performed By: #### C MP #### [address] [address] Sodium [Moles/Vol] 139 mmol/L Normal 136 - 145 [facility] Comment on above: Performed By: #### C MP #### [address] [address] Urea nitrogen [Mass/Vol] 8 mg/dL Normal 6 - 23 [facility] Comment on above: Performed By: #### C MP #### [address] [address] HEMOGLOBIN A1Con 09-24-2022 Glucose [Mass/Vol] 97 mg/dL Normal [facility] Comment on above: Performed By: #### H BA1E #### [address] [address] HbA1c (Bld) [Mass fraction] 5.0 % Normal [facility] Comment on above: Result Comment: Diag nosis of Diabetes-Adults Non-Diabetic: < or = 5.6% Increased risk for developing diabetes: 5.7-6.4% Diagnostic of diabetes: > or = 6.5% . Monitoring of Diabetes Age (y) Therapeutic Goal (%) Adults: >18 <7.0 Pediatrics: 13-18 <7.5 7-12 <8.0 0- 6 7.5-8.5 [employer] [employer]. Diabetes Care 33(S1), Apr 2009. Performed By: #### H BA1E #### [address] [address] LIPID PANEL (CORONARY RISK 2 )on 09-24-2022 Cholesterol [Mass/Vol] 169 mg/dL Normal 0 - 199 [facility] Comment on above: Result Comment: . [...] dosing. Performed By: #### L IPID #### [address] [address] Cholesterol in HDL [Mass/Vol] 57.0 mg/dL Normal [facility] Comment on above: Result Comment: . AGE VERY LOW LOW NORMAL HIGH 0-19 Y < 35 < 40 40-45 ---- 20-24 Y ---- < 40 >45 ---- >24 Y ---- < 40 40-60 >60 . Performed By: #### L IPID #### [address] [address] Cholesterol in LDL [Mass/Vol] 92 mg/dL Normal 0 - 119 [facility] Comment on above: Result Comment: . NEAR BORD AGE DESIRABLE OPTIMAL HIGH HIGH VERY HIGH 0-19 Y 0 - 109 --- 110-129 >/= 130 ---- 20-24 Y 0 - 119 --- 120-159 >/= 160 ---- >24 Y 0 - 99 100-129 130-159 160-189 >/=190 . Performed By: #### L IPID #### [address] [address] Cholesterol in VLDL [Mass/Vol] 20 mg/dL Normal 0 - 40 [facility] Comment on above: Performed By: #### L IPID #### [address] [address] Cholesterol.total/Choles terol in HDL [Mass ratio] 3.0 {ratio} Normal [facility] Comment on above: Result Comment: REF VALUES DESIRABLE < 3.4 HIGH RISK > 5.0 Performed By: #### L IPID #### [address] [address] NON-HDL CHOLESTEROL 112 mg/dL Normal 0 - 149 [facility] Comment on above: Result Comment: AGE DESIRABLE BORDERLINE HIGH HIGH VERY HIGH 0-19 Y 0 - 119 120 - 144 >/= 145 >/= 160 20-24 Y 0 - 149 150 - 189 >/= 190 ---- >24 Y 30 MG/DL ABOVE LDL CHOLESTEROL GOAL . Performed By: #### L IPID #### [address] [address] Triglyceride [Mass/Vol] 99 mg/dL Normal 0 - 149 [facility] Comment on above: Result Comment: . AGE [...] dosing. Performed By: #### L IPID #### [place] [id number] THYROXINE,FREEon 09-24-2022 THYROXINE,FREE 0.85 ng/dL Normal 0.61 - 1.12 [facility] Comment on above: Result Comment: Thyr oxine Free testing is performed using different testing methodology at [facility]3] than at other legacy [facility]. Direct result comparisons should only be [...] draw. Performed By: #### T 4FRE #### [place] [address] Lab Specimen Source Normal [facility] Comment on above: Performed By: #### T 4FRE #### [place] [address] Performed By: #### C BCDF #### [place] [address] Performed By: #### T HYDS #### [place] [address] Performed By: #### L IPID #### [place] [address] Performed By: #### C MP #### [place] [address] TSH WITH REFLEX TO FREE T4 I F ABNORMALon 09-24-2022 TSH Qn 4.20 m[IU]/L High 0.44 - 3.98 [facility] Comment on above: Result Comment: TSH testing is performed using different testing methodology at [facility]3] than at other [facility]. Direct result comparisons should only be made within the same method. Performed By: #### T HYDS #### [place] [address] Vital Signs Date Time Vital Sign Value Performing Clinician Facility 01-02-2025 13:28-0400 Body height 160.02 cm Virginia Titus CNM Work Phone: [facility] 01-02-2025 13:28-0400 Body mass index (BMI) [Ratio] 27.3 kg/m2 Virginia Titus CNM Work Phone: [facility] 01-02-2025 13:28-0400 Body weight 69.85 kg Virginia Tiuts CNM Work Phone: [facility] 01-02-2025 13:28-0400 Diastolic blood pressure 88 mm[Hg] Virginia Titus CNM Work Phone: [facility] 01-02-2025 13:28-0400 Systolic blood pressure 132 mm[Hg] Virginia Titus CNM Work Phone: [facility] 12-27-2024 11:55-0400 Body height 160.02 cm Virginia Titus CNM Work Phone: [facility] 12-27-2024 11:52-0400 Body mass index (BMI) [Ratio] 26.3 kg/m2 Virginia Titus CNM Work Phone: [facility] 12-27-2024 11:52-0400 Body weight 67.38 kg Virginia Titus CNM Work Phone: [facility] 12-27-2024 11:52-0400 Diastolic blood pressure 83 mm[Hg] Virginia Titus CNM Work Phone: [facility] 12-27-2024 11:52-0400 Systolic blood pressure 130 mm[Hg] Virginia Titus CNM Work Phone: [facility] 12-25-2024 22:01-0400 Diastolic blood pressure 86 mm[Hg] Virginia Titus CNM Work Phone: [facility] 12-25-2024 22:01-0400 Heart rate 101 /min Virginia Titus CNM Work Phone: [facility] 12-25-2024 22:01-0400 SaO2% (BldA) [Mass fraction] 99 % Virginia Titus CNM Work Phone: [facility] 12-25-2024 22:01-0400 Systolic blood pressure 130 mm[Hg] Virginia Titus CNM Work Phone: [facility] 12-25-2024 21:54-0400 Body height 160.02 cm Virginia Titus CNM Work Phone: [facility] 12-25-2024 21:54-0400 Body mass index (BMI) [Ratio] 26.4 kg/m2 Virginia Titus CNM Work Phone: [facility] 12-25-2024 21:54-0400 Body weight 67.6 kg Virginia Titus CNM Work Phone: [facility] 12-23-2024 16:22-0400 Heart rate 73 /min Virginia Titus CNM Work Phone: [facility] 12-23-2024 16:22-0400 SaO2% (BldA) [Mass fraction] 98 % Virginia Titus CNM Work Phone: [facility] 12-23-2024 13:54-0400 Body temperature 98.1 [degF] Virginia Titus CNM Work Phone: [facility] 12-23-2024 13:54-0400 Diastolic blood pressure 71 mm[Hg] Virginia Titus CNM Work Phone: [facility] 12-23-2024 13:54-0400 Heart rate 115 /min Virginia Titus CNM Work Phone: [facility] 12-23-2024 13:54-0400 Respiratory rate 18 /min Virginia Titus CNM Work Phone: [facility] 12-23-2024 13:54-0400 Systolic blood pressure 117 mm[Hg] Virginia Titus CNM Work Phone: [facility] 12-12-2024 09:39-0400 Body height 160.02 cm Virginia Titus CNM Work Phone: [facility] 12-12-2024 09:39-0400 Body mass index (BMI) [Ratio] 26.1 kg/m2 Virginia Titus CNM Work Phone: [facility] 12-12-2024 09:39-0400 Body weight 66.81 kg Virginia Titus CNM Work Phone: [facility] 12-12-2024 09:39-0400 Diastolic blood pressure 83 mm[Hg] Virginia Titus CNM Work Phone: [facility] 12-12-2024 09:39-0400 Systolic blood pressure 127 mm[Hg] Virginia Titus CNM Work Phone: [facility] 11-29-2024 08:52-0400 Body height 160.02 cm Virginia Titus CNM Work Phone: [facility] 11-29-2024 08:52-0400 Body mass index (BMI) [Ratio] 25.3 kg/m2 Virginia Titus CNM Work Phone: [facility] 11-29-2024 08:52-0400 Body weight 64.86 kg Virginia Titus CNM Work Phone: [facility] 11-29-2024 08:52-0400 Diastolic blood pressure 73 mm[Hg] Virginia Titus CNM Work Phone: [facility] 11-29-2024 08:52-0400 Systolic blood pressure 115 mm[Hg] Virginia Titus CNM Work Phone: [facility] 11-11-2024 13:53-0400 Body height 160.02 cm Virginia Titus CNM Work Phone: [facility] 11-11-2024 13:53-0400 Body mass index (BMI) [Ratio] 24.7 kg/m2 Virginia Titus CNM Work Phone: [facility] 11-11-2024 13:53-0400 Body weight 63.21 kg Virginia POWERSM Work Phone: [facility] 11-11-2024 13:53-0400 Diastolic blood pressure 83 mm[Hg] Virginia Titus CNM Work Phone: [facility] 11-11-2024 13:53-0400 Systolic blood pressure 134 mm[Hg] Virginia Tacho CNM Work Phone: [facility] 11-01-2024 09:21-0400 Body height 160.02 cm Virginia Titus CNM Work Phone: [facility] 11-01-2024 09:11-0400 Body mass index (BMI) [Ratio] 24.3 kg/m2 Virginia Titus CNM Work Phone: [facility] 11-01-2024 09:11-0400 Body weight 62.31 kg Virginia Titus CNM Work Phone: [facility] 11-01-2024 09:11-0400 Diastolic blood pressure 72 mm[Hg] Virginia Titus CNM Work Phone: [facility] 11-01-2024 09:11-0400 Systolic blood pressure 120 mm[Hg] Virginia Titus CNM Work Phone: [facility] 10-03-2024 10:43-0400 Body height 160.02 cm Virginia Titus CNM Work Phone: [facility] 10-03-2024 10:43-0400 Body mass index (BMI) [Ratio] 23.1 kg/m2 Virginia Titus CNM Work Phone: [facility] 10-03-2024 10:43-0400 Body weight 59.08 kg Virginia Titus CNM Work Phone: [facility] 10-03-2024 10:43-0400 Diastolic blood pressure 87 mm[Hg] Virginia Titus CNM Work Phone: [facility] 10-03-2024 10:43-0400 Systolic blood pressure 134 mm[Hg] Virginia Titus CNM Work Phone: [facility] 09-08-2024 10:49-0400 Body mass index (BMI) [Ratio] 22.1 kg/m2 Virginia Titus CNM Work Phone: [facility] 09-08-2024 10:49-0400 Body weight 56.69 kg Virginia Titus CNM Work Phone: [facility] 09-08-2024 10:49-0400 Diastolic blood pressure 75 mm[Hg] Virginia Titus CNM Work Phone: [facility] 09-08-2024 10:49-0400 Systolic blood pressure 133 mm[Hg] Virginia Titus CNM Work Phone: [facility] 08-08-2024 10:15-0400 Body mass index (BMI) [Ratio] 20.6 kg/m2 Virginia Titus CNM Work Phone: [facility] 08-08-2024 10:15-0400 Body weight 52.84 kg Virginia Titus CNM Work Phone: [facility] 08-08-2024 10:15-0400 Diastolic blood pressure 77 mm[Hg] Virginia Titus CNM Work Phone: [facility] 08-08-2024 10:15-0400 Systolic blood pressure 123 mm[Hg] Virginia Titus CNM Work Phone: [facility] 06-30-2024 14:27-0400 Body height 160.02 cm Virginia Titus CNM Work Phone: [facility] 06-30-2024 14:27-0400 Body mass index (BMI) [Ratio] 20.4 kg/m2 Virginia Titus CNM Work Phone: [facility] 06-30-2024 14:27-0400 Body weight 52.33 kg Virginia Titus CNM Work Phone: [facility] 06-30-2024 14:27-0400 Diastolic blood pressure 82 mm[Hg] Virginia Titus CNM Work Phone: [facility] 06-30-2024 14:27-0400 Systolic blood pressure 132 mm[Hg] Virginia Titus CNM Work Phone: [facility] 09-23-2022 13:33-0400 Body weight 57.61 kg Loree Oseguera [employer]SEMBLER Work Phone: [facility] 09-23-2022 13:33-0400 Diastolic blood pressure 84 mm[Hg] Loree Oseguera [employer] WELDER[employer]ELASTIC ASSEMBLER Work Phone: [facility] 09-23-2022 13:33-0400 Heart rate 84 /min Loree Oseguera APRN-ELASTIC ASSEMBLER Work Phone: [facility] 09-23-2022 13:33-0400 SaO2% (BldA) [Mass fraction] 99 % Loree Oseguera APRN-ELASTIC ASSEMBLER Work Phone: [facility] 09-23-2022 13:33-0400 Systolic blood pressure 121 mm[Hg] Loree Oseguera APRN-ELASTIC ASSEMBLER Work Phone: [facility] 10-14-2018 10:53-0400 BMI (Body Mass Index) 21.93 kg/m2 [facility] 10-14-2018 10:53-0400 Body Temperature 98.1 [degF] [facility] 10-14-2018 10:53-0400 Body weight 54.39 kg [facility] 10-14-2018 10:53-0400 BP Diastolic 79 mm[Hg] [facility] 10-14-2018 10:53-0400 BP Systolic 111 mm[Hg] [facility] 10-14-2018 10:53-0400 Height 157.5 cm [facility] 10-14-2018 10:53-0400 Pulse (Heart Rate) 71 /min [facility] 10-14-2018 10:53-0400 Pulse Oximetry 97 % [facility] 10-14-2018 10:53-0400 Respiratory Rate 16 /min [facility] Encounters Encounter Date Encounter Type Care Provider Facility Start: 01-10-2025 End: 01-10-2025 ambulatory No Primary Care Physician Facility:[facility] [place] Start: 01-02-2025 ambulatory Virginia Aparicio lity:[facility] Start: 01-02-2025 End: 01-02-[address] Virginia Chavez MD -[facility] Work Phone: Start: 01-02-2025 End: 01-02-2025 ambulatory Virginia Titus CNM Work Phone: -[facility] Start: 12-31-2024 ambulatory Virgniia Aparicio lity:[facility] Start: 12-31-2024 Non-patient / Non-visit Dr. Haroon Chavez MD -[facility] Start: 12-27-2024 End: 12-27-[address] Virginia Chavez MD -[facility] Work Phone: Start: 12-27-2024 End: 12-27-2024 ambulatory Virginia Titus CNM Work Phone: -[facility] Start: 12-25-2024 End: 12-26-2024 ambulatory Virginia POWERSM Work Phone: -[facility] Start: 12-25-2024 End: 12-26-2024 Patient encounter procedure Columba Valdes CN[facility] Work Phone: Start: 12-23-2024 End: 12-23-2024 ambulatory Virginia POWERSM Work Phone: -[facility] Start: 12-23-2024 End: 12-23-[address] Virginia Chavez MD -[facility] Work Phone: Start: 12-12-2024 End: 12-12-2024 ambulatory Virginia POWERSM Work Phone: -Laboratory Specimen Start: 12-12-2024 End: 12-12-2024 Patient encounter procedure Virginia POWERSM -Laboratory Specimen Work Phone: Start: 12-12-2024 End: 12-12-2024 Patient encounter procedure Virginia POWERSM -[facility] Work Phone: Start: 12-12-2024 End: 12-12-2024 ambulatory Virginia POWERSM Work Phone: -[facility] Start: 12-12-2024 End: 12-12-2024 ambulatory Virginia Titus Facility:[facility] Start: 11-29-2024 End: 11-29-2024 Patient encounter procedure Virginia POWERSM -[facility] Work Phone: Start: 11-29-2024 End: 11-29-2024 ambulatory Virginia Titus CNM Work Phone: -[facility] Start: 11-16-2024 ambulatory Shelbie Cabrera cility:[facility] Start: 11-11-2024 End: 11-11-[address] Shelbie Navarro DO -[facility] Work Phone: Start: 11-11-2024 End: 11-11-2024 ambulatory Virginia Titus CNM Work Phone: -[facility] Start: 11-11-2024 End: 11-11-2024 ambulatory Shelbie Navarro Facility:[facility] Start: 11-01-2024 End: 11-01-2024 Patient encounter procedure Aranza DE LA ROSA -[facility] Work Phone: Start: 11-01-2024 End: 11-01-2024 ambulatory Virginia Titus CNM Work Phone: -[facility] Start: 11-01-2024 End: 11-01-2024 ambulatory Virginia Titus Facility:[facility] Start: 10-03-2024 End: 10-03-2024 Patient encounter procedure Virginia POWERSM -[facility] Work Phone: Start: 10-03-2024 End: 10-03-2024 ambulatory Virginia Titus CNM Work Phone: [facility] Work Phone: Start: 09-15-2024 End: 09-15-2024 ambulatory SHELBIE CLEMENTE [facility] Start: 09-08-2024 End: 09-08-[address] Virginia Chavez MD -[facility] Work Phone: Start: 09-08-2024 End: 09-08-2024 ambulatory Virginia Chavez Facility:[facility] [place] Start: 09-01-2024 End: 09-01-2024 ambulatory SHELBIE CLEMENTE [facility] Start: 08-08-2024 End: 08-08-[address] Shelbie Navarro DO -[facility] Work Phone: Start: 08-08-2024 End: 08-08-2024 ambulatory Shelbie Navarro Facility:[facility] Start: 07-04-2024 End: 07-04-2024 ambulatory Virginia POWERSM Work Phone: [facility] Work Phone: Start: 07-04-2024 End: 07-04-2024 Patient encounter procedure Virginia Titus CNM -Lab, [facility] Start: 07-04-2024 End: 07-04-2024 ambulatory Virginia Titus Facility:[facility] Start: 06-30-2024 End: 06-30-2024 Patient encounter procedure Virginia POWERSM -Laboratory, Specimen Work Phone: Start: 06-30-2024 End: 06-30-2024 ambulatory Virginia Titus CNM Work Phone: [facility] Work Phone: Start: 06-30-2024 End: 06-30-2024 Patient encounter procedure Virginia POWERSM -[facility] Work Phone: Start: 06-30-2024 End: 06-30-2024 ambulatory Virginia Titus Facility:[facility] [place] Start: 09-03-2023 End: 09-03-2023 Emergency department patient visit PHYSICIAN [facility] Start: 04-21-2023 End: 04-21-2023 Office outpatient visit 25 minutes Odilon Coughlin PA-C Work Phone: [facility] Comment on above: Acute non-recurrent maxillary sinusitis (Primary Dx); Asthma, exercise induced Start: 04-21-2023 End: 04-21-2023 ambulatory ODILON Gordon [facility] Start: 03-03-2023 End: 03-04-2023 ambulatory LOREE Christianson [facility] Start: 09-24-2022 End: 09-25-2022 ambulatory LOREE Christianson [facility] Start: 09-24-2022 End: 09-25-2022 Encounter for general adult medical examination without abnormal findings LOREE Christianson [facility] Start: 09-23-2022 Encounter for genera l adult medical examination without abnormal findings LOREE [facility] Start: 09-23-2022 End: 09-23-2022 Office outpatient new 30 minutes Loree Oseguera [employer] W[employer]SEMBLER Work Phone: [facility] Comment on above: Asthma, exercise ind uced (Primary Dx); Establishing care with new doctor, encounter for; Wellness examination Start: 09-23-2022 End: 09-23-2022 Patient encounter status Loree Oseguera [employer] WEL[employer]SEMBLER Work Phone: [facility] Work Phone: Start: 10-14-2018 End: 10-14-2018 Patient encounter procedure ODILON RODRIGUEZ [facility] Start: 10-14-2018 End: 10-14-2018 Office outpatient visit 15 minutes Odilon Rodriguez Work Phone: [facility] [place] Comment on above: Acute swimmer's ear of left side (Primary Dx) Start: 11-10-2017 End: 11-10-2017 Emergency department patient visit Cuate Brown Min Facility:[facility] Start: 11-10-2017 Patient encounter Facil [id number] Procedures Date Procedure Procedure Detail Performing Clinician Start: 12-25-2024 Measurement of pH in vaginal fluid specimen using nitrazine yellow for detection of rupture of amniotic membrane Virginia Titus CNM Work Phone: Comment on above: Amniotic fluid not p resent indicates No Rupture of FetalMembranes at time of specimen collection. Start: 12-12-2024 Gram stain microscopy Irina Titus [...] Start: 11-11-2024 Gram stain microscopy Irina Titus [facility] Work Phone: Start: 11-11-2024 End: 11-11-2024 Source specific culture Virginia Elder [place] Work Phone: Start: 11-11-2024 Urine culture Virginia canales [facility] Work Phone: Start: 11-01-2024 Serologic test for syphilis Virginia Titus [facility] Work Phone: Start: 07-04-2024 Hepatitis C antibody measurement Virginia Titus [facility] Work Phone: Comment on above: Reactive: Presumptiv e evidence of antibodies to HCV. Follow CDC recommendations for supplemental testing.Non-Reactive: Antibodies to HCV were not detected; does not exclude the possibility of exposure to HCVReactive Results are presumptive evidence of antibodies to HCV. Follow CDC recommendations for supplemental testing.Order confirmation testing: HCV Quant by PCR testing - HCVPCR #[id number] Non Reactive: < 0.8 Equivocal: >/= 0.8 to < 1.0 Reactive: >/= 1.0The CDC requires that a reactive/equivocal HCV antibody result be sent out for confirmation. HCV Quant by PCR testing. Start: 07-04-2024 Procedure Virginia madrid [facility] Work Phone: Start: 07-04-2024 Rubella IgG measurement Virginia Titus [facility] Work Phone: Comment on above: Antibody Result: Int erpretationNon-Reactive: Non- ImmuneReactive: ImmuneThe following results were obtained with the [employer] Rubella IgG assay. Results from assays of other manufacturers cannot be used interchangeably. Start: 07-04-2024 Serologic test for syphilis Virginia Titus [facility] Work Phone: Start: 06-30-2024 Liquid based cervica l cytology screening Virginia Titus [facility] Work Phone: Comment on above: NEGATIVE FOR INTRAEP ITHELIAL LESION OR MALIGNANCY. This liquid based Th inPrep(R) pap test was screened withthe use of an image guided system. The HPV DNA reflex c riteria were not met with this specimenresult therefore, no HPV testing was performed.Performed at: [facility] [id number] [place], [place] [id number] Director: Chaitanya Diaz MD, Phone: [phone] at: [place] - [facility] [address] [id number] Director: Geovanna Torres MD, Phone: [phone] Start: 06-30-2024 Urine culture Virginia canales CN Work Phone: Start: 03-03-2023 Comprehensive metabo lic 1999 panel - Serum or Plasma LOREE OSEGUERA Start: 03-03-2023 Thyrotropin [Units/v olume] in Serum or Plasma LOREE OSEGUERA Start: 03-03-2023 THYROXINE, FREE LOREE CON TERRI Start: 03-03-2023 TRIIODOTHYRONINE, FREE LOREE ANSELMO Start: 09-24-2022 CBC W Auto Different ial panel - Blood LOREE ANSELMO Start: 09-24-2022 Comprehensive metabo lic 1999 panel [...] 2) Zoste r Vaccines (1 of 2) [facility] Start: 09-25-2027 Lipid panel Lipid Panel [facility] Start: 12-26-2024 Patient discharge [facility] [place] [place] Start: 12-25-2024 Nonstress test [facility] Start: 12-25-[address] [facility] Start: 12-25-2024 Vital signs measurements [facility] Start: 12-25-2024 [facility] Start: 12-23-2024 Patient discharge [facility] Start: 11-01-2024 CBC W Auto Different ial panel - Blood [facility] Start: 11-01-2024 Measurement of gluco se 2 hours after glucose challenge for glucose tolerance test [facility] Start: 11-01-2024 Serologic test for syphilis [facility] Start: 11-01-2024 [facility] Start: 11-26-2023 DTaP/Tdap/Td Vaccine s (7 - Td or Tdap) DTaP/Tdap/Td Vaccines (7 - Td or Tdap) [facility] Start: 09-24-2023 End: 09-24-2023 CBC W Auto Differential panel - Blood CBC and Auto Differential Lab Routine Wellness examination Expected: 09/24/2023 (Approximate), Expires: 09/24/2023 [facility] Service [facility] Work Phone: Comment on above: Expected: 09/24/2023 (Approximate), Expires: 09/24/2023 Start: 09-24-2023 End: 09-24-2023 Comprehensive metabolic 2000 panel - Serum or Plasma Comprehensive Metabolic Panel Lab Routine Wellness examination Expected: 09/24/2023 (Approximate), Expires: 09/24/2023 [facility] Work Phone: Comment on above: Expected: 09/24/2023 (Approximate), Expires: 09/24/2023 Start: 09-24-2023 End: 09-24-2023 Hemoglobin A1c/Hemoglobin.total in Blood Hemoglobin A1C Lab Routine Wellness examination Expected: 09/24/2023 (Approximate), Expires: 09/24/2023 [facility] Work Phone: Comment on above: Expected: 09/24/2023 (Approximate), Expires: 09/24/2023 Start: 09-24-2023 End: 09-24-2023 TSH with reflex to Free T4 if abnormal TSH with reflex to Free T4 if abnormal Lab Routine Wellness examination Expected: 09/24/2023 (Approximate), Expires: 09/24/2023 [facility] Work Phone: Comment on above: Expected: 09/24/2023 (Approximate), Expires: 09/24/2023 Start: 09-24-2023 End: 09-24-2023 Patient encounter procedure 09/24/2023 12:40 PM EDT [facility] [facility] [address] [place] [address] Loree Oseguera, FLUX CORE WELDER-ELASTIC ASSEMBLER [address] [place] [place] [address] [facility] Start: 12-19-2022 Influenza vaccination [facility] Start: 09-23-2022 End: 09-24-2023 CBC W Auto Differential panel - Blood CBC and Auto Differential Lab Routine Wellness examination Expected: 09/23/2022 (Approximate), Expires: 09/24/2023 [facility] Work Phone: Comment on above: Expected: 09/23/2022 (Approximate), Expires: 09/24/2023 Start: 09-23-2022 End: 09-24-2023 Comprehensive metabolic 2000 panel - Serum or Plasma Comprehensive Metabolic Panel Lab Routine Wellness examination Expected: 09/23/2022 (Approximate), Expires: 09/24/2023 [facility] Work Phone: Comment on above: Expected: 09/23/2022 (Approximate), Expires: 09/24/2023 Start: 09-23-2022 End: 09-24-2023 Hemoglobin A1c/Hemoglobin.total in Blood Hemoglobin A1C Lab Routine Wellness examination Expected: 09/23/2022 (Approximate), Expires: 09/24/2023 [facility] Work Phone: Comment on above: Expected: 09/23/2022 (Approximate), Expires: 09/24/2023 Start: 09-23-2022 End: 09-24-2023 Lipid 1996 panel - Serum or Plasma Lipid Panel Lab Routine Wellness examination Expected: 09/23/2022 (Approximate), Expires: 09/24/2023 [facility] Work Phone: Comment on above: Expected: 09/23/2022 (Approximate), Expires: 09/24/2023 Start: 09-23-2022 End: 09-24-2023 TSH with reflex to Free T4 if abnormal TSH with reflex to Free T4 if abnormal Lab Routine Wellness examination Expected: 09/23/2022 (Approximate), Expires: 09/24/2023 [facility] Work Phone: Comment on above: Expected: 09/23/2022 (Approximate), Expires: 09/24/2023 Start: 2022 Screening for malign ant neoplasm of cervix [facility] Start: 2019 Hepatitis C screening Hepatitis C Sc reening [facility] Start: 12-19-2018 Influenza vaccinatio n given SEQUENTIAL INFLUENZA VACCINE (Season Ended) [facility] Start: 2017 Meningococcal conjug ate vaccination MENINGOCOCCAL VACCINE (1 - 2-dose series) [facility] Start: 2016 Vaccination for joanne n papillomavirus HPV VACCINES (1 - Female 3-dose series) [facility] Start: 2014 Varicella vaccination VARICELL A VACCINES (1 of 2 - 13+ 2-dose series) [facility] Start: 2012 HPV Vaccines (1 - 2- dose series) HPV Vaccines (1 - 2-dose series) [facility] Start: 2008 Tetanus, diphtheria and acellular pertussis vaccination DTAP VACCINES (1 - Tdap) [facility] Start: 2004 History and physical examination, annual for health maintenance Wellness Visit [facility] Start: 2004 Well Child Visit (WC V) - Annual Well Child Visit (WCV) - Annual [facility] Start: 2002 Hepatitis A immunization HEPAT ITIS A VACCINES (1 of 2 - 2-dose series) [facility] Start: 2002 Qwvahga-pwimd-fooduz a vaccination MMR VACCINES (1 of 2 - Standard series) [facility] Start: 2001 COVID-19 Vaccine (#1) COVID-19 Vacci ne (#1) [facility] Start: 2001 Inactivated poliovir us vaccine (product) IPV VACCINES (1 of 3 - 4-dose series) [facility] Start: 2001 Hearing Screening (#1) Hearing Scree albert (#1) [facility] Start: 2001 Hepatitis B vaccination HEPATI TIS B VACCINES (1 of 3 - 3-dose primary series) [facility] Start: 2001 HIV screening HIV Screening [facility] Start: 2001 Lipid panel Lipid Panel [facility] Start: 2001 Screening for Chlamy joan trachomatis Chlamydia Screening [facility] Start: 2001 Tetanus vaccination TETANUS EVERY 10 YR [facility] CBC W Auto Different ial panel - Blood [facility] Erythrocyte mean corpuscular volume determination [facility] Hematocrit [Volume Fraction] of Blood [facility] Hemoglobin [Mass/vol ume] in Blood [facility] Leukocytes [#/volume ] in Blood [facility] Mean corpuscular hemoglobin concentration determination [facility] Mean corpuscular hemoglobin determination [facility] Measurement of gluco se 2 hours after glucose challenge for glucose tolerance test [facility] Neutrophil count [facility] Neutrophil percent differential count [facility] Patient Education [facility] Work Phone: Platelets [#/volume] in Blood [facility] Red blood cell count [facility] Red cell distributio n width determination [facility] Serologic test for syphilis [facility] Streptococcus agalac tiae [Presence] in Unspecified specimen by Organism specific culture [facility] Immunizations Immunization Date Immunization Notes Care Provider Fa agustina 11-25-2018 hepatitis A vaccine, pediatric/adolescent dosage, 2 dose schedule Loree Oseguera APRN-ELASTIC ASSEMBLER Work Phone: [facility] Work Phone: 11-25-2018 meningococcal B vacc ine, recombinant, OMV, adjuvanted Loree Oseguera APRN-ELASTIC ASSEMBLER Work Phone: [facility] Work Phone: 11-23-2017 hepatitis A vaccine, pediatric/adolescent dosage, 2 dose schedule Loree Oseguera APRN-ELASTIC ASSEMBLER Work Phone: [facility] Work Phone: 11-23-2017 meningococcal B vacc ine, recombinant, OMV, adjuvanted Loree Oseguera APRN-[facility] Work Phone: [facility] Work Phone: 11-23-2017 meningococcal polysaccharide (groups A, C, Y and W-135) diphtheria toxoid conjugate vaccine (MCV4P) Loree Oseguera APRN-[facility] Work Phone: [facility] Work Phone: 11-25-2013 meningococcal polysaccharide (groups A, C, Y and W-135) diphtheria toxoid conjugate vaccine (MCV4P) Loree Oseguera APRN-[facility] Work Phone: [facility] Work Phone: 11-25-2013 tetanus toxoid, redu robert diphtheria toxoid, and acellular pertussis vaccine, adsorbed Loree Oseguera APRN-[facility] Work Phone: [facility] Work Phone: 03-30-2012 varicella virus vaccine Loree Oseguera APRN-[facility] Work Phone: [facility] Work Phone: 01-29-2009 influenza virus vacc ine, whole virus Loree Oseguera APRN-[facility] Work Phone: [facility] Work Phone: 01-29-2009 influenza virus vacc ine, unspecified formulation Loree Oseguera APRN-[facility] Work Phone: [facility] Work Phone: 12-18-2005 diphtheria, tetanus toxoids and acellular pertussis vaccine Loree Oseguera APRN-[facility] Work Phone: [facility] Work Phone: 12-18-2005 diphtheria, tetanus toxoids and pertussis vaccine Loree Oseguera APRN-[facility] Work Phone: [facility] Work Phone: 12-18-2005 measles, mumps and rubella virus vaccine Loree Oseguera FLUX CORE WELDER-[facility] Work Phone: [facility] Work Phone: 12-18-2005 poliovirus vaccine, inactivated Loree Oseguera APRN-ELASTIC ASSEMBLER Work Phone: [facility] Work Phone: 09-06-2002 diphtheria, tetanus toxoids and acellular pertussis vaccine, unspecified formulation Loree Oseguera APRN-ELASTIC ASSEMBLER Work Phone: [facility] Work Phone: 09-06-2002 diphtheria, tetanus toxoids and pertussis vaccine Loree Oseguera APRN-ELASTIC ASSEMBLER Work Phone: [facility] Work Phone: 09-06-2002 haemophilus influenz ae type b vaccine, conjugate unspecified formulation Loree Oseguera APRN-ELASTIC ASSEMBLER Work Phone: [facility] Work Phone: 09-06-2002 measles, mumps and rubella virus vaccine Loree Oseguera APRN-ELASTIC ASSEMBLER Work Phone: [facility] Work Phone: 05-13-2002 varicella virus vaccine Loree Oseguera APRN-ELASTIC ASSEMBLER Work Phone: [facility] Work Phone: 05-10-2002 poliovirus vaccine, inactivated Loree Oseguera APRN-ELASTIC ASSEMBLER Work Phone: [facility] Work Phone: 05-10-2002 poliovirus vaccine, unspecified formulation Loree Oseguera APRN-ELASTIC ASSEMBLER Work Phone: [facility] Work Phone: 2001 diphtheria, tetanus toxoids and acellular pertussis vaccine, unspecified formulation Loree Oseguera APRN-ELASTIC ASSEMBLER Work Phone: [facility] Work Phone: 2001 diphtheria, tetanus toxoids and pertussis vaccine Loree Oseguera APRN-ELASTIC ASSEMBLER Work Phone: [facility] Work Phone: 2001 haemophilus influenz ae type b conjugate and Hepatitis B vaccine Loree Oseguera APRN-ELASTIC ASSEMBLER Work Phone: [facility] Work Phone: 2001 haemophilus influenz ae type b vaccine, PRP-T conjugate Loree Oseguera APRN-ELASTIC ASSEMBLER Work Phone: [facility] Work Phone: 2001 hepatitis B vaccine, pediatric or pediatric/adolescent dosage Loree Oseguera APRN-ELASTIC ASSEMBLER Work Phone: [facility] Work Phone: 2001 diphtheria, tetanus toxoids and acellular pertussis vaccine, unspecified formulation Loree Oseguera APRN-ELASTIC ASSEMBLER Work Phone: [facility] Work Phone: 2001 diphtheria, tetanus toxoids and pertussis vaccine Loree Oseguera APRN-ELASTIC ASSEMBLER Work Phone: [facility] Work Phone: 2001 haemophilus influenz ae type b conjugate and Hepatitis B vaccine Loree Oseguera APRN-ELASTIC ASSEMBLER Work Phone: [facility] Work Phone: 2001 haemophilus influenz ae type b vaccine, PRP-T conjugate Loree Oseguera APRN-ELASTIC ASSEMBLER Work Phone: [facility] Work Phone: 2001 hepatitis B vaccine, pediatric or pediatric/adolescent dosage Loree Oseguera APRN-ELASTIC ASSEMBLER Work Phone: [facility] Work Phone: 2001 poliovirus vaccine, inactivated Loree Oseguera APRN-ELASTIC ASSEMBLER Work Phone: [facility] Work Phone: 2001 diphtheria, tetanus toxoids and acellular pertussis vaccine, unspecified formulation Loree Oseguera APRN-ELASTIC ASSEMBLER Work Phone: [facility] Work Phone: 2001 diphtheria, tetanus toxoids and pertussis vaccine [facility] Work [facility]: [facility] Work Phone: 2001 haemophilus influenz ae type b vaccine, conjugate unspecified formulation [facility] Work Phone: [facility] Work Phone: 2001 hepatitis B vaccine, pediatric or pediatric/adolescent dosage Loree HICKSELASTIC ASSEMBLER Work Phone: [facility] Work Phone: 2001 poliovirus vaccine, inactivated Loree Oseguera APRN-[facility] Work Phone: [facility] Work Phone: 2001 hepatitis B vaccine, pediatric or pediatric/adolescent dosage [facility] Work Phone: [facility] Work Phone: Payers Date Payer Category Payer Self-pay 2024 Unknown [id number] 2022 Unknown [id number] 2018 Unknown [employer] PPO xxxxxxxxx 2018-Present [id number] 2018 Unknown [id number] 2017 Unknown 2001 Unknown [id number] 2.16.840.1.159552.3.579.2.1245 2001 Unknown [id number] 2.16.840.1.072833.3.579.2.1245 2001 Unknown [id number] 2.16.840.1.295896.3.579.2.902 2001 Unknown [id number] 2.16.840.1.242667.3.579.2.1244 2001 Unknown [id number] 2.16.840.1.772697.3.579.2.479 2001 Unknown [id number] 2.16.840.1.721747.3.579.2.479 2001 Unknown [id number] 2.840.1.025399.3.579.2.479 1978 Unknown [id number] 2.840.1.029743.3.579.2.717 1978 Unknown [id number] 2.840.1.088354.3.579.2.903 Unknown [id number] Unknown [id number] 2.840.1.437090.3.579.2.462 Unknown [id number] 2.0.1.579819.3.579.2.462 Unknown [id number] 2.840.1.828897.3.579.2.462 Unknown [id number] .840.1.318746.3.579.2.462 Unknown [id number] .840.1.714273.3.579.2.462 Unknown [id number] .840.1.973219.3.579.2.462 Unknown [id number] .840.1.645795.3.579.2.462 Unknown [id number] 2.840.1.132347.3.579.2.462 Unknown [id number] 2.840.1.120118.3.579.2.462 Unknown [id number] 2.840.1.826354.3.579.2.462 Unknown [id number] 2.840.1.183700.3.579.2.462 Unknown [id number] 2.16.840.1.109544.3.579.2.462 Unknown [id number] 2.16.840.1.284388.3.579.2.462 Unknown [id number] 2.16.840.1.930061.3.579.2.462 Unknown [id number] 2.16.840.1.387481.3.579.2.462 Unknown [id number] 2.16.840.1.730241.3.579.2.462 Unknown [id number] 2.16.840.1.539843.3.579.2.462 Unknown [id number] 2.16.840.1.292942.3.579.2.462 Unknown [id number] 2.16.840.1.686692.3.579.2.462 Unknown [id number] 2.16.840.1.533492.3.579.2.462 Unknown [id number] 2.16.840.1.884652.3.579.2.462 Social History Date Type Detail Facility Start: 10-14-2018 End: 06-17-2024 Tobacco smoking status [facility] Never smoker [facility] Start: 10-14-2018 History SDOH Alcohol Frequency 1 [facility] Start: 2001 Sex Assigned At Not on file [facility] Start: 09-23-2022 Tobacco use and exposure Smokeless tobacco non-user [facility] Work Phone: Start: 09-23-2022 End: 04-21-2023 Alcohol intake Lifetime non-drinker (finding) [facility] Work Phone: Start: 09-23-2022 End: 04-21-2023 History of Social function [facility] Work Phone: Start: 09-23-2022 End: 04-21-2023 Tobacco use panel [facility] Work Phone: Start: 09-13-2022 End: 09-23-2022 Exposure to SARS-CoV-2 (event) Not sure [facility] Start: 04-11-2023 End: 04-21-2023 Exposure to SARS-CoV-2 (event) Unable to assess [facility] Work Phone: Start: 07-11-2024 End: 07-13-2024 Sex Female (finding) [facility] Start: 2001 Sex Assigned At Female W [facility] Clinical Notes 09-23-2022 to 01-02-2025 Note Date & Type Note Facility 01-02-2025 Progress note [facility] 12-27-2024 Progress note [facility] 12-12-2024 Progress note [facility] 11-29-2024 Progress note [facility] 11-11-2024 Progress note [facility] 11-11-2024 Progress note Note Date/Time November 11, 2024 2:14pm [facility] [address] [place] [address], [address] [place] [address] OFFICE VISIT Date of Service: 11/11/24 MR#: [id number] Acct: [id number] Name: RENUKA GEORGE Rep #: [id number] : 2000 Provider: Dr. Greer Navarro DO Age/Sex: 24/F Location: [facility] Status: Signed Intake Vital Signs 11/01/24 09:21 11/11/24 13:53 11/11/24 13:53 Height 5 ft 3 in 5 ft 3 in 5 ft 3 in Weight: 139 lb 6 oz BMI 24.7 BP 134/83 H Intake Visit Reasons: 28w, vomiting, pelvic pressure, [facility] Taxicab Driver Required: No Is patient in pain?: No [...] PFSH PFSH Medical History Asthma Surgical History Brick teeth extracted Family History Grandmother Cancer, Onset Age: 75 Paternal- Kidney Father High cholesterol Social History adopted: No household members: spouse and other details: Sister & Fiance housing: house current occupational status: employed 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 current occupational exposures/hazards: No pets and animals: [...] 1-2 times per week duration: 15-30 minutes/day antoine/protestant: Mosque seatbelt use: always do you feel safe [...] on 11/11/24 14: 09 Off Ur Spec [place] 1.005 Last Edit by Lashon Mercedes on [...] Comment: PRR, , [place]AR[place] 01/30/25, boy, Graidy Dominick(-Flomio) (3) : Status: Acute Qualifiers: Weeks of [...] Romano DO> Date _ Shelbie Navarro DO [facility] Signature: Date (if applicable) CC: ~ [facility] Work Phone: 1(923) 997-239607-15-2025 [facility] [address] [place] [address], [address] [place] [address] OFFICE VISIT Date of Service: 11/01/24 MR#: [id number] Acct: [id number] Name: RENUKA GEROGE Rep #: [id number] : 2000 Provider: ESTRELLA Rich Age/Sex: 24/F Location: [facility] Status: Signed Intake Vital Signs 09/08/24 10:54 10/03/24 10:43 11/01/24 09:11 11/01/24 09:21 Height 5 ft 3 in 5 ft 3 in 5 ft 3 in 5 ft 3 in Weight: 137 lb 6 oz BMI 24.3 BP 120/72 Intake Visit Reasons: 27 wk ob Chief Complaint: 27 Week OB Taxicab Driver Required: No Is patient in pain?: No [...] PFSH PFSH Medical History Asthma Surgical History Brick teeth extracted Family History Grandmother Cancer, Onset Age: 75 Paternal- Kidney Father High cholesterol Social History adopted: No household members: spouse and other details: Sister & Fiance housing: house current occupational status: employed 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 11/01/24 0933 s PRODUCTION CONTROL TECHNOLOGIST PRODUCTION CONTROL TECHNOLOGIST-C> Date _ [place] PRODUCTION CONTROL TECHNOLOGIST PRODUCTION CONTROL TECHNOLOGIST-C Cosigner Signature: Date (if applicable) CC: ~ [facility]06-16-2025 [facility] [address] [place] [address], [address] [place] [address] OFFICE VISIT Date of Service: 10/03/24 MR#: [id number] Acct: [id number] Name: MARY'S IGLOORENUKA Connell José Rep #: [id number] : 2000 Provider: NAZANIN Titus Age/Sex: 24/F Location: [facility] Status: Signed Intake Vital Signs 08/08/24 10:16 09/08/24 10:54 10/03/24 10:43 Height 5 ft 3 in 5 ft 3 in 5 ft 3 in Weight: 130 lb 4 oz BMI 23.1 BP 134/87 H Intake Visit Reasons: 21 wk ob Chief Complaint: 23wk OB Taxicab Driver Required: No Is patient in pain?: No [...] PFSH PFSH Medical History Asthma Surgical History Brick teeth extracted Family History Grandmother Cancer, Onset Age: 75 Paternal- Kidney Father High cholesterol Social History adopted: No household members: spouse and other details: Sister & Fiance housing: house current occupational status: employed 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[employer] current occupational exposures/hazards: No pets and animals: [...] 1-2 times per week duration: 15-30 minutes/day antoine/protestant: Mosque seatbelt use: always do you feel safe [...] Symptoms of Preeclampsia, Infant Feeding No , [place] [employer] Family Medical Leave or Disability [...] the past year?: No 10/03/24 1107 s CNM> Date _ [place] Titus CNM Cosigner Signature: Date (if applicable) CC: ~ [facility]05-22-2025 Evaluation note* Diagnosis Onset Date Resolution [...] November 29, 2024 8:48am acute November 29, 8:48am Supervision of normal first acute November 29 8:48am Choroid plexus cyst of fetus acute December 12, 2024 9:35am Maternal varicella, non-immune acute December 12, 2024 9:35am acute December 12 9:35am Supervision of normal first acute December 12 9:35am [facility] Work Phone: 1(726) 765-683105-22-2025 Evaluation note* Diagnosis Onset Date Resolution Status Admit Date Choroid plexus cyst of fetus acute September 08, 2024 10:46am Maternal varicella, non-immune acute September 08, 2024 1 0:46am acute September 08, 2024 10:46am Supervision of [...] 2024 8:48am Maternal varicella, non-immune acute November 29 8:48am acute November 29, 8:48am Supervision of normal first acute November 29 8:48am Choroid plexus cyst of fetus acute December 12, 2024 9:35am Maternal varicella, non-immune acute December 12 9:35am acute December 12, 025 9:35am Supervision of normal first acute December 12 9:35am Choroid plexus cyst of fetus acute December 27, 2024 11:42am Maternal varicella, non-immune acute December 27 11:42am acute December 27, 2024 11:42am Supervision of normal first acute December 27 11:42am [facility] Work Phone: 1(277) 510-120105-22-2025 Evaluation note* Diagnosis Onset Date Resolution Status Admit Date Choroid plexus cyst of fetus acute September 08, 2024 10:46am Maternal varicella, non-immune acute September 08, 2024 1 0:46am acute September 08, 2024 10:46am Supervision of [...] 2024 8:48am Maternal varicella, non-immune acute November 29 8:48am acute November 29 8:48am Supervision of normal first acute November 29 8:48am Choroid plexus cyst of fetus acute December 12, 2024 9:35am Maternal varicella, non-immune acute December 12 9:35am acute December 12 9:35am Supervision of normal first acute December 12 9:35am Choroid plexus cyst of fetus acute December 27, 2024 11:42am Maternal varicella, non-immune acute December 27 11:42am acute December 27, 2024 11:42am Supervision of normal first acute December 27 11:42am Choroid plexus cyst of fetus acute January 02, 2025 1:23pm Maternal varicella, non-immune acute January 02, 2025 1:23pm acute December 1:23pm Supervision of normal first acute January 02, 2025 1:23pm [facility] Work Phone: 1(786) 976-859104-21-2025 Evaluation note* Diagnosis Onset Date Resolution Status [...] normal first acute November 01, 2024 9:05am [facility] Work Phone: 1(393) 583-281204-21-2025 Evaluation note* Diagnosis Onset Date Resolution Status [...] normal first acute November 11, 2024 1:50pm [facility] Work Phone: 1(834) 848-713704-21-2025 Evaluation note* Diagnosis Onset Date Resolution Status [...] November 29, 2024 8:48am acute November 29, 2 025 8:48am Supervision of normal first acute November 29 8:48am [facility] Work Phone: 1(372) 681-234103-13-2025 NotePap Smear Specimen AdequacyMarch 2024 11:59pmComment.Satisfactory for evaluation. No endocervical component is identified.[facility] INTER[facility]ACED A#[id number] SouthComment on above:Satisfactory for evaluation. No endocervical component is identified. 06-30-2024 NotePap Smear Specimen AdequacyMarch 2024 11:59pmComment. Satisfactory for evaluation. No endocervical component is identified.[facility] A#[id number] Health [facility] Hospital SouthComment on above:Satisfactory for evaluation. No endocervical component is identified.06-30-2024 Evaluation note * Diagnosis Onset Date Resolution Status Admit Date Maternal varicella, non-immune acute June 30, 2024 2:13pm acute June 30 2:13pm Supervision of normal first acute June 30, 2024 2:13pm [facility] Work Phone: 1(251) 269-266103-13-2025 Evaluation note* Diagnosis Onset Date Resolution Status [...] normal first acute October 03, 2024 10:38am [facility] Work Phone: 1(272) 343-572101-02-2024 History of Present illness Narrative* Odilon Coughlin [...] tablet FU as before [facility]: 1(517) 196-882406-06-2023 History of Present illness Narrative* Loree Oseguera, FLUX CORE WELDER-ELASTIC ASSEMBLER - 09/23/2022 1:20 PM EDT Subjective Patient [...] TO CALL WITH LABS [facility] Work [facility]: Evaluation note* Diagnosis Asthma, exercise induced- Primary Exercise induced bronchospasm Establishing care with new doctor, encounter for Wellness examination documented in this encounter [facility] Work Phone: Evaluation note* Diagnosis Acute non-recurrent maxillary sinusitis- Primary Asthma, exercise induced Exercise induced bronchospasm documented in this encounter [facility] Work Phone: Progress note Author Virginia Titus [facility] Note Date/Time October 03, 2024 11:0 7am [facility] [address], [address] [place] [address] OFFICE VISIT Date of Service: 10/03/24 MR#: [id number] Acct: [id number] Name: RENUKA GEORGE Rep #: [id number] : 2000 Provider: NAZANIN Titus Age/Sex: 24/F Location: [facility] Status: Signed Intake Vital Signs 08/08/24 10:16 09/08/24 10:54 10/03/24 10:43 Height 5 ft 3 in 5 ft 3 in 5 ft 3 in Weight: 130 lb 4 oz BMI 23.1 BP 134/87 H Intake Visit Reasons: 21 wk ob Chief Complaint: 23wk OB Taxicab Driver Required: No Is patient in pain?: No [...] PFSH PFSH Medical History Asthma Surgical History Brick teeth extracted Family History Grandmother Cancer, Onset Age: 75 Paternal- Kidney Father High cholesterol Social History adopted: No household members: spouse and other details: Sister & Fiance housing: house current occupational status: employed 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[employer] current occupational exposures/hazards: No pets and animals: [...] 1-2 times per week duration: 15-30 minutes/day antoine/protestant: Mosque seatbelt use: always do you feel safe [...] Acute Comment: PRR, , KAROLINA 01/30/25, boy, Radhaidy Dominick(-Flomio) (3) : Status: Acute Qualifiers: Weeks of [...] Cosigner Signature: Date (if applicable) CC: ~ [facility] Work Phone: Progress note Author Aranza Rich [facility] Note Date/Time November 01, 2024 9:33 am [facility] [address], [address] [place] [address] OFFICE VISIT Date of Service: 11/01/24 MR#: [id number] Acct: [id number] Name: RENUKA GEORGE Rep #: [id number] : 2000 Provider: ESTRELLA Rich Age/Sex: 24/F Location: [facility] [place] [place] Status: Signed Intake Vital Signs 09/08/24 10:54 10/03/24 10:43 11/01/24 09:11 11/01/24 09:21 Height 5 ft 3 in 5 ft 3 in 5 ft 3 in 5 ft 3 in Weight: 137 lb 6 oz BMI 24.3 BP 120/72 Intake Visit Reasons: 27 wk ob Chief Complaint: 27 Week OB Taxicab Driver Required: No Is patient in pain?: No [...] PFSH PFSH Medical History Asthma Surgical History Brick teeth extracted Family History Grandmother Cancer, Onset Age: 75 Paternal- Kidney Father High cholesterol Social History adopted: No household members: spouse and other details: Sister & Fiance housing: house current occupational status: employed 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[employer] current occupational exposures/hazards: No pets and animals: [...] 1-2 times per week duration: 15-30 minutes/day antoine/protestant: Mosque seatbelt use: always do you feel safe at home: No additional social history: Dominick- Care.coming/Flomio History 1 Elective abortions Hx Para 0 [...] Symptoms of Preeclampsia, Infant Feeding Yes , [place] [employer] and Family Medical Leave or Disability [...] 11/01/24 0933 <Electronically signed by Aranza nguyen NP PRODUCTION CONTROL TECHNOLOGIST-C> Date _ Aranza Rich NP PRODUCTION CONTROL TECHNOLOGIST-C Cosigner Signature: Date (if applicable) CC: ~ [facility] Work Phone: Progress note Author Virginia Titus [facility] Note Date/Time November 29, 2024 9: 10am [facility] [address] [place] [address], [address] [place] [address] OFFICE VISIT Date of Service: 11/29/24 MR#: [id number] Acct: [id number] Name: ANIYARENUKA J Rep #: [id number] : 2000 Provider: NAZANIN Titus Age/Sex: 24/F Location: [facility] Status: Signed Intake Vital Signs 10/03/24 10:43 11/11/24 13:53 11/29/24 08:52 Height 5 ft 3 in 5 ft 3 in 5 ft 3 in Weight: 143 lb BMI 25.3 BP 115/73 Intake Visit Reasons: 31 WK OB Chief Complaint: 31wk OB Taxicab Driver Required: No Is patient in pain?: No [...] PFSH PFSH Medical History Asthma Surgical History Brick teeth extracted Family History Grandmother Cancer, Onset Age: 75 Paternal- Kidney Father High cholesterol Social History adopted: No household members: spouse and other details: Sister & Fiance housing: house current occupational status: employed 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 [place] appropriate handout given. 11/29/24 0910 <Electronically signed by Virginia nguyen CNM> Date _ Virginia Titus CNM Cosigner Signature: Date (if applicable) CC: ~ [facility] Work Phone: Progress note Author Virginia Titus [facility] Note Date/Time December 12, 2024 9: 55am [facility] [address], [address] [place] [address] OFFICE VISIT Date of Service: 12/12/24 MR#: [id number] Acct: [id number] Name: RENUKA GEORGE Rep #: [id number] : 2000 Provider: NAZANIN Titus Age/Sex: 24/F Location: [facility] Status: Signed Intake Vital Signs 11/29/24 08:52 12/12/24 09:39 Height 5 ft 3 in 5 ft 3 in Weight: 147 lb 5 oz BMI 26.1 BP 127/83 H Intake Visit Reasons: 33 wk ob Chief Complaint: 33wk OB Taxicab Driver Required: No Is patient in pain?: No [...] PFSH PFSH Medical History Asthma Surgical History Brick teeth extracted Family History Grandmother Cancer, Onset Age: 75 Paternal- Kidney Father High cholesterol Social History adopted: No household members: spouse and other details: Sister & Fiance housing: house current occupational status: employed 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 [place] appropriate handout given. 12/12/24954 <Electronically signed by Virginia nguyen CNM> Date _ Virginia Titus CNM Cosigner Signature: Date (if applicable) CC: ~ [facility] Work Phone: Progress note Author Virginia Chavez [facility] Note Date/Time December 27, 2024 12:22pm [facility] [address], [address] [place] [address] OFFICE VISIT Date of Service: 12/27/24 MR#: [id number] Acct: [id number] Name: RENUKA GRANDA Rep #: [id number] : 2000 Provider: Dr. Eulogio Chavez MD Age/Sex: 24/F Location: [facility] Status: Signed Intake Vital Signs 11/29/24 08:52 12/25/24 21:54 12/27/24 11:52 12/27/24 11:55 Height 5 ft 3 in 5 ft 3 in 5 ft 3 in 5 ft 3 in Weight: 148 lb 9 oz BMI 26.3 BP 130/83 H Intake Visit Reasons: 35 wk ob Taxicab Driver Required: No Is patient in pain?: No Feel stressed/tense/nervous/anxious/difficulty sleeping: not at all Allergies No Known Allergies Allergy (Verified 12/27/24 11:52) Medications ?Medication ?Instructions ?Recorded ?Confirmed ?Type diphenhydramine HCl 50 mg capsule 50 mg PO QHS 5 12/27/24 History ([employer]om SleepGels) mv-mn 110-FA 180 mcg-om3 35 mg-dha tab PO 06/17/2401/12 History 25 mg-epa 5 mg-fish oil chew tablet pyridoxine (vitamin B6) 100 mg 100 mg PO QHS 06/17/24 12/27/24 History tablet famotidine 20 mg tablet (Acid 20 mg PO DAILY 12/25/24 12/27/24 History Controller) Last Menstrual Period: 04/25/24 Zika: Zika virus screening: Negative : No PFSH PFSH Medical History Asthma Surgical History Brick teeth extracted Family History Grandmother Cancer, Onset Age: 75 Paternal- Kidney Father High cholesterol Social History adopted: No household members: spouse and other details: Sister & Fiance housing: house current occupational status: employed 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 OB Visit KAROLINA Calculator Estimated Delivery Date Method Current WG Current Estimate 01/30/25 LMP (Certain) 35w 1d Other Estimates 01/25/25 Ultrasound #1 35w 6d 01/25/25 Ultrasound #2 35w 6d Expected Delivery Route/Plan Labor Preferences- CB/BF classes: encouraged labor support person: Dominick labor intervention preferences: [] pain management options preferred: wants limited cut cord/dad catch: yes : yes PP control planned: discussed discussed possible routes of delivery and associated risks: [] special requests: [] Specific Issue/Plans Covid status: [] Flu vaccine: [] Tdap vaccine: declined Rhogam: NA LARC form signed: yes movement and labor precautions reviewed. Problem list reviewed and updated with the [...] 6 oz (+6 oz) 132/82 -?-?-?-?-?-?-?-?-?-?-?-?- 169 -?-?-?-?-?-?-?-?-?--?-?-?- KW CRL cons with dates. Accepts NIPT 08/08/24 -?-?-?-?-?-?-?-?-?-?-?-?- 15w 0d 116 lb 8 oz (+1 lb 8 oz) 123/77 Negative -?-?-?-?-?-?-?-?-?-?-?-?- Negative 144 -?-?-?-?-?-?-?-?-?-?-?-?- JV- no cramping or spotting. anatomy ordered with mfm. 09/08/24 -?-?-?-?-?-?-?--?-?-?-?-?- 19w 3d 125 lb (+10 lb) 133/75 Negative -?-?-?-?-?-?-?-?-?-?-?-?- Negative 140 -?-?-?-?-?-?-?-?-?-?-?-?- SM- no vb lof cr maping anatomy reviewed 10/03/24 -?-?-?-?-?-?-?-?-?-?-?-?- 23w 0d 130 lb 4 oz (+15 lb 4 oz) 134/87 Negative -?-?-?-?-?-?--?-?-?-?-?-?- Negative 150 23 -?-?-?-?-?-?-?-?-?-?-?-?- KW- no vb/lof/ct [...] 5 oz (+32 lb 5 oz) 127/83 Negative -?-?-?-?-?-?-?-?-?-?-?-?- Negative 150 33 -?-?-?-?-?-?-?-?-?-?-?-?- KW- no vb/lof/ct x. good fm. concerns with vaginal itching-yeast on exam and culture today. starting Monistat 12/27/24 -?-?-?-?-?-?-?-?-?-?-?-?- 35w 1d 148 lb 9 oz (+33 lb 9 oz) 130/83 Negative -?-?-?-?-?-?-?-?-?-?-?-?- Negative 145 35 -?-?-?-?-?-?-?-?-?-?-?-?- SM- no vb lof go od fm irregular ctx 1 cm in triage, stable since ACOG First Trimester First Trimester: Desire for [...] Leave or Disability Forms Results POC Urinalysis 2 Dip (Clinic) Office Urine Glucose Negative Last Edit by Aranza Panchal on 12/27/24 11:56 Office Urine Protein Negative Last Edit by Aranza Panchal on 12/27/24 11:56 Coding Level of Care Code OB Routine Diagnoses Choroid plexus cyst of fetus Encounter for supervision of normal first in second trimester Z34.02 Trimester: second trimester 35 weeks gestation of Z3A.35 Weeks of gestation: 35 weeks Maternal varicella, non-immune O09.899; Z28.39 Assessment and Plan Assessment and Plan (1) Choroid plexus cyst of fetus: Status: Acute Comment: LR NIPT (2) Supervision of normal first : Status: Acute Qualifiers: Trimester: second trimester Qualified Code(s): Z34.02 - Encounter for supervision of normal first , second trimester Comment: PRR, , KAROLINA 01/30/25, boy, Rodney Dominick(-Flomio) (3) : Status: Acute Qualifiers: Weeks of gestation: 35 weeks Qualified Code(s): Z3A.35 - 35 weeks gestation of Comment: NIPT low risk, anatomy reveiwed fu views needed (4) Maternal varicella, non-immune: Status: Acute Orders: Orders POC Urinalysis 2 Dip (Clinic) Today 12/27/24 1222 <Electronically signed by Virginia farfan MD> Date _ Virginia Chavez MD Cosigner Signature: Date (if applicable) CC: ~ [facility] Work Phone: Progress note Author Virginia Chavez [facility] Note Date/Time January 02, 2025 1:48pm [facility] [address], [address] [place] [address] OFFICE VISIT Date of Service: 01/02/25 MR#: [id number] Acct: [id number] Name: RENUKA GRANDA Rep #: [id number] : 2000 Provider: Dr. Eulogio Chavez MD Age/Sex: 24/F Location: [facility] Status: Signed Intake Vital Signs 11/29/24 08:52 12/27/24 11:55 01/02/25 13:28 Height 5 ft 3 in 5 ft 3 in 5 ft 3 in Weight: 154 lb BMI 27.3 BP 132/88 H Intake Visit Reasons: 36 wk ob Taxicab Driver Required: No Is patient in pain?: No Allergies No Known Allergies Allergy (Verified 01/02/25 13:30) Medications ?Medication ?Instructions ?Recorded ?Confirmed ?Type diphenhydramine HCl 50 mg capsule 50 mg PO QHS 5 01/02/25 History ([employer]om SleepGels) mv-mn 110-FA 180 mcg-om3 35 mg-dha tab PO 06/17/24 History 25 mg-epa 5 mg-fish oil chew tablet pyridoxine (vitamin B6) 100 mg 100 mg PO QHS 06/17/24 01/02/25 History tablet famotidine 20 mg tablet (Acid 20 mg PO DAILY 12/25/24 01/02/25 History Controller) Last Menstrual Period: 04/25/24 Zika: Zika virus screening: Negative : No PFSH PFSH Medical History Asthma Surgical History Brick teeth extracted Family History Grandmother Cancer, Onset Age: 75 Paternal- Kidney Father High cholesterol Social History adopted: No household members: spouse and other details: Sister & Fiance housing: house current occupational status: employed 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 OB Visit KAROLINA Calculator Estimated Delivery Date Method Current WG Current Estimate 01/30/25 LMP (Certain) 36w 0d Other Estimates 01/25/25 Ultrasound #1 36w 5d 01/25/25 Ultrasound #2 36w 5d Expected Delivery Route/Plan Labor Preferences- CB/BF classes: encouraged labor support person: Dominick labor intervention preferences: [] pain management options preferred: wants limited cut cord/dad catch: yes : yes PP control planned: discussed discussed possible routes of delivery and associated risks: [] special requests: [] Specific Issue/Plans Covid status: [] Flu vaccine: [] Tdap vaccine: declined Rhogam: NA LARC form signed: yes movement and labor precautions reviewed. Problem list reviewed and updated with the [...] 115 lb 6 oz (+6 oz) 132/82 -?-?-?-?-?-?-?--?-?-?-?-?- 169 -?-?-?-?-?-?-?-?-?-?-?-?- KW CRL cons with dates. [...] 5 oz (+32 lb 5 oz) 127/83 Negative -?-?-?-?-?-?-?-?-?-?-?-?- Negative 150 33 -?-?-?-?-?-?-?-?-?-?-?-?- KW- no vb/lof/ct x. good fm. concerns with vaginal itching-yeast on exam and culture today. starting Monistat 12/27/24 -?-?-?--?-?-?-?-?-?-?-?-?- 35w 1d 148 lb 9 oz (+33 lb 9 oz) 130/83 Negative -?-?-?-?-?-?-?-?-?-?-?-?- Negative 145 35 -?-?-?-?-?-?-?-?-?-?-?-?- SM- no vb lof go od fm irregular ctx 1 cm in triage, stable since 01/02/25 -?-?-?-?-?-?-?-?-?-?-?-?- 36w 0d 154 lb (+39 lb) 132/88 Trace -?-?-?-?-?-?-?-?-?-?-?-?- Negative 140 36 Cephalic 0 .5 -?-?-?-?-?-?-?-?-?-?-?-?- SM- no vb lof go od fm no regular ctx gbs ACOG First Trimester First Trimester: Desire for [...] Leave or Disability Forms Results POC Urinalysis 2 Dip (Clinic) Office Urine Glucose Negative Last Edit by Aranza Panchal on 01/02/25 13:34 Office Urine Protein Trace Last Edit by Aranza Panchal on 01/02/25 13:34 Coding Level of Care Code OB Routine Diagnoses Choroid plexus cyst of fetus Encounter for supervision of normal first in second trimester Z34.02 Trimester: second trimester 36 weeks gestation of Z3A.36 Weeks of gestation: 36 weeks Maternal varicella, non-immune O09.899; Z28.39 Assessment and Plan Assessment and Plan (1) Choroid plexus cyst of fetus: Status: Acute Comment: LR NIPT (2) Supervision of normal first : Status: Acute Qualifiers: Trimester: second trimester Qualified Code(s): Z34.02 - Encounter for supervision of normal first , second trimester Comment: PRR, , KAROLINA 01/30/25, boy, Lancey Dominick(-Marine) (3) : Status: Acute Qualifiers: Weeks of gestation: 36 weeks Qualified Code(s): Z3A.36 - 36 weeks gestation of Comment: NIPT low risk, anatomy reveiwed fu views needed (4) Maternal varicella, non-immune: Status: Acute Orders: Orders POC Urinalysis 2 Dip (Clinic) Today Culture, Group B Streptococcus Today Z34.02 - Encounter for supervision of normal first , second trimester 01/02/25 1867 <Electronically signed by Virginia farfan MD> Date _ Virginia Chavez MD Cosigner Signature: Date (if applicable) CC: ~ [facility] Work Phone: Reason for referral (narrative)* Consultation (Routine) - Authorized Specialty Diagnoses / Procedures Referred By Layne piedra Referred To Contact Obstetrics and Gynecology Diagnoses Wellness examination Procedures DC OFFICE/OUTPATIENT NEW HIGH MDM 60-74 MINUTES Oseguera, Loree D, FLOR-ELASTIC ASSEMBLER [address] [place] [address] Referral ID Status Reason Start Date Expiration Date Visits Requested Visits Authorized [id number] Authorized Specialty Services Required 09/23/2022 03/22/2023 1 1 [facility] Work Phone: Reason for referral (narrative)No reason for referral information [facility] Work Phone: Summary Purpose Family History No Family History Records Found Relationship Condition Age at Onset Recorded Date/T lisa grandmother Malignant neoplasm 75 father High blood cholesterol Unknown Advance Directives No Advanced Directives Records FoundDocuments on File Type Date Recorded 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 Use a physical education department chair to carefully dry the ear [...] your doctor if you can take an jaqg-htt-bzfudsq medicine. ? No one younger than 20 [...] Log into your personal health record on [email or web address] and enter M813 in the Education box to learn more about [facility]: Care Instructions. Current as of: February 07, 2018 Content Version: 12.0 9926-9826 [employer]. Care instructions adapted under license by your healthcare professional. If you have questions about a medical condition or this instruction, always ask your healthcare professional. [employer] disclaims any warranty or liability for your use of this information. documented in this encounter History of Present Illness * Odilon Rodriguez CNP - 10/14/2018 11:05 AM EDT Subjective Renuka George is a 18 y.o. female who presents [...] ear of left side Other orders - ozacfblg-xfoddpdao-svlzgiybwfscvv (CORTISPORIN) otic solution; Administer 4 (four) drops [...] Contact Diagnoses Asthma, exercise induced Odilon Coughlin, [facility] [address] [place] [address] Referral ID Status Reason Start Date Expiration Date V isits Requested Visits Authorized [id number] Pending Review 1 1 Chief Complaint and Reason for Visit Chief Complaint Admit Date NOB LMP 04/25June 30, 2024 2:1 3pm Reason for Visit Admit Date Maternal varicella, non-immune June 2:13pm June 30, 2024 2:1 3pm Supervision of normal first [facility] 2024 2:13pm Chief Complaint Admit Date NOB LMP 04/25June 30, 2024 2:1 3pm 13 wk OB August 08, 2024 10: 11am 17 WK OB September 08, 2024 10:46 am 21 wk ob October 03, 2024 10:3 8am Reason for Visit Admit Date Maternal varicella, non-immune June 2:13pm June 30, 2024 2:1 3pm Supervision of normal first [facility] 2024 2:13pm Maternal varicella, non-immune July 10:11am August 08, 2024 10: 11am Supervision of normal first Ap [facility] 2024 10:11am Choroid plexus cyst of fetus September 08, 2 025 10:46am Maternal varicella, non-immune September 08, 2024 10:46am September 08, 2024 10:46 am Supervision of normal first Ma y 2024 10:46am Choroid plexus cyst of fetus October 03, 2024 10:38am Maternal varicella, non-immune September 10:38am October 03, 2024 10:3 8am Supervision of normal first [facility] 2024 10:38am Chief Complaint Admit Date 13 wk OB August 08, 2024 10: 11am 17 WK OB September 08, 2024 10:46 am 23 wk ob October 03, 2024 10:3 8am 27 wk ob November 01, 2024 9:05 am Reason for Visit Admit Date Maternal varicella, non-immune July 10:11am August 08, 2024 10: 11am Supervision of normal first Ap [facility] 2024 10:11am Choroid plexus cyst of fetus [...] 8: 48am Supervision of normal first Au [facility] 2024 8:48am Choroid plexus cyst of fetus November 9:35am Maternal varicella, non-immune December 122024 9:35am December 12, 2024 9: 35am Supervision of normal first Au [facility] 2024 9:35am Chief Complaint Admit Date 17 WK OB September 08, 2024 10:46 am 23 wk ob October 03, 2024 10:3 8am 27 wk ob November 01, 2024 9:05 am 28w, vomiting, pelvic pressure, [facility] November 11, 2024 1:50pm 31 WK OB November 29, 2024 8: 48am 33 wk ob December 12, 2024 9: 35am DECREASED MOVEMENT December 23, 2024 12:43pm Chief Complaint Admit Date 17 WK OB September 08, 2024 10:46 am 23 wk ob October 03, 2024 10:3 8am 27 wk ob November 01, 2024 9:05 am 28w, vomiting, pelvic pressure, [facility] November 11, 2024 1:50pm 31 WK OB November 29, 2024 8: 48am 33 wk ob December 12, 2024 9: 35am DECREASED MOVEMENT December 23, 2024 12:43pm R/O LABOR December 25, 2024 9:45pm Chief Complaint Admit Date 17 WK OB September 08, 2024 10:46 am 23 wk ob October 03, 2024 10:3 8am 27 wk ob November 01, 2024 9:05 am 28w, vomiting, pelvic pressure, [facility] November 11, 2024 1:50pm 31 WK OB November 29, 2024 8: 48am 33 wk ob December 12, 2024 9: 35am DECREASED MOVEMENT December 23, 2024 12:43pm R/O LABOR December 25, 2024 9:45pm 35 wk ob December 27, 2024 11:42am Reason for Visit Admit Date Choroid plexus [...] normal first Au jorge l 2024 9:35am Choroid plexus cyst of fetus December 272024 11:42am Maternal varicella, non-immune December 27, 2024 11:42am December 27, 2024 11:42am Supervision of normal first Se ptember 2024 11:42am Chief Complaint Admit Date 17 WK OB September 08, 2024 10:46 am 23 wk ob October 03, 2024 10:3 8am 27 wk ob November 01, 2024 9:05 am 28w, vomiting, pelvic pressure, [facility] November 11, 2024 1:50pm 31 WK OB November 29, 2024 8: 48am 33 wk ob December 12, 2024 9: 35am DECREASED MOVEMENT December 23, 2024 12:43pm R/O LABOR December 25, 2024 9:45pm 35 wk ob December 27, 2024 11:42am DECREASED MOVEMENT December 31, 2024 1:20am 36 wk ob January 02, 2025 1:23pm Reason for Visit Admit Date Choroid plexus [...] 8: 48am Supervision of normal first Au [facility] 2024 8:48am Choroid plexus cyst of fetus November 9:35am Maternal varicella, non-immune December 122024 9:35am December 12, 2024 9: 35am Supervision of normal first Au [facility] 2024 9:35am Choroid plexus cyst of fetus December 272024 11:42am Maternal varicella, non-immune December 27, 2024 11:42am December 27, 2024 11:42am Supervision of normal first Se ptember 2024 11:42am Choroid plexus cyst of fetus December 192024 1:23pm Maternal varicella, non-immune January 02, 2025 1:23pm January 02, 2025 1:23pm Supervision of normal first Se ptember 2024 1:23pm Additional Source Comments INFORMATION SOURCE (unrecogn ized section and content) DATE CREATED AUTHOR 12/13/2017 [facility] DATE CREATED AUTHOR AUTHOR'S ORGANIZ ATION 04/21/2018 [facility] DATE CREATED AUTHOR AUTHOR'S ORGANIZ ATION 12/12/2018 [facility] DATE CREATED AUTHOR AUTHOR'S ORGANIZ ATION 09/29/2022 [facility] DATE CREATED AUTHOR AUTHOR'S ORGANIZ ATION 03/09/2023 [facility] DATE CREATED AUTHOR AUTHOR'S ORGANIZ ATION 09/11/2023 [facility] DATE CREATED AUTHOR AUTHOR'S ORGANIZ ATION 09/25/2023 [facility] DATE CREATED AUTHOR AUTHOR'S ORGANIZ ATION 09/17/2024 [place] [facility] DATE CREATED AUTHOR AUTHOR'S ORGANIZ ATION 01/11/2025 [facility] Reason for Visit (unrecogniz ed section and content) Reason Comments Otalgia Left ear pain with d rainage x 3 days Reason Comments Establish Care No concerns Reason Comments Illness VIRTUAL; C/O SORE TH ROAT, SINUS DRAINAGE/CONGESTION, BODY ACHES/CHILLS AND DRY COUGH X 4 DAYS NOW. 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 Shelbie aNvarro DO Attending Provider Activ e Start: August [...] Inactive Member Role/Relationship Status Dates Aranza Rich NP PRODUCTION CONTROL TECHNOLOGIST-C Attending Provider Active Start: November 01, 2024 [...] Inactive Member Role/Relationship Status Dates Aranza Rich NP PRODUCTION CONTROL TECHNOLOGIST-C Attending Provider Active Start: November 01, 2024 [...] Member Role/Relationship Status Dates Aranza Rich NP, PRODUCTION CONTROL TECHNOLOGIST-C Attending Provider Active Start: November 01, 2024 [...] December 23, 2024 End: December 23, 2024 Team Status: Inactive Member Role/Relationship Status Dates No Primary Care Physician Primary Care Provider Active Start: December 25, 2024 End: December 26, 2024 Columba Valdes CNM Attending Provider Active Start: December 25, 2024 End: December 26, 2024 Columba Valdes CNM Referring Provider Active Start: December 25, 2024 End: December 26, 2024 Team Status: Inactive Member Role/Relationship Status Dates Dr. Virginia Chavez MD Attending Provider Active Start: December 27, 2024 End: December 27, 2024 No Primary Care Physician Primary Care Provider Active Start: December 27, 2024 End: December 27, 2024 No Primary Care Physician Referring Provider Active Start: December 27, 2024 End: December 27, 2024 Team Status: Active Member Role/Relationship Status Dates No Primary Care Physician Primary Care Provider Active Start: December 31, 2024 Dr. Virginia Chavez MD Attending Provider Active Start: December 31, 2024 Dr. Virginia Chavez MD Referring Provider Active Start: December 31, 2024 Dr. Virginia Chavez MD Other Provider Active Start: December 31, 2024 Team Status: Inactive Member Role/Relationship Status Dates Dr. Virginia Chavez MD Attending Provider Active Start: January 02, 2025 End: January 02, 2025 No Primary Care Physician Primary Care Provider Active Start: January 02, 2025 End: January 02, 2025 No Primary Care Physician Referring Provider Active Start: January 02, 2025 End: January 02, 2025 Goals (unrecognized section and content) Goals may [...] BE BASED ON THE PRIMARY CLINICAL RECORDS. [employer] provides no warranty or guarantee of the accuracy or completeness of information in this document.
[2025-01-11 21:27] LABS: Hematocrit 31.1 % (37-47); Hemoglobin 10.5 g/dL (12.0-15.0); Mean Corp Hgb Conc 33.8 g/dL (32-36); Mean Corpuscular Volume 85.0 fL (81-99); Mean Platelet Vol. 12.3 fl (6.2-12.0); Platelet Count 187 K/mm3 (150-450); RBC Distribution Width CV 13.2 % (11.6-14.6); RBC Distribution Width SD 41.0 fl (35.1-43.9); Red Blood Count 3.66 M/mm3 (4.2-5.4); White Blood Count 15.2 K/mm3 (4.4-11.0)
[2025-01-11 21:32] LABS: AST(SGOT) 24 U/L (<=31); Alanine Aminotransfer ALT/SGPT 11 U/L (<=34); Estimated Creatinine Clearance 111.52 ml/min (50-250); Uric Acid 5.1 mg/dL (2.6-6.0)
[2025-01-11 21:37] LABS: Creatinine, Urine (random) 38.70 mg/dL (28.00-217.00); Protein, Urine (Random) 10.3 mg/dL (0.0-12.0); Protein:Creat Ratio 266 mg/g CRE (0-200)
--- NOTE | 2025-01-12 11:29 | OB.TRI.PN_ITS ---
Progress Notes Date of Service: 01/11/25 Progress Note: Patient presents for triage evaluation secondary to contractions FHT: 125 moderate variability reactive no decelerations category I tracing [place]: Irregular contractions Assessment and plan: 37 weeks falsae labor Reactive NST, reassuring maternal and status patient discharged to home to follow-up as scheudled. See problem list details for additional plan information. Laboratory Studies: Laboratory Tests 01/11/25 01/11/25 Range/Units 20:45 20:25 WBC 15.2 H (4.4-11.0) K/mm3 RBC 3.66 L (4.2-5.4) M/mm3 Hgb 10.5 L (12.0-15.0) g/dL Hct 31.1 L (37-47) % MCV 85.0 (81-99) fL MCH 28.7 (27.0-32.0) pg MCHC 33.8 (32-36) g/dL RDW Std Deviation 41.0 (35.1-43.9) fl RDW Coeff of Shahzad 13.2 (11.6-14.6) % Plt Count 187 (150-450) K/mm3 MPV 12.3 H (6.2-12.0) fl Creatinine 0.74 (0.70-1.20) mg/dL Estim Creat Clear Calc 111.52 (50-250) ml/min Est GFR (MDRD) Non-Af 116 (>60) Uric Acid 5.1 (2.6-6.0) mg/dL AST 24 (<=31) U/L ALT 11 (<=34) U/L U Random Total Protein 10.3 (0.0-12.0) mg/dL Urine Creatinine 38.70 (28.00-217.00) mg/dL Protein/Creatinin Ratio 266 H (0-200) mg/g CRE Charges/Coding Procedures Urinary/Genital 52xxx-59xxx: 70232-68 non-stress test Interp
== END 2025-01-11 22:15 | disposition home or self-care (01) ==
LOC: WPOUT 19:00 → WP 19:01
PROVIDERS: Visit Provider Obstetrics & Gynecology
DX: O47.1 False labor at or after 37 completed weeks of gestation (principal); Z3A.37 37 weeks gestation of pregnancy
CPT/HCPCS: 36415; 59025; 59050; 82565; 82570; 84156; 84450; 84460; 84550; 85027; 99221; G0378

== ENCOUNTER 2025-01-16 12:46 | Inpatient (IN) | payer OTHER, BC, SELFPAY ==
--- OUTSIDE RECORDS SUMMARY | 2024-09-15 14:42 | XMS RPT_ITS ---
Author Name Auto Generated Organization [facility] Care Team Providers Care Software Development Project Manager Name Role Phone OLIVA CLEMENTE Referring Steffanieab ROSINA Eason Primary Care Unavailable OLIVA CLEMENTE Attending Unavailab OLIVA Mendieta Referring Unavailab JACKIE Lee Attending Unavailable ROSINA CA Primary Care Unavailable OLIVA CLEMENTE Referring Unavailab JACKIE Lee Attending ROSINA Pineda Primary Care Unavailable PROBLEMS No Problem Records Found PROCEDURES No Procedure Records Found RESULTS PROGRESS NOTE Observed: 09/15/2024 3:30 PM Status: COMPLETED Source: [facility] MA TERNAL- MEDICINE CONSULT Referring/Requesting Provider: Oliva Clemente, * PCP: Rosina Ca, SUPERVISOR COMPOSING ROOM-STRADDLE BUGGY OPERATOR INDICATION FOR CONSULT: 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 She is accompanied by her partner. Renuka reports low risk NIPT (lab results not available for review today). She has a remote history of asthma, no current symptoms or medication use. No other concerns or complications. OB History Para Term AB Living 1 SAB IAB Ectopic Multiple Live Births # Outcome Date GA Lbr Nolan/2nd Weight Sex Type Anes PTL Lv 1 Current Past Medical History: Diagnosis Date Asthma Past Surgical History: Procedure Laterality Date WISDOM TOOTH EXTRACTION PERTINENT FAMILY HISTORY: Family History Problem Relation Age of Onset Allergies Mother High Cholesterol Mother High Cholesterol Father Heart Disease Maternal Grandmother MEDS: Outpatient Medications Marked as Taking for the 09/15/24 encounter (Office Visit) with Jackie Morales, DO Medication Sig Dispense Refill pyridoxine (B-6) 100 MG tablet 1 Tablet (100 mg) Doxylamine Succinate, Sleep, (UNISOM PO) Take 1 Tablet by mouth At bedtime Vit-Fe Fumarate-FA ( VITAMIN PO) Take 1 Tablet by mouth daily cetirizine (ZYRTEC) 10 MG tablet Take 1 Tab (10 mg) by mouth daily 30 Tab 11 Acetaminophen (TYLENOL PO) Take by mouth as needed As need for headaches ALLERGY: Allergies[1] REVIEW OF SYSTEMS: ROS No CTX, VB, LOF. Good movement. PHYSICAL EXAM: VITAL SIGNS: BP 126/79 Pulse 89 Resp 20 Ht 160 cm Wt 56.7 kg (125 lb 1.6 oz) LMP 04/25/2024 SpO2 100% BMI 22.16 kg/m Physical Exam AAOx3, NAD Resp effort normal Gravid IMAGIN. Single living intrauterine at 20w 3d. 2. Choroid plexus cyst and cavum veli interpositi present. Normal four chamber hear view. 3. Amniotic fluid appeared normal. 4. Placenta is anterior, grade 1. Prior US at 18 weeks showed: 1. [place] living intrauterine at 18w 3d with biometry consistent with clinical dates. 2. Right MACHINE SETTER and suspected benign interhemispheric cyst devoid of flow measuring 3.9 X 2.5 X 2.8 mm. The remaining anatomic survey was adequately visualized and appeared normal. 3. Amniotic fluid appeared normal. 4. Placenta is anterior, grade 1. 5. Transvaginal cervical length to evaluate for risk for labor was performed and appeared normal, 34 mm. IMPRESSION AND RECOMMENDATIONS: Renuka is a 24 y.o. at 20w3d with Active Non-Hospital Problems Diagnosis Date Noted Choroid plexus cyst of fetus affecting care of mother, antepartum 09/15/2024 MACHINE SETTER and CVI present. Choroid plexus cysts (MACHINE SETTER) are small fluid-filled structures within the choroid of the lateral ventricle. CPCs are a common ultrasound finding and usually represent normal variation. Isolated CPCs are considered to be a weak marker for chromosome abnormalities, such as trisomy 18. CPCs themselves are not a structural or functional brain abnormality and are not associated with an increased chance of neurological problems. CPCs usually resolve by the third trimester. Renuka reports low risk cell free DNA screening this and therefore risk of trisomy 21, 18, 13 and sex chromosome anomalies are very low. The velum interpositum is a small membrane containing a potential space just above and anterior to the pineal gland. When somewhat distended by fluid it forms a small triangular space and is referred to as a cavum veli interpositi (CVI). The CVI is a normal variant that can be seen in infants and usually disappears with brain maturation. It is rarely seen in children above the age of 2-3 years or in adults. There are typically no associated abnormalities. Follow up with OB provider for routine care. No additional FU with MFM indicated at this time. Chart review and preparation: 15 minutes. Face to face: 8 minutes. Documentation and care coordination: 10 minutes. Total time spent on patient care today: 33 minutes. [1] Allergies Allergen Reactions Seasonal Allergies Other (See Comments) Pollen allergy- eyes swelling and itchy PROGRESS NOTE Observed: 09/05/2024 1:08 PM Status: COMPLETED Source: [facility] Returned patient's call and reviewed overall benign findings with patient. Patient's questions and concerns were addressed. Patient scheduled for follow up ultrasound on 09/15/24. ALLERGIES DATE TYPE / CODE NAME / CODE REACTION SEVERITY SOURCE 09/15/2024 Environ/[id number](SN OMED CT) SEASONAL ALLERGIES Pollen allergy- eyes swelling and itchy [facility] Miscellaneous Allergy/[id number](SN OMED CT) NO KNOWN ALLERGIES [facility] ENCOUNTERS ADMIT/DISCHARGE ACCOUNT NUMBER ADMITTING ENCOUNTER CLASS LOCATION SOURCE 09/15/2024/ 5 [id number] Ambulatory Building:[facility] 09/15/2024/ 5 [id number] Ambulatory Building:[facility] 09/01/2024/ 5 [id number] Ambulatory Building:[facility] PAYERS ENCOUNTER GUARANTOR PAYER SUBSCRIBER SOURCE 09/15/2024 RENUKA HILARIOOB: [place] [phone]: ~[phone] (HP) Primary Insurance:[facility] Number: [id number] ve Date: RENUKA HILARIOOB: [id number] [place] [phone] [facility] 09/15/2024 RENUKA HILARIOOB: [place] [phone]: ~[phone] (HP) Primary Insurance:[facility] Number: [id number] ve Date: RENUKA HILARIOOB: [id number] [place] [phone] [facility] 09/01/2024 RENUKA HILARIOOB: [place] [phone]: ~[phone] (HP) Primary Insurance:[employer] Number: [id number] ve Date: JUSTUS PUTNAM: [id number] [address]
--- OUTSIDE RECORDS SUMMARY | 2024-09-15 14:42 | XMS RPT_ITS ---
Author Name Auto Generated Organization [facility] Care Team Providers Care Wool Fleece Grader Name Role Phone OLIVA CLEMENTE Referring Unavailab ROSINA Eason Primary Care Unavailable OLIVA CLEMENTE Attending Unavailab OLIVA Mendieta Referring Unavailab JACKIE Lee Attending Unavailable ROSINA CA Primary Care Unavailable OLIVA CLEMENTE Referring Unavailab JACKIE Lee Attending ROSINA Pineda Primary Care Unavailable PROBLEMS No Problem Records Found PROCEDURES No Procedure Records Found RESULTS PROGRESS NOTE Observed: 09/15/2024 3:30 PM Status: COMPLETED Source: [facility] MA TERNAL- MEDICINE CONSULT Referring/Requesting Provider: Oliva Clemente, * PCP: Rosina Ca, DEPUTY FIRE CHIEF-COLLECTIONS MANAGER INDICATION FOR CONSULT: choroid plexus cyst and [...] biometry consistent with clinical dates. 2. Right WIRE MESH KNITTER and suspected benign interhemispheric cyst devoid of [...] fetus affecting care of mother, antepartum 09/15/2024 WIRE MESH KNITTER and CVI present. Choroid plexus cysts (WIRE MESH KNITTER) are small fluid-filled structures within the choroid [...] Observed: 09/05/2024 1:08 PM Status: COMPLETED Source: [facility] Returned patient's call and reviewed overall benign findings with patient. Patient's questions and concerns were addressed. Patient scheduled for follow up ultrasound on 09/15/24. ALLERGIES DATE TYPE / CODE NAME / CODE REACTION SEVERITY SOURCE 09/15/2024 Environ/[id number](SN OMED CT) SEASONAL ALLERGIES Pollen allergy- eyes swelling and itchy [facility] Miscellaneous Allergy/[id number](SN OMED CT) NO KNOWN ALLERGIES [facility] ENCOUNTERS ADMIT/DISCHARGE ACCOUNT NUMBER ADMITTING ENCOUNTER CLASS LOCATION SOURCE 09/15/2024/ 5 [id number] Ambulatory Building:[facility] 09/15/2024/ 5 [id number] Ambulatory Building:[facility] 09/01/2024/ 5 [id number] Ambulatory Building:[facility] PAYERS ENCOUNTER GUARANTOR PAYER SUBSCRIBER SOURCE 09/15/2024 RENUKA HILARIOOB: [place] [phone]: ~[phone]) Primary Insurance:[facility] Number: [id number] ve Date: RENUKA HILARIOOB: [id number] [place] [phone] [facility] 09/15/2024 RENUKA HILARIOOB: [place] [phone]: ~[phone] (HP) Primary Insurance:[facility] Number: [id number] ve Date: RENUKA HILARIOOB: [id number] [place] [phone] [facility] 09/01/2024 RENUKA HILARIOOB: [place] [phone]: ~[phone]) Primary Insurance:[employer] Number: [id number] ve Date: JUSTUS PUTNAM: [id number] [address]
--- OUTSIDE RECORDS SUMMARY | 2024-09-15 14:42 | XMS RPT_ITS ---
Author Name Auto Generated Organization [facility] Care Team Providers Care Scientific Recruiter Name Role Phone OLIVA CLEMENTE Referring Steffanieab ROSINA Eason Primary Care Unavailable OLIVA CLEMENTE Attending Unavailab OLIVA Mendieta Referring Unavailab JACKIE Lee Attending Unavailable ROSINA CA Primary Care Unavailable OLIVA CLEMENTE Referring Unavailab JACKIE Lee Attending ROSINA Pineda Primary Care Unavailable PROBLEMS No Problem Records Found PROCEDURES No Procedure Records Found RESULTS PROGRESS NOTE Observed: 09/15/2024 3:30 PM Status: COMPLETED Source: [facility] MA TERNAL- MEDICINE CONSULT Referring/Requesting Provider: Oliva Clemente, * PCP: Rosina Ca, SAND MILLER-INDUSTRIAL TRAINER INDICATION FOR CONSULT: choroid plexus cyst and [...] biometry consistent with clinical dates. 2. Right LOG DRIVER and suspected benign interhemispheric cyst devoid of [...] fetus affecting care of mother, antepartum 09/15/2024 LOG DRIVER and CVI present. Choroid plexus cysts (LOG DRIVER) are small fluid-filled structures within the choroid [...] Observed: 09/05/2024 1:08 PM Status: COMPLETED Source: [facility] Returned patient's call and reviewed overall benign findings with patient. Patient's questions and concerns were addressed. Patient scheduled for follow up ultrasound on 09/15/24. ALLERGIES DATE TYPE / CODE NAME / CODE REACTION SEVERITY SOURCE 09/15/2024 Environ/[id number](SN OMED CT) SEASONAL ALLERGIES Pollen allergy- eyes swelling and itchy [facility] Miscellaneous Allergy/[id number](SN OMED CT) NO KNOWN ALLERGIES [facility] ENCOUNTERS ADMIT/DISCHARGE ACCOUNT NUMBER ADMITTING ENCOUNTER CLASS LOCATION SOURCE 09/15/2024/ 5 [id number] Ambulatory Building:[facility] 09/15/2024/ 5 [id number] Ambulatory Building:[facility] 09/01/2024/ 5 [id number] Ambulatory Building:[facility] PAYERS ENCOUNTER GUARANTOR PAYER SUBSCRIBER SOURCE 09/15/2024 RENUKA HILARIOOB: [place] [phone]: ~[phone] (HP) Primary Insurance:[facility] Number: [id number] ve Date: RENUKA HILARIOOB: [id number] [place] [phone] [facility] 09/15/2024 RENUKA HILARIOOB: [place] [phone]: ~[phone] (HP) Primary Insurance:[facility] Number: [id number] ve Date: RENUKA HILARIOOB: [id number] [place] [phone] [facility] 09/01/2024 RENUKA HILARIOOB: [place] [phone]: ~[phone]) Primary Insurance:[employer] Number: [id number] ve Date: JUSTUS PUTNAM: [id number] [address]
--- OUTSIDE RECORDS SUMMARY | 2024-09-15 14:42 | XMS RPT_ITS ---
Author Name Auto Generated Organization [facility] Care Team Providers Care Window Systems Administrator Name Role Phone OLIVA CLEMENTE Referring Steffanieab ROSINA Eason Primary Care Unavailable OLIVA CLEMENTE Attending Unavailab OLIVA Mendieta Referring Unavailab JACKIE Lee Attending Unavailable ROSINA CA Primary Care Unavailable OILVA CLEMENTE Referring Unavailab JACKIE Lee Attending ROSINA Pineda Primary Care Unavailable PROBLEMS No Problem Records Found PROCEDURES No Procedure Records Found RESULTS PROGRESS NOTE Observed: 09/15/2024 3:30 PM Status: COMPLETED Source: [facility] MA TERNAL- MEDICINE CONSULT Referring/Requesting Provider: Oliva Clemente, * PCP: Rosina Ca, PROJECTION ENGINEER-SEED EXPERT INDICATION FOR CONSULT: choroid plexus cyst and [...] biometry consistent with clinical dates. 2. Right EXECUTIVE HOUSEKEEPER and suspected benign interhemispheric cyst devoid of [...] fetus affecting care of mother, antepartum 09/15/2024 EXECUTIVE HOUSEKEEPER and CVI present. Choroid plexus cysts (EXECUTIVE HOUSEKEEPER) are small fluid-filled structures within the choroid [...] Observed: 09/05/2024 1:08 PM Status: COMPLETED Source: [facility] Returned patient's call and reviewed overall benign findings with patient. Patient's questions and concerns were addressed. Patient scheduled for follow up ultrasound on 09/15/24. ALLERGIES DATE TYPE / CODE NAME / CODE REACTION SEVERITY SOURCE 09/15/2024 Environ/[id number](SN OMED CT) SEASONAL ALLERGIES Pollen allergy- eyes swelling and itchy [facility] Miscellaneous Allergy/[id number](SN OMED CT) NO KNOWN ALLERGIES [facility] ENCOUNTERS ADMIT/DISCHARGE ACCOUNT NUMBER ADMITTING ENCOUNTER CLASS LOCATION SOURCE 09/15/2024/ 5 [id number] Ambulatory Building:[facility] 09/15/2024/ 5 [id number] Ambulatory Building:[facility] 09/01/2024/ 5 [id number] Ambulatory Building:[facility] PAYERS ENCOUNTER GUARANTOR PAYER SUBSCRIBER SOURCE 09/15/2024 RENUKA HILARIOOB: [place] [phone]: ~[phone] (HP) Primary Insurance:[facility] Number: [id number] ve Date: RENUKA HILARIOOB: [id number] [place] [phone] [facility] 09/15/2024 RENUKA HILARIOOB: [place] [phone]: ~[phone] (HP) Primary Insurance:[facility] Number: [id number] ve Date: RENUKA HILARIOOB: [id number] [place] [phone] [facility] 09/01/2024 RENUKA HILARIOOB: [place] [phone]: ~[phone]) Primary Insurance:[employer] Number: [id number] ve Date: JUSTUS PUTNAM: [id number] [address]
--- OUTSIDE RECORDS SUMMARY | 2024-09-15 14:42 | XMS RPT_ITS ---
Author Name Auto Generated Organization [facility] Care Team Providers Care Station Usher Name Role Phone OLIVA CLEMENTE Referring Steffanieab ROSINA Eason Primary Care Unavailable OLIVA CLEMENTE Attending Unavailab OLIVA Mendieta Referring Unavailab JACKIE Lee Attending Unavailable ROSINA CA Primary Care Unavailable OLIVA CLEMENTE Referring Unavailab JACKIE Lee Attending ROSINA Pineda Primary Care Unavailable PROBLEMS No Problem Records Found PROCEDURES No Procedure Records Found RESULTS PROGRESS NOTE Observed: 09/15/2024 3:30 PM Status: COMPLETED Source: [facility] MA TERNAL- MEDICINE CONSULT Referring/Requesting Provider: Oliva Clemente, * PCP: Rosina Ca, SENIOR BUSINESS BROKER-MANAGER FLOAT INDICATION FOR CONSULT: choroid plexus cyst and [...] biometry consistent with clinical dates. 2. Right INSPECTOR FIREARMS and suspected benign interhemispheric cyst devoid of [...] fetus affecting care of mother, antepartum 09/15/2024 INSPECTOR FIREARMS and CVI present. Choroid plexus cysts (INSPECTOR FIREARMS) are small fluid-filled structures within the choroid [...] Observed: 09/05/2024 1:08 PM Status: COMPLETED Source: [facility] Returned patient's call and reviewed overall benign findings with patient. Patient's questions and concerns were addressed. Patient scheduled for follow up ultrasound on 09/15/24. ALLERGIES DATE TYPE / CODE NAME / CODE REACTION SEVERITY SOURCE 09/15/2024 Environ/[id number](SN OMED CT) SEASONAL ALLERGIES Pollen allergy- eyes swelling and itchy Miscellaneous Allergy/[id number](SN OMED CT) NO KNOWN ALLERGIES ENCOUNTERS ADMIT/DISCHARGE ACCOUNT NUMBER ADMITTING ENCOUNTER CLASS LOCATION SOURCE 09/15/2024/ 5 [id number] Ambulatory Building:[facility] 09/15/2024/ 5 [id number] Ambulatory Building:[facility] 09/01/2024/ 5 [id number] Ambulatory Building:[facility] PAYERS ENCOUNTER GUARANTOR PAYER SUBSCRIBER SOURCE 09/15/2024 RENUKA HILARIOOB: [place] [phone]: ~[phone]) Primary Insurance:[facility] Number: [id number] ve Date: RENUKA HILARIOOB: [id number] [place] [phone] 09/15/2024 RENUKA HILARIOOB: [place] [phone]: ~[phone] (HP) Primary Insurance:[facility] Number: [id number] ve Date: RENUKA HILARIOOB: [id number] [place] [phone] 09/01/2024 RENUKA HILARIOOB: [place] [phone]: ~[phone]) Primary Insurance:[employer] Number: [id number] ve Date: JUSTUS PUTNAM: [id number] [address]
[2025-01-16] VITALS (43 sets, daily range): BP systolic 107–143; BP diastolic 57–89; PULSE 72–123; RESP 13–18; TEMP 36.4–36.8; O2SAT 97–100; BMI 27.3
[2025-01-16 10:53] LABS: Hematocrit 30.0 % (37-47); Hemoglobin 10.2 g/dL (12.0-15.0); Mean Corp Hgb Conc 34.0 g/dL (32-36); Mean Corpuscular Volume 83.3 fL (81-99); Mean Platelet Vol. 12.1 fl (6.2-12.0); Platelet Count 175 K/mm3 (150-450); RBC Distribution Width CV 13.5 % (11.6-14.6); RBC Distribution Width SD 41.0 fl (35.1-43.9); Red Blood Count 3.60 M/mm3 (4.2-5.4); White Blood Count 14.4 K/mm3 (4.4-11.0)
[2025-01-16 11:21] LABS: AST(SGOT) 28 U/L (<=31); Alanine Aminotransfer ALT/SGPT 11 U/L (<=34); Estimated Creatinine Clearance 113.92 ml/min (50-250); Uric Acid 5.5 mg/dL (2.6-6.0)
[2025-01-16 11:24] LABS: Creatinine, Urine (random) 72.10 mg/dL (28.00-217.00); Protein, Urine (Random) 39.3 mg/dL (0.0-12.0); Protein:Creat Ratio 545 mg/g CRE (0-200)
--- NOTE | 2025-01-16 12:24 | HP.PCM.OB_ITS ---
HPI - General General Date of Admission: 01/16/25 Date of Service: 01/16/25 HPI Narrative MARLO GRANDA, is a 24 F 38.0 weeks gestation who presents to unit after being seen in the office for a BP check. Protein was noted in her urine and patient had a headache. Pre e labs show elevated PC ratio. Decision made for IOL for preeclampsia Maternal Data Information KAROLINA Calculator Estimated Delivery Date Method Current WG Current Estimate 01/30/25 LMP (Certain) 38w 0d Other Estimates 01/25/25 Ultrasound #1 38w 5d 01/25/25 Ultrasound #2 38w 5d Final KAROLINA: 01/30/25 Final KAROLINA Source: US >20 weeks Gestational age: 38.0 PFSH PFSH Medical History Asthma Home Medications ?Medication ?Instructions ?Recorded ?Last Taken ?Type diphenhydramine HCl 50 mg capsule 50 mg PO QHS 5 Unknown History ([employer]) mv-mn 110-FA 180 mcg-om3 35 mg-dha 1 tab PO DAILY 05/22 12/12 Unknown History 25 mg-epa 5 mg-fish oil chew tablet pyridoxine (vitamin B6) 100 mg 100 mg PO QHS 06/17/24 Unknown History tablet famotidine 20 mg tablet (Acid 20 mg PO DAILY 12/25/24 12/24/24 History Controller) Allergy/AdvReac Type Severity Reaction Status Date / Time No Known Allergies Allergy Verified 01/16/25 10:52 Family History Grandmother Cancer, Onset Age: 75 Paternal- Kidney Father High cholesterol Surgical History [place] teeth extracted Social History adopted: No household members: spouse and other details: Sister & Fiance housing: house current occupational status: employed 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- [employer] current occupational exposures/hazards: No pets and animals: Yes pets and animals: dog(s) history of recent travel: No sexually active: Yes Smoking Status: Never smoker alcohol intake: current alcohol intake frequency: holidays/special occasions only details: not while substance use type: does not use well-balanced diet: daily or most days caffeine: No eating out: 1-3 times/week during the past year weight has: remained stable what type of physical activity do you participate in: walking frequency: 1-2 times per week duration: 15-30 minutes/day antoine/yazdanism: Latter Day seatbelt use: always do you feel safe at home: No additional social history: Dominick- Candicaping/Marine History 1 Elective abortions Hx Para 0 Spontaneous abortions Hx # Term Pregnancies Ectopic pregnancies Hx # Pregnancies Multiple births # of living children Visit Details Expected Delivery Route/Plan Labor Preferences- CB/BF classes: encouraged labor support person: Dominick labor intervention preferences: [] pain management options preferred: wants limited cut cord/dad catch: yes : yes PP control planned: discussed discussed possible routes of delivery and associated risks: [] special requests: [] Plans Covid status: [] Flu vaccine: [] Tdap vaccine: declined Rhogam: NA LARC form signed: yes movement and labor precautions reviewed. Problem list reviewed and updated with the most current plan of care details and appropriate orders placed. Relevant counseling for the gestational age provided. Continue routine care and follow up unless otherwise noted in visit notes/problem list details OB Flowsheet Initial Weight: 115 lb Date -?-?-?-?-?-?-?-?-?-?-?--?- EGA Weight BP Urine Prot -?-?-?-?-?-?-?-?-?-?-?-?- Glucose FHR FuHt Pres Dilation -?-?-?-?-?-?-?-?-?-?-?-?- Effaced St Visit Note 06/30/24 -?-?-?-?-?-?-?-?-?-?-?-?- 9w 3d 115 lb 6 oz (+6 oz) 132/82 -?-?-?-?-?-?-?-?-?-?-?-?- 169 -?-?-?-?-?-?-?-?-?-?-?-?- KW CRL cons with dates. Accepts NIPT 08/08/24 -?-?-?-?-?-?-?-?-?-?-?-?- 15w 0d 116 lb 8 oz (+1 lb 8 oz) 123/77 Negative -?-?-?-?-?-?-?-?-?-?-?-?- Negative 144 -?-?-?-?-?-?-?-?-?-?-?-?- JV- no cramping or spotting. anatomy ordered with mfm. 09/08/24 -?-?-?-?-?-?-?-?-?-?-?-?- 19w 3d 125 lb (+10 lb) 133/75 Negative -?-?-?-?-?-?-?-?-?-?-?-?- Negative 140 -?-?-?-?-?-?-?-?-?-?-?-?- SM- no vb lof cr maping anatomy reviewed 10/03/24 -?-?-?-?-?-?-?-?-?-?-?-?- 23w 0d 130 lb 4 oz (+15 lb 4 oz) 134/87 Negative -?-?-?-?-?-?-?-?-?-?-?-?- Negative 150 23 -?-?-?-?-?-?-?-?-?-?-?-?- KW- no vb/lof/ct x. parish fm. glucose instructions reviewed. 11/01/24 -?-?-?-?-?-?-?-?-?-?-?-?- 27w 1d 137 lb 6 oz (+22 lb 6 oz) 120/72 Negative -?-?-?-?-?-?-?-?-?-?-?-?- Negative 152 27 -?-?-?-?-?-?-?-?-?-?-?-?- MH-No VB, LOF. G ood FM. Larc. 28 wk labs pending. 11/11/24 -?-?-?-?-?-?-?-?-?-?-?-?- 28w 4d 139 lb 6 oz (+24 lb 6 oz) 134/83 Negative -?-?-?-?-?-?-?-?-?-?-?-?- Negative 145 28 -?-?-?-?-?-?-?-?-?-?-?-?- JV- patient comp lains of back pain, tightening of abdomen, and pelvic pressure. UA was collected. She also thinks her discharge is abnormal. JV- patient complains of kyle k pain, tightening of abdomen, and pelvic pressure. UA was collected. She also thinks her discharge is abnormal. on exam she has a marked amount of vaginal yeast. culture collected to rule out BV as well. Rom plus ordered for watery dc but suspect this is just from the yeast. starting monistat 3 now. if no improvement will order diflucan. 11/29/24 -?-?-?-?-?-?-?-?-?-?-?-?- 31w 1d 143 lb (+28 lb) 115/73 Negative -?-?-?-?-?-?-?-?-?-?-?-?- Negative 160 32 -?-?-?-?-?-?-?-?-?-?-?-?- KW- doing much b sarah this week. no vb/lof/ctx. good fm. pepcid for acid reflux. 12/12/24 -?-?-?-?-?-?-?-?-?-?-?-?- 33w 0d 147 lb 5 oz (+32 lb 5 oz) 127/83 Negative -?-?-?-?-?-?-?-?-?-?-?-?- Negative 150 33 -?-?-?-?-?-?-?-?-?-?-?-?- KW- no vb/lof/ct x. good fm. concerns with vaginal itching-yeast on exam and culture today. starting Monistat 12/27/24 -?-?-?-?-?-?-?-?-?-?-?-?- 35w 1d 148 lb 9 oz (+33 lb 9 oz) 130/83 Negative -?-?-?-?-?-?-?-?-?-?-?-?- Negative 145 35 -?-?-?-?-?-?-?-?-?-?-?-?- SM- no vb lof go od fm irregular ctx 1 cm in triage, stable since 01/02/25 -?-?-?-?-?-?-?-?-?-?-?-?- 36w 0d 154 lb (+39 lb) 132/88 Trace -?-?-?-?-?-?-?-?-?-?-?-?- Negative 140 36 Cephalic 0 .5 -?-?-?-?-?-?-?-?-?-?-?-?- SM- no vb lof go od fm no regular ctx gbs 01/10/25 -?-?-?-?-?-?-?-?-?-?-?-?- 37w 1d 153 lb 4 oz (+38 lb 4 oz) 137/87 Negative -?-?-?-?-?-?-?-?-?-?-?-?- Negative 130 38 Cephalic 1 -?-?-?-?-?-?-?-?-?-?-?-?- 60 -2 KW- no vb/ lof/ctx. good fm. NST FHR Rate Baby A Baseline: 140 Variability:: Moderate Accelerations:: 15 x 15 Decelerations:: None NST Reactive:: Yes FHR Category:: Category I Uterine Activity:: irregular ROS Constitutional Constitutional: Denies change in weight, fatigue, fever(s), headache(s), poor appetite or weakness Eyes Eyes: Denies blurry vision, change in vision, floaters, seeing flashes or spots in vision ENT HEENT: Denies dizziness, headache(s), loss taste/smell or sore throat Cardiovascular Cardiovascular: Denies chest pain, dizziness, dyspnea, irregular heart rhythm, lightheadedness, palpitations or rapid heart rate Respiratory/Chest Respiratory/Chest: Denies change in mental status, chest tightness, cough, dyspnea or breast pain Gastrointestinal Gastrointestinal: Denies anorexia, chewing difficulty, constipation, diarrhea or weight changes Genitourinary Genitourinary: Denies difficulty urinating, dysuria, flank pain, genital pain, urinary frequency or urinary urgency Musculoskeletal Musculoskeletal: Denies back pain, difficulty walking, extremity pain, joint pain, muscle cramps or muscle weakness Integumentary Integumentary: Denies lesions or unusual bruising Neurologic Neurologic: Denies abnormal movements, abnormal speech, dizziness, numbness, seizure-like activity, syncope or weakness Psychiatric Psychiatric: Denies behavioral changes, change in appetite, confusion, depression, homicidal ideation, suicidal ideation or suicidal thoughts Endocrine Endocrinology: Denies excessive sweating, polydipsia or polyuria Hematologic/Lymphatic Hematologic/Lymphatic: Denies anemia Allergic/Immunologic Allergic/Immunologic: Denies itchy eyes, lip swelling, throat swelling, tongue swelling or wheezing Vital Signs Vital Signs Vital Signs: 01/16/25 10:08 01/16/25 10:08 01/16/25 10:08 Temperature Temperature Source Tympanic Pulse Rate 94 Respiratory Rate Blood Pressure BP Systolic BP Diastolic Pulse Ox 99 01/16/25 10:08 01/16/25 10:08 01/16/25 10:08 Temperature 98.2 F Temperature Source Pulse Rate Respiratory Rate 13 Blood Pressure BP Systolic BP Diastolic Pulse Ox 99 01/16/25 10:18 01/16/25 10:18 01/16/25 10:19 Temperature Temperature Source Pulse Rate 105 H Respiratory Rate Blood Pressure 126/89 H 127/89 H BP Systolic 126 127 BP Diastolic 89 89 Pulse Ox 01/16/25 10:19 01/16/25 10:34 01/16/25 10:34 Temperature Temperature Source Pulse Rate 101 H 92 Respiratory Rate Blood Pressure 130/88 H BP Systolic 130 BP Diastolic 88 Pulse Ox 01/16/25 10:49 01/16/25 10:49 01/16/25 11:05 Temperature Temperature Source Pulse Rate 89 Respiratory Rate Blood Pressure 124/86 H 132/84 H BP Systolic 124 132 BP Diastolic 86 84 Pulse Ox 01/16/25 11:05 01/16/25 11:19 01/16/25 11:19 Temperature Temperature Source Pulse Rate 95 103 H Respiratory Rate Blood Pressure 129/82 H BP Systolic 129 BP Diastolic 82 Pulse Ox 01/16/25 11:35 01/16/25 11:35 01/16/25 11:49 Temperature Temperature Source Pulse Rate 108 H Respiratory Rate Blood Pressure 143/88 H 133/81 H BP Systolic 143 133 BP Diastolic 88 81 Pulse Ox 01/16/25 11:49 Temperature Temperature Source Pulse Rate 100 Respiratory Rate Blood Pressure BP Systolic BP Diastolic Pulse Ox Weight Weight: 154 lb Body Mass Index (BMI) 27.3 Physical Exam Const alert, oriented x3 and no apparent distress General Appearance: cooperative Orientation / Consciousness: awake HEENT normocephalic Neck full ROM Lymph Lymphatic: no lymphadenopathy noted Chest inspection of chest normal Resp normal respiratory effort and normal air movement Effort and Inspection: able to speak in complete sentences and symmetric chest movement GI soft to palpation and non-tender Inspection: gravid Palpation: soft; Negative for tender external exam normal Manual OB Exam: dilated 1.5, effaced 70 and station -1 Back/Spine normal to inspection Extremity normal to inspection and full ROM Skin no rashes or lesions noted Psych mental status grossly normal Appearance: grossly normal Speech: normal speech Labs Labs Labs: Blood Type O POSITIVE Antibody Screen NEGATIVE Hct, (37-47) 30.0 % L Hgb, (12.0-15.0) 10.2 g/dL L Syphilis Total Ab, (Nonreactive) Nonreactive Rubella IgG Antibody, (Nonreactive) REAC Hep Bs Antigen, (Nonreactive) Nonreactive Hepatitis C Antibody, (Nonreactive) Nonreactive Chlamydia DNA (MABEL), (Negative) Negative N.gonorrhoeae DNA (MABEL), (Negative) Negative HIV 1&2 Antibody, (Nonreactive) Nonreactive Glucose 1 Hr 50 gm, (70-140) 89 mg/dL Assessment & Plan (1) Pre-eclampsia affecting , antepartum: (2) Choroid plexus cyst of fetus: COMMENT: LR NIPT (3) Supervision of normal first : QUALIFIERS: Trimester: second trimester Qualified Code(s): Z34.02 - Encounter for supervision of normal first , second trimester COMMENT: PRR, , KAROLINA 01/30/25, boy, Graidy Dominick(- [place]) (4) : QUALIFIERS: Weeks of gestation: 38 weeks Qualified Code(s): Z3A.38 - 38 weeks gestation of COMMENT: Neg GBS.NIPT low risk, anatomy reveiwed fu views needed (5) Maternal varicella, non-immune: (6) Encounter for induction of labor: PLAN: Patient presents IOL, plan management for with pitocin/AROM. Pain management: plans epidural. GBS negative. Management of any complications: see list I have reviewed the [facility] and made any clinically relevant updates. Dr VandeVelde aware of assessment, plan and admission. Agrees with above Charges/Coding Multi Select Codes Urinary/Genital Urinary/Genital CPT Codes: No Charge
[2025-01-16] MEDS: Lactated Ringers 1,000 ML 200 ML IV ×3 (13:29→23:22)
[2025-01-16] MEDS: Oxytocin 15 Units/NS 250ml 15 UNITS/250 ML IV.SOLN 2 UNITS IV (13:29)
[2025-01-16] MEDS: 0.9% Normal Saline Single 100 ML IV.SOLN. INTRA-UTER (14:00)
--- NOTE | 2025-01-16 14:05 | PN_ITS ---
Progress Note Coping well with contractions- pitocin started and palafox bulb easily inserted current tracing: FHT: 140 Moderate variability reactive no decelerations category I tracing [place]: irregular Contractions Membranes:intact SVE:1.5/70/-1 A/P: Continue with position changes Titrate pitocin per protocol Epidural per anesthesia GBS neg Anticipate Dr Carver aware of above assessment and agrees with plan of care Assessment & Plan Assessment/Plan (1) Encounter for induction of labor: (2) Pre-eclampsia affecting , antepartum: (3) Choroid plexus cyst of fetus: (4) Supervision of normal first : QUALIFIERS: Trimester: second trimester Qualified Code(s): Z34.02 - Encounter for supervision of normal first , second trimester (5) : QUALIFIERS: Weeks of gestation: 38 weeks Qualified Code(s): Z3A.38 - 38 weeks gestation of (6) Maternal varicella, non-immune: Multi Select Codes Urinary/Genital Urinary/Genital CPT Codes: No Charge
--- NOTE | 2025-01-16 16:05 | PN_ITS ---
Progress Note Coping well with contractions current tracing: FHT: 140 Moderate variability reactive no decelerations category I tracing [place]: 2-3 minute Contractions Membranes:ruptured at 1600 for clear fluid SVE:3.5/70/-2 A/P: Continue with position changes Titrate pitocin per protocol Epidural per anesthesia GBS neg Anticipate Dr Carver aware of above assessment and agrees with plan of care Assessment & Plan Assessment/Plan (1) Encounter for induction of labor: (2) Pre-eclampsia affecting , antepartum: (3) Choroid plexus cyst of fetus: (4) Supervision of normal first : QUALIFIERS: Trimester: second trimester Qualified Code(s): Z34.02 - Encounter for supervision of normal first , second trimester (5) : QUALIFIERS: Weeks of gestation: 38 weeks Qualified Code(s): Z3A.38 - 38 weeks gestation of (6) Maternal varicella, non-immune: Multi Select Codes Urinary/Genital Urinary/Genital CPT Codes: No Charge
[2025-01-16 18:28] LABS: Syphilis Antibodies Nonreactive (Nonreactive)
[2025-01-16] MEDS: Lactated Ringers 1,000 ML 999 ML IV (19:45)
[2025-01-16] MEDS: fentaNYL-bupivacaine (epidural) 100 ML BAG EPIDURAL (20:37)
[2025-01-17] VITALS (28 sets, daily range): BP systolic 112–138; BP diastolic 56–99; PULSE 73–118; RESP 14–25; TEMP 36.1–37.6; O2SAT 98–100
[2025-01-17] MEDS: fentaNYL-bupivacaine (epidural) 100 ML BAG EPIDURAL ×4 (01:03→16:15)
[2025-01-17] MEDS: Lactated Ringers 1,000 ML 200 ML IV ×3 (04:03→15:41)
--- NOTE | 2025-01-17 07:51 | PCM.PN.BLA ---
Progress Note patient comfortable with epidural, changing positions. cat I tracing. exp management, pit per protocol
[2025-01-17] MEDS: Amnioinfusion- 0.9% NS 1,000 ML IV.SOLN. INTRA-UTER (13:35)
[2025-01-17] MEDS: Oxytocin 15 Units/NS 250ml 15 UNITS/250 ML IV.SOLN 14 UNITS IV (15:41)
--- NOTE | 2025-01-17 15:56 | PCM.PN.BLA ---
Progress Note patient complete and pushing, 0 station. cat I tracing. epidural off to be able to feel appropriately to push
[2025-01-17] MEDS: LACTATED RINGERS 500 ML 999 ML IV (18:19)
[2025-01-17] MEDS: 0.9% Saline Lock 10 ML Syringe IV (18:19)
--- NOTE | 2025-01-17 20:26 | PCM.PN.BLA ---
Progress Note discussed considering a vacuum vs primary csection, recommend double setup due to possibility of failed vacuum, patient requesting primary . has been complete 6 hours and has been pushing intermittnetly for 3 1/2 to 4 of them. still +1 to +2 station and OP that would not consistently resolve with rotation, now having recurrent periodic variables. proceed with .
--- NOTE | 2025-01-17 20:28 | OP.PCM_ITS ---
Assessment & Plan (1) Arrest of descent, delivered, current hospitalization: COMMENT: maternal request for declined vacuum attempt. (2) Category II heart rate tracing during labor and delivery: (3) delivery delivered: COMMENT: LTCS AOD 10 cm pushed 3 1/2 hour OP 38 IOL pree gurpreet [place] (4) Supervision of normal first : QUALIFIERS: Trimester: second trimester Qualified Code(s): Z34.02 - Encounter for supervision of normal first , second trimester COMMENT: PRR, , KAROLINA 01/30/25, boy, Graidy Dominick([employer]) (5) Pre-eclampsia affecting , antepartum: (6) Choroid plexus cyst of fetus: COMMENT: LR NIPT (7) Encounter for induction of labor: (8) : QUALIFIERS: Weeks of gestation: 38 weeks Qualified Code(s): Z3A.38 - 38 weeks gestation of COMMENT: Neg GBS.NIPT low risk, anatomy reveiwed fu views needed (9) Maternal varicella, non-immune: Maternal Data Information KAROLINA Calculator Estimated Delivery Date Method Current WG Current Estimate 01/30/25 LMP (Certain) 38w 1d Other Estimates 01/25/25 Ultrasound #1 38w 6d 01/25/25 Ultrasound #2 38w 6d Operative Report (OB) Procedure Details Date of Procedure: 01/17/25 Procedure Start Time: 20:49 Pre-Operative Diagnosis: Failure of Descent (declined vacuum attempt) and Other Other Pre-Operative diagnosis: see a/p comments Post-Operative Diagnosis: Same as Pre-operative diagnosis (and CPD) Type of Anesthesia: Spinal Special Medications: none Antibiotic Given: Ancef 2 grams IV x1 Drain: [place] to straight drain Estimated Blood Loss: 900 Fluids Replaced: crystalloid Findings Description of surgery: Patient presented for induction of labor secondary to preeclampsia underwent Pitocin induction experienced a slow progression from 7 to complete over the course of 12 hours and then once she was complete began pushing on and off over the course of 6 hours with a total pushing of 3-1/2 to 4 hours. She developed recurrent periodic variable decelerations and the decision was made to proceed with delivery. Patient was counseled regarding the risk benefits and alternatives of attempted vacuum delivery versus proceeding with primary patient wished to proceed with primary and declined vacuum attempt. The patient was placed in the dorsal supine position with leftward tilt. Patient was prepped and draped in the normal sterile fashion. Pfannenstiel skin incision was made with the scalpel and carried through to the underlying layer of fascia with the scalpel. Fascia was nicked in the midline and the incision extended laterally. The rectus bellies were dissected off superiorly and inferiorly with out complication both sharply and bluntly. The peritoneum was entered digitally. The incision was stretched and a low transverse uterine incision was made with the scalpel. The 's head was delivered atraumatically followed by the anterior and posterior shoulders without complication the rest of the infant delivered. The cord was clamped and cut and the infant was handed off to awaiting nurse. The placenta was delivered spontaneously immediately following and was noted to be intact and have a three- vessel cord. everything was noted to be very swollen and the uterus atonous. The uterus was exteriorized cleared of all clots and debris, and the incision was closed in a single layer closure using #1 Monocryl. incision extended down into the right cervical region. The ovaries and fallopian tubes were noted to be within normal limits. The uterus was returned to the maternal abdomen and gutte rs were cleared of all clots and debris. The peritoneum was closed with 3-0 Monocryl in a running fashion. Fascia was closed with 0 PDS in a running fashion. Subcutaneous tissue was copiously irrigated and the skin was closed with 3-0 Monocryl in a subcuticular fashion. Mepilex dressing was applied without complication. Patient was taken to recovery in stable condition. It was discussed with the patient that based on the clinical information obtained during this encounter, combined with her history, at this time I would recommend cesareans for future deliveries if further pregnancies are desired. cpd was suspected. Surgical findings: arrest of descent declined vacuum Presentation: Vertex Amniotic Membrane Rupture Type: Artificial Amniotic Fluid Description: Clear Specimen collected: Yes Description of specimen(s) removed: placenta and baby Cord Vessel Description: 3 Vessels Delayed Cord Clamping: Yes Technical Inspector pharmacist per diem: Yes Ob Nurse: Thuy Ventura Tasks completed by dairy and food laboratory assistant: Opening & closing, Retracting and Other (assisting in delivery of the infant) Additional baking assistant?: No Complications Complications: No Admit VTE Documentation VTE Present on Admission: No VTE Mechan Device Prophylaxis: SCD's Procedures Urinary/Genital 52xxx-59xxx: 230[facility]
[2025-01-17] MEDS: Cefazolin 1 GM/5 ML Vial 2 GM IV (20:33)
[2025-01-17] MEDS: Cefazolin 2 GM in 0.9% Normal Saline (100mL Bag) 100 ML IV (20:33)
--- NOTE | 2025-01-17 20:34 | DCINST_ITS ---
Discharge Instructions DC O2, CPAP, BIPAP needs Home O2 Discharge instructions: No Dressing / Incision Discharge Activity: May Not Drive (for 2 weeks or while taking narcotic pain medications.), May Shower and May Take a Tub Bath (in 7 days) May shower in (days): 0 May resume sexual activity in: 4-6 weeks Weight Bearing Status: Full weight bearing Lifting Restrictions: 20 pounds Dressing / Incision Call your doctor if your incision/area has: Continuous Slow Oozing, Sudden Increased Bleeding, Increased Pain/ Swelling, Increased Redness and Foul Smelling Discharge Call your doctor if you observe: Fever of 101 or Higher and Using more than 1 pad per hour (for 2 hours) Suture Line Care: Avoid Pulling/Pushing and Avoid Pinching/Bending Cleanse incision/area with: Soap & Water and Keep Dressing Clean & Dry Follow Up Care Please Follow Up With: Virginia Chavez MD When: Call [phone] to make an appointment for an incision check in 1-2 weeks. Test Results: Test results from this visit will be discussed in further detail at your follow- up appointment, if applicable. Discharge Plan Admission Admit Date/Time: 01/16/25 12:46 Attending Provider: Virginia Titus Primary Care Provider: Care Physician,Mary Primary Discharge Orders/Prescriptions Prescriptions: New oxycodone-acetaminophen [Percocet] 5-325 mg tablet 1 tab PO Q4H PRN (Reason: pain) 7 Days Qty: 20 0RF naproxen 500 mg tablet 500 mg PO BID PRN PRN (Reason: Pain) Qty: 30 1RF No Action famotidine [Acid Controller] 20 mg tablet 20 mg PO DAILY Referrals / Follow Up: Care Physician,Mary Primary [Primary Care Provider, Medical] Disposition Disposition (needs filled in before D/C Order can be placed): Home, Self Care
[2025-01-17] MEDS: 0.9% Normal Saline (1000mL) 1,000 ML 1000 ML IV (20:55)
[2025-01-17] MEDS: TRANEXAMIC ACID 1,000 MG/10 ML ML 1000 MG IV (21:00)
[2025-01-17] MEDS: TRANEXAMIC ACID 1,000 MG in 0.9% Normal Saline (100mL Bag) 100 ML 440 MG IV (21:00)
[2025-01-17] MEDS: Lidocaine 1% (5 ml sdv) 5 ML Vial 2 ML IV (21:13)
[2025-01-17] MEDS: morphine PF (epidural) 5 MG/10 ML Vial IV (21:28)
[2025-01-17] MEDS: Lidocaine 2% (5ml sdv) 5 ML VIAL.MPF 20 ML EPIDURAL (21:30)
[2025-01-17] MEDS: fentaNYL 100 MCG/2 ML Ampul IV (21:30)
[2025-01-17] MEDS: DiphenhydrAMINE 50 MG/ML Syringe 25 MG IV (21:50)
[2025-01-17] MEDS: Azithromycin 500 MG in 0.9% Normal Saline (250mL Bag) 250 ML 250 MG IV (21:53)
[2025-01-17] MEDS: Azithromycin 500 MG Vial (SNAP) IV (21:53)
[2025-01-17] MEDS: Oxytocin 15 Units/NS 250ml 15 UNITS/250 ML IV.SOLN 83 UNITS IV (22:30)
[2025-01-17] MEDS: Ketorolac 30 MG/ML Syringe IV (23:30)
[2025-01-18] VITALS (12 sets, daily range): BP systolic 113–133; BP diastolic 72–93; PULSE 86–117; RESP 16–20; TEMP 36.2–36.7; O2SAT 97–100
[2025-01-18] MEDS: Lactated Ringers 1,000 ML 100 ML IV (02:31)
[2025-01-18] MEDS: Ketorolac 30 MG/ML Syringe IV ×3 (05:24→17:36)
[2025-01-18 06:17] LABS: Hematocrit 22.8 % (37-47); Hemoglobin 7.4 g/dL (12.0-15.0); Mean Corp Hgb Conc 32.5 g/dL (32-36); Mean Corpuscular Volume 85.4 fL (81-99); Mean Platelet Vol. 11.8 fl (6.2-12.0); Platelet Count 140 K/mm3 (150-450); RBC Distribution Width CV 13.9 % (11.6-14.6); RBC Distribution Width SD 43.1 fl (35.1-43.9); Red Blood Count 2.67 M/mm3 (4.2-5.4); White Blood Count 25.2 K/mm3 (4.4-11.0)
--- NOTE | 2025-01-18 08:00 | PN.OBGYN_ITS ---
Subjective Subjective Patient is laying in bed comfortably without complaints. She states that she slept on an off during the night. Lochia is mild and pain is minimal. hg this am is 7. 4 she consents to an iron infusion Objective Data Objective Data Vital Signs: Vital Signs Temp Pulse Resp BP Pulse Ox O2 Del Method 97.2 F L 87 16 133/85 H 100 Room Air 01/18/25 07:46 01/18/25 07:46 01/18/25 07:46 01/18/25 07:46 01/18/25 07:46 01/18/25 07:46 Oxygen Delivery Method Room Air Weight: 154 lb Body Mass Index (BMI) 27.3 Intake & Output: Intake and Output for Last 24 Hours 01/16/25 01/17/25 01/18/25 23:59 23:59 23:59 Intake Total 3012.16 / 3012.16 4827.97 / 4827.97 606.67 / 606.67 Output Total 1800 / 1800 1800 / 1800 400 / 400 Balance 1212.16 / 1212.16 3027.97 / 3027.97 206.67 / 206.67 Lab / Micro Data 01/18/25 05:45 01/16/25 10:20 Labs: Laboratory Results - last 24 hr 01/18/25 05:45: WBC 25.2 H, RBC 2.67 L, Hgb 7.4 L, Hct 22.8 L, MCV 85.4, MCH 27.7, MCHC 32.5, RDW Std Deviation 43.1, RDW Coeff of Shahzad 13.9, Plt Count 140 L, MPV 11.8 ROS Constitutional Constitutional: Reports systems reviewed and no addt'l complaints, except as documented Cardiovascular Cardiovascular: Denies chest pain, dizziness, dyspnea or irregular heart rhythm Respiratory/Chest Respiratory/Chest: Denies cough, pain on inspiration or shortness of breath at rest Gastrointestinal Gastrointestinal: Denies abdominal pain, nausea or vomiting Genitourinary Genitourinary: Denies burning urination Musculoskeletal Musculoskeletal: Denies muscle cramps, muscle spasms or muscle weakness Neurologic Neurologic: Denies confusion, dizziness, headache(s) or lack of coordination Psychiatric Psychiatric: Denies anxiety, behavioral changes or depression Physical Exam HEENT normocephalic Resp normal respiratory effort and normal air movement GI soft to palpation, non-tender and non-distended Rectal Exam: other Other Details: Incision is clean, dry, and intact no CVA tenderness Extremity normal to inspection General Extremity: edema bilateral (trace ) Assessment & Plan (1) Acute blood loss anemia: (2) delivery delivered: COMMENT: LTCS AOD 10 cm pushed 3 1/2 hour OP 38 IOL pree gurpreet Franco (3) Category II heart rate tracing during labor and delivery: (4) Arrest of descent, delivered, current hospitalization: COMMENT: maternal request for declined vacuum attempt. (5) Encounter for induction of labor: (6) Pre-eclampsia affecting , antepartum: (7) Choroid plexus cyst of fetus: COMMENT: LR NIPT (8) Supervision of normal first : QUALIFIERS: Trimester: second trimester Qualified Code(s): Z34.02 - Encounter for supervision of normal first , second trimester COMMENT: PRR, , KAROLINA 01/30/25, boy, Graidy Dominick(- [employer]) (9) : QUALIFIERS: Weeks of gestation: 38 weeks Qualified Code(s): Z 3A.38 - 38 weeks gestation of COMMENT: Neg GBS.NIPT low risk, anatomy reveiwed fu views needed (10) Maternal varicella, non-immune: PLAN: Plan s/p LTCS PPD # 1 1. routine post care 2. breast feeding- support given 3. rh positive 4. rubella immune 5. iron infusion now 6. rpt h/h at noon
[2025-01-18] MEDS: Iron Sucrose Complex 200 MG in 0.9% Normal Saline (100mL Bag) 100 ML 220 MG IV (08:34)
[2025-01-18] MEDS: Senna/Docusate Sodium 1 Tablet PO (09:55)
[2025-01-18] MEDS: 0.9% Saline Lock 10 ML Syringe IV (11:34)
[2025-01-18 12:25] LABS: Hematocrit 21.3 % (37-47); Hemoglobin 7.0 g/dL (12.0-15.0); Immature Granulocytes Count 0.130 X10^3/uL (0.0-0.0); Mean Corp Hgb Conc 32.9 g/dL (32-36); Mean Corpuscular Volume 85.2 fL (81-99); Mean Platelet Vol. 11.4 fl (6.2-12.0); NRBC Flagged by Analyzer 0 % (0-5); POSITIVE DIFFERENTIAL YES; Platelet Count 138 K/mm3 (150-450); RBC Distribution Width CV 14.0 % (11.6-14.6); RBC Distribution Width SD 43.0 fl (35.1-43.9); Red Blood Count 2.50 M/mm3 (4.2-5.4); White Blood Count 24.1 K/mm3 (4.4-11.0)
[2025-01-18 12:26] LABS: Differential Indicated SCAN CRITERIA MET
[2025-01-18 12:50] LABS: Toxic Granulation 1+
[2025-01-19] VITALS (9 sets, daily range): BP systolic 111–135; BP diastolic 70–82; PULSE 67–92; RESP 16–22; TEMP 36.3–36.7; O2SAT 97–99
[2025-01-19 06:23] LABS: Hematocrit 19.1 % (37-47); Hemoglobin 6.1 g/dL (12.0-15.0); Immature Granulocytes Count 0.350 X10^3/uL (0.0-0.0); Mean Corp Hgb Conc 31.9 g/dL (32-36); Mean Corpuscular Volume 86.8 fL (81-99); Mean Platelet Vol. 11.7 fl (6.2-12.0); NRBC Flagged by Analyzer 0.1 % (0-5); POSITIVE DIFFERENTIAL YES; Platelet Count 154 K/mm3 (150-450); RBC Distribution Width CV 14.3 % (11.6-14.6); RBC Distribution Width SD 43.7 fl (35.1-43.9); Red Blood Count 2.20 M/mm3 (4.2-5.4); White Blood Count 24.2 K/mm3 (4.4-11.0)
[2025-01-19 06:25] LABS: Differential Indicated SCAN CRITERIA MET
[2025-01-19] MEDS: 0.9% Saline Lock 10 ML Syringe IV ×2 (06:55→11:27)
[2025-01-19 07:25] LABS: Differential Comment SCANNED
--- NOTE | 2025-01-19 07:35 | PCM.PN.OB ---
Subjective Subjective Patient doing well without complaints. Tolerating PO. Ambulating and voiding without difficulty. feeding well. Denies chest pain, shortness of breath, calf pain/swelling, fevers, chills, lightheadedness. Objective Data Objective Data Vital Signs: Vital Signs Temp Pulse Resp BP Pulse Ox O2 Del Method 98.0 F 74 16 113/78 98 Room Air 01/19/25 07:24 01/19/25 07:24 01/19/25 07:24 01/19/25 07:24 01/19/25 07:24 01/19/25 07:24 Oxygen Delivery Method Room Air Weight: 154 lb Body Mass Index (BMI) 27.3 Intake & Output: Intake and Output for Last 24 Hours 01/17/25 01/18/25 01/19/25 23:59 23:59 23:59 Intake Total 4827.97 / 4827.97 716.67 / 716.67 0 / 0 Output Total 1800 / 1800 1200 / 1200 Balance 3027.97 / 3027.97 -483.33 / -483.33 0 / 0 Lab / Micro Data 01/19/25 06:10 01/16/25 10:20 Labs: Laboratory Results - last 24 hr 01/16/25 10:20: Crossmatch See Detail 01/18/25 12:15: WBC 24.1 H, RBC 2.50 L, Hgb 7.0 L, Hct 21.3 L, MCV 85.2, MCH 28.0, MCHC 32.9, RDW Std Deviation 43.0, RDW Coeff of Shahzad 14.0, Plt Count 138 L, MPV 11.4, Immature Gran % (Auto) 0.500, Neut % (Auto) 92.3 H, Lymph % (Auto) 1.9 L, [place] % (Auto) 4.4, Eos % (Auto) 0.7, Baso % (Auto) 0.2, Absolute Neuts (auto) 22.3 H, Absolute Lymphs (auto) 0.47 L, Nucleated RBC % 0, Toxic Granulation 1+ 01/19/25 06:10: WBC 24.2 H, RBC 2.20 L, Hgb 6.1 L, Hct 19.1 L, MCV 86.8, MCH 27.7, MCHC 31.9 L, RDW Std Deviation 43.7, RDW Coeff of Shahzad 14.3, Plt Count 154, MPV 11.7, Immature Gran % (Auto) 1.400 H, Neut % (Auto) 89.9 H, Lymph % (Auto) 2.4 L, [place] % (Auto) 6.2, Eos % (Auto) 0.0, Baso % (Auto) 0.1, Absolute Neuts (auto) 21.7 H, Absolute Lymphs (auto) 0.59 L, Nucleated RBC % 0.1, Differential Comment SCANNED ROS Constitutional Constitutional: Reports systems reviewed and no addt'l complaints, except as documented Cardiovascular Cardiovascular: Reports systems reviewed and no addt'l complaints, except as documented Respiratory/Chest Respiratory/Chest: Reports systems reviewed and no addt'l complaints, except as documented Gastrointestinal Gastrointestinal: Reports systems reviewed and no addt'l complaints, except as documented Physical Exam Const alert, oriented x3 and no apparent distress HEENT Head and Scalp: atraumatic Resp normal respiratory effort GI soft to palpation and non-tender Inspection: incision intact, healing well and drainage (none) Bimanual Exam - Vag & Uterus: uterus non-tender Uterus Palpation: uterus fundus firm (below Umbilicus) Assessment & Plan (1) Acute blood loss anemia: COMMENT: transfuse 1 unit prbc (2) delivery delivered: COMMENT: LTCS AOD 10 cm pushed 3 1/2 hour OP 38 IOL pree boy Salvador (3) Category II heart rate tracing during labor and delivery: (4) Arrest of descent, delivered, current hospitalization: COMMENT: maternal request for declined vacuum attempt. (5) Encounter for induction of labor: (6) Pre-eclampsia affecting , antepartum: (7) Choroid plexus cyst of fetus: COMMENT: LR NIPT (8) Supervision of normal first : QUALIFIERS: Trimester: second trimester Qualified Code(s): Z34.02 - Encounter for supervision of normal first , second trimester COMMENT: PRR, , KAROLINA 01/30/25, Rodney vázquez Dominick(-[employer]) (9) : QUALIFIERS: Weeks of gestation: 38 weeks Qualified Code(s): Z3A.38 - 38 weeks gestation of COMMENT: Neg GBS.NIPT low risk, anatomy reveiwed fu views needed (10) Maternal varicella, non-immune: PLAN: Plan s/p LTCS PPD # 2 1. routine post care 2. breast feeding- support given 3. rh positive 4. rubella immune transfuse and repeat hg 4 hours after
[2025-01-19] MEDS: Senna/Docusate Sodium 1 Tablet PO (08:29)
[2025-01-19 15:24] LABS: Hematocrit 22.7 % (37-47); Hemoglobin 7.7 g/dL (12.0-15.0); Mean Corp Hgb Conc 33.9 g/dL (32-36); Mean Corpuscular Volume 85.7 fL (81-99); Mean Platelet Vol. 11.1 fl (6.2-12.0); Platelet Count 156 K/mm3 (150-450); RBC Distribution Width CV 13.8 % (11.6-14.6); RBC Distribution Width SD 42.5 fl (35.1-43.9); Red Blood Count 2.65 M/mm3 (4.2-5.4); White Blood Count 28.2 K/mm3 (4.4-11.0)
--- NOTE | 2025-01-19 15:25 | PCM.DC.SUM ---
Providers Date of Admission: 01/16/25 Primary Care Physician: No Primary Care Phys Reason For Visit: C SECTION Diagnosis Discharge Diagnosis (1) Acute blood loss anemia: Status: Acute Code(s): D62 - Acute posthemorrhagic anemia (2) delivery delivered: Status: Acute Code(s): O82 - Encounter for delivery without indication (3) Category II heart rate tracing during labor and delivery: Status: Acute Code(s): O76 - Abnormality in heart rate and rhythm complicating labor and delivery (4) Arrest of descent, delivered, current hospitalization: Status: Acute Code(s): O62.1 - Secondary uterine inertia (5) Encounter for induction of labor: Status: Acute Code(s): Z34.90 - Encounter for supervision of normal , unspecified, unspecified trimester (6) Pre-eclampsia affecting , antepartum: Status: Acute Code(s): O14.90 - Unspecified pre-eclampsia, unspecified trimester (7) Choroid plexus cyst of fetus: Status: Acute (8) Supervision of normal first : Status: Acute Code(s): Z34.00 - Encounter for supervision of normal first , unspecified trimester Qualifiers: Trimester: second trimester Qualified Code(s): Z34.02 - Encounter for supervision of normal first , second trimester (9) : Status: Acute Code(s): Z34.90 - Encounter for supervision of normal , unspecified, unspecified trimester Qualifiers: Weeks of gestation: 38 weeks Qualified Code(s): Z3A.38 - 38 weeks gestation of (10) Maternal varicella, non-immune: Status: Acute Code(s): O09.899 - Supervision of other high risk pregnancies, unspecified trimester; Z28.39 - Other underimmunization status Plan s/p LTCS PPD # 2 1. routine post care 2. breast feeding- support given 3. rh positive 4. rubella immune transfuse and repeat hg 4 hours after Medications at Discharge Home Medications famotidine 20 mg tablet (Acid Controller) 20 mg PO DAILY 12/25/24 naproxen 500 mg tablet 500 mg PO BID PRN PRN Pain #30 tabs 01/17/25 oxycodone-acetaminophen 5 mg-325 mg tablet (Percocet) 1 tab PO Q4H PRN pain 7 days #20 tabs 01/17/25 Hospital Course Summary of Care Provided Hospital Course: Patient presented for induction of labor secondary to preeclampsia. Patient was induced with Pitocin and proceeded to complete dilation pushed 3-1/2 almost 4 hours with an arrest of descent patient declined an attempt with a vacuum and decided on a primary . The infant was noted to be in direct OP presentation. After the and the findings associated with the delivery cephalopelvic disproportion was suspected. Postoperatively patient had a return of bowel and bladder function and was ambulating well and tolerating p.o. had adequate pain control with oral pain medications. Hemoglobin was anemic and dropped down to 6.1 therefore she was given 1 unit of blood and hemoglobin repeated posttransfusion. Patient was stable for discharge to home on day 2. Weight / BMI Weight Weight: 154 lb Body Mass Index (BMI) 27.3 ABG / Lab / Microbiology Data 01/19/25 14:45 01/16/25 10:20 Laboratory: Laboratory Results - last 24 hr 01/16/25 10:20: Crossmatch See Detail 01/19/25 06:10: WBC 24.2 H, RBC 2.20 L, Hgb 6.1 L, Hct 19.1 L, MCV 86.8, MCH 27.7, MCHC 31.9 L, RDW Std Deviation 43.7, RDW Coeff of Shahzad 14.3, Plt Count 154, MPV 11.7, Immature Gran % (Auto) 1.400 H, Neut % (Auto) 89.9 H, Lymph % (Auto) 2.4 L, [place] % (Auto) 6.2, Eos % (Auto) 0.0, Baso % (Auto) 0.1, Absolute Neuts (auto) 21.7 H, Absolute Lymphs (auto) 0.59 L, Nucleated RBC % 0.1, Differential Comment SCANNED D/C Instructions May shower in (days): 0 May resume sexual activity in: 4-6 weeks Weight Bearing Status: Full weight bearing Call your doctor if your incision/area has: Continuous Slow Oozing, Sudden Increased Bleeding, Increased Pain/ Swelling, Increased Redness and Foul Smelling Discharge Call your doctor if you observe: Fever of 101 or Higher and Using more than 1 pad per hour (for 2 hours) Suture Line Care: Avoid Pulling/Pushing and Avoid Pinching/Bending Cleanse incision/area with: Soap & Water and Keep Dressing Clean & Dry DC O2, CPAP, BIPAP Needs Home O2 Discharge instructions: No Please Follow Up With: Virginia Chavez MD When: Call [phone] to make an appointment for an incision check in 1-2 weeks. Meaningful Use Info Meaningful Use Meaningful Use Diagnoses (Choose all that apply): None applicable Discharge Plan Admission Admit Date/Time: 01/16/25 12:46 Attending Provider: Virginia Titus Primary Care Provider: Care Physician,Mary Primary Discharge Orders/Prescriptions Prescriptions: New oxycodone-acetaminophen [Percocet] 5-325 mg tablet 1 tab PO Q4H PRN (Reason: pain) 7 Days Qty: 20 0RF naproxen 500 mg tablet 500 mg PO BID PRN PRN (Reason: Pain) Qty: 30 1RF No Action famotidine [Acid Controller] 20 mg tablet 20 mg PO DAILY Referrals / Follow Up: Care Physician,No Primary [Primary Care Provider, Medical] Disposition Disposition (needs filled in before D/C Order can be placed): Home, Self Care
[2025-01-20 08:06] VITALS: RESP 16; TEMP 36.3
== END 2025-01-19 17:58 | disposition home or self-care (01) | DRG 787 ==
LOC: WPOUT 12:59 → WP 01-17 11:51
PROVIDERS: Obstetrics & Gynecology; Admitting Provider Advanced Practice Midwife; Referring Provider Advanced Practice Midwife; Visit Provider Advanced Practice Midwife
DX: O14.94 Unspecified pre-eclampsia, complicating childbirth (principal); D62 Acute posthemorrhagic anemia; O35.03X0 Maternal care for (suspected) central nervous system malformation or damage in fetus, choroid plexus cysts, not applicable or unspecified; O32.4XX0 Maternal care for high head at term, not applicable or unspecified; Z37.0 Single live birth; O33.9 Maternal care for disproportion, unspecified; O76 Abnormality in fetal heart rate and rhythm complicating labor and delivery; O90.81 Anemia of the puerperium; Z3A.38 38 weeks gestation of pregnancy
CPT/HCPCS: 59025; 59050; 82565; 82570; 84156; 84450; 84460; 84550; 85025; 85027; 86780; 86850; 86900; 86901; 99221; J1756; P9016; A4216; G0378; J2405

== ENCOUNTER 2025-01-27 15:11 | Inpatient (IN) | payer OTHER, BC, SELFPAY ==
[2025-01-27] VITALS (10 sets, daily range): BP systolic 108–129; BP diastolic 64–88; PULSE 86–108; RESP 16–18; TEMP 36.6–37.5; O2SAT 94–99; BMI 23.7
--- NOTE | 2025-01-27 15:20 | CT_ITS ---
PROCEDURE: ABDOMEN/PELVIS WITHOUT CONT 01/27/2025 REASON FOR EXAM: WOUND INFECTION TECHNIQUE: Procedure Code: CTABDPEL Modality: CT Procedure: ABDOMEN/PELVIS WITHOUT CONT Noncontrast technique limits evaluation of the abdominal and pelvic viscera. Coronal and Sagittal reconstruction series were provided. One or more dose reduction techniques were used (e.g., Automated exposure control, adjustment of the mA and/or kV according to patient size, use of iterative reconstruction technique). RADIATION DOSE SUMMARY: CTDlvol: 6.52 mGy DLP: 332 mGycm COMPARISON: None. FINDINGS: LUNG BASES: No pleural effusion. Minimal left lower lobe atelectasis. Minimal pericardial fluid. LIVER: Enlarged measuring 19.9 cm in length. No focal lesion seen. GALLBLADDER: Unremarkable. No calcified stone. BILE DUCTS: No ductal dilation. PANCREAS: Unremarkable. SPLEEN: Unremarkable. ADRENAL GLANDS: Unremarkable. KIDNEYS/URETERS Right renal calculus measuring 2.2 mm. No ureteral or bladder calculi. No hydronephrosis or hydroureter. STOMACH AND BOWEL: No obstruction or perforation. No wall thickening. No CT evidence of colitis or acute diverticulitis. APPENDIX: Normal-appearing appendix. No CT evidence for appendicitis. RETRO/PERITONEUM: No free fluid. No free air. LYMPH NODES: No lymphadenopathy. PELVIC ORGANS: Enlarged uterus with minimal air in the endometrial cavity.. VASCULATURE: No aortic aneurysm. ABDOMINAL WALL AND SOFT TISSUES: Status post section with air and fluid in the ventral wall incision. This collection roughly measures 2.0 (AP) x 18.4 (TR) x 2.2 (CC) cm. Diffuse infiltration of the surrounding fat with overlying skin thickening. Postoperative air and fluid also noted in the underlying rectus abdominis muscles. BONES: No fracture or suspicious osseous abnormality. CT/Abdomen/Pelvis without Cont IMPRESSION: 1. Status post with air and fluid collection within the ventral wall incision, likely postoperative in etiology and/or developing infection. Surrounding fat stranding with overlying skin thickening , could represent cellulitis. 2. Nonobstructing right renal calculus. Reading Location: [id number]
[2025-01-27] MEDS: Piperacil/Tazobactam 3.375 GM in 0.9% Normal Saline (50mL MB+) 50 ML IV ×2 (15:39→21:28)
[2025-01-27] MEDS: 0.9% Normal Saline (1000mL) 1,000 ML 125 ML IV ×2 (15:39→21:06)
[2025-01-27 17:51] LABS: Hematocrit 23.9 % (37-47); Hemoglobin 7.6 g/dL (12.0-15.0); Immature Granulocytes Count 0.150 X10^3/uL (0.0-0.0); Mean Corp Hgb Conc 31.8 g/dL (32-36); Mean Corpuscular Volume 87.5 fL (81-99); Mean Platelet Vol. 10.1 fl (6.2-12.0); NRBC Flagged by Analyzer 0 % (0-5); Platelet Count 238 K/mm3 (150-450); RBC Distribution Width CV 15.1 % (11.6-14.6); RBC Distribution Width SD 48.8 fl (35.1-43.9); Red Blood Count 2.73 M/mm3 (4.2-5.4); White Blood Count 19.2 K/mm3 (4.4-11.0)
[2025-01-27 18:18] LABS: AST(SGOT) 15 U/L (<=31); Alanine Aminotransfer ALT/SGPT 10 U/L (<=34); Albumin, Serum 2.9 g/dL (3.5-5.0); Alkaline Phosphatase 151 U/L (35-104); Anion Gap 14 (5-15); BUN 8 mg/dL (4-19); BUN/Creat Ratio 14.9 RATIO (10-20); Calcium,Total 8.5 mg/dL (7.6-11.0); Carbon Dioxide 17.9 mmol/L (21.0-32.0); Chloride 111 mmol/L (98-108); Estimated Creatinine Clearance 129.25 ml/min (50-250); Globulin 3.2 g/dL (2.2-4.2); Glucose 75 mg/dL (70-99); Potassium 4.0 mmol/L (3.3-5.1)
--- NOTE | 2025-01-27 18:29 | PCM.PRE.AN2 ---
ASA Classification* ASA Classification ASA Classification: 2 and E Assessment & Plan Anesthesia* Anesthesia Assessment Anesthesia Assessment: Discussed sedation and/or anesthesia options, risks, benefits, and alternatives with patient/parents/legal guardian/POA. Questions invited. The patient/parents/legal guardian/POA seems to understand and agrees to proceed with anesthesia plan. Reviewed the physical assessment, medical history, allergy history and patient home medications list prior to surgery/procedure/anesthetic and documented any changes. Performed airway and anesthesia risk assessments. Anesthesia Type Anesthesia Type: General History Source History Obtained from:: Patient and Chart Anesthesia Focused Assessment* Temperature: 98.5 F Pulse Rate: 107 Blood Pressure: 129/88 Respiratory Rate: 16 Pulse Ox: 99 Oxygen Delivery Method: Room Air Airway Assessment Mouth opens: >3 cm Mallampati Score: II Teeth Condition: Intact Neck Range of motion (ROM): Full ROM Labs Anesthesia Preop lab: CBC WBC, (4.4-11.0) 19.2 K/mm3 H Today, 17:35 RBC, (4.2-5.4) 2.73 M/mm3 L Today, 17:35 Hgb, (12.0-15.0) 7.6 g/dL L Today, 17:35 Hct, (37-47) 23.9 % L Today, 17:35 Plt Count, (150-450) 238 K/mm3 Today, 17:35 CHEMISTRY Potassium, (3.3-5.1) 4.0 mmol/L Today, 17:35 Sodium, (133-145) 142 mmol/L Today, 17:35 BUN, (4-19) 8 mg/dL Today, 17:35 Creatinine, (0.70-1.20) 0.56 mg/dL L Today, 17:35 Glucose, (70-99) 75 mg/dL Today, 17:35 COAG PT Pending Today, 17:35 Pre-Assessment Diagnosis/Proposed Procedure Planned Operative Procedure(s): Laparotomy, myomectomy. 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 When Was Last Pacemaker Check QUESTION #4 FULL TEXT: You/Your Family Experience fever (hyperthermia) with Anesthesia Last Oral Intake Last Oral intake: Last Oral Intake NPO since 13:00 01/27/25 18:05 Meds taken in AM with sips of water? Meds patient instructed to take am of surgery Any additional information?: Yes NPO since: 13:00 (Patient with water and clear fluids at 1:30 PM.) PONV PONV - assistant spa manager: PONV - assistant spa manager Female HX of Motion Sickness HX of N/V After Surgery Non-Smoker Duration of Surgery greater than 60 minutes Number of Risk Factors PONV Score Height & Weight Height & Weight: Anesthesia: Height & Weight Height 5 ft 3 in 01/27/25 18:05 Weight: 60.781 kg 01/27/25 18:05 Body Mass Index (BMI) 23.7 01/27/25 18:05 Respiratory Assessment Respiratory Assessment - assistant spa manager: Respiratory Tract Infection Hx - assistant spa manager Hx Respiratory Tract Infection No 01/27/25 17:51 STOP Sleep Apnea STOP Sleep Apnea - assistant spa manager: STOP Sleep Apnea - assistant spa manager Hx Hypertension No 01/27/25 14:48 Hx Sleep Apnea No 01/27/25 14:48 CPAP BIPAP Do you snore loudly (louder No 01/27/25 14:48 than talking or can be heard Do you often feel tired/ No 01/27/25 14:48 fatigued/ sleepy during daytime? Has anyone observed you stop No 01/27/25 14:48 breathing during sleep? STOP Results Negative 01/27/25 14:48 QUESTION #5 FULL TEXT : Do you snore loudly (louder than talking or can be heard through closed doors)? 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 Specify any problems Hx of Preganancy in last 3 Yes 01/27/25 14:48 Months Nurse Filling Out Transfusion TWOLF 01/27/25 14:48 & Questions: Date: 01/27/25 01/27/25 14:48 Time: 14:50 01/27/25 14:48 Patient unable to answer at this time (ie. confused, unrespo /Reproduction History /Reproductive History - assistant spa manager: /Reproductive Hx- assistant spa manager Hx Now No 01/27/25 17:51 Gestational Age (in weeks): EDC: Hx Hx Para Hx Section SAB Yes 01/27/25 17:51 Active Medications Active Medications: Current Medications Generic Name Dose Route Start Last Admin Trade Name Freq PRN Reason Stop Dose Admin Sodium Chloride 250 mls @ 15 mls/hr 01/27/25 14:53 IV .[id number] PRN Saline Flush Sodium Chloride 250 mls @ 15 mls/hr 01/27/25 14:53 IV .[id number] PRN Additional IVPB Infusion Piperacillin Sod/Tazobactam 50 mls @ 12.5 mls/hr 01/27/25 15:10 01/27/25 15:39 Sod 3.375 gm/ Sodium Chloride IV 12.5 mls/hr Q8 ROCIO Administration Sodium Chloride 1,000 mls @ 125 mls/hr 01/27/25 15:10 01/27/25 15:39 IV 125 mls/hr .Q8H ROCIO Administration Sodium Chloride 10 - 40 ml 01/27/25 14:53 0.9% Saline Lock 10 Ml Syringe IV UD PRN SALINE FLUSH PFSH Medical History Asthma Home Medications ?Medication ?Instructions ?Recorded ?Last Taken ?Type NK 01/27/25 Unknown History Allergy/AdvReac Type Severity Reaction Status Date / Time No Known Allergies Allergy Verified 01/27/25 13:49 Family History Grandmother Cancer, Onset Age: 75 Paternal- Kidney Father High cholesterol Surgical History [place] teeth extracted Social History adopted: No household members: spouse and other details: Sister & Fiance housing: house number of children: 1 current occupational status: employed 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 current occupational exposures/hazards: No pets and animals: Yes pets and animals: dog(s) history of recent travel: No sexually active: Yes Smoking Status: Never smoker alcohol intake: current alcohol intake frequency: holidays/special occasions only details: not while substance use type: does not use well-balanced diet: daily or most days caffeine: No eating out: 1-3 times/week during the past year weight has: remained stable what type of physical activity do you participate in: walking frequency: 1-2 times per week duration: 15-30 minutes/day antoine/hindu: Jain seatbelt use: always do you feel safe at home: No additional social history: Dominick- Landsc[employer] Review of Systems (Anesthesia) ROS Narrative System reviewed and no additional complaints, except as documented.
--- NOTE | 2025-01-27 18:40 | PCM.HP.BLA ---
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 current occupational exposures/hazards: No pets and animals: Yes pets and animals: dog(s) history of recent travel: No sexually active: Yes Smoking Status: Never smoker alcohol intake: current alcohol intake frequency: holidays/special occasions only details: not while substance use type: does not use well-balanced diet: daily or most days caffeine: No eating out: 1-3 times/week during the past year weight has: remained stable what type of physical activity do you participate in: walking frequency: 1-2 times per week duration: 15-30 minutes/day antoine/roman catholic: Mandaeism seatbelt use: always do you feel safe at home: No additional social history: 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 Date Name GA/Weeks Outcome Route Bth Weight Gen Labor Lgth Anesthesia Del Locatn Provider FOB 01/17/25 [place] live - full term 8lbs 3oz Male spinal [facility] Virginia Chavez Dominick Delivery Date: 01/17/25 Last Updated by: Makenna Mars ltcs failure to descend 38 sm. Post HPI c/s incision check: Details: MARLO GRANDA is a 24 year old who presents for an incision check. She is status post section with Dr. chavez on 01/17/25 after a long labor. She started noticing redness around her incision yesterday. She denies fevers or chills. There is a foul odor coming from her and she adds that her incision smells bad. Exam Const General: cooperative and not in acute distress Orientation: alert, awake and oriented x3 HENMT Head: normal to inspection Neck Neck: normal visual inspection Resp Effort & Inspection: normal respiratory effort GI Other: incision site is surrounded with erythema and is firm. There is a small separation to the incision and with a sterile q-tip to probe, the incision drained a copious amount of green foul odor material that filled a box full of gauze. while pressing on the skin surrounding the incision, more and more purulent material poured out of another site at the right most lateral edge along the incision Coding Level of Care Code Off vis,est,level 4 Diagnoses Wound infection after surgery T81.49XA Assessment and Plan Assessment and Plan (1) Wound infection after surgery: Status: Acute Orders: Orders Culture, Surgery Deep Wound Today T81.49XA - Infection following a procedure, other surgical site, initial encounter Plan admit to [facility]3 start IV antibiotics, zosyn ferdinand stat CT abdomen/pelvis ordered wound culture sent cbc and cmp stat npo for now discussed with DR. Nguyen and he recommeds opening the entire wound. I will place a wound vac and consult the home wound vac team for management after this weekend.
[2025-01-27] MEDS: 0.9% Normal Saline (1000mL) 600 ML IV (19:09)
[2025-01-27] MEDS: Lidocaine 1% (5 ml sdv) 5 ML Vial 3 ML IV (19:57)
[2025-01-27 19:59] LABS: Prothrombin Time (Protime)PT. 15.6 SECONDS (11.7-14.9)
[2025-01-27 20:00] LABS: Partial Thromboplast Time 34.4 Seconds (24.1-36.2)
[2025-01-27] MEDS: fentaNYL 100 MCG/2 ML Ampul IV (20:44)
--- NOTE | 2025-01-27 20:46 | PCM.POST.ANE ---
Anesthesia: Postop Eval I Current Vital Signs Temperature: 99.5 F Pulse Rate: 108 Blood Pressure: 111/77 Respiratory Rate: 16 Pulse Ox: 94 Oxygen Delivery Method: Room Air Assessment Airway patent: Yes Spontaneous unlabored respirations: Yes Mental status: Awake and Calm nausea: No Vomiting: No Anesthesia Complication: No Fluid Hydration Crystalloid volume administer (ml): 600 Total IV fluid infused: 600 Progress Note Anesthesia document: Postop Eval 1 completed: Yes
--- NOTE | 2025-01-27 20:48 | OP.PCM_ITS ---
Multi Select Codes Urinary/Genital Urinary/Genital CPT Codes: Other Procedure See Report (incision and drainage of large abdominal wound) Operative Report (Standard) Operative Information Date of Procedure: 01/27/25 Pre-Operative Diagnosis: postop wound infection Post-Operative Diagnosis: postop wound infection Surgery/Procedure Performed: incision, drainage, irrigation, and packing of wound earth observations chief scientist: No Type of Anesthesia: General RN Documented Start/Stop Times: Operation Date: 01/27/25 19:20 Case Time Anesthesia Start 01/27/25 19:09 Into Room 01/27/25 19:09 Procedure Start 01/27/25 20:09 Procedure End 01/27/25 20:41 Anesthesia End 01/27/25 20:43 Out of Room 01/27/25 20:43 Procedure Start Time: : Procedure Stop Time: : Select all DRAINS/GRAFTS/IMPLANTS that apply: None Estimated Blood Loss: 5cc Specimen collected: No Description of surgery: The patient is 10 days status post a section. Prior to the procedure the skin surrounding the Pfannenstiel skin incision was erythematous from her umbilicus down to her mons pubis. In the office today a small opening in the midline of the incision was tunneled using a sterile Q-tip and copious amounts of foul odor purulent material expelled. The decision for surgery was made based on CAT scan findings of a 18 cm x 2 cm by 2 cm pocket of fluid collection that was still seen even after the large amount of purulent material that was expressed in the office. Patient was brought to the operating room where general anesthesia was found to be adequate. She was prepped using Betadine and draped in the usual sterile fashion. The Pfannenstiel skin incision was opened using a scalpel. A large copious amount of purulent material was immediately identified and cultured for aerobic anaerobic and fungal organisms. Sterile saline was used to irrigate the wound. Gauze was then used to stop up the water and debride the tissue. There were small areas of capillaries bleeding that indicated healthy tissue. The fascia was found to be intact. Irrisept irrigation was then used and was allowed to settle in the wound space for approximately 5-7 minutes. This was then suction irrigated out. It was then noted that there was a small amount of purulent material coming from below the fascia superior to the fascial incision line. Further investigation with my finger through this small opening showed a large amount of purulent material that was then expressed out. This tissue plane was also irrigated with sterile saline. Intraoperative phone consultation with Dr. Nguyen was made to discuss possibly opening the fascia and he recommended that since the fascia appeared healthy the small opening could be reapproximated with a Monocryl suture. He also recommended to avoid use of the wound VAC at this time. The decision was made to pack the abdomen with Betadine soaked Kerlix. This was then covered with ABD pads and tape. The patient tolerated the procedure well sponge lap and needle counts were correct x 2 she is now being brought to the recovery room in stable condition Surgical Findings: Large subcutaneous abscess with a small tract extending below the fascia. Healthy intact fascia and surrounding tissue otherwise. Complications Complications: No
--- NOTE | 2025-01-27 20:59 | PCM.POSTANE2 ---
Anesthesia Postop Eval I Sum Postop Eval Completion status Anesthesia document: Postop Eval 1 completed: Yes Anesthesia Postop Eval I Summary Anesthesia Postop Eval I Summary: Anesthesia Postop Eval I: Assessment Summary Airway patent Yes 01/27/25 20:49 Spontaneous unlabored Yes 01/27/25 20:49 respirations Mental status Awake,Calm 01/27/25 20:49 nausea No 01/27/25 20:49 Vomiting No 01/27/25 20:49 Anesthesia Postop Eval I: Fluid Summary Crystalloid volume administer 600 01/27/25 20:49 (ml) Colloids volume administered ( ml) Blood Product volume administered (ml) Total IV fluid infused 600 01/27/25 20:49 Anesthesia Postop Eval I: Summary Notes Anesthesia Complication No 01/27/25 20:49 Anesthesia Complication Comment: Post-operative progress note Anesthesia: Postop Eval II Evaluation Mental status: Awake and Calm Pain Level: 1 nausea: No Vomiting: No Complications Anesthesia Complication: No
--- NOTE | 2025-01-27 21:14 | NURSING ---
Back from surgery 2113
[2025-01-28 01:10] VITALS: BP 114/72; PULSE 76; RESP 16; TEMP 36.7; O2SAT 98
[2025-01-28 05:10] VITALS: BP 108/64; PULSE 86; RESP 16; TEMP 36.6; O2SAT 97
[2025-01-28] MEDS: 0.9% Normal Saline (1000mL) 1,000 ML 125 ML IV ×3 (05:18→21:36)
[2025-01-28] MEDS: Piperacil/Tazobactam 3.375 GM in 0.9% Normal Saline (50mL MB+) 50 ML IV ×3 (05:18→21:36)
[2025-01-28 05:19] LABS: Hematocrit 22.8 % (37-47); Hemoglobin 7.3 g/dL (12.0-15.0); Immature Granulocytes Count 0.100 X10^3/uL (0.0-0.0); Mean Corp Hgb Conc 32.0 g/dL (32-36); Mean Corpuscular Volume 88.0 fL (81-99); Mean Platelet Vol. 9.9 fl (6.2-12.0); NRBC Flagged by Analyzer 0 % (0-5); Platelet Count 226 K/mm3 (150-450); RBC Distribution Width CV 15.2 % (11.6-14.6); RBC Distribution Width SD 48.7 fl (35.1-43.9); Red Blood Count 2.59 M/mm3 (4.2-5.4); White Blood Count 16.0 K/mm3 (4.4-11.0)
[2025-01-28 08:00] VITALS: BP 114/79; PULSE 91; RESP 17; TEMP 36.6; O2SAT 99
--- NOTE | 2025-01-28 08:14 | NURSING ---
Pt just up to bathroom and back to bed to pump. small amt of watery pink tinged drainage in toilet from pt. Mike pad was just changed and remains dry. New Mesh panties and the bigger OB mike pads were given to pt. Pt denies that her mike pad has been change more then every 1hr and is aware to let this RN know if it does. Pt reports her pain is Sore three out of 10 but tolerable.
--- NOTE | 2025-01-28 12:08 | CASEMGMT ---
SEVEN VILLA Assessment: Face to Face with pt for initial transition planning/care coordination assessment. SEVEN VILLA introduced self and role at [facility], pt voices understanding and consents to assessment. Pt is A&O x4 and answers all questions appropriately at this time. Pt sitting up in bed holding in no distress. in chair with eyes closed. Care providers, pharmacy, and demographics verified/updated. Admitting Dx: post op c section wound infection Strata Score: 1 PCP:Lucero Parsons Specialists:Kathy Jerome, CLINICAL RN LIAISON Preferred Pharmacy: [facility] Insurance: MMO Prescription Benefit: yes LNOK: Cuate George, mother; Dominick Walker, Living Arrangements: Pt lives with and in a single story home with two steps to enter. Pt reports she is I in ADL/IADLs and denies concerns at home. Transportation: Pt drives self and denies concerns with transportation. DME:Denies HHC/SNF: Denies hx of Pt states no concerns with going home at time of dc. Noted pt may have possible wound vac. Pt states she thinks this may have changed. She is aware that if she needs a wound vac, this would need to be approved by insurance and typically HHC would be set up. Should pt dc home with packing and no wound vac, pt states that her mother and sister could assist her with this. Pt states her sister is a MA. Discussed where pt could obtain wound supplies if this is the case. Pt denies need for HHC if packing only is needed. Pt states no further concerns/needs. CM to follow. Advised pt to ask CM if any further questions/concerns/needs arise, voices understanding. Pt Goal: Home Plan: Home if no wound vac needed. If wound vac needed, will need HHC or C visits. Mazin AMEZCUA CM
--- NOTE | 2025-01-28 13:08 | PN.OBGYN_ITS ---
Subjective Subjective Patient is sitting up in bed she states that she feels better today. Her incision is sore but not as painful as it was prior to the procedure. I explained to her that her white blood cell count is coming down and her hemoglobin is stable. It is time for her wet-to-dry dressing to be changed. I have discussed her case with general surgery and the wound team and both have recommended not applying the wound VAC yet as there is still a chance that the loculated tract that was found during the procedure could walled off and prevent escaping of infection leading to a worse infection. This was discussed with the patient so that she understands the plan of care. Objective Data Objective Data Vital Signs: Vital Signs Temp Pulse Resp BP Pulse Ox O2 Del Method 97.8 F 91 17 114/79 99 Room Air 01/28/25 08:00 01/28/25 08:00 01/28/25 08:00 01/28/25 08:00 01/28/25 08:00 01/28/25 08:00 Oxygen Delivery Method Room Air Weight: 133 lb 15.987 oz Body Mass Index (BMI) 23.7 Intake & Output: Intake and Output for Last 24 Hours 01/26/25 01/27/25 01/28/25 23:59 23:59 23:59 Intake Total 1050 / 1050 1100 / 1100 Output Total 3 / 3 Balance 1047 / 1047 1100 / 1100 Lab / Micro Data 01/28/25 04:54 01/27/25 17:35 Labs: Laboratory Results - last 24 hr 01/27/25 17:35: WBC 19.2 H, RBC 2.73 L, Hgb 7.6 L, Hct 23.9 L, MCV 87.5, MCH 27.8, MCHC 31.8 L, RDW Std Deviation 48.8 H, RDW Coeff of Shahzad 15.1 H, Plt Count 238, MPV 10.1, Immature Gran % (Auto) 0.800, Neut % (Auto) 86.8 H, Lymph % (Auto) 5.0 L, [place] % (Auto) 7.1, Eos % (Auto) 0.1, Baso % (Auto) 0.2, Absolute Neuts (auto) 16.7 H, Absolute Lymphs (auto) 0.96, Nucleated RBC % 0, PT 15.6 H, INR 1.2, APTT 34.4, Sodium 142, Potassium 4.0, Chloride 111 H, Carbon Dioxide 17.9 L, Anion Gap 14, BUN 8, Creatinine 0.56 L, Estim Creat Clear Calc 129.25, Est GFR (MDRD) Non-Af 131, BUN/Creatinine Ratio 14.9, Glucose 75, Calcium 8.5, Total Bilirubin 0.45, AST 15, ALT 10, Alkaline Phosphatase 151 H, Total Protein 6.1, Albumin 2.9 L, Globulin 3.2, Albumin/Globulin Ratio 0.9 01/27/25 18:21: Blood Type O POSITIVE, Antibody Screen NEGATIVE, Crossmatch See Detail 01/28/25 04:54: WBC 16.0 H, RBC 2.59 L, Hgb 7.3 L, Hct 22.8 L, MCV 88.0, MCH 28.2, MCHC 32.0, RDW Std Deviation 48.7 H, RDW Coeff of Shahzad 15.2 H, Plt Count 226, MPV 9.9, Immature Gran % (Auto) 0.600, Neut % (Auto) 86.3 H, Lymph % (Auto) 6.6 L, [place] % (Auto) 6.2, Eos % (Auto) 0.2, Baso % (Auto) 0.1, Absolute Neuts (auto) 13.8 H, Absolute Lymphs (auto) 1.06, Nucleated RBC % 0 Micro: Microbiology 01/27/25 Unknown Wound - Other Wound Culture - Preliminary Gram positive organism Radiography Diagnostic Testing: Radiology Impression Abdomen/Pelvis CT 01/27/25 15:20 IMPRESSION: 1. Status post with air and fluid collection within the ventral wall incision, likely postoperative in etiology and/or developing infection. Surrounding fat stranding with overlying skin thickening, could represent cellulitis. 2. Nonobstructing right renal calculus. Reading Location: [facility] Constitutional Constitutional: Reports fatigue; Denies fever(s), headache(s) or lethargy Cardiovascular Cardiovascular: Denies dizziness, dyspnea, lightheadedness or nausea Gastrointestinal Gastrointestinal: Denies abdominal pain, anorexia or nausea Genitourinary Genitourinary: Denies burning urination or difficulty urinating Neurologic Neurologic: Reports none Psychiatric Psychiatric: Reports none Physical Exam Const alert, oriented x3 and no apparent distress HEENT normocephalic Resp normal respiratory effort Cardio regular rate GI non-distended; Negative for hepatosplenomegaly GI Narrative: Dressing is removed under sterile technique at the bedside. The dressing was removed carefully and all tissue planes appeared clean however the same tract from the procedure yesterday was still oozing purulent material from below the fascia. The wound was irrigated with sterile saline and repacked using iodine soaked Curlex. Extremity normal to inspection Assessment & Plan (1) Wound infection after surgery: (2) Acute blood loss anemia: COMMENT: transfuse 1 unit prbc (3) delivery delivered: COMMENT: [facility] AOD 10 cm pushed 3 1/2 hour OP 38 IOL pree boy [place] PLAN: Plan wound still draining purulent material however white count is dropping and erythema around the incision is markedly improved. official consult to General surgery placed to discuss continued oozing of purulent material Discussed care with Wound nurse. She plans to see her thursday. continue zosyn. plan to re-group and re-exmine patient with Dr. Nguyen at 4 pm Charges/Coding Visit Charges Inpatient E&M: 23414 Subs Hosp L3
[2025-01-28 14:00] VITALS: BP 129/83; PULSE 88; RESP 17; TEMP 36.9; O2SAT 97
--- NOTE | 2025-01-28 14:50 | CT_ITS ---
PROCEDURE: CT ABD/PELVIS W/WO CONTRAST 01/28/2025 REASON FOR EXAM: WOUND INFECTION TECHNIQUE: Procedure Code: [id number] Modality: CT Procedure: CT ABD/PELVIS W/WO CONTRAST Coronal and Sagittal reconstruction series were provided. CONTRAST: Isovue 370 VOLUME: 100 mL One or more dose reduction techniques were used (e.g., Automated exposure control, adjustment of the mA and/or kV according to patient size, use of iterative reconstruction technique. RADIATION DOSE SUMMARY: CTDlvol: 12.2 mGy DLP: 1861.78 mGycm COMPARISON: 01/27/2025 FINDINGS: Lung bases: Mild atelectasis at the posterior left lung base is new from prior exam. Precontrast imaging demonstrates no evidence of acute hemorrhage. The liver, gallbladder, spleen, pancreas, adrenal glands are unremarkable. Stable 0.2 cm radiopaque calculus in upper pole right kidney. Unremarkable left kidney. No hydronephrosis. Symmetric enhancement of both kidneys. Allowing for peristalsis, there is symmetric excretion of contrast into both ureters. Contrast is seen within the urinary bladder on delayed images. Reproductive Organs: Heterogeneous bulky appearance of the uterus is consistent with recent Caesarean section. Small peripherally enhancing fluid collection in the anterior abdominal wall suspicious for small abscess, measuring 7.6 x 1.2 cm in transverse and AP dimensions on series 3, image 88. There is no free air in the abdomen. Bowel: No bowel obstruction. Appendix: Not definitely visualized. Lymph nodes: No suspicious lymph node enlargement. Vasculature: The abdominal aorta and IVC are normal. Peritoneum / Retroperitoneum: There is no ascites. Bones: Normal CT/CT Abd/Pelvis W/WO Contrast IMPRESSION: 1. Suspect small abscess in the anterior abdominal wall, just superior to surgi rolo skin defect. 2. There is no evidence of intra-abdominal abscess or free air. 3. There is no hydronephrosis. Stable nonobstructing right renal calculus. Reading Location: [id number]
[2025-01-28] MEDS: Lidocaine 1% (20 ml mdv) 20 ML Vial INFILT (16:25)
--- NOTE | 2025-01-28 16:45 | EX.PCM.CON.S ---
Assessment & Plan Assessment/Plan (1) Wound infection after surgery: PLAN: Patient 24-year-old female with postoperative abscess following emergent delivery 01/17/2025. She is status post operative incision and drainage procedure yesterday, 01/27/2025. Repeat CT imaging with intravenous contrast following yesterday's procedure showed persistent loculated fluid collection at the superior boundary of patient's I&D site. Upon inspection there was a small draining sinus but I was able to enlarge and then digitally probed a superior abscess cavity that resided on the anterior surface of the rectus bellies. I was able to probe the cavity to its full extent and then packed the area with saline?moistened Kerlix gauze. Will plan to continue twice daily dressing changes and reassess wound tomorrow. Like to alternate packing with Dakin soaked Kerlix and saline soaked Kerlix until patient's infection looks like it is in check and then ultimately transition to negative pressure wound VAC therapy. Agree with IV antibiotic therapy as empirically started by WOOD BLOCK ARTIST. Will continue following wound cultures which presently show polymicrobial growth with both GPC's and GNR's. Calvin Nguyen MD General Surgery Endocrine Surgery Pager: [facility] [address] [place] [address], [address] [place] [address] Office: [phone] HPI Consult Data Date of Consult: 01/28/25 HPI Narrative Reason for Consultation: Post wound infection/soft tissue abscess HPI Narrative: MARLO GRANDA, is a 24 F who presented to WOOD BLOCK ARTIST attention yesterday, 01/27/2025 with complaints of leaking wound after undergoing delivery emergently 01/17/2025. She denies noting any increasing pain or fevers at home and was simply drainage that led her to present. Upon exam WOOD BLOCK ARTIST established at concern for soft tissue abscess and admitted patient to [facility] and posted for emergent operative incision and drainage. I was contacted during the operation to give guidance on the procedure where there was concern for possible fascial disruption and purulence coming from beneath the fascia. Today, during routine dressing change persistent purulence was felt to be emanating from the fascia and I was contacted for formal consultation. I advised CT imaging of the abdomen pelvis with oral and IV contrast. Unfortunately only intravenous contrast was administered, but still radiology was able to identify a loculated fluid collection in the superior portion of patient's wound. I presented at bedside to determine if it was feasible to drain this remaining abscess pocket from patient's postoperative wound. 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 current occupational exposures/hazards: No pets and animals: Yes pets and animals: dog(s) history of recent travel: No sexually active: Yes Smoking Status: Never smoker alcohol intake: current alcohol intake frequency: holidays/special occasions only details: not while substance use type: does not use well-balanced diet: daily or most days caffeine: No eating out: 1-3 times/week during the past year weight has: remained stable what type of physical activity do you participate in: walking frequency: 1-2 times per week duration: 15-30 minutes/day antoine/yazdanism: Judaism seatbelt use: always do you feel safe at home: No additional social history: Dominick- Landscaping/Marine Physical Exam Const alert and oriented x3 Constitutional Narrative: Mild pallor GI GI Narrative: Nondistended, soft, nontender to palpation x 4 quadrants. Open Pfannenstiel incision with exposed subcu. Viable wound base without significant exudate. From the mid superior portion of the wound there was a small amount of light brown purulence draining down into the remaining remaining wound. Lab / Micro Data 01/28/25 04:54 01/27/25 17:35 Labs: Laboratory Results - last 24 hr 01/27/25 17:35: WBC 19.2 H, RBC 2.73 L, Hgb 7.6 L, Hct 23.9 L, MCV 87.5, MCH 27.8, MCHC 31.8 L, RDW Std Deviation 48.8 H, RDW Coeff of Shahzad 15.1 H, Plt Count 238, MPV 10.1, Immature Gran % (Auto) 0.800, Neut % (Auto) 86.8 H, Lymph % (Auto) 5.0 L, [place] % (Auto) 7.1, Eos % (Auto) 0.1, Baso % (Auto) 0.2, Absolute Neuts (auto) 16.7 H, Absolute Lymphs (auto) 0.96, Nucleated RBC % 0, PT 15.6 H, INR 1.2, APTT 34.4, Sodium 142, Potassium 4.0, Chloride 111 H, Carbon Dioxide 17.9 L, Anion Gap 14, BUN 8, Creatinine 0.56 L, Estim Creat Clear Calc 129.25, Est GFR (MDRD) Non-Af 131, BUN/Creatinine Ratio 14.9, Glucose 75, Calcium 8.5, Total Bilirubin 0.45, AST 15, ALT 10, Alkaline Phosphatase 151 H, Total Protein 6.1, Albumin 2.9 L, Globulin 3.2, Albumin/Globulin Ratio 0.9 01/27/25 18:21: Blood Type O POSITIVE, Antibody Screen NEGATIVE, Crossmatch See Detail 01/28/25 04:54: WBC 16.0 H, RBC 2.59 L, Hgb 7.3 L, Hct 22.8 L, MCV 88.0, MCH 28.2, MCHC 32.0, RDW Std Deviation 48.7 H, RDW Coeff of Shahzad 15.2 H, Plt Count 226, MPV 9.9, Immature Gran % (Auto) 0.600, Neut % (Auto) 86.3 H, Lymph % (Auto) 6.6 L, [place] % (Auto) 6.2, Eos % (Auto) 0.2, Baso % (Auto) 0.1, Absolute Neuts (auto) 13.8 H, Absolute Lymphs (auto) 1.06, Nucleated RBC % 0 Micro: Microbiology 01/27/25 Unknown Wound - Other Wound Culture - Preliminary Gram positive organism Imaging Radiology Impression Abdomen/Pelvis CT 01/28/25 14:50 IMPRESSION: 1. Suspect small abscess in the anterior abdominal wall, just superior to surgical skin defect. 2. There is no evidence of intra-abdominal abscess or free air. 3. There is no hydronephrosis. Stable nonobstructing right renal calculus. Reading Location: [facility] Charges/Coding Visit Charges Inpatient E&M: 77492 Init Hosp L2
[2025-01-28 19:43] VITALS: BP 109/70; PULSE 96; RESP 18; TEMP 36.6; O2SAT 98
[2025-01-29 01:44] VITALS: BP 103/70; PULSE 77; RESP 18; TEMP 36.5; O2SAT 97
[2025-01-29] MEDS: Piperacil/Tazobactam 3.375 GM in 0.9% Normal Saline (50mL MB+) 50 ML IV ×2 (05:09→13:59)
[2025-01-29] MEDS: 0.9% Normal Saline (1000mL) 1,000 ML 125 ML IV (05:09)
--- NOTE | 2025-01-29 08:32 | PN.SURG_ITS ---
Subjective Subjective Patient seen and evaluated during a.m. rounds. She is found resting in bed. She denies any significant abdominal pain. Objective Data Objective Data Vital Signs: Vital Signs Temp Pulse Resp BP Pulse Ox O2 Del Method 97.7 F L 77 18 103/70 97 Room Air 01/29/25 01:44 01/29/25 01:44 01/29/25 01:44 01/29/25 01:44 01/29/25 01:44 01/29/25 01:44 Oxygen Delivery Method Room Air Weight: 133 lb 15.987 oz Body Mass Index (BMI) 23.7 Intake & Output: Intake and Output for Last 24 Hours 01/27/25 01/28/25 01/29/25 23:59 23:59 23:59 Intake Total 1050 / 1050 4987.5 / 4987.5 Output Total 3 / 3 Balance 1047 / 1047 4987.5 / 4987.5 Lab / Micro Data 01/29/25 08:25 01/29/25 08:25 Micro: Microbiology 01/27/25 Unknown Wound - Other Wound Culture - Preliminary Gram positive organism Radiography Diagnostic Testing: Radiology Impression Abdomen/Pelvis CT 01/28/25 14:50 IMPRESSION: 1. Suspect small abscess in the anterior abdominal wall, just superior to surgical skin defect. 2. There is no evidence of intra-abdominal abscess or free air. 3. There is no hydronephrosis. Stable nonobstructing right renal calculus. Reading Location: [id number] Physical Exam Const oriented x3 and no apparent distress Constitutional Narrative: Mild pallor Resp normal respiratory effort GI GI Narrative: Nondistended, soft, nontender to palpation x 4 quadrants. Open Pfannenstiel incision with exposed subcu. Viable wound base remains without significant exudate. The superior undermining is unpacked and there is no further ongoing drainage. He areas probed and I did not detect any new loculations. Assessment & Plan Assessment/Plan (1) Wound infection after surgery: PLAN: Patient 24-year-old female with postoperative abscess following emergent delivery 01/17/2025. She is status post operative incision and drainage procedure 01/27/2025. Yesterday, an additional loculated fluid collection was drained at bedside from the superior aspect of patient's wound. During her dressing change this morning there is no further ongoing drainage. Her white blood cell count is normalized. I will plan to repack her wound later this afternoon but have tentatively discussed placing a wound VAC tomorrow with a white sponge over the fascia. This will be contingent on both her clinical exam and other facets of her clinical picture. However, if she remains stable to further improved she could be nearing a position where the remainder of her care could be managed as an outpatient. Appreciate the assistance with social work to determine patient's eligibility both for home health nursing and for wound VAC therapy. Please communicate any updates to surgery as deemed prudent. Ultimate disposition decision will be up to discretion of primary MEDIATION COMMISSIONER service. Calvin Nguyen MD General Surgery Endocrine Surgery Pager: [facility] [address] [place] [address], [address] [place] [id number] Office: [phone] Charges/Coding Visit Charges Inpatient E&M: 19881 Subs Hosp L2
[2025-01-29 08:38] VITALS: BP 121/84; PULSE 85; RESP 17; TEMP 36.7; O2SAT 97
[2025-01-29 08:39] LABS: Hematocrit 23.9 % (37-47); Hemoglobin 7.3 g/dL (12.0-15.0); Immature Granulocytes Count 0.060 X10^3/uL (0.0-0.0); Mean Corp Hgb Conc 30.5 g/dL (32-36); Mean Corpuscular Volume 88.8 fL (81-99); Mean Platelet Vol. 9.6 fl (6.2-12.0); NRBC Flagged by Analyzer 0 % (0-5); Platelet Count 251 K/mm3 (150-450); RBC Distribution Width CV 15.4 % (11.6-14.6); RBC Distribution Width SD 48.8 fl (35.1-43.9); Red Blood Count 2.69 M/mm3 (4.2-5.4); White Blood Count 9.8 K/mm3 (4.4-11.0)
[2025-01-29 09:10] LABS: AST(SGOT) 21 U/L (<=31); Alanine Aminotransfer ALT/SGPT 12 U/L (<=34); Albumin, Serum 2.5 g/dL (3.5-5.0); Alkaline Phosphatase 115 U/L (35-104); Anion Gap 10 (5-15); BUN 6 mg/dL (4-19); BUN/Creat Ratio 10.5 RATIO (10-20); Calcium,Total 8.2 mg/dL (7.6-11.0); Carbon Dioxide 19.2 mmol/L (21.0-32.0); Chloride 113 mmol/L (98-108); Estimated Creatinine Clearance 129.25 ml/min (50-250); Globulin 2.9 g/dL (2.2-4.2); Glucose 80 mg/dL (70-99); Potassium 4.0 mmol/L (3.3-5.1)
[2025-01-29] MEDS: HYDROmorphone 0.5 MG/0.5 ML SYRINGE IV (09:30)
[2025-01-29] MEDS: 0.9% Saline Lock 10 ML Syringe IV (09:34)
[2025-01-29] MEDS: DAKIN'S SOL HALF STRENGTH (=0.25%) TOPICAL ×2 (09:44→20:46)
--- NOTE | 2025-01-29 11:31 | PN.OBGYN_ITS ---
Subjective Subjective patient is laying in bed comfortably. Dr. Nguyen was by earlier today and changed her dressing. He reported that there was no longer and purulent material present and repacked the wound. Objective Data Objective Data Vital Signs: Vital Signs Temp Pulse Resp BP Pulse Ox O2 Del Method 98.1 F 85 17 121/84 H 97 Room Air 01/29/25 08:38 01/29/25 08:38 01/29/25 08:38 01/29/25 08:38 01/29/25 08:38 01/29/25 08:38 Oxygen Delivery Method Room Air Weight: 133 lb 15.987 oz Body Mass Index (BMI) 23.7 Intake & Output: Intake and Output for Last 24 Hours 01/27/25 01/28/25 01/29/25 23:59 23:59 23:59 Intake Total 1050 / 1050 4987.5 / 4987.5 2462.50 / 2462.50 Output Total 3 / 3 Balance 1047 / 1047 4987.5 / 4987.5 2462.50 / 2462.50 Lab / Micro Data 01/29/25 08:25 01/29/25 08:25 Labs: Laboratory Results - last 24 hr 01/29/25 08:25: WBC 9.8, RBC 2.69 L, Hgb 7.3 L, Hct 23.9 L, MCV 88.8, MCH 27.1, MCHC 30.5 L, RDW Std Deviation 48.8 H, RDW Coeff of Shahzad 15.4 H, Plt Count 251, MPV 9.6, Immature Gran % (Auto) 0.600, Neut % (Auto) 82.4 H, Lymph % (Auto) 9.7 L, [place] % (Auto) 6.4, Eos % (Auto) 0.7, Baso % (Auto) 0.2, Absolute Neuts (auto) 8.0 H, Absolute Lymphs (auto) 0.95, Nucleated RBC % 0, Sodium 142, Potassium 4.0, Chloride 113 H, Carbon Dioxide 19.2 L, Anion Gap 10, BUN 6, Creatinine 0.56 L, Estim Creat Clear Calc 129.25, Est GFR (MDRD) Non-Af 131, BUN/Creatinine Ratio 10.5, Glucose 80, Calcium 8.2, Total Bilirubin 0.15, AST 21, ALT 12, A lkaline Phosphatase 115 H, Total Protein 5.4 L, Albumin 2.5 L, Globulin 2.9, Albumin/Globulin Ratio 0.9 Micro: Microbiology 01/27/25 Unknown Wound - Other Wound Culture - Preliminary Gram positive organism Radiography Diagnostic Testing: Radiology Impression Abdomen/Pelvis CT 01/28/25 14:50 IMPRESSION: 1. Suspect small abscess in the anterior abdominal wall, just superior to surgical skin defect. 2. There is no evidence of intra-abdominal abscess or free air. 3. There is no hydronephrosis. Stable nonobstructing right renal calculus. Reading Location: [id number] ROS ROS Narrative System reviewed and no additional complaints, except as documented. Constitutional Constitutional: Reports fatigue; Denies fever(s), headache(s) or lethargy Cardiovascular Cardiovascular: Denies dizziness, dyspnea, lightheadedness or nausea Gastrointestinal Gastrointestinal: Denies abdominal pain, anorexia or nausea Genitourinary Genitourinary: Denies burning urination or difficulty urinating Neurologic Neurologic: Reports none Psychiatric Psychiatric: Reports none Physical Exam Const alert, oriented x3 and no apparent distress HEENT normocephalic Resp normal respiratory effort Cardio regular rate GI non-distended; Negative for hepatosplenomegaly Extremity normal to inspection Assessment & Plan (1) Wound infection after surgery: (2) Acute blood loss anemia: COMMENT: transfuse 1 unit prbc (3) delivery delivered: COMMENT: LTCS AOD 10 cm pushed 3 1/2 hour OP 38 IOL pree boy [place] PLAN: Plan white count down and hg stable. will add iron stop IV fluids will bridge to PO abx soon wound care nurse to see patient tomorrow plan to change dressing again later this afternoon. Charges/Coding Visit Charges Inpatient E&M: 46695 Subs Hosp L2
[2025-01-29] MEDS: Ensure Plus High Protein 120 ML LIQUID PO ×2 (12:36→17:46)
[2025-01-29 16:56] VITALS: BP 121/78; PULSE 95; RESP 18; TEMP 37.1; O2SAT 98
--- NOTE | 2025-01-29 17:01 | PCM.PN.BLA ---
Progress Note dressing change note: the packing was removed after she received 4 mg morphine. The base of the wound was clean and dry without bleeding or purulent material. A sterile Kerlix gauze, damp with sterile saline, was repacked into the deep and superficial spaces then covered with abd and tape. plan to stop iv abx plan for wound vac tomorrow start po antibiotics
[2025-01-29 20:39] VITALS: BP 117/73; PULSE 97; RESP 18; TEMP 36.8; O2SAT 96
[2025-01-30 04:45] VITALS: BP 118/80; PULSE 83; RESP 18; TEMP 36.8; O2SAT 98
[2025-01-30 08:11] VITALS: BP 123/83; PULSE 79; RESP 16; TEMP 36.7; O2SAT 97
[2025-01-30] MEDS: DAKIN'S SOL HALF STRENGTH (=0.25%) TOPICAL (08:20)
[2025-01-30] MEDS: Ensure Plus High Protein 120 ML LIQUID PO ×3 (08:23→16:26)
--- NOTE | 2025-01-30 08:23 | PN.SURG_ITS ---
Subjective Subjective Patient evaluated resting comfortably in bed. She notes abdominal soreness. She denies any other concerns. Objective Data Objective Data Vital Signs: Vital Signs Temp Pulse Resp BP Pulse Ox O2 Del Method 98.1 F 79 16 123/83 H 97 Room Air 01/30/25 08:11 01/30/25 08:11 01/30/25 08:11 01/30/25 08:11 01/30/25 08:11 01/30/25 08:13 Oxygen Delivery Method Room Air Weight: 133 lb 15.987 oz Body Mass Index (BMI) 23.7 Intake & Output: Intake and Output for Last 24 Hours 01/28/25 01/29/25 01/30/25 23:59 23:59 23:59 Intake Total 4987.5 / 4987.5 3258.96 / 3258.96 1400 / 1400 Balance 4987.5 / 4987.5 3258.96 / 3258.96 1400 / 1400 Lab / Micro Data 01/29/25 08:25 01/29/25 08:25 Labs: Laboratory Results - last 24 hr 01/29/25 08:25: WBC 9.8, RBC 2.69 L, Hgb 7.3 L, Hct 23.9 L, MCV 88.8, MCH 27.1, MCHC 30.5 L, RDW Std Deviation 48.8 H, RDW Coeff of Shahzad 15.4 H, Plt Count 251, MPV 9.6, Immature Gran % (Auto) 0.600, Neut % (Auto) 82.4 H, Lymph % (Auto) 9.7 L, [place] % (Auto) 6.4, Eos % (Auto) 0.7, Baso % (Auto) 0.2, Absolute Neuts (auto) 8.0 H, Absolute Lymphs (auto) 0.95, Nucleated RBC % 0, Sodium 142, Potassium 4.0, Chloride 113 H, Carbon Dioxide 19.2 L, Anion Gap 10, BUN 6, Creatinine 0.56 L, Estim Creat Clear Calc 129.25, Est GFR (MDRD) Non-Af 131, BUN/Creatinine Ratio 10.5, Glucose 80, Calcium 8.2, Total Bilirubin 0.15, AST 21, ALT 12, A lkaline Phosphatase 115 H, Total Protein 5.4 L, Albumin 2.5 L, Globulin 2.9, Albumin/Globulin Ratio 0.9 Micro: Microbiology 01/27/25 Unknown Wound - Other Gram Stain - Final 01/27/25 Unknown Wound - Other Wound Culture - Preliminary Coag Negative Staph Mixed Gram Positive Organisms Physical Exam GI GI Narrative: Abdomen- soft, tenderness near open wound and when removing the packing. Wound base with healthy granulation tissue. Wound tunnels right superior lateral. Measurements to be taken later today. Assessment & Plan Assessment/Plan (1) Wound infection after surgery: PLAN: I am following this patient in conjunction with Dr. Nguyen. He has independently evaluated this patient. Culture shows gram positive organism, Strep mitis/oralis, Staph epidermidis Plan for wound vac placement later today pending insurance approval Plan for patient to have home health 2 days per week and follow-up with our office 1 day a week We will continue to monitor this patient Charges/Coding Visit Charges Inpatient E&M: 48628 Subs Hosp L2
--- NOTE | 2025-01-30 10:02 | CASEMGMT ---
Addendum entered by Kaitlin Lopez 01/30/25 15:55: [place] into pt room, pt is aware that [facility] has accepted her for HHC. She states she is aware that she will not dc today. Pt denies further needs. Addendum entered by Kaitlin Lopez 01/30/25 15:36: Received signed order back, emailed to [facility] at this time. Addendum entered by Kaitlin Lopez 01/30/25 15:21: Completed wound vac order and faxed to Dr. Nguyen. Addendum entered by Kaitlin Lopez 01/30/25 12:42: [facility] has accepted pt for care. Spoke with Dr. Nguyen and Padma FRANCO who states pt likely will stay until tomorrow. Addendum entered by Kaitlin Lopez 01/30/25 12:11: [place] into pt room, pt has chosen [facility] and [facility] for HH choices. Referral sent to [facility] at this time via [facility]. Addendum entered by Kaitlin Lopez 01/30/25 11:21: [place] into pt room, pt in chair at bedside and pt changing the baby's diaper. Presented pt with a list of ED[employer] created by dc regional administrative assistant. Pt aware that would like her to come to the office weekly for vac change and HHC could change the vac the other two times per week. Pt to review list and [place] to check back. Addendum entered by Kaitlin Lopez 01/30/25 11:01: TC to O, spoke with Gil Gordon who states pt does not have to be homebound to have HHC. Requested dc regional administrative assistant create list for HHC. Original Note: Spoke with Padma FRANCO who states pt will need a wound vac and would like this to be completed today if possible. TC to Maribel Hunt at [facility], she requests info be emailed to her. Sent face sheet, progress notes and op report via email at this time.
--- NOTE | 2025-01-30 11:10 | CASEMGMT ---
Discharge Planning A list of HH providers including quality and resource use data and consistent with the patient's preferred geographic region, medical needs, and insurance network was created in [employer].? This list was provided to the RN DAISY. Kassie Nails, Discharge Planning Asst.
[2025-01-30] MEDS: 0.9% Saline Lock 10 ML Syringe IV (11:39)
[2025-01-30 11:42] VITALS: BP 120/79; PULSE 91; O2SAT 97
--- NOTE | 2025-01-30 14:20 | PN.OBGYN_ITS ---
Subjective Subjective late entry note: patient is sitting up in bed with the baby. States is feeling well. General surgery has been by today and does not believe that she will go home until tomorrow when insurance authorizes the wound vac. Objective Data Objective Data Vital Signs: Vital Signs Temp Pulse Resp BP Pulse Ox O2 Del Method 98.1 F 91 16 120/79 97 Room Air 01/30/25 08:11 01/30/25 11:42 01/30/25 08:11 01/30/25 11:42 01/30/25 11:42 01/30/25 11:42 Oxygen Delivery Method Room Air Weight: 133 lb 15.987 oz Body Mass Index (BMI) 23.7 Intake & Output: Intake and Output for Last 24 Hours 01/28/25 01/29/25 01/30/25 23:59 23:59 23:59 Intake Total 4987.5 / 4987.5 3258.96 / 3258.96 1700 / 1700 Balance 4987.5 / 4987.5 3258.96 / 3258.96 1700 / 1700 Lab / Micro Data 01/29/25 08:25 01/29/25 08:25 Labs: Laboratory Results - last 24 hr 01/29/25 08:25: WBC 9.8, RBC 2.69 L, Hgb 7.3 L, Hct 23.9 L, MCV 88.8, MCH 27.1, MCHC 30.5 L, RDW Std Deviation 48.8 H, RDW Coeff of Shahzad 15.4 H, Plt Count 251, MPV 9.6, Immature Gran % (Auto) 0.600, Neut % (Auto) 82.4 H, Lymph % (Auto) 9.7 L, [place] % (Auto) 6.4, Eos % (Auto) 0.7, Baso % (Auto) 0.2, Absolute Neuts (auto) 8.0 H, Absolute Lymphs (auto) 0.95, Nucleated RBC % 0, Sodium 142, Potassium 4.0, Chloride 113 H, Carbon Dioxide 19.2 L, Anion Gap 10, BUN 6, Creatinine 0.56 L, Estim Creat Clear Calc 129.25, Est GFR (MDRD) Non-Af 131, BUN/Creatinine Ratio 10.5, Glucose 80, Calcium 8.2, Total Bilirubin 0.15, AST 21, ALT 12, A lkaline Phosphatase 115 H, Total Protein 5.4 L, Albumin 2.5 L, Globulin 2.9, Albumin/Globulin Ratio 0.9 Micro: Microbiology 01/27/25 Unknown Wound - Other Gram Stain - Final 01/27/25 Unknown Wound - Other Wound Culture - Preliminary Staphylococcus epidermidis Gram positive tello Gram variable tello 01/27/25 Unknown Wound - Other Anaerobic Culture - Preliminary Checking for anaerobes, further studies to follow. Radiography Diagnostic Testing: Radiology Impression Abdomen/Pelvis CT 01/28/25 14:50 IMPRESSION: 1. Suspect small abscess in the anterior abdominal wall, just superior to surgical skin defect. 2. There is no evidence of intra-abdominal abscess or free air. 3. There is no hydronephrosis. Stable nonobstructing right renal calculus. Reading Location: [id number] ROS ROS Narrative System reviewed and no additional complaints, except as documented. Constitutional Constitutional: Reports fatigue; Denies fever(s), headache(s) or lethargy Cardiovascular Cardiovascular: Denies dizziness, dyspnea, lightheadedness or nausea Gastrointestinal Gastrointestinal: Denies abdominal pain, anorexia or nausea Genitourinary Genitourinary: Denies burning urination or difficulty urinating Neurologic Neurologic: Reports none Psychiatric Psychiatric: Reports none Physical Exam Const alert, oriented x3 and no apparent distress HEENT normocephalic Resp normal respiratory effort Cardio regular rate GI non-distended; Negative for hepatosplenomegaly GI Narrative: dressing clean and intact. Extremity normal to inspection Assessment & Plan (1) Wound infection after surgery: (2) Acute blood loss anemia: COMMENT: transfuse 1 unit prbc (3) delivery delivered: COMMENT: LTCS AOD 10 cm pushed 3 1/2 hour OP 38 IOL pree boy [place] PLAN: Plan white count down and hg stable. will add iron stop IV fluids and IV abx bridge to PO abx soon augmentin and doxy per culture sensitivities. wound care nurse to see patient tomorrow Greatly appreciate general surgery involvement and expertise. Charges/Coding Visit Charges Inpatient E&M: 34740 Subs Hosp L2
[2025-01-30 16:28] VITALS: BP 120/76; PULSE 83; RESP 16; TEMP 36.7; O2SAT 98
[2025-01-30 21:01] VITALS: BP 120/92; PULSE 83; RESP 18; TEMP 36.4; O2SAT 98
[2025-01-31 04:00] VITALS: BP 111/71; PULSE 67; RESP 16; TEMP 36.7; O2SAT 98
--- NOTE | 2025-01-31 06:29 | NURSING ---
dressings intact, no drainage noted.
--- NOTE | 2025-01-31 07:34 | PCM.PN.SRG ---
Subjective Subjective Patient doing well with no complaints Objective Data Objective Data Vital Signs: Vital Signs Temp Pulse Resp BP Pulse Ox O2 Del Method 98.0 F 67 16 111/71 98 Room Air 01/31/25 04:00 01/31/25 04:00 01/31/25 04:00 01/31/25 04:00 01/31/25 04:00 01/31/25 04:00 Oxygen Delivery Method Room Air Weight: 133 lb 15.987 oz Body Mass Index (BMI) 23.7 Intake & Output: Intake and Output for Last 24 Hours 01/29/25 01/30/25 01/31/25 23:59 23:59 23:59 Intake Total 3258.96 / 3258.96 2450 / 2450 Balance 3258.96 / 3258.96 2450 / 2450 Lab / Micro Data 01/29/25 08:25 01/29/25 08:25 Micro: Microbiology 01/27/25 Unknown Wound - Other Gram Stain - Final 01/27/25 Unknown Wound - Other Wound Culture - Preliminary Staphylococcus epidermidis Gram positive tello Gram variable tello 01/27/25 Unknown Wound - Other Anaerobic Culture - Preliminary Checking for anaerobes, further studies to follow. Physical Exam Const oriented x3 and no apparent distress Resp normal respiratory effort GI soft to palpation and non-tender Assessment & Plan Assessment/Plan (1) Wound infection after surgery: PLAN: Patient is getting a wound VAC today. Possible DC later today per LEASE OUT WORKER Lance Lassiter MD Pager: [facility] [address] [place] [address], [address] [place] [address] Office:
[2025-01-31] MEDS: 0.9% Saline Lock 10 ML Syringe IV (08:24)
[2025-01-31 08:27] VITALS: BP 125/78; PULSE 72; RESP 16; TEMP 36.6; O2SAT 99
--- NOTE | 2025-01-31 08:54 | PCM.PN.OB ---
Subjective Subjective patient comfortable with pain meds, no nausea vomiting, getting wound vac now. Objective Data Objective Data Vital Signs: Vital Signs Temp Pulse Resp BP Pulse Ox O2 Del Method 97.8 F 72 16 125/78 H 99 Room Air 01/31/25 08:27 01/31/25 08:27 01/31/25 08:27 01/31/25 08:27 01/31/25 08:27 01/31/25 08:27 Oxygen Delivery Method Room Air Weight: 133 lb 15.987 oz Body Mass Index (BMI) 23.7 Intake & Output: Intake and Output for Last 24 Hours 01/29/25 01/30/25 01/31/25 23:59 23:59 23:59 Intake Total 3258.96 / 3258.96 2450 / 2450 Balance 3258.96 / 3258.96 2450 / 2450 Lab / Micro Data 01/29/25 08:25 01/29/25 08:25 Labs: Laboratory Results - last 24 hr 01/29/25 08:25: WBC 9.8, RBC 2.69 L, Hgb 7.3 L, Hct 23.9 L, MCV 88.8, MCH 27.1, MCHC 30.5 L, RDW Std Deviation 48.8 H, RDW Coeff of Shahzad 15.4 H, Plt Count 251, MPV 9.6, Immature Gran % (Auto) 0.600, Neut % (Auto) 82.4 H, Lymph % (Auto) 9.7 L, [place] % (Auto) 6.4, Eos % (Auto) 0.7, Baso % (Auto) 0.2, Absolute Neuts (auto) 8.0 H, Absolute Lymphs (auto) 0.95, Nucleated RBC % 0, Sodium 142, Potassium 4.0, Chloride 113 H, Carbon Dioxide 19.2 L, Anion Gap 10, BUN 6, Creatinine 0.56 L, Estim Creat Clear Calc 129.25, Est GFR (MDRD) Non-Af 131, BUN/Creatinine Ratio 10.5, Glucose 80, Calcium 8.2, Total Bilirubin 0.15, AST 21, ALT 12, Alkaline Phosphatase 115 H, Total Protein 5.4 L, Albumin 2.5 L, Globulin 2.9, Albumin/Globulin Ratio 0.9 Micro: Microbiology 01/27/25 Unknown Wound - Other Gram Stain - Final 01/27/25 Unknown Wound - Other Wound Culture - Preliminary Staphylococcus epidermidis Gram positive tello Gram variable tello 01/27/25 Unknown Wound - Other Anaerobic Culture - Preliminary Checking for anaerobes, further studies to follow. Radiography Diagnostic Testing: Radiology Impression Abdomen/Pelvis CT 01/28/25 14:50 IMPRESSION: 1. Suspect small abscess in the anterior abdominal wall, just superior to surgical skin defect. 2. There is no evidence of intra-abdominal abscess or free air. 3. There is no hydronephrosis. Stable nonobstructing right renal calculus. Reading Location: [facility] ROS Narrative System reviewed and no additional complaints, except as documented. Constitutional Constitutional: Reports fatigue; Denies fever(s), headache(s) or lethargy Cardiovascular Cardiovascular: Denies dizziness, dyspnea, lightheadedness or nausea Gastrointestinal Gastrointestinal: Denies abdominal pain, anorexia or nausea Genitourinary Genitourinary: Denies burning urination or difficulty urinating Neurologic Neurologic: Reports none Psychiatric Psychiatric: Reports none Physical Exam Const alert, oriented x3 and no apparent distress HEENT normocephalic Resp normal respiratory effort Cardio regular rate GI non-distended; Negative for hepatosplenomegaly GI Narrative: wound open and being prepped for vac Extremity normal to inspection Assessment & Plan (1) Wound infection after surgery: COMMENT: wound vac being applied (2) Acute blood loss anemia: COMMENT: transfuse 1 unit prbc (3) delivery delivered: COMMENT: SM LTCS AOD 10 cm pushed 3 1/2 hour OP 38 IOL pree boy [place] PLAN: Plan oral iron scds bridge to PO abx soon augmentin and doxy per culture sensitivities. wound care nurse applying vac anticipate discharge this afternoon Charges/Coding Visit Charges Inpatient E&M: 72088 Subs Hosp L2
--- NOTE | 2025-01-31 09:15 | WOUNDNOTE ---
wound photo: lower abdomen
--- NOTE | 2025-01-31 09:22 | CASEMGMT ---
Addendum entered by Kaitlin Lopez 01/31/25 15:15: Spoke with wound nurse, pt to be sent home with Prevena wound vac and KCI vac will be mailed to her. Spoke with [facility] Yesy, she is aware the first dressing will need changed on Thursday. DC Summary sent to [facility] via [facility] at this time. Original Note: Emailed Maribel at [facility] the updated order. Attached wound vac order to [facility] in [facility] and notified that plan for pt to dc today. Also made aware that per surgery, pt can have wound vac changed on Thursday to get on a M/W/ schedule.
[2025-01-31] MEDS: Ensure Plus High Protein 120 ML LIQUID PO (11:17)
--- NOTE | 2025-01-31 15:05 | DS.PCM_ITS ---
Providers Date of Admission: 01/27/25 Primary Care Physician: Lucero Parsons, JAX-C Consultations 01/27/25 21:06 Consult: Onc/Wound/head control clerk Routine Comment: Reason for Consult:: application/continuation of wound vac Comments:: outpatient management needed 01/28/25 14:16 Consult: General Surgery Routine Consulting Provider: Calvin Nguyen Reason for Consult: wound abscess EMERGENT Consult: No MD Notified: Yes Date Notified: 01/28/25 Time Notified: 14:17 Method of Notification: Verbal Reason For Visit: POST OP C SECTION WOUND INFECTION Diagnosis Discharge Diagnosis (1) Wound infection after surgery: Status: Acute Code(s): T81.49XA - Infection following a procedure, other surgical site, initial encounter Plan white count down and hg stable. will add iron stop IV fluids and IV abx bridge to PO abx soon augmentin and doxy per culture sensitivities. wound care nurse to see patient tomorrow Greatly appreciate general surgery involvement and expertise. Medications at Discharge Home Medications amoxicillin 875 mg-potassium clavulanate 125 mg tablet 1 tab PO BID #20 tabs 01/29/25 ferrous gluconate 324 mg (37.5 mg iron) tablet 324 mg PO DAILY #90 tabs 01/29/25 doxycycline hyclate 100 mg capsule 100 mg PO BID #10 caps 01/30/25 Hospital Course Operations - (Incision and drainage of deep subcutaneous wound) Summary of Care Provided Minutes Spent on Discharge: 25 Hospital Course: The patient was admitted to [facility] on 01/27/2025 for a wound debridement 10 days after a section. He was started on IV antibiotics. She was taken to the operating room on the evening of 1009 and a large amount of purulent material was evacuated from the wound and irrigated. This was packed with a wet-to-dry dressing. The next morning the dressing was changed and white blood cell counts were found to be decreasing hemoglobin was also stable. Twice a day from through the wound was redressed with a wet-to-dry dressing. On the patient was fitted for a wound VAC. IV antibiotics were discontinued a day prior and she was started on doxycycline and Augmentin. She is now being discharged to home with doxycycline and Augmentin and a disposable wound VAC. The wound VAC team will be visiting her home and she will eventually be placed on a portable device. Physical Exam Const alert, oriented x3 and no apparent distress HEENT normocephalic Resp normal respiratory effort Cardio regular rate GI non-distended; Negative for hepatosplenomegaly GI Narrative: dressing clean and intact. Extremity normal to inspection Weight / BMI Weight Weight: 133 lb 15.987 oz Body Mass Index (BMI) 23.7 ABG / Lab / Microbiology Data 01/29/25 08:25 01/29/25 08:25 Laboratory: Laboratory Results - last 24 hr 01/27/25 18:21: Crossmatch See Detail Microbiology: Microbiology 01/27/25 Unknown Wound - Other Gram Stain - Final 01/27/25 Unknown Wound - Other Wound Culture - Preliminary Staphylococcus epidermidis Gram positive tello Gram variable tello 01/27/25 Unknown Wound - Other Anaerobic Culture - Preliminary Checking for anaerobes, further studies to follow. D/C Instructions Discharge Activity: May Shower May resume sexual activity in: 6-8 weeks Weight Bearing Status: Weight bearing as tolerated Lifting Restricted to (Lbs): 10 Call your doctor if your incision/area has: Sudden Increased Bleeding, Increased Pain/ Swelling, Increased Redness, Foul Smelling Discharge and Swelling at the incision site Call your doctor if you observe: Fever of 101 or Higher, Using more than 1 pad per hour, Shortness of breath, Dizziness, Chest pain, Calf discomfort and Uncontrolled pain Change Dressing in: leave in place till F/U Cleanse incision/area with: Keep Dressing Clean & Dry DC O2, CPAP, BIPAP Needs Home O2 Discharge instructions: No DC home with Oxygen: No Please Follow Up With: Shelbie Navarro DO When: 2 weeks Meaningful Use Info Meaningful Use Meaningful Use Diagnoses (Choose all that apply): None applicable VTE Anticoag overlap given w/in hospital stay or rx'd at dc?: No Reason overlap not ordered, prescribed, or given for 5 days: Procedure Not Indicated Discharge Plan Admission Admit Date/Time: 01/27/25 15:11 Primary Reason for Your Visit: incision and drainage of wound Attending Provider: Shelbie Navarro Primary Care Provider: Lucero Parsons Consulting Providers: Calvin Nguyen Instructions Additional Instructions / Restrictions: Home health to change wound vac on Mondays and Fridays each week Patient to come to our office on Wednesdays for wound vac change Likely reapproximation in approximately [address] Nguyen Recommend pre-medicating prior to wound vac changes typically 1/2 hour to an hour prior Bring wound vac supplies to each appointment with our office First follow-up is on Thursday, 02/08 at 0930 AM Discharge Orders/Prescriptions Prescriptions: New amoxicillin-pot clavulanate 875-125 mg tablet 1 tab PO BID Qty: 20 0RF ferrous gluconate 324 mg (37.5 mg iron) tablet 324 mg PO DAILY Qty: 90 1RF No Action doxycycline hyclate 100 mg capsule 100 mg PO BID Qty: 10 0RF Referrals / Follow Up: Virginia Chavez MD [Med Staff - Active Staff, Obstetrics-Gynecology (OBGYN)] - 02/08/25 10:30 am Lucero Parsons [employer]-C [Primary Care Provider, Medical] Padma Hayes PA-C [Med Staff - Adv Practice Prof, Surgery] - 02/08/25 9:30 am Disposition Disposition (needs filled in before D/C Order can be placed): Home, Self Care Charges/Coding Visit Charges Inpatient E&M: 36735 Disch Hosp
[2025-01-31 15:10] VITALS: BP 116/76; PULSE 91; RESP 16; TEMP 36.9; O2SAT 98
--- NOTE | 2025-01-31 15:49 | WOUNDNOTE ---
Had talked with Maribel from [facility] who stated the wound VAC would most likely not be approved until tomorrow. states the best option if patient really wanted to go home was to switch patient to a Prevena VAC and then they could ship the home VAC to the patient's home. home health will then ion exchange operator to the home VAC with the next dressing change. pt very appreciative and wanting to go home. discussed with Dr Clemente and SALVADOR Rouse. both are in agreement with this plan. Pt switched over to the Prevena at this time. reviewed how it works and how it gets charged. sent booklet home with patient as well. no further questions voiced at this time.
== END 2025-01-31 16:00 | disposition home health service (06) | DRG 776 ==
PROVIDERS: Anesthesiology; Admitting Provider Obstetrics & Gynecology; PCP Nurse Practitioner Family; Referring Provider Obstetrics & Gynecology; Visit Provider Obstetrics & Gynecology
PROC: 0UT90ZZ Resection of Uterus, Open Approach (ICD-10-PCS; CPT 58150; principal; 2025-01-27 19:00)
DX: O86.01 Infection of obstetric surgical wound, superficial incisional site (principal); L02.211 Cutaneous abscess of abdominal wall; D62 Acute posthemorrhagic anemia; O90.81 Anemia of the puerperium; O99.72 Diseases of the skin and subcutaneous tissue complicating childbirth
CPT/HCPCS: 36415; 74176; 74178; 80053; 85025; 85610; 85730; 86850; 86900; 86901; 87015; 87070; 87075; 87077; 87102; 87116; 87186; 87205; 87206; Q9967; A4216; J2405

== ENCOUNTER → 2025-01-27 | Outpatient (CLI) | payer OTHER, BC, SELFPAY | END | disposition home or self-care (01) | LOC: LABSPEC 14:35 | PROVIDERS: Visit Provider Obstetrics & Gynecology | DX: T81.49XA Infection following a procedure, other surgical site, initial encounter (principal) | CPT/HCPCS: 87070; 87075; 87077; 87186; 87205 ==

== ENCOUNTER → 2025-02-28 | Outpatient (CLI) | payer OTHER, BC, SELFPAY ==
[2025-02-28 16:54] LABS: Hematocrit 36.6 % (37-47); Hemoglobin 11.5 g/dL (12.0-15.0); Immature Granulocytes Count 0.010 X10^3/uL (0.0-0.0); Mean Corp Hgb Conc 31.4 g/dL (32-36); Mean Corpuscular Volume 85.9 fL (81-99); Mean Platelet Vol. 10.0 fl (6.2-12.0); NRBC Flagged by Analyzer 0 % (0-5); Platelet Count 303 K/mm3 (150-450); RBC Distribution Width CV 15.0 % (11.6-14.6); RBC Distribution Width SD 47.4 fl (35.1-43.9); Red Blood Count 4.26 M/mm3 (4.2-5.4); White Blood Count 5.8 K/mm3 (4.4-11.0)
== END | disposition home or self-care (01) ==
LOC: BWCLAB 14:49
PROVIDERS: Obstetrics & Gynecology; PCP Nurse Practitioner Family; Visit Provider Nurse Practitioner Women's Health
DX: T81.49XA Infection following a procedure, other surgical site, initial encounter (principal)
CPT/HCPCS: 36415; 85025